=== PATIENT | female | born 1930 | race Caucasian/White ===

== ENCOUNTER → 2016-06-30 | Outpatient (CLI) | payer MEDICARE, OTHER ==
[~2016-06-30] MED LIST: ASPI-892 PO; Aspirin PO; CALC-656 PO; CHOL10003 PO; CLPD75T PO; ENAL1TAB19 PO; ENAL20TA PO; FLUTICASONE; MULT1TAB12 PO; NIAC1CAP PO; NITR100C3 PO; OMEG1CAP74 PO; PRAV10TA PO; [UNRECOGNIZED DRUG - CODE] PO; reclast IV
--- NOTE | 2016-07-03 07:23 | ECHOCARDIOGRAPHY REPORT ---
PROCEDURE PHYSICIAN: ALMITA ESQUEDA DATE OF PROCEDURE: 06/30/2016 TWO DIMENSIONAL ECHOCARDIOGRAM REPORT PRIMARY PHYSICIAN: Dr. Georgia Jackson OTHER PHYSICIAN: REFERRING PHYSICIAN: ORDERING PHYSICIAN: ATTENDING PHYSICIAN: Dr. Doyle Esqueda FAMILY PHYSICIAN: READING PHYSICIAN: INDICATION FOR THE PROCEDURE: Shortness of breath. MEASUREMENTS DERIVED VALUES LV DIAMETER (LAX) NORMALS NORMALS Diastolic (3.6-5.2) Eject. Fract. (60%+/-6%) Systolic (2.3-3.9) Diastolic Vol. % Shortening (0.22-0.42) Systolic Vol. Aortic Root IVS THICKNESS Diastolic (0.6-1.1) LVPW THICKNESS Diastolic (0.6-1.1) LA DIAMETER Systolic (2.1-3.7) FINDINGS: 1. Sinus rhythm. 2. The left atrium is normal. 3. Aortic root is normal. 4. Normal LV systolic function with an EF of 55 to 60%. There is mild concentric LVH with diastolic intraventricular septal diameter of 1.1 cm. 5. There is no wall motion abnormalities. 6. There is possible right ventricular hypertrophy. 7. Mild diastolic dysfunction is present. 8. There is no pericardial effusion. 9. IVC diameter is 1 cm. VALVULAR STRUCTURE OF THE HEART: Mild tricuspid regurgitation. RVSP is significantly raised to 62 mmHg. Mild mitral regurgitation, trace pulmonic regurgitation. There is mild aortic valve sclerosis with no significant stenosis or regurgitation. CONCLUSION: 1. LV size and function is normal. LV EF is 55 to 60%. 2. Mild concentric LVH is noted. 3. Possible right ventricular hypertrophy is noted. 4. At least moderate pulmonary hypertension is noted with RVSP of 62 mmHg. 5. No significant valvular heart. 6. Mild diastolic dysfunction is present. Job ID: [id number] Dictated Date: 07/02/2016 22:37:58 Business Reporter Date: 07/03/2016 07:19:22 / hiram
== END ==
LOC: CARD 12:44
PROVIDERS: ATTEND Internal Medicine Interventional Cardiology
DX: R26.81 Unsteadiness on feet (principal); R06.02 Shortness of breath
CPT/HCPCS: 93306

== ENCOUNTER → 2018-05-11 | Outpatient (CLI) | payer MEDICARE, OTHER ==
[2018-05-11 12:45] LABS: BASOPHILS % (AUTO) 1 % (0-10); EOSINOPHILS # (AUTO) 0.2 10^3/uL (0.0-0.3); EOSINOPHILS % (AUTO) 4 % (0-10); HEMATOCRIT 44 % (35-52); HEMOGLOBIN 13.6 G/DL (11.5-16.0); LYMPHOCYTES # (AUTO) 1.1 X 10^3 (1.0-4.0); LYMPHOCYTES % (AUTO) 23 % (12-44); MEAN CORPUSCULAR HEMOGLOBIN 29 PG (25-34); MEAN CORPUSCULAR HGB CONC 31 G/DL (32-36); MEAN CORPUSCULAR VOLUME 95 FL (80-99); MEAN PLATELET VOLUME 8.6 FL (7.4-10.4); MONOCYTES # (AUTO) 0.3 X 10^3 (0.0-1.0); MONOCYTES % (AUTO) 7 % (0-12); NEUTROPHILS # (AUTO) 3.3 X 10^3 (1.8-7.8); NEUTROPHILS % (AUTO) 66 % (42-75); PLATELET COUNT 248 10^3/uL (130-400); RED BLOOD COUNT 4.64 10^6/uL (4.35-5.85); RED CELL DISTRIBUTION WIDTH 14.2 % (10.0-14.5); WHITE BLOOD COUNT 4.9 10^3/uL (4.3-11.0)
--- NOTE | 2018-05-11 13:00 | Diagnostic Imaging Report ---
PROCEDURE: CT head without contrast. TECHNIQUE: Multiple contiguous axial images were obtained through the brain without the use of intravenous contrast. INDICATION: Fall striking the forehead. Study compared 04/14/2008. 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 A generalized cortical volume loss showed a mild progression. No calvarial fracture deformity and no intracerebral hemorrhage. No edema, mass or mass effect. Orbits, sinuses and calvarium nonacute. No fracture deformity identified. IMPRESSION: Some progressive cerebral cortical atrophy and chronic white matter small vessel sequelae. However, no hemorrhage fracture deformity or acute/posttraumatic sequelae identified. Dictated by: Dictated on workstation # [id number]
[2018-05-11 13:03] LABS: ALBUMIN 4.3 GM/DL (3.2-4.5); BILIRUBIN,TOTAL 0.4 MG/DL (0.1-1.0); CALCIUM 9.2 MG/DL (8.5-10.1); CREATININE SERUM 0.94 MG/DL (0.60-1.30); POTASSIUM 3.7 MMOL/L (3.6-5.0); TOTAL PROTEIN 6.9 GM/DL (6.4-8.2)
--- NOTE | 2018-05-11 13:11 | Diagnostic Imaging Report ---
INDICATION: Fall. TIME OF EXAM: 1:19 PM FINDINGS: Severe multilevel degenerative disc disease is seen with marked disc space narrowing and marginal osteophyte formation. No definite fracture is seen. Prevertebral tissues are within normal limits. Severe multilevel facet disease is seen. IMPRESSION: Severe cervical spondylosis. No acute fracture is identified. However, if there is high clinical index of suspicion of cervical spine injury, CT would be recommended for further evaluation. Dictated by: Dictated on workstation # [id number]
[2018-05-11 14:02] LABS: BILIRUBIN,URINE NEGATIVE (NEGATIVE); CLARITY,URINE CLEAR; COLOR,URINE YELLOW; GLUCOSE, URINE (UA) NEGATIVE (NEGATIVE); KETONES,URINE NEGATIVE (NEGATIVE); LEUKOCYTE ESTERASE ,URINE NEGATIVE (NEGATIVE); NITRITE,URINE NEGATIVE (NEGATIVE); PH,URINE 8 (5-9); PROTEIN,URINE NEGATIVE (NEGATIVE); UROBILINOGEN,URINE NORMAL (NORMAL)
[2018-05-11 14:17] LABS: BACTERIA,URINE FEW /HPF; RBC,URINE 0-2 /HPF; WBC,URINE 0-2 /HPF
== END ==
LOC: RAD 12:26
PROVIDERS: ATTEND Nurse Practitioner Family
DX: S00.93XA Contusion of unspecified part of head, initial encounter (principal); R90.82 White matter disease, unspecified; W19.XXXA Unspecified fall, initial encounter; M47.812 Spondylosis without myelopathy or radiculopathy, cervical region
CPT/HCPCS: 36415; 70450; 72040; 80053; 81000; 84443; 85025

== ENCOUNTER 2018-11-16 07:11 | Emergency (ER) | payer MEDICARE, OTHER ==
[~2018-11-16] VITALS: Ht 157.5 cm; Wt 59.2 kg
--- OUTSIDE RECORDS SUMMARY | 2018-11-16 07:23 | XMS REPORT | CCD ---
Author Author Georgia Jackson Organization Georgia Jackson MD, [facility] Address [address] [place] [address] Phone Care Team Providers Care Ground Mixer Name Role Phone Georgia Jackson PP Unavailable CCM Unavailable Summary Purpose Interface Exchange Insurance Providers Payer name Policy type / Coverage type Covered alliance party ID Effective Begin Date Effective End Date WPS Medicare Part B [id number] 2014 Unknown [employer] [id number] 2014 Unknown Family history Brother Diagnosis Age At Onset No Family Disease Entered N/A Son Diagnosis Age At Onset Diabetes Unknown Mother Diagnosis Age At Onset Diabetes Unknown Brother Diagnosis Age At Onset No Family Disease Entered N/A Father Diagnosis Age At Onset No Family Disease Entered N/A Sister Diagnosis Age At Onset Diabetes Unknown Social History Social History Element Codes Description Effective Dates Living arrangements Unknown Apartment/[facility] 02/18/[address]: 6751278 Former smoker states quit in 2011 or 13 09/18/2013 Marital status Unknown 01/20/2011 Number of children Unknown 2 01/20/2011 Employment Unknown Retired 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 Unknown Has never used illegal drugs 01/20/2011 Allergies, Adverse Reactions, Alerts Substance Reaction Codes Entered Date Inactivated Date Status * NO KNOWN FOOD ALLERGIES Unknown 01/20/2011 No Inactive Date Active * NO KNOWN DRUG ALLERGIES Unknown 01/20/2011 No Inactive Date Active Past Medical History Illness Codes Condition Status Onset Date Resolved Date Essential (primary) hypertension ICD-9: 401.9 ICD-10: I10 Active 05/18/2016 Unknown Major depressive disorder, recurrent, moderate ICD-9: 296.32 ICD-10: F33.1 Active 08/18/2016 Unknown Mixed incontinence ICD- 9: 788.33 ICD-10: N39.46 Active 10/13/2016 Unknown Headache ICD-9: 784.0 ICD-10: R51 Active 05/11/2018 Unknown Weakness ICD-9: 780.79 ICD-10: R53.1 Active 05/11/2018 Unknown Rash and other nonspecific skin eruption ICD-9: 782.1 ICD-10: R21 Active 01/17/2018 Unknown Unsteadiness on feet ICD- 9: 781.2 ICD-10: R26.81 Active 05/18/2016 Unknown Anemia, unspecified ICD- 9: 285.9 ICD-10: D64.9 Active 07/06/2017 Unknown Abnormal weight loss ICD- 9: 783.21 ICD-10: R63.4 Active 10/13/2016 Unknown Chronic obstructive pulmonary disease, unspecified ICD-9: 496 ICD-10: J44.9 Active 11/16/2016 Unknown Mixed hyperlipidemia ICD- 9: 272.4 ICD-10: E78.2 Active 05/18/2016 Unknown 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, bilateral legs ICD-9: 443.9 ICD-10: I70.313 Active 05/18/2016 Unknown ESSENTIAL HYPERTENSION ICD-9: 401.9 Active 01/22/2014 Unknown Chronic fatigue ICD-9: 780.79 Active 07/24/2014 Unknown Peripheral vascular disease ICD-9: 443.9 Active 07/24/2014 Unknown EDEMA ICD-9: 782.3 Active 05/25/2014 Unknown Ataxia ICD-9: 781.3 Active 04/24/2014 Unknown THYROTOXICOSIS NOS W/O CRISIS ICD-9: 242.90 Active 04/24/2014 Unknown HYPERLIPIDEMIA ICD-9: 272.4 Active 01/22/2014 Unknown VACCIN FOR INFLUENZA ICD- 9: V04.81 ICD-10: Z23 Active 01/22/2014 Unknown Encounter for long-term (current) use of medications ICD-9: V58.69 Active 09/21/2011 Unknown Leg pain, posterior ICD- 9: 729.5 Active 09/17/2011 Unknown Varicose vein of leg ICD- 9: 454.9 Active 09/17/2011 Unknown TOBACCO USE DISORDER ICD- 9: 305.1 Active 05/21/2011 Unknown Hypertension Unknown Active 01/20/2011 Unknown restless leg syndrome Unknown Active 01/20/2011 Unknown Hyperlipidemia Unknown Active 01/13/2011 Unknown Osteoarthritis Unknown Active 01/13/2011 Unknown Immunization, pneumococcus and influenza ICD-9: V06.6 Active 01/13/2011 Unknown ROUTINE PHYSICL LAB EXAM ICD-9: V72.62 Active 01/13/2011 Unknown Problems Condition Codes Effective Dates Condition Status Essential (primary) hypertension ICD-9: 401.9 ICD-10: I10 05/18/2016 Active Major depressive disorder, recurrent, moderate ICD-9: 296.32 ICD-10: F33.1 08/18/2016 Active Mixed incontinence ICD- 9: 788.33 ICD-10: N39.46 10/13/2016 Active Headache ICD-9: 784.0 ICD-10: R51 05/11/2018 Active Weakness ICD-9: 780.79 ICD-10: R53.1 05/11/2018 Active Rash and other nonspecific skin eruption ICD-9: 782.1 ICD-10: R21 01/17/2018 Active Unsteadiness on feet ICD- 9: 781.2 ICD-10: R26.81 05/18/2016 Active Anemia, unspecified ICD- 9: 285.9 ICD-10: D64.9 07/06/2017 Active Abnormal weight loss ICD- 9: 783.21 ICD-10: R63.4 10/13/2016 Active Chronic obstructive pulmonary disease, unspecified ICD-9: 496 ICD-10: J44.9 11/16/2016 Active Mixed hyperlipidemia ICD- 9: 272.4 ICD-10: E78.2 05/18/2016 Active 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, bilateral legs ICD-9: 443.9 ICD-10: I70.313 05/18/2016 Active ESSENTIAL HYPERTENSION ICD-9: 401.9 01/22/2014 Active Chronic fatigue ICD-9: 780.79 07/24/2014 Active Peripheral vascular disease ICD-9: 443.9 07/24/2014 Active EDEMA ICD-9: 782.3 05/25/2014 Active Ataxia ICD-9: 781.3 04/24/2014 Active THYROTOXICOSIS NOS W/O CRISIS ICD-9: 242.90 04/24/2014 Active HYPERLIPIDEMIA ICD-9: 272.4 01/22/2014 Active VACCIN FOR INFLUENZA ICD- 9: V04.81 ICD-10: Z23 01/22/2014 Active Encounter for long-term (current) use of medications ICD-9: V58.69 09/21/2011 Active Leg pain, posterior ICD- 9: 729.5 09/17/2011 Active Varicose vein of leg ICD- 9: 454.9 09/17/2011 Active TOBACCO USE DISORDER ICD- 9: 305.1 05/21/2011 Active Hypertension Unknown 01/20/2011 Active restless leg syndrome Unknown 01/20/2011 Active Hyperlipidemia Unknown 01/13/2011 Active Osteoarthritis Unknown 01/13/2011 Active Immunization, pneumococcus and influenza ICD-9: V06.6 01/13/2011 Active ROUTINE PHYSICL LAB EXAM ICD-9: V72.62 01/13/2011 Active Medications Medication Codes Instructions Start Date Stop Date Status Fill Instructions escitalopram 20 mg tablet RxNorm: 538340 1 Tablet(s) PO QPM 09/21/2018 09/15/2019 Active this is to be her new dose - wait to fill until she needs her next RX. enalapril maleate 20 mg tablet RxNorm: 752514 1 Tablet(s) PO daily 08/03/2018 10/26/2019 Active Plavix 75 mg tablet RxNorm: 716713 1 Tablet(s) PO daily 08/03/2018 10/26/2019 Active enalapril maleate 20 mg tablet RxNorm: 310694 1 Tablet(s) PO daily 05/26/2018 08/02/2018 Inactive ketoconazole 2 % topical cream RxNorm: 364017 1 Application TOP BID 01/17/2018 01/30/2018 Inactive Lexapro 10 mg tablet RxNorm: 859639 1 Tablet(s) PO QPM 01/17/2018 07/15/2018 Inactive Plavix 75 mg tablet RxNorm: 397029 1 Tablet(s) PO daily 01/17/2018 07/15/2018 Inactive enalapril maleate 20 mg tablet RxNorm: 173850 1 Tablet(s) PO daily 08/10/2017 05/25/2018 Inactive Plavix 75 mg tablet RxNorm: 156564 1 Tablet(s) PO daily 07/06/2017 01/01/2018 Inactive Lexapro 10 mg tablet RxNorm: 018010 1 Tablet(s) PO QPM 07/06/2017 01/01/2018 Inactive enalapril maleate 20 mg tablet RxNorm: 291583 1 Tablet(s) PO daily TAKE ONE TABLET BY MOUTH DAILY 02/15/2017 08/09/2017 Inactive enalapril maleate 20 mg tablet RxNorm: 994585 TAKE ONE TABLET BY MOUTH DAILY 02/15/2017 02/14/2017 Inactive Myrbetriq 25 mg tablet,extended release RxNorm: 4337798 1 Tablet(s) PO daily 10/13/2016 No Stop Date Active Lexapro 10 mg tablet RxNorm: 495807 1 Tablet(s) PO QPM 09/15/2016 03/13/2017 Inactive enalapril maleate 20 mg tablet RxNorm: 051208 1 Tablet(s) PO daily TAKE ONE TABLET BY MOUTH DAILY 08/18/2016 02/13/2017 Inactive Lexapro 5 mg tablet RxNorm: 451004 1 Tablet(s) PO QPM 08/18/2016 09/14/2016 Inactive enalapril maleate 20 mg tablet RxNorm: 895964 TAKE ONE TABLET BY MOUTH DAILY 05/15/2016 08/12/2016 Inactive enalapril maleate 20 mg tablet RxNorm: 227697 1 Tablet(s) PO daily 05/17/2015 05/10/2016 Inactive chlorthalidone 25 mg tablet RxNorm: 843396 1 Tablet(s) PO QAM 08/24/2014 05/18/2016 Inactive [SAVINGS FOR NON-COVERED DRUGS -- [id number], PCN: [id number], Group: [id number], ID# [id number], Questions: . THIS IS NOT INSURANCE.] Lasix 20 mg tablet RxNorm: 345193 1 Tablet(s) PO QDAY PRN 05/25/2014 05/18/2016 Inactive daily x 3 days then as needed, Take potassium with lasix potassium chloride ER 10 mEq tablet,extended release RxNorm: 683800 1 Tablet(s) PO QDAY PRN 05/25/2014 05/18/2016 Inactive take with lasix enalapril maleate 20 mg tablet RxNorm: 609574 1 Tablet(s) PO daily 04/24/2014 04/18/2015 Inactive enalapril maleate 10 mg tablet RxNorm: 086792 TAKE ONE TABLET BY MOUTH EVERY DAY 12/11/2013 04/23/2014 Inactive enalapril maleate 10 mg tablet RxNorm: 025279 1 Tablet(s) PO daily 03/08/2013 12/02/2013 Inactive enalapril maleate 10 mg tablet RxNorm: 173534 1 Tablet(s) PO daily 09/07/2012 03/07/2013 Inactive enalapril maleate 10 mg tablet RxNorm: 953611 1 Tablet(s) PO daily 05/25/2012 09/06/2012 Inactive enalapril maleate 5 mg tablet RxNorm: 347392 1/2 Tablet(s) PO BID 01/01/2012 05/24/2012 Inactive enalapril maleate 5 mg tablet RxNorm: 125926 1/2 Tablet(s) PO BID 10/02/2011 12/31/2011 Inactive Fish Oil 1,000 mg Cap RxNorm: 3 Capsule(s) PO daily 09/23/2011 No Stop Date Active enalapril maleate 5 mg Tab RxNorm: 000442 1/2 Tablet(s) PO BID 06/29/2011 10/01/2011 Inactive Influenza Virus Vaccine 0.5 mL RxNorm: IM 01/13/2011 01/13/2011 Inactive Pneumovax 23 25 mcg/0.5 mL Injection RxNorm: 503808 Milliliter(s) Inj 01/13/2011 01/13/2011 Inactive Veramyst 27.5 mcg/Actuation Nasal Alverda RxNorm: 4067030 1 Alverda NASAL daily No Start Date Active multivitamin Oral RxNorm: Oral No Start Date Active Calcium + D Oral RxNorm: Oral No Start Date Active enalapril maleate 5 mg Tab RxNorm: 767609 1/2 Tablet(s) PO BID No Start Date 06/28/2011 Inactive niacin 500 mg Tab RxNorm: 283978 1 Tablet(s) PO QHS No Start Date 05/18/2016 Inactive Reclast 5 mg/100 mL IV RxNorm: 569270 1 Milliliter(s) IV Yearly No Start Date 05/18/2016 Inactive Fish Oil 1,000 mg Cap RxNorm: Oral No Start Date 09/22/2011 Inactive Medication Administered Medication Codes Instructions Start Date Status Influenza Virus Vaccine 0.5 mL RxNorm: 01/13/2011 No longer Active Pneumovax 23 25 mcg/0.5 mL Injection RxNorm: 728845 Milliliter 01/13/2011 No longer Active Immunizations Vaccine Codes Date Status Influenza CVX: 141 02/20/2018 completed Influenza CVX: 141 01/22/2014 completed Influenza CVX: 141 02/13/2013 completed Influenza Unknown 01/13/2011 completed Influenza CVX: 141 01/13/2011 completed Pneumococcal (Adult) CVX: 33 01/13/2011 completed Assessments Condition Codes Effective Dates Major depressive disorder, recurrent, moderate ICD-10: F33.1 ICD-9: 296.32 09/21/2018 Essential (primary) hypertension ICD-10: I10 ICD-9: 401.9 09/21/2018 Mixed incontinence ICD-10: N39.46 ICD-9: 788.33 05/26/2018 Weakness ICD-10: R53.1 ICD-9: 780.79 05/11/2018 Headache ICD-10: R51 ICD-9: 784.0 05/11/2018 Rash and other nonspecific skin eruption ICD-10: R21 ICD-9: 782.1 01/17/2018 Unsteadiness on feet ICD-10: R26.81 ICD-9: 781.2 10/12/2017 Anemia, unspecified ICD-10: D64.9 ICD-9: 285.9 07/06/2017 Abnormal weight loss ICD-10: R63.4 ICD-9: 783.21 03/18/2017 Chronic obstructive pulmonary disease, unspecified ICD-10: J44.9 ICD-9: 496 02/18/2017 Mixed hyperlipidemia ICD-10: E78.2 ICD-9: 272.4 08/18/2016 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, bilateral legs ICD-10: I70.313 ICD-9: 443.9 05/19/2016 ESSENTIAL HYPERTENSION ICD-9: 401.9 09/14/2014 EDEMA ICD-9: 782.3 09/14/2014 Peripheral vascular disease ICD-9: 443.9 07/24/2014 Ataxia ICD-9: 781.3 07/24/2014 Chronic fatigue ICD-9: 780.79 07/24/2014 THYROTOXICOSIS NOS W/O CRISIS ICD-9: 242.90 04/24/2014 HYPERLIPIDEMIA ICD-9: 272.4 04/24/2014 VACCIN FOR INFLUENZA ICD-10: Z23 ICD-9: V04.81 01/22/2014 ENCNTR LONG-RX USE NEC ICD-9: V58.69 03/20/2013 TOBACCO USE DISORDER ICD-9: 305.1 05/25/2012 Leg pain, posterior ICD-9: 729.5 09/17/2011 Varicose vein of leg ICD-9: 454.9 09/17/2011 ROUTINE PHYSICL LAB EXAM ICD-9: V72.62 01/13/2011 Immunization, pneumococcus and influenza ICD-9: V06.6 01/13/2011 Reason For Visit Reason For Visit Effective Dates Notes hypertension 09/21/2018 gait abnormality 05/26/2018 headache 05/11/2018 gait abnormality 01/17/2018 gait abnormality 10/12/2017 gait abnormality 08/10/2017 gait abnormality 07/06/2017 gait abnormality 03/18/2017 gait abnormality 02/18/2017 gait abnormality 11/16/2016 continues edema 10/13/2016 worsening edema 09/15/2016 edema 08/18/2016 edema 06/23/2016 edema 05/19/2016 edema 09/14/2014 edema 08/24/2014 gait abnormality 07/24/2014 cough 05/25/2014 gait abnormality 04/24/2014 gait abnormality 01/22/2014 gait abnormality 09/18/2013 weight gain/obesity 03/20/2013 hypertension 05/25/2012 lower leg pain 09/17/2011 gait abnormality 05/21/2011 cholesterol followup 01/20/2011 unsteady, feels better with continued activity Results Observation Observation Code Item Item Code Result Date Cbc With Differential Ord2 WBC 5.47 K/ul 07/06/2017 Cbc With Differential Ord2 RBC 4.13 M/ul 07/06/2017 Cbc With Differential Ord2 HGB 11.5 g/dl 07/06/2017 Cbc With Differential Ord2 HCT 38.5 % 07/06/2017 Cbc With Differential Ord2 Neut% 58.0 % 07/06/2017 Cbc With Differential Ord2 MCV 93.2 fl 07/06/2017 Cbc With Differential Ord2 Lymph% 26.1 % 07/06/2017 Cbc With Differential Ord2 MCH 27.8 pg 07/06/2017 Cbc With Differential Ord2 Bucks% 6.9 % 07/06/2017 Cbc With Differential Ord2 MCHC 29.9 pg 07/06/2017 Cbc With Differential Ord2 Eos% 7.9 % 07/06/2017 Cbc With Differential Ord2 PLT 271 K/ul 07/06/2017 Cbc With Differential Ord2 Baso% 1.1 % 07/06/2017 Cbc With Differential Ord2 RDW 14.3 % 07/06/2017 Cbc With Differential Ord2 Neut ABS# 3.17 K/ul 07/06/2017 Cbc With Differential Ord2 Lymph ABS# 1.43 K/ul 07/06/2017 Cbc With Differential Ord2 [place] ABS# 0.4 K/ul 07/06/2017 Cbc With Differential Ord2 Eos ABS# 0.4 K/ul 07/06/2017 Cbc With Differential Ord2 Baso ABS# 0.1 K/ul 07/06/2017 Comp Metabolic Uoa263 NA 144 mEq/L 07/06/2017 Comp Metabolic Bks064 K 3.7 mEq/L 07/06/2017 Comp Metabolic Vnk305 CL 105 mEq/L 07/06/2017 Comp Metabolic Age519 CO2 30.0 mEq/L 07/06/2017 Comp Metabolic Mlc892 ANION GAP 13 07/06/2017 Comp Metabolic Xgk440 GLUCOSE 84 mg/dL 07/06/2017 Comp Metabolic Zgw142 Creat 0.9 mg/dL 07/06/2017 Comp Metabolic Awm486 eGFR 67 ml/min/1.73m2 07/06/2017 Comp Metabolic Mvr993 BUN 19 mg/dL 07/06/2017 Comp Metabolic Ckq530 B/C Ratio 22.4 Ratio 07/06/2017 Comp Metabolic Tlb370 CALCIUM 9.3 mg/dL 07/06/2017 Comp Metabolic Wrb165 ALK PHOS 58 U/L 07/06/2017 Comp Metabolic Kga207 AST(SGOT) 15 U/L 07/06/2017 Comp Metabolic Jhd499 ALT(SGPT) 9 U/L 07/06/2017 Comp Metabolic Cvv362 BILI T 0.2 mg/dL 07/06/2017 Comp Metabolic Stf015 ALBUMIN 4.0 g/dL 07/06/2017 Comp Metabolic Tto200 TPRO 6.2 g/dL 07/06/2017 Comp Metabolic Pza248 GLOB 2.2 g/dL 07/06/2017 Comp Metabolic Ule575 A/G Ratio 1.8 Ratio 07/06/2017 Comp Metabolic Fhx731 Osmo 288 mOsmo 07/06/2017 Tsh Ord6 TSH (3rd IS) 0.56 uIU/mL 07/06/2017 Tibc Iron 114 ug/dl 07/06/2017 Tibc UIBC 290 ug/dL 07/06/2017 Tibc TIBC 404 ug/dL 07/06/2017 Tibc Fe-%Sat 28.2 % 07/06/2017 Ferritin Ord22 FERRITIN 15.1 ng/mL 07/06/2017 B12 Zoh691 B12 >1500.00 pg/ml 07/06/2017 Cbc With Differential Ord2 WBC 6.20 K/ul 08/18/2016 Cbc With Differential Ord2 RBC 4.56 M/ul 08/18/2016 Cbc With Differential Ord2 HGB 13.8 g/dl 08/18/2016 Cbc With Differential Ord2 HCT 43.8 % 08/18/2016 Cbc With Differential Ord2 Neut% 59.4 % 08/18/2016 Cbc With Differential Ord2 MCV 96.1 fl 08/18/2016 Cbc With Differential Ord2 Lymph% 26.0 % 08/18/2016 Cbc With Differential Ord2 MCH 30.3 pg 08/18/2016 Cbc With Differential Ord2 Bucks% 8.5 % 08/18/2016 Cbc With Differential Ord2 MCHC 31.5 pg 08/18/2016 Cbc With Differential Ord2 Eos% 5.3 % 08/18/2016 Cbc With Differential Ord2 PLT 254 K/ul 08/18/2016 Cbc With Differential Ord2 Baso% 0.8 % 08/18/2016 Cbc With Differential Ord2 RDW 14.3 % 08/18/2016 Cbc With Differential Ord2 Neut ABS# 3.68 K/ul 08/18/2016 Cbc With Differential Ord2 Lymph ABS# 1.61 K/ul 08/18/2016 Cbc With Differential Ord2 [place] ABS# 0.5 K/ul 08/18/2016 Cbc With Differential Ord2 Eos ABS# 0.3 K/ul 08/18/2016 Cbc With Differential Ord2 Baso ABS# 0.1 K/ul 08/18/2016 Comp Metabolic Fgz373 NA 143 mEq/L 08/18/2016 Comp Metabolic Cip589 K 4.3 mEq/L 08/18/2016 Comp Metabolic Lau466 CL 105 mEq/L 08/18/2016 Comp Metabolic Weg154 CO2 28.0 mEq/L 08/18/2016 Comp Metabolic Fsu530 ANION GAP 14 08/18/2016 Comp Metabolic Ott256 GLUCOSE 77 mg/dL 08/18/2016 Comp Metabolic Dty347 Creat 0.9 mg/dL 08/18/2016 Comp Metabolic Qas970 eGFR 67 ml/min/1.73m2 08/18/2016 Comp Metabolic Vrb440 BUN 21 mg/dL 08/18/2016 Comp Metabolic Ejq094 B/C Ratio 24.7 Ratio 08/18/2016 Comp Metabolic Cze785 CALCIUM 9.0 mg/dL 08/18/2016 Comp Metabolic Bky115 ALK PHOS 56 U/L 08/18/2016 Comp Metabolic Vhn861 AST(SGOT) 18 U/L 08/18/2016 Comp Metabolic Pzn542 ALT(SGPT) 11 U/L 08/18/2016 Comp Metabolic Mla549 BILI T 0.4 mg/dL 08/18/2016 Comp Metabolic Wvc710 ALBUMIN 3.9 g/dL 08/18/2016 Comp Metabolic Vbq698 TPRO 6.4 g/dL 08/18/2016 Comp Metabolic Nak425 GLOB 2.5 g/dL 08/18/2016 Comp Metabolic Nel709 A/G Ratio 1.6 Ratio 08/18/2016 Comp Metabolic Tuj263 Osmo 287 mOsmo 08/18/2016 Lipid Ord30 CHOL 183 mg/dL 08/18/2016 Lipid Ord30 HDL 46.0 mg/dl 08/18/2016 Lipid Ord30 TRIG 129 mg/dL 08/18/2016 Lipid Ord30 LDL 111 mg/dL 08/18/2016 Lipid Ord30 C/HDL 4.0 Ratio 08/18/2016 Tsh Ord6 hTSH II 0.70 uIU/mL 08/18/2016 Comp Metabolic Sij676 NA 141 mEq/L 05/20/2016 Comp Metabolic Jcu376 K 4.3 mEq/L 05/20/2016 Comp Metabolic F[address]120 CL 103 mEq/L 05/20/2016 Comp Metabolic Gms217 CO2 31.0 mEq/L 05/20/2016 Comp Metabolic Kmm161 ANION GAP 11 05/20/2016 Comp Metabolic Eza090 GLUCOSE 93 mg/dL 05/20/2016 Comp Metabolic Wgq606 Creat 1.0 mg/dL 05/20/2016 Comp Metabolic Xvu642 eGFR 57 ml/min/1.73m2 05/20/2016 Comp Metabolic Tzr873 BUN 16 mg/dL 05/20/2016 Comp Metabolic Ibz536 B/C Ratio 16.3 Ratio 05/20/2016 Comp Metabolic Owg609 CALCIUM 10.1 mg/dL 05/20/2016 Comp Metabolic Bjt277 ALK PHOS 49 U/L 05/20/2016 Comp Metabolic Gcs720 AST(SGOT) 17 U/L 05/20/2016 Comp Metabolic Msj605 ALT(SGPT) 11 U/L 05/20/2016 Comp Metabolic Meh422 BILI T 0.3 mg/dL 05/20/2016 Comp Metabolic Zaj813 ALBUMIN 4.4 g/dL 05/20/2016 Comp Metabolic Kzb623 TPRO 6.8 g/dL 05/20/2016 Comp Metabolic Gqt389 GLOB 2.4 g/dL 05/20/2016 Comp Metabolic Uoa388 A/G Ratio 1.8 Ratio 05/20/2016 Comp Metabolic Ocg461 Osmo 282 mOsmo 05/20/2016 Cbc With Differential Ord2 WBC 6.40 K/ul 05/20/2016 Cbc With Differential Ord2 RBC 4.57 M/ul 05/20/2016 Cbc With Differential Ord2 HGB 14.0 g/dl 05/20/2016 Cbc With Differential Ord2 HCT 44.1 % 05/20/2016 Cbc With Differential Ord2 Neut% 47.6 % 05/20/2016 Cbc With Differential Ord2 MCV 96.5 fl 05/20/2016 Cbc With Differential Ord2 Lymph% 38.3 % 05/20/2016 Cbc With Differential Ord2 MCH 30.6 pg 05/20/2016 Cbc With Differential Ord2 Bucks% 7.8 % 05/20/2016 Cbc With Differential Ord2 MCHC 31.7 pg 05/20/2016 Cbc With Differential Ord2 Eos% 4.4 % 05/20/2016 Cbc With Differential Ord2 PLT 279 K/ul 05/20/2016 Cbc With Differential Ord2 Baso% 1.9 % 05/20/2016 Cbc With Differential Ord2 RDW 13.8 % 05/20/2016 Cbc With Differential Ord2 Neut ABS# 3.05 K/ul 05/20/2016 Cbc With Differential Ord2 Lymph ABS# 2.45 K/ul 05/20/2016 Cbc With Differential Ord2 Bucks ABS# 0.5 K/ul 05/20/2016 Cbc With Differential Ord2 Eos ABS# 0.3 K/ul 05/20/2016 Cbc With Differential Ord2 Baso ABS# 0.1 K/ul 05/20/2016 Tsh Ord6 hTSH II 0.80 uIU/mL 05/20/2016 GFR CALC 3661858 GFR AA >60 ML/MIN 07/24/2014 GFR CALC 1186649 GFR NON-AA >60 ML/MIN 07/24/2014 TSH 2103769 TSH 0.192 uIU/ML 07/24/2014 CBC 8869625 WBC 6.4 10e9/L 07/24/2014 CBC 1265183 RBC 4.61 10e12/L 07/24/2014 CBC 8463717 HGB 13.7 g/dL 07/24/2014 CBC 6579328 HCT DET 42.6 % 07/24/2014 CBC 8447525 MCV 92.4 fL 07/24/2014 CBC 2420407 MCH 29.7 pg 07/24/2014 CBC 7086198 MCHC 32.2 g/dL 07/24/2014 CBC 8705309 PLT 280 10e9/L 07/24/2014 CBC 8972384 MPV 8.9 fL 07/24/2014 CBC 2000725 AISSATOU % 59.5 % 07/24/2014 CBC 7653716 LY % 30.6 % 07/24/2014 CBC 6915890 MON % 5.9 % 07/24/2014 CBC 9854659 EOS % 3.4 % 07/24/2014 CBC 4185953 BASO % 0.6 % 07/24/2014 CBC 5594480 RDW 14.8 % 07/24/2014 CBC 4795531 ABS AISSATOU 3.81 10e9/L 07/24/2014 CBC 7094453 ABS LYMPH 1.96 10e9/L 07/24/2014 CBC 7660106 ABS MONO 0.38 10e9/L 07/24/2014 CBC 0754025 ABS EOS 0.22 10e9/L 07/24/2014 CBC 7916924 ABS BASO 0.04 10e9/L 07/24/2014 CBC 4800065 RDW-SD 48.9 fL 07/24/2014 CHEM 14 8130036 AST 17 U/L 07/24/2014 CHEM 14 0973866 ALT 11 IU/L 07/24/2014 CHEM 14 8277765 BUN 13 MG/DL 07/24/2014 CHEM 14 1294330 ALBUMIN 4.2 GM/DL 07/24/2014 CHEM 14 7069316 CHLORIDE 104 MMOL/L 07/24/2014 CHEM 14 2564542 BILI TOT 0.6 MG/DL 07/24/2014 CHEM 14 2266220 ALK PHOS 52 U/L 07/24/2014 CHEM 14 9465888 SODIUM 141 MMOL/L 07/24/2014 CHEM 14 9762813 CREATININE 0.87 MG/DL 07/24/2014 CHEM 14 2141223 CALCIUM 9.1 MG/DL 07/24/2014 CHEM 14 8254785 POTASSIUM 4.1 MMOL/L 07/24/2014 CHEM 14 5512664 PROT TOT 6.4 GM/DL 07/24/2014 CHEM 14 3825410 GLUCOSE 100 MG/DL 07/24/2014 CHEM 14 1163676 BICARB 27 MMOL/L 07/24/2014 CHEM 14 6648591 ANION GAP 10 MEQ/L 07/24/2014 FREE T4 4515088 FREE T4 1.08 NG/DL 09/20/2013 T3 TOT 6055727 T3 TOT 1.1 NG/ML 09/20/2013 CHEM 14 8240756 AST 20 U/L 09/18/2013 CHEM 14 8148991 ALT 17 IU/L 09/18/2013 CHEM 14 9039194 BUN 18 MG/DL 09/18/2013 CHEM 14 7699685 ALBUMIN 4.4 GM/DL 09/18/2013 CHEM 14 4052048 CHLORIDE 106 MMOL/L 09/18/2013 CHEM 14 4082890 BILI TOT 0.4 MG/DL 09/18/2013 CHEM 14 2414936 ALK PHOS 50 U/L 09/18/2013 CHEM 14 0239301 SODIUM 142 MMOL/L 09/18/2013 CHEM 14 0385422 CREATININE 0.92 MG/DL 09/18/2013 CHEM 14 3741843 CALCIUM 9.3 MG/DL 09/18/2013 CHEM 14 7872354 POTASSIUM 4.1 MMOL/L 09/18/2013 CHEM 14 2513330 PROT TOT 6.5 GM/DL 09/18/2013 CHEM 14 6199849 GLUCOSE 98 MG/DL 09/18/2013 CHEM 14 2552612 BICARB 27 MMOL/L 09/18/2013 CHEM 14 0198291 ANION GAP 9 MEQ/L 09/18/2013 TSH 2146162 TSH 0.209 uIU/ML 09/18/2013 CBC 2317091 WBC 7.1 10e9/L 09/18/2013 CBC 0175885 RBC 4.59 10e12/L 09/18/2013 CBC 5540558 HGB 14.1 g/dL 09/18/2013 CBC 2057797 HCT DET 43.3 % 09/18/2013 CBC 0066899 MCV 94.3 fL 09/18/2013 CBC 9556841 MCH 30.7 pg 09/18/2013 CBC 5758285 MCHC 32.6 g/dL 09/18/2013 CBC 2921915 PLT 274 10e9/L 09/18/2013 CBC 3294546 MPV 9.1 fL 09/18/2013 CBC 0106143 AISSATOU % 60.9 % 09/18/2013 CBC 5004708 LY % 29.2 % 09/18/2013 CBC 9394759 MON % 6.1 % 09/18/2013 CBC 5856465 EOS % 3.2 % 09/18/2013 CBC 7798653 BASO % 0.6 % 09/18/2013 CBC 3841965 RDW 13.8 % 09/18/2013 CBC 1436298 ABS AISSATOU 4.32 10e9/L 09/18/2013 CBC 5858256 ABS LYMPH 2.07 10e9/L 09/18/2013 CBC 8078560 ABS MONO 0.43 10e9/L 09/18/2013 CBC 8987611 ABS EOS 0.23 10e9/L 09/18/2013 CBC 2252449 ABS BASO 0.04 10e9/L 09/18/2013 CBC 5182393 RDW-SD 46.0 fL 09/18/2013 LIPID GRP HDL TEST 70 MG/DL 09/18/2013 LIPID GRP TRIG 114 MG/DL 09/18/2013 LIPID GRP TEST LDL 198 MG/DL 09/18/2013 LIPID GRP CHOL 291 MG/DL 09/18/2013 LIPID GRP RCHOL/HDL 4.16 RATIO 09/18/2013 GFR CALC 8033017 GFR AA >60 ML/MIN 09/18/2013 GFR CALC 7265530 GFR NON-AA 58.0L ML/MIN 09/18/2013 FREE T4 [id number] FREE T4 1.05 NG/DL 03/22/2013 T3 TOT 7094803 T3 TOT 0.9 NG/ML 03/22/2013 CHEM 14 4566675 AST 18 U/L 03/20/2013 CHEM 14 7950821 ALT 13 IU/L 03/20/2013 CHEM 14 8618345 BUN 25 MG/DL 03/20/2013 CHEM 14 5341107 ALBUMIN 4.4 GM/DL 03/20/2013 CHEM 14 9296077 CHLORIDE 105 MMOL/L 03/20/2013 CHEM 14 2008047 BILI TOT 0.4 MG/DL 03/20/2013 CHEM 14 8471105 ALK PHOS 40 U/L 03/20/2013 CHEM 14 1306628 SODIUM 141 MMOL/L 03/20/2013 CHEM 14 2580070 CREATININE 0.95 MG/DL 03/20/2013 CHEM 14 8224702 CALCIUM 9.8 MG/DL 03/20/2013 CHEM 14 6598974 POTASSIUM 4.1 MMOL/L 03/20/2013 CHEM 14 1255124 PROT TOT 6.2 GM/DL 03/20/2013 CHEM 14 2294335 GLUCOSE 89 MG/DL 03/20/2013 CHEM 14 0124812 BICARB 29 MMOL/L 03/20/2013 CHEM 14 6454403 ANION GAP 7 MEQ/L 03/20/2013 TSH 2091292 TSH 0.228 uIU/ML 03/20/2013 GFR CALC 1441599 GFR AA >60 ML/MIN 03/20/2013 GFR CALC 0685200 GFR NON-AA 56.0L ML/MIN 03/20/2013 CBC 9516369 WBC 6.8 10e9/L 03/20/2013 CBC 1697752 RBC 4.58 10e12/L 03/20/2013 CBC 9650938 HGB 14.1 g/dL 03/20/2013 CBC 1216483 HCT DET 43.1 % 03/20/2013 CBC 1561906 MCV 94.1 fL 03/20/2013 CBC 8857253 MCH 30.8 pg 03/20/2013 CBC 0024398 MCHC 32.7 g/dL 03/20/2013 CBC 5417393 PLT 294 10e9/L 03/20/2013 CBC 3784791 MPV 9.4 fL 03/20/2013 CBC 5956801 AISSATOU % 50.3 % 03/20/2013 CBC [id number] LY % 35.9 % 03/20/2013 CBC [id number] MON % 7.3 % 03/20/2013 CBC [id number] EOS % 5.8 % 03/20/2013 CBC [id number] BASO % 0.7 % 03/20/2013 CBC [id number] RDW 14.5 % 03/20/2013 CBC [id number] ABS AISSATOU 3.42 10e9/L 03/20/2013 CBC [id number] ABS LYMPH 2.44 10e9/L 03/20/2013 CBC [id number] ABS MONO 0.50 10e9/L 03/20/2013 CBC [id number] ABS EOS 0.39 10e9/L 03/20/2013 CBC [id number] ABS BASO 0.05 10e9/L 03/20/2013 CBC [id number] RDW-SD 48.2 fL 03/20/2013 LIPID GRP HDL TEST 71 MG/DL 03/20/2013 LIPID GRP TRIG 87 MG/DL 03/20/2013 LIPID GRP TEST LDL 168 MG/DL 03/20/2013 LIPID GRP CHOL 256 MG/DL 03/20/2013 LIPID GRP RCHOL/HDL 3.61 RATIO 03/20/2013 FREE T4 [id number] FREE T4 1.09 NG/DL 05/31/2012 T3 TOT 5971083 T3 TOT 0.9 NG/ML 05/31/2012 CBC [id number] WBC 7.1 10e9/L 05/27/2012 CBC [id number] RBC 4.58 10e12/L 05/27/2012 CBC [id number] HGB 14.4 g/dL 05/27/2012 CBC [id number] HCT DET 43.5 % 05/27/2012 CBC [id number] MCV 95.0 fL 05/27/2012 CBC [id number] MCH 31.4 pg 05/27/2012 CBC [id number] MCHC 33.1 g/dL 05/27/2012 CBC [id number] PLT 285 10e9/L 05/27/2012 CBC [id number] MPV 9.2 fL 05/27/2012 CBC [id number] AISSATOU % 61.2 % 05/27/2012 CBC [id number] LY % 27.5 % 05/27/2012 CBC [id number] MON % 6.8 % 05/27/2012 CBC [id number] EOS % 3.8 % 05/27/2012 CBC [id number] BASO % 0.7 % 05/27/2012 CBC [id number] RDW 14.1 % 05/27/2012 CBC [id number] ABS AISSATOU 4.35 10e9/L 05/27/2012 CBC [id number] ABS LYMPH 1.95 10e9/L 05/27/2012 CBC [id number] ABS MONO 0.48 10e9/L 05/27/2012 CBC [id number] ABS EOS 0.27 10e9/L 05/27/2012 CBC [id number] ABS BASO 0.05 10e9/L 05/27/2012 CBC [id number] RDW-SD 47.2 fL 05/27/2012 LIPID GRP HDL TEST 57 MG/DL 05/27/2012 LIPID GRP TRIG 110 MG/DL 05/27/2012 LIPID GRP TEST LDL 156 MG/DL 05/27/2012 LIPID GRP CHOL 235 MG/DL 05/27/2012 LIPID GRP RCHOL/HDL 4.12 RATIO 05/27/2012 CHEM 14 [id number] AST 19 U/L 05/27/2012 CHEM 14 [id number] ALT 13 IU/L 05/27/2012 CHEM 14 [id number] BUN 19 MG/DL 05/27/2012 CHEM 14 [id number] ALBUMIN 4.7 GM/DL 05/27/2012 CHEM 14 [id number] CHLORIDE 106 MMOL/L 05/27/2012 CHEM 14 [id number] BILI TOT 0.5 MG/DL 05/27/2012 CHEM 14 [id number] ALK PHOS 51 U/L 05/27/2012 CHEM 14 [id number] SODIUM 141 MMOL/L 05/27/2012 CHEM 14 [id number] CREATININE 0.85 MG/DL 05/27/2012 CHEM 14 [id number] CALCIUM 9.4 MG/DL 05/27/2012 CHEM 14 [id number] POTASSIUM 4.0 MMOL/L 05/27/2012 CHEM 14 [id number] PROT TOT 6.7 GM/DL 05/27/2012 CHEM 14 [id number] GLUCOSE 101 MG/DL 05/27/2012 CHEM 14 [id number] BICARB 29 MMOL/L 05/27/2012 CHEM 14 [id number] ANION GAP 6 MEQ/L 05/27/2012 TSH [id number] TSH 0.275 uIU/ML 05/27/2012 GFR CALC [id number] GFR AA >60 ML/MIN 05/27/2012 GFR CALC [id number] GFR NON-AA >60 ML/MIN 05/27/2012 CHEM 14 [id number] AST 18 U/L 09/21/2011 CHEM 14 [id number] ALT 11 IU/L 09/21/2011 CHEM 14 [id number] BUN 18 MG/DL 09/21/2011 CHEM 14 [id number] ALBUMIN 4.3 GM/DL 09/21/2011 CHEM 14 [id number] CHLORIDE 102 MMOL/L 09/21/2011 CHEM 14 [id number] BILI TOT 0.4 MG/DL 09/21/2011 CHEM 14 [id number] ALK PHOS 47 U/L 09/21/2011 CHEM 14 [id number] SODIUM 139 MMOL/L 09/21/2011 CHEM 14 [id number] CREATININE 0.92 MG/DL 09/21/2011 CHEM 14 [id number] CALCIUM 9.2 MG/DL 09/21/2011 CHEM 14 [id number] POTASSIUM 4.1 MMOL/L 09/21/2011 CHEM 14 [id number] PROT TOT 6.4 GM/DL 09/21/2011 CHEM 14 [id number] GLUCOSE 89 MG/DL 09/21/2011 CHEM 14 [id number] BICARB 28 MMOL/L 09/21/2011 CHEM 14 [id number] ANION GAP 9 MEQ/L 09/21/2011 TSH [id number] TSH 0.352 uIU/ML 09/21/2011 GFR CALC [id number] GFR AA >60 ML/MIN 09/21/2011 GFR CALC GFR NON-AA 58.0L ML/MIN 09/21/2011 LIPID GRP HDL TEST 54 MG/DL 09/21/2011 LIPID GRP TRIG 81 MG/DL 09/21/2011 LIPID GRP TEST LDL 154 MG/DL 09/21/2011 LIPID GRP CHOL 224 MG/DL 09/21/2011 LIPID GRP RCHOL/HDL 4.15 RATIO 09/21/2011 CBC [id number] WBC 9.6 10e9/L 09/21/2011 CBC [id number] RBC 4.85 10e12/L 09/21/2011 CBC [id number] HGB 15.0 g/dL 09/21/2011 CBC [id number] HCT DET 46.5 % 09/21/2011 CBC [id number] MCV 95.9 fL 09/21/2011 CBC [id number] MCH 30.9 pg 09/21/2011 CBC [id number] MCHC 32.3 g/dL 09/21/2011 CBC [id number] PLT 279 10e9/L 09/21/2011 CBC [id number] MPV 9.1 fL 09/21/2011 CBC [id number] AISSATOU % 63.4 % 09/21/2011 CBC [id number] LY % 26.1 % 09/21/2011 CBC [id number] MON % 5.6 % 09/21/2011 CBC [id number] EOS % 4.4 % 09/21/2011 CBC [id number] BASO % 0.5 % 09/21/2011 CBC [id number] RDW 14.0 % 09/21/2011 CBC [id number] ABS AISSATOU 6.09 10e9/L 09/21/2011 CBC [id number] ABS LYMPH 2.51 10e9/L 09/21/2011 CBC [id number] ABS MONO 0.54 10e9/L 09/21/2011 CBC [id number] ABS EOS 0.42 10e9/L 09/21/2011 CBC [id number] ABS BASO 0.05 10e9/L 09/21/2011 CBC [id number] RDW-SD 47.9 fL 09/21/2011 Review of Systems System Result Effective Dates Constitutional No recent illness 09/21/2018 Constitutional No anorexia 09/21/2018 Constitutional No night sweats 09/21/2018 Constitutional No chills 09/21/2018 Constitutional No diaphoresis 09/21/2018 Constitutional fatigue 09/21/2018 Constitutional No fever 09/21/2018 Constitutional No insomnia 09/21/2018 Constitutional No malaise 09/21/2018 Eyes No eye discharge 09/21/2018 Eyes No eye erythema 09/21/2018 Ears/Nose/Throat/Neck No dizziness 09/21/2018 Ears/Nose/Throat/Neck No headache 09/21/2018 Cardiovascular No chest pain/pressure 09/21/2018 Cardiovascular edema 09/21/2018 Respiratory No productive sputum 09/21/2018 Respiratory No chest congestion 09/21/2018 Respiratory No cough 09/21/2018 Respiratory dyspnea on exertion 09/21/2018 Gastrointestinal No abdominal pain 09/21/2018 Gastrointestinal No constipation 09/21/2018 Gastrointestinal No diarrhea 09/21/2018 Genitourinary/Nephrology No dysuria 09/21/2018 Musculoskeletal arthralgia(s) 09/21/2018 Musculoskeletal joint complaint 09/21/2018 Neurologic No alteration of consciousness 09/21/2018 Neurologic memory loss 09/21/2018 Psychiatric anxiety 09/21/2018 Psychiatric depression 09/21/2018 Constitutional No recent illness 05/26/2018 Constitutional No anorexia 05/26/2018 Constitutional No night sweats 05/26/2018 Constitutional No chills 05/26/2018 Constitutional No diaphoresis 05/26/2018 Constitutional fatigue 05/26/2018 Constitutional No fever 05/26/2018 Constitutional No insomnia 05/26/2018 Constitutional No malaise 05/26/2018 Eyes No eye discharge 05/26/2018 Eyes No eye erythema 05/26/2018 Ears/Nose/Throat/Neck No dizziness 05/26/2018 Ears/Nose/Throat/Neck No headache 05/26/2018 Cardiovascular No chest pain/pressure 05/26/2018 Cardiovascular edema 05/26/2018 Respiratory No productive sputum 05/26/2018 Respiratory No chest congestion 05/26/2018 Respiratory No cough 05/26/2018 Respiratory dyspnea on exertion 05/26/2018 Gastrointestinal No abdominal pain 05/26/2018 Gastrointestinal No constipation 05/26/2018 Gastrointestinal No diarrhea 05/26/2018 Genitourinary/Nephrology No dysuria 05/26/2018 Musculoskeletal arthralgia(s) 05/26/2018 Musculoskeletal joint complaint 05/26/2018 Neurologic No alteration of consciousness 05/26/2018 Neurologic memory loss 05/26/2018 Psychiatric anxiety 05/26/2018 Psychiatric depression 05/26/2018 Constitutional No recent illness 05/11/2018 Constitutional No chills 05/11/2018 Constitutional No diaphoresis 05/11/2018 Constitutional No fever 05/11/2018 Eyes No eye erythema 05/11/2018 Ears/Nose/Throat/Neck No nasal discharge 05/11/2018 Cardiovascular No chest pain/pressure 05/11/2018 Cardiovascular No dyspnea 05/11/2018 Respiratory No cough 05/11/2018 Respiratory No chest congestion 05/11/2018 Gastrointestinal No abdominal pain 05/11/2018 Gastrointestinal No constipation 05/11/2018 Gastrointestinal No diarrhea 05/11/2018 Genitourinary/Nephrology No dysuria 05/11/2018 Musculoskeletal joint complaint 05/11/2018 Musculoskeletal arthralgia(s) 05/11/2018 Dermatologic No rash 05/11/2018 Neurologic No alteration of consciousness 05/11/2018 Neurologic No mental status change 05/11/2018 Neurologic headache 05/11/2018 Constitutional No recent illness 01/17/2018 Constitutional No anorexia 01/17/2018 Constitutional No night sweats 01/17/2018 Constitutional No chills 01/17/2018 Constitutional No diaphoresis 01/17/2018 Constitutional fatigue 01/17/2018 Constitutional No fever 01/17/2018 Constitutional No insomnia 01/17/2018 Constitutional No malaise 01/17/2018 Constitutional No weight loss 01/17/2018 Eyes No eye discharge 01/17/2018 Eyes No eye erythema 01/17/2018 Ears/Nose/Throat/Neck No dizziness 01/17/2018 Ears/Nose/Throat/Neck No headache 01/17/2018 Cardiovascular No chest pain/pressure 01/17/2018 Cardiovascular edema 01/17/2018 Respiratory No productive sputum 01/17/2018 Respiratory No chest congestion 01/17/2018 Respiratory No cough 01/17/2018 Respiratory dyspnea on exertion 01/17/2018 Gastrointestinal No abdominal pain 01/17/2018 Gastrointestinal No constipation 01/17/2018 Gastrointestinal No diarrhea 01/17/2018 Genitourinary/Nephrology No dysuria 01/17/2018 Musculoskeletal arthralgia(s) 01/17/2018 Musculoskeletal joint complaint 01/17/2018 Dermatologic rash 01/17/2018 Neurologic No alteration of consciousness 01/17/2018 Neurologic memory loss 01/17/2018 Psychiatric anxiety 01/17/2018 Psychiatric depression 01/17/2018 Constitutional No recent illness 10/12/2017 Constitutional No anorexia 10/12/2017 Constitutional No night sweats 10/12/2017 Constitutional No chills 10/12/2017 Constitutional No diaphoresis 10/12/2017 Constitutional fatigue 10/12/2017 Constitutional No fever 10/12/2017 Constitutional No insomnia 10/12/2017 Constitutional No malaise 10/12/2017 Constitutional No weight loss 10/12/2017 Eyes No eye discharge 10/12/2017 Eyes No eye erythema 10/12/2017 Ears/Nose/Throat/Neck No dizziness 10/12/2017 Ears/Nose/Throat/Neck No headache 10/12/2017 Cardiovascular No chest pain/pressure 10/12/2017 Cardiovascular edema 10/12/2017 Respiratory No productive sputum 10/12/2017 Respiratory No chest congestion 10/12/2017 Respiratory No cough 10/12/2017 Respiratory dyspnea on exertion 10/12/2017 Gastrointestinal No abdominal pain 10/12/2017 Gastrointestinal No constipation 10/12/2017 Gastrointestinal No diarrhea 10/12/2017 Genitourinary/Nephrology No dysuria 10/12/2017 Musculoskeletal arthralgia(s) 10/12/2017 Musculoskeletal joint complaint 10/12/2017 Dermatologic No rash 10/12/2017 Neurologic No alteration of consciousness 10/12/2017 Neurologic memory loss 10/12/2017 Psychiatric anxiety 10/12/2017 Psychiatric depression 10/12/2017 Constitutional No recent illness 08/10/2017 Constitutional No anorexia 08/10/2017 Constitutional No night sweats 08/10/2017 Constitutional No chills 08/10/2017 Constitutional No diaphoresis 08/10/2017 Constitutional fatigue 08/10/2017 Constitutional No fever 08/10/2017 Constitutional No insomnia 08/10/2017 Constitutional No malaise 08/10/2017 Constitutional No weight loss 08/10/2017 Eyes No eye discharge 08/10/2017 Eyes No eye erythema 08/10/2017 Ears/Nose/Throat/Neck No dizziness 08/10/2017 Ears/Nose/Throat/Neck No headache 08/10/2017 Cardiovascular No chest pain/pressure 08/10/2017 Cardiovascular No edema 08/10/2017 Respiratory No productive sputum 08/10/2017 Respiratory No chest congestion 08/10/2017 Respiratory No cough 08/10/2017 Respiratory dyspnea on exertion 08/10/2017 Gastrointestinal No abdominal pain 08/10/2017 Gastrointestinal No constipation 08/10/2017 Gastrointestinal No diarrhea 08/10/2017 Genitourinary/Nephrology No dysuria 08/10/2017 Musculoskeletal arthralgia(s) 08/10/2017 Musculoskeletal joint complaint 08/10/2017 Dermatologic No rash 08/10/2017 Neurologic No alteration of consciousness 08/10/2017 Neurologic memory loss 08/10/2017 Psychiatric anxiety 08/10/2017 Psychiatric depression 08/10/2017 Constitutional No recent illness 07/06/2017 Constitutional No anorexia 07/06/2017 Constitutional No night sweats 07/06/2017 Constitutional No chills 07/06/2017 Constitutional No diaphoresis 07/06/2017 Constitutional fatigue 07/06/2017 Constitutional No fever 07/06/2017 Constitutional insomnia 07/06/2017 Constitutional No malaise 07/06/2017 Constitutional No weight loss 07/06/2017 Eyes No eye discharge 07/06/2017 Eyes No eye erythema 07/06/2017 Ears/Nose/Throat/Neck No dizziness 07/06/2017 Ears/Nose/Throat/Neck No headache 07/06/2017 Cardiovascular No chest pain/pressure 07/06/2017 Cardiovascular No edema 07/06/2017 Respiratory No productive sputum 07/06/2017 Respiratory No chest congestion 07/06/2017 Respiratory No cough 07/06/2017 Respiratory dyspnea on exertion 07/06/2017 Gastrointestinal No abdominal pain 07/06/2017 Gastrointestinal No constipation 07/06/2017 Gastrointestinal No diarrhea 07/06/2017 Genitourinary/Nephrology No dysuria 07/06/2017 Musculoskeletal arthralgia(s) 07/06/2017 Musculoskeletal joint complaint 07/06/2017 Musculoskeletal muscle weakness 07/06/2017 Dermatologic No rash 07/06/2017 Neurologic No alteration of consciousness 07/06/2017 Neurologic memory loss 07/06/2017 Psychiatric anxiety 07/06/2017 Psychiatric depression 07/06/2017 Constitutional No recent illness 03/18/2017 Constitutional No anorexia 03/18/2017 Constitutional No night sweats 03/18/2017 Constitutional No chills 03/18/2017 Constitutional No diaphoresis 03/18/2017 Constitutional fatigue 03/18/2017 Constitutional No fever 03/18/2017 Constitutional No insomnia 03/18/2017 Constitutional No malaise 03/18/2017 Constitutional No weight loss 03/18/2017 Eyes No eye discharge 03/18/2017 Eyes No eye erythema 03/18/2017 Ears/Nose/Throat/Neck No dizziness 03/18/2017 Ears/Nose/Throat/Neck No headache 03/18/2017 Cardiovascular No chest pain/pressure 03/18/2017 Cardiovascular No edema 03/18/2017 Respiratory No productive sputum 03/18/2017 Respiratory No chest congestion 03/18/2017 Respiratory No cough 03/18/2017 Respiratory dyspnea on exertion 03/18/2017 Gastrointestinal No abdominal pain 03/18/2017 Gastrointestinal No constipation 03/18/2017 Gastrointestinal No diarrhea 03/18/2017 Genitourinary/Nephrology No dysuria 03/18/2017 Musculoskeletal arthralgia(s) 03/18/2017 Musculoskeletal joint complaint 03/18/2017 Musculoskeletal muscle weakness 03/18/2017 Dermatologic No rash 03/18/2017 Neurologic No alteration of consciousness 03/18/2017 Neurologic memory loss 03/18/2017 Psychiatric anxiety 03/18/2017 Psychiatric depression 03/18/2017 Constitutional No recent illness 02/18/2017 Constitutional No anorexia 02/18/2017 Constitutional No night sweats 02/18/2017 Constitutional No chills 02/18/2017 Constitutional No diaphoresis 02/18/2017 Constitutional fatigue 02/18/2017 Constitutional No fever 02/18/2017 Constitutional No insomnia 02/18/2017 Constitutional No malaise 02/18/2017 Constitutional No weight loss 02/18/2017 Eyes No eye discharge 02/18/2017 Eyes No eye erythema 02/18/2017 Ears/Nose/Throat/Neck No dizziness 02/18/2017 Ears/Nose/Throat/Neck No headache 02/18/2017 Cardiovascular No chest pain/pressure 02/18/2017 Cardiovascular No edema 02/18/2017 Respiratory No productive sputum 02/18/2017 Respiratory No chest congestion 02/18/2017 Respiratory No cough 02/18/2017 Respiratory dyspnea on exertion 02/18/2017 Gastrointestinal No abdominal pain 02/18/2017 Gastrointestinal No diarrhea 02/18/2017 Genitourinary/Nephrology No dysuria 02/18/2017 Musculoskeletal arthralgia(s) 02/18/2017 Musculoskeletal joint complaint 02/18/2017 Musculoskeletal muscle weakness 02/18/2017 Dermatologic No rash 02/18/2017 Neurologic No alteration of consciousness 02/18/2017 Neurologic memory loss 02/18/2017 Psychiatric anxiety 02/18/2017 Psychiatric depression 02/18/2017 Gastrointestinal No constipation 02/18/2017 Constitutional No recent illness 11/16/2016 Constitutional No anorexia 11/16/2016 Constitutional No night sweats 11/16/2016 Constitutional No chills 11/16/2016 Constitutional No diaphoresis 11/16/2016 Constitutional No fatigue 11/16/2016 Constitutional No fever 11/16/2016 Constitutional No insomnia 11/16/2016 Constitutional No malaise 11/16/2016 Eyes No eye discharge 11/16/2016 Eyes No eye erythema 11/16/2016 Ears/Nose/Throat/Neck No dizziness 11/16/2016 Ears/Nose/Throat/Neck No headache 11/16/2016 Cardiovascular No chest pain/pressure 11/16/2016 Cardiovascular No edema 11/16/2016 Respiratory No productive sputum 11/16/2016 Respiratory No chest congestion 11/16/2016 Respiratory No cough 11/16/2016 Respiratory dyspnea on exertion 11/16/2016 Gastrointestinal No abdominal pain 11/16/2016 Gastrointestinal constipation 11/16/2016 Gastrointestinal No diarrhea 11/16/2016 Genitourinary/Nephrology No dysuria 11/16/2016 Musculoskeletal arthralgia(s) 11/16/2016 Musculoskeletal joint complaint 11/16/2016 Musculoskeletal muscle weakness 11/16/2016 Dermatologic No rash 11/16/2016 Neurologic No alteration of consciousness 11/16/2016 Psychiatric anxiety 11/16/2016 Psychiatric depression 11/16/2016 Constitutional No weight loss 11/16/2016 Neurologic memory loss 11/16/2016 Constitutional No recent illness 10/13/2016 Constitutional No anorexia 10/13/2016 Constitutional No night sweats 10/13/2016 Constitutional No chills 10/13/2016 Constitutional No diaphoresis 10/13/2016 Constitutional No fatigue 10/13/2016 Constitutional No fever 10/13/2016 Constitutional No insomnia 10/13/2016 Constitutional No malaise 10/13/2016 Constitutional weight loss 10/13/2016 Eyes No eye discharge 10/13/2016 Eyes No eye erythema 10/13/2016 Ears/Nose/Throat/Neck No dizziness 10/13/2016 Ears/Nose/Throat/Neck No headache 10/13/2016 Cardiovascular No chest pain/pressure 10/13/2016 Cardiovascular No edema 10/13/2016 Respiratory No productive sputum 10/13/2016 Respiratory No chest congestion 10/13/2016 Respiratory No cough 10/13/2016 Respiratory dyspnea on exertion 10/13/2016 Gastrointestinal No abdominal pain 10/13/2016 Gastrointestinal constipation 10/13/2016 Gastrointestinal No diarrhea 10/13/2016 Genitourinary/Nephrology No dysuria 10/13/2016 Musculoskeletal arthralgia(s) 10/13/2016 Musculoskeletal joint complaint 10/13/2016 Musculoskeletal muscle weakness 10/13/2016 Dermatologic No rash 10/13/2016 Neurologic No alteration of consciousness 10/13/2016 Psychiatric anxiety 10/13/2016 Psychiatric depression 10/13/2016 Constitutional No recent illness 09/15/2016 Constitutional No anorexia 09/15/2016 Constitutional No night sweats 09/15/2016 Constitutional No chills 09/15/2016 Constitutional No diaphoresis 09/15/2016 Constitutional No fatigue 09/15/2016 Constitutional No fever 09/15/2016 Constitutional No insomnia 09/15/2016 Constitutional No malaise 09/15/2016 Constitutional weight loss 09/15/2016 Eyes No eye discharge 09/15/2016 Eyes No eye erythema 09/15/2016 Ears/Nose/Throat/Neck No dizziness 09/15/2016 Ears/Nose/Throat/Neck No headache 09/15/2016 Cardiovascular No chest pain/pressure 09/15/2016 Cardiovascular No edema 09/15/2016 Respiratory No productive sputum 09/15/2016 Respiratory No chest congestion 09/15/2016 Respiratory No cough 09/15/2016 Respiratory dyspnea on exertion 09/15/2016 Gastrointestinal No abdominal pain 09/15/2016 Gastrointestinal constipation 09/15/2016 Gastrointestinal No diarrhea 09/15/2016 Genitourinary/Nephrology No dysuria 09/15/2016 Musculoskeletal arthralgia(s) 09/15/2016 Musculoskeletal joint complaint 09/15/2016 Musculoskeletal muscle weakness 09/15/2016 Dermatologic No rash 09/15/2016 Neurologic No alteration of consciousness 09/15/2016 Psychiatric anxiety 09/15/2016 Psychiatric depression 09/15/2016 Constitutional No recent illness 08/18/2016 Constitutional No anorexia 08/18/2016 Constitutional No night sweats 08/18/2016 Constitutional No chills 08/18/2016 Constitutional No diaphoresis 08/18/2016 Constitutional fatigue 08/18/2016 Constitutional No fever 08/18/2016 Constitutional No insomnia 08/18/2016 Constitutional No malaise 08/18/2016 Constitutional No weight loss 08/18/2016 Constitutional No weight gain 08/18/2016 Eyes No eye discharge 08/18/2016 Eyes No eye erythema 08/18/2016 Ears/Nose/Throat/Neck dizziness 08/18/2016 Ears/Nose/Throat/Neck No headache 08/18/2016 Cardiovascular No chest pain/pressure 08/18/2016 Respiratory cough 08/18/2016 Gastrointestinal No abdominal pain 08/18/2016 Genitourinary/Nephrology No dysuria 08/18/2016 Musculoskeletal joint complaint 08/18/2016 Dermatologic No rash 08/18/2016 Neurologic No alteration of consciousness 08/18/2016 Psychiatric No anxiety 08/18/2016 Endocrine No dry or coarse skin 08/18/2016 Constitutional No recent illness 06/23/2016 Constitutional No anorexia 06/23/2016 Constitutional No night sweats 06/23/2016 Constitutional No chills 06/23/2016 Constitutional No diaphoresis 06/23/2016 Constitutional fatigue 06/23/2016 Constitutional No fever 06/23/2016 Constitutional No insomnia 06/23/2016 Constitutional No malaise 06/23/2016 Constitutional No weight loss 06/23/2016 Constitutional No weight gain 06/23/2016 Eyes No eye discharge 06/23/2016 Eyes No eye erythema 06/23/2016 Ears/Nose/Throat/Neck dizziness 06/23/2016 Ears/Nose/Throat/Neck No headache 06/23/2016 Cardiovascular No chest pain/pressure 06/23/2016 Respiratory cough 06/23/2016 Gastrointestinal No abdominal pain 06/23/2016 Genitourinary/Nephrology No dysuria 06/23/2016 Musculoskeletal joint complaint 06/23/2016 Dermatologic No rash 06/23/2016 Neurologic No alteration of consciousness 06/23/2016 Psychiatric No anxiety 06/23/2016 Endocrine No dry or coarse skin 06/23/2016 Constitutional No night sweats 05/19/2016 Constitutional No anorexia 05/19/2016 Constitutional No recent illness 05/19/2016 Constitutional No chills 05/19/2016 Constitutional No diaphoresis 05/19/2016 Constitutional fatigue 05/19/2016 Constitutional No fever 05/19/2016 Constitutional No insomnia 05/19/2016 Constitutional No malaise 05/19/2016 Constitutional No weight loss 05/19/2016 Constitutional No weight gain 05/19/2016 Eyes No eye erythema 05/19/2016 Eyes No eye discharge 05/19/2016 Ears/Nose/Throat/Neck dizziness 05/19/2016 Ears/Nose/Throat/Neck No headache 05/19/2016 Cardiovascular No chest pain/pressure 05/19/2016 Respiratory cough 05/19/2016 Gastrointestinal No abdominal pain 05/19/2016 Genitourinary/Nephrology No dysuria 05/19/2016 Musculoskeletal joint complaint 05/19/2016 Dermatologic No rash 05/19/2016 Neurologic No alteration of consciousness 05/19/2016 Psychiatric No anxiety 05/19/2016 Endocrine No dry or coarse skin 05/19/2016 Neurologic paresthesia 05/19/2016 Constitutional No night sweats 09/14/2014 Constitutional No chills 09/14/2014 Constitutional fatigue 09/14/2014 Constitutional No fever 09/14/2014 Eyes No vision change 09/14/2014 Ears/Nose/Throat/Neck No dental pain 09/14/2014 Ears/Nose/Throat/Neck No dysphagia 09/14/2014 Ears/Nose/Throat/Neck No headache 09/14/2014 Cardiovascular No chest pain/pressure 09/14/2014 Cardiovascular No dyspnea 09/14/2014 Cardiovascular No edema 09/14/2014 Cardiovascular exercise intolerance 09/14/2014 Cardiovascular fatigue 09/14/2014 Cardiovascular No near-syncope/dizziness 09/14/2014 Respiratory No chest tightness 09/14/2014 Gastrointestinal No constipation 09/14/2014 Gastrointestinal No diarrhea 09/14/2014 Gastrointestinal No nausea 09/14/2014 Gastrointestinal No vomiting 09/14/2014 Musculoskeletal No swelling 09/14/2014 Musculoskeletal No arthralgia(s) 09/14/2014 Musculoskeletal muscle weakness 09/14/2014 Dermatologic No rash 09/14/2014 Dermatologic No sores 09/14/2014 Neurologic ataxia 09/14/2014 Neurologic No dizziness 09/14/2014 Neurologic gait abnormality 09/14/2014 Psychiatric No anxiety 09/14/2014 Psychiatric No depression 09/14/2014 Constitutional No night sweats 08/24/2014 Constitutional No chills 08/24/2014 Constitutional fatigue 08/24/2014 Constitutional No fever 08/24/2014 Eyes No vision change 08/24/2014 Ears/Nose/Throat/Neck No dental pain 08/24/2014 Ears/Nose/Throat/Neck No dysphagia 08/24/2014 Ears/Nose/Throat/Neck No headache 08/24/2014 Respiratory No chest tightness 08/24/2014 Gastrointestinal No constipation 08/24/2014 Gastrointestinal No diarrhea 08/24/2014 Gastrointestinal No nausea 08/24/2014 Gastrointestinal No vomiting 08/24/2014 Musculoskeletal No swelling 08/24/2014 Musculoskeletal No arthralgia(s) 08/24/2014 Musculoskeletal muscle weakness 08/24/2014 Dermatologic No rash 08/24/2014 Dermatologic No sores 08/24/2014 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/24/2014 Neurologic No dizziness 08/24/2014 Neurologic gait abnormality 08/24/2014 Psychiatric No anxiety 08/24/2014 Psychiatric No depression 08/24/2014 Cardiovascular No chest pain/pressure 08/24/2014 Cardiovascular No dyspnea 08/24/2014 Cardiovascular No edema 08/24/2014 Cardiovascular exercise intolerance 08/24/2014 Cardiovascular fatigue 08/24/2014 Cardiovascular No near-syncope/dizziness 08/24/2014 Constitutional No night sweats 05/25/2014 Constitutional No chills 05/25/2014 Constitutional fatigue 05/25/2014 Constitutional No fever 05/25/2014 Eyes No vision change 05/25/2014 Ears/Nose/Throat/Neck No dental pain 05/25/2014 Ears/Nose/Throat/Neck No dysphagia 05/25/2014 Ears/Nose/Throat/Neck No headache 05/25/2014 Respiratory No chest tightness 05/25/2014 Gastrointestinal No constipation 05/25/2014 Gastrointestinal No diarrhea 05/25/2014 Gastrointestinal No nausea 05/25/2014 Gastrointestinal No vomiting 05/25/2014 Musculoskeletal No swelling 05/25/2014 Musculoskeletal No arthralgia(s) 05/25/2014 Musculoskeletal muscle weakness 05/25/2014 Dermatologic No rash 05/25/2014 Dermatologic No sores 05/25/2014 Neurologic ataxia 05/25/2014 Neurologic No dizziness 05/25/2014 Neurologic gait abnormality 05/25/2014 Psychiatric No anxiety 05/25/2014 Psychiatric No depression 05/25/2014 Respiratory cough 05/25/2014 Respiratory No chest congestion 05/25/2014 Cardiovascular No chest pain/pressure 05/25/2014 Cardiovascular No edema 05/25/2014 Ears/Nose/Throat/Neck No otitis media 05/25/2014 Ears/Nose/Throat/Neck No sinus congestion 05/25/2014 Ears/Nose/Throat/Neck nasal allergies 05/25/2014 Ears/Nose/Throat/Neck nasal discharge 05/25/2014 Respiratory dyspnea on exertion 05/25/2014 Genitourinary/Nephrology No dysuria 05/25/2014 Constitutional No night sweats 04/24/2014 Constitutional No chills 04/24/2014 Constitutional fatigue 04/24/2014 Constitutional No fever 04/24/2014 Eyes No vision change 04/24/2014 Ears/Nose/Throat/Neck No dental pain 04/24/2014 Ears/Nose/Throat/Neck No dysphagia 04/24/2014 Ears/Nose/Throat/Neck No headache 04/24/2014 Respiratory No chest tightness 04/24/2014 Gastrointestinal No constipation 04/24/2014 Gastrointestinal No diarrhea 04/24/2014 Gastrointestinal No nausea 04/24/2014 Gastrointestinal No vomiting 04/24/2014 Musculoskeletal No swelling 04/24/2014 Musculoskeletal No arthralgia(s) 04/24/2014 Musculoskeletal muscle weakness 04/24/2014 Dermatologic No rash 04/24/2014 Dermatologic No sores 04/24/2014 Neurologic ataxia 04/24/2014 Neurologic No dizziness 04/24/2014 Neurologic gait abnormality 04/24/2014 Psychiatric No anxiety 04/24/2014 Psychiatric No depression 04/24/2014 Constitutional No night sweats 01/22/2014 Constitutional No chills 01/22/2014 Constitutional No fever 01/22/2014 Eyes No vision change 01/22/2014 Ears/Nose/Throat/Neck No dental pain 01/22/2014 Ears/Nose/Throat/Neck No dysphagia 01/22/2014 Ears/Nose/Throat/Neck No headache 01/22/2014 Respiratory No chest tightness 01/22/2014 Gastrointestinal No constipation 01/22/2014 Gastrointestinal No diarrhea 01/22/2014 Gastrointestinal No nausea 01/22/2014 Gastrointestinal No vomiting 01/22/2014 Musculoskeletal No swelling 01/22/2014 Musculoskeletal No arthralgia(s) 01/22/2014 Musculoskeletal muscle weakness 01/22/2014 Dermatologic No rash 01/22/2014 Dermatologic No sores 01/22/2014 Neurologic ataxia 01/22/2014 Neurologic dizziness 01/22/2014 Psychiatric No anxiety 01/22/2014 Psychiatric No depression 01/22/2014 Constitutional No night sweats 09/18/2013 Constitutional No chills 09/18/2013 Constitutional No fever 09/18/2013 Eyes No vision change 09/18/2013 Ears/Nose/Throat/Neck No dental pain 09/18/2013 Ears/Nose/Throat/Neck No dysphagia 09/18/2013 Ears/Nose/Throat/Neck No headache 09/18/2013 Respiratory No chest tightness 09/18/2013 Gastrointestinal No constipation 09/18/2013 Gastrointestinal No diarrhea 09/18/2013 Gastrointestinal No nausea 09/18/2013 Gastrointestinal No vomiting 09/18/2013 Musculoskeletal No swelling 09/18/2013 Musculoskeletal No arthralgia(s) 09/18/2013 Musculoskeletal muscle weakness 09/18/2013 Dermatologic No rash 09/18/2013 Dermatologic No sores 09/18/2013 Neurologic ataxia 09/18/2013 Psychiatric No anxiety 09/18/2013 Psychiatric No depression 09/18/2013 Constitutional fatigue 09/18/2013 Constitutional No insomnia 09/18/2013 Neurologic No dizziness 09/18/2013 Neurologic gait abnormality 09/18/2013 Constitutional No night sweats 03/20/2013 Constitutional No chills 03/20/2013 Constitutional No fever 03/20/2013 Eyes No vision change 03/20/2013 Ears/Nose/Throat/Neck No dental pain 03/20/2013 Ears/Nose/Throat/Neck No dysphagia 03/20/2013 Ears/Nose/Throat/Neck No headache 03/20/2013 Respiratory No chest tightness 03/20/2013 Gastrointestinal No constipation 03/20/2013 Gastrointestinal No diarrhea 03/20/2013 Gastrointestinal No nausea 03/20/2013 Gastrointestinal No vomiting 03/20/2013 Musculoskeletal No swelling 03/20/2013 Musculoskeletal No arthralgia(s) 03/20/2013 Musculoskeletal muscle weakness 03/20/2013 Dermatologic No rash 03/20/2013 Dermatologic No sores 03/20/2013 Neurologic ataxia 03/20/2013 Neurologic dizziness 03/20/2013 Psychiatric No anxiety 03/20/2013 Psychiatric No depression 03/20/2013 Constitutional No night sweats 05/25/2012 Constitutional No chills 05/25/2012 Constitutional No fever 05/25/2012 Eyes No vision change 05/25/2012 Ears/Nose/Throat/Neck No dental pain 05/25/2012 Ears/Nose/Throat/Neck No dysphagia 05/25/2012 Ears/Nose/Throat/Neck No headache 05/25/2012 Respiratory No chest tightness 05/25/2012 Gastrointestinal No constipation 05/25/2012 Gastrointestinal No diarrhea 05/25/2012 Gastrointestinal No nausea 05/25/2012 Gastrointestinal No vomiting 05/25/2012 Musculoskeletal No swelling 05/25/2012 Musculoskeletal No arthralgia(s) 05/25/2012 Musculoskeletal muscle weakness 05/25/2012 Dermatologic No rash 05/25/2012 Dermatologic No sores 05/25/2012 Neurologic ataxia 05/25/2012 Neurologic dizziness 05/25/2012 Psychiatric No anxiety 05/25/2012 Psychiatric No depression 05/25/2012 Constitutional No night sweats 09/17/2011 Constitutional No chills 09/17/2011 Constitutional No fever 09/17/2011 Eyes No vision change 09/17/2011 Psychiatric No depression 09/17/2011 Ears/Nose/Throat/Neck No dental pain 09/17/2011 Ears/Nose/Throat/Neck dizziness 09/17/2011 Ears/Nose/Throat/Neck No dysphagia 09/17/2011 Ears/Nose/Throat/Neck No headache 09/17/2011 Cardiovascular No chest pain/pressure 09/17/2011 Cardiovascular No claudication 09/17/2011 Cardiovascular No fatigue 09/17/2011 Respiratory chest congestion 09/17/2011 Respiratory No chest tightness 09/17/2011 Respiratory cigarette smoking 09/17/2011 Respiratory cough 09/17/2011 Gastrointestinal No constipation 09/17/2011 Gastrointestinal No diarrhea 09/17/2011 Gastrointestinal No nausea 09/17/2011 Gastrointestinal No vomiting 09/17/2011 Musculoskeletal No swelling 09/17/2011 Musculoskeletal No arthralgia(s) 09/17/2011 Musculoskeletal muscle weakness 09/17/2011 Dermatologic No rash 09/17/2011 Dermatologic No sores 09/17/2011 Neurologic ataxia 09/17/2011 Neurologic dizziness 09/17/2011 Psychiatric No anxiety 09/17/2011 Constitutional No fever 05/21/2011 Constitutional No fatigue 05/21/2011 Cardiovascular No chest pain/pressure 05/21/2011 Gastrointestinal No vomiting 05/21/2011 Gastrointestinal No nausea 05/21/2011 Eyes vision change 05/21/2011 Neurologic gait abnormality 05/21/2011 Neurologic No dizziness 05/21/2011 Neurologic pain, back 05/21/2011 Neurologic No syncope 05/21/2011 Neurologic No tinnitus 05/21/2011 Psychiatric anxiety 05/21/2011 Ears/Nose/Throat/Neck No headache 05/21/2011 Ears/Nose/Throat/Neck No hearing loss 05/21/2011 Ears/Nose/Throat/Neck No nasal pain 05/21/2011 Ears/Nose/Throat/Neck sinus congestion 05/21/2011 Ears/Nose/Throat/Neck No tinnitus 05/21/2011 Ears/Nose/Throat/Neck No voice change 05/21/2011 Cardiovascular dyspnea 05/21/2011 Cardiovascular No edema 05/21/2011 Cardiovascular No fatigue 05/21/2011 Respiratory cigarette smoking 05/21/2011 Respiratory dyspnea on exertion 05/21/2011 Respiratory dyspnea 05/21/2011 Respiratory No chest congestion 05/21/2011 Respiratory No cough 05/21/2011 Gastrointestinal No abdominal pain 05/21/2011 Gastrointestinal No constipation 05/21/2011 Gastrointestinal No diarrhea 05/21/2011 Gastrointestinal gas and bloating 05/21/2011 Gastrointestinal gastroesophageal reflux 05/21/2011 Genitourinary/Nephrology No dysuria 05/21/2011 Genitourinary/Nephrology No flank pain 05/21/2011 Musculoskeletal back pain 05/21/2011 Musculoskeletal muscle weakness 05/21/2011 Dermatologic No skin lesion 05/21/2011 Dermatologic No scar 05/21/2011 Neurologic ataxia 05/21/2011 Constitutional No fever 01/20/2011 Constitutional No chills 01/20/2011 Constitutional No night sweats 01/20/2011 Gastrointestinal No nausea 01/20/2011 Gastrointestinal No vomiting 01/20/2011 Gastrointestinal No constipation 01/20/2011 Gastrointestinal No diarrhea 01/20/2011 Eyes No vision change 01/20/2011 Ears/Nose/Throat/Neck No dental pain 01/20/2011 Ears/Nose/Throat/Neck dizziness 01/20/2011 Ears/Nose/Throat/Neck No dysphagia 01/20/2011 Ears/Nose/Throat/Neck No headache 01/20/2011 Cardiovascular No chest pain/pressure 01/20/2011 Cardiovascular No claudication 01/20/2011 Cardiovascular No fatigue 01/20/2011 Respiratory cigarette smoking 01/20/2011 Respiratory No chest tightness 01/20/2011 Respiratory chest congestion 01/20/2011 Respiratory cough 01/20/2011 Musculoskeletal No swelling 01/20/2011 Musculoskeletal No arthralgia(s) 01/20/2011 Musculoskeletal muscle weakness 01/20/2011 Dermatologic No rash 01/20/2011 Dermatologic No sores 01/20/2011 Neurologic ataxia 01/20/2011 Neurologic dizziness 01/20/2011 Psychiatric No anxiety 01/20/2011 Psychiatric No depression 01/20/2011 Physical Exam Exam Name System Name Item Name Status Result Effective Dates Notes Full Exam - General 1994 Constitutional general appearance Overall: well developed 09/21/2018 None Full Exam - General 1994 Constitutional general appearance Overall: in no acute distress 09/21/2018 None Full Exam - General 1994 Constitutional general appearance Overall: well nourished 09/21/2018 None Full Exam - General 1994 Constitutional general appearance Assistive Device: walker 09/21/2018 None Full Exam - General 1994 Eyes pupils and irises Overall: pupils equal, round, reactive to light and accomodation 09/21/2018 None Full Exam - General 1994 Ears/Nose/Throat otoscopic exam Overall: external auditory canals clear 09/21/2018 None Full Exam - General 1994 Ears/Nose/Throat otoscopic exam Overall: tympanic membranes clear 09/21/2018 None Full Exam - General 1994 Ears/Nose/Throat lips/teeth/gingiva Overall: benign lips 09/21/2018 None Full Exam - General 1994 Ears/Nose/Throat lips/teeth/gingiva Overall: no masses 09/21/2018 None Full Exam - General 1994 Ears/Nose/Throat oral cavity/pharynx/larynx Overall: oral mucosa clear 09/21/2018 None Full Exam - General 1994 Ears/Nose/Throat oral cavity/pharynx/larynx Overall: oropharyngeal mucosa clear 09/21/2018 None Full Exam - General 1994 Respiratory auscultation Diffuse: diminished 09/21/2018 None Full Exam - General 1994 Respiratory respiratory effort/rhythm Overall: no retractions 09/21/2018 None Full Exam - General 1994 Respiratory respiratory effort/rhythm Overall: normal rate 09/21/2018 None Full Exam - General 1994 Cardiovascular extremities Edema present: pitting 09/21/2018 None Full Exam - General 1994 Cardiovascular extremities Edema present: severity 1+ - 4+: 1+ 09/21/2018 None Full Exam - General 1994 Cardiovascular auscultation of heart Overall: regular rate 09/21/2018 None Full Exam - General 1994 Cardiovascular auscultation of heart Overall: normal heart sounds 09/21/2018 None Full Exam - General 1994 Cardiovascular auscultation of heart Overall: no murmurs 09/21/2018 None Full Exam - General 1994 Abdomen abdominal exam Overall: no tenderness 09/21/2018 None Full Exam - General 1994 Abdomen abdominal exam Overall: normal bowel sounds 09/21/2018 None Full Exam - General 1994 Musculoskeletal gait and station Gait: asymmetric 09/21/2018 None Full Exam - General 1994 Musculoskeletal gait and station Station: kyphosis 09/21/2018 None Full Exam - General 1994 Musculoskeletal head and neck Overall: head atraumatic 09/21/2018 None Full Exam - General 1994 Musculoskeletal head and neck Overall: cervical spine benign 09/21/2018 None Full Exam - General 1994 Neurologic deep tendon reflexes Overall: deep tendon reflexes intact 09/21/2018 None Full Exam - General 1994 Neurologic gait Conventional walking: wide-based 09/21/2018 None Full Exam - General 1994 Neurologic cranial nerves Overall: crainial nerves 2 - 12 grossly intact 09/21/2018 None Full Exam - General 1994 Psychiatric orientation/consciousness Overall: oriented to person, place and time 09/21/2018 None Full Exam - General 1994 Psychiatric mood and affect Overall: normal mood and affect 09/21/2018 None Full Exam - General 1994 Constitutional general appearance Overall: well developed 05/26/2018 None Full Exam - General 1994 Constitutional general appearance Overall: in no acute distress 05/26/2018 None Full Exam - General 1994 Constitutional general appearance Overall: well nourished 05/26/2018 None Full Exam - General 1994 Constitutional general appearance Assistive Device: walker 05/26/2018 None Full Exam - General 1994 Eyes pupils and irises Overall: pupils equal, round, reactive to light and accomodation 05/26/2018 None Full Exam - General 1994 Ears/Nose/Throat otoscopic exam Overall: external auditory canals clear 05/26/2018 None Full Exam - General 1994 Ears/Nose/Throat otoscopic exam Overall: tympanic membranes clear 05/26/2018 None Full Exam - General 1994 Ears/Nose/Throat lips/teeth/gingiva Overall: benign lips 05/26/2018 None Full Exam - General 1994 Ears/Nose/Throat lips/teeth/gingiva Overall: no masses 05/26/2018 None Full Exam - General 1994 Ears/Nose/Throat oral cavity/pharynx/larynx Overall: oral mucosa clear 05/26/2018 None Full Exam - General 1994 Ears/Nose/Throat oral cavity/pharynx/larynx Overall: oropharyngeal mucosa clear 05/26/2018 None Full Exam - General 1994 Respiratory auscultation Diffuse: diminished 05/26/2018 None Full Exam - General 1994 Respiratory respiratory effort/rhythm Overall: no retractions 05/26/2018 None Full Exam - General 1994 Respiratory respiratory effort/rhythm Overall: normal rate 05/26/2018 None Full Exam - General 1994 Cardiovascular extremities Edema present: pitting 05/26/2018 None Full Exam - General 1994 Cardiovascular extremities Edema present: severity 1+ - 4+: 1+ 05/26/2018 None Full Exam - General 1994 Cardiovascular auscultation of heart Overall: regular rate 05/26/2018 None Full Exam - General 1994 Cardiovascular auscultation of heart Overall: normal heart sounds 05/26/2018 None Full Exam - General 1994 Cardiovascular auscultation of heart Overall: no murmurs 05/26/2018 None Full Exam - General 1994 Abdomen abdominal exam Overall: no tenderness 05/26/2018 None Full Exam - General 1994 Abdomen abdominal exam Overall: normal bowel sounds 05/26/2018 None Full Exam - General 1994 Musculoskeletal gait and station Gait: asymmetric 05/26/2018 None Full Exam - General 1994 Musculoskeletal gait and station Station: kyphosis 05/26/2018 None Full Exam - General 1994 Musculoskeletal head and neck Overall: head atraumatic 05/26/2018 None Full Exam - General 1994 Musculoskeletal head and neck Overall: cervical spine benign 05/26/2018 None Full Exam - General 1994 Neurologic deep tendon reflexes Overall: deep tendon reflexes intact 05/26/2018 None Full Exam - General 1994 Neurologic gait Conventional walking: wide-based 05/26/2018 None Full Exam - General 1994 Neurologic cranial nerves Overall: crainial nerves 2 - 12 grossly intact 05/26/2018 None Full Exam - General 1994 Psychiatric orientation/consciousness Overall: oriented to person, place and time 05/26/2018 None Full Exam - General 1994 Psychiatric mood and affect Overall: normal mood and affect 05/26/2018 None Full Exam - General 1994 Constitutional general appearance Overall: well developed 05/11/2018 None Full Exam - General 1994 Constitutional general appearance Overall: in no acute distress 05/11/2018 None Full Exam - General 1994 Constitutional general appearance Overall: well nourished 05/11/2018 None Full Exam - General 1994 Eyes conjunctiva/eyelids Overall: eyelids normal 05/11/2018 None Full Exam - General 1994 Eyes conjunctiva/eyelids Overall: cornea clear 05/11/2018 None Full Exam - General 1994 Eyes conjunctiva/eyelids Overall: conjunctiva clear 05/11/2018 None Full Exam - General 1994 Ears/Nose/Throat lips/teeth/gingiva Overall: benign lips 05/11/2018 None Full Exam - General 1994 Eyes pupils and irises Overall: pupils equal, round, reactive to light and accomodation 05/11/2018 None Full Exam - General 1994 Ears/Nose/Throat oral cavity/pharynx/larynx Overall: oral mucosa clear 05/11/2018 None Full Exam - General 1994 Respiratory respiratory effort/rhythm Overall: normal rate 05/11/2018 None Full Exam - General 1994 Respiratory respiratory effort/rhythm Overall: no retractions 05/11/2018 None Full Exam - General 1994 Respiratory auscultation Overall: breath sounds clear bilaterally 05/11/2018 None Full Exam - General 1994 Respiratory auscultation Diffuse: diminished 05/11/2018 None Full Exam - General 1994 Cardiovascular auscultation of heart Overall: regular rate 05/11/2018 None Full Exam - General 1994 Cardiovascular auscultation of heart Overall: normal heart sounds 05/11/2018 None Full Exam - General 1994 Abdomen abdominal exam Overall: normal bowel sounds 05/11/2018 None Full Exam - General 1994 Musculoskeletal head and neck Head: lump 05/11/2018 None Full Exam - General 1994 Musculoskeletal head and neck Head: normocephalic 05/11/2018 None Full Exam - General 1994 Integument inspection of skin Location: diffuse 05/11/2018 various ecchymosis to face, knees, arms Full Exam - General 1994 Neurologic cranial nerves Overall: crainial nerves 2 - 12 grossly intact 05/11/2018 None Full Exam - General 1994 Psychiatric orientation/consciousness Overall: oriented to person, place and time 05/11/2018 None Full Exam - General 1994 Psychiatric mood and affect Overall: normal mood and affect 05/11/2018 None Full Exam - General 1994 Psychiatric appearance Overall: well-groomed, good eye contact 05/11/2018 None Full Exam - General 1994 Psychiatric speech Overall: normal quality, no aphasia 05/11/2018 None Full Exam - General 1994 Psychiatric speech Overall: normal quality, quantity, rate 05/11/2018 None Full Exam - General 1994 Psychiatric thought Overall: normal form and content 05/11/2018 None Full Exam - General 1994 Constitutional general appearance Overall: well developed 01/17/2018 None Full Exam - General 1994 Constitutional general appearance Overall: in no acute distress 01/17/2018 None Full Exam - General 1994 Constitutional general appearance Overall: well nourished 01/17/2018 None Full Exam - General 1994 Constitutional general appearance Assistive Device: walker 01/17/2018 None Full Exam - General 1994 Eyes pupils and irises Overall: pupils equal, round, reactive to light and accomodation 01/17/2018 None Full Exam - General 1994 Ears/Nose/Throat otoscopic exam Overall: external auditory canals clear 01/17/2018 None Full Exam - General 1994 Ears/Nose/Throat otoscopic exam Overall: tympanic membranes clear 01/17/2018 None Full Exam - General 1994 Ears/Nose/Throat lips/teeth/gingiva Overall: benign lips 01/17/2018 None Full Exam - General 1994 Ears/Nose/Throat lips/teeth/gingiva Overall: no masses 01/17/2018 None Full Exam - General 1994 Ears/Nose/Throat oral cavity/pharynx/larynx Overall: oral mucosa clear 01/17/2018 None Full Exam - General 1994 Ears/Nose/Throat oral cavity/pharynx/larynx Overall: oropharyngeal mucosa clear 01/17/2018 None Full Exam - General 1994 Respiratory auscultation Diffuse: diminished 01/17/2018 None Full Exam - General 1994 Respiratory respiratory effort/rhythm Overall: no retractions 01/17/2018 None Full Exam - General 1994 Respiratory respiratory effort/rhythm Overall: normal rate 01/17/2018 None Full Exam - General 1994 Cardiovascular extremities Edema present: pitting 01/17/2018 None Full Exam - General 1994 Cardiovascular extremities Edema present: severity 1+ - 4+: 1+ 01/17/2018 None Full Exam - General 1994 Cardiovascular auscultation of heart Overall: regular rate 01/17/2018 None Full Exam - General 1994 Cardiovascular auscultation of heart Overall: normal heart sounds 01/17/2018 None Full Exam - General 1994 Cardiovascular auscultation of heart Overall: no murmurs 01/17/2018 None Full Exam - General 1994 Abdomen abdominal exam Overall: no tenderness 01/17/2018 None Full Exam - General 1994 Abdomen abdominal exam Overall: normal bowel sounds 01/17/2018 None Full Exam - General 1994 Musculoskeletal gait and station Gait: asymmetric 01/17/2018 None Full Exam - General 1994 Musculoskeletal gait and station Station: [email or web address] 01/17/2018 None Full Exam - General 1994 Musculoskeletal head and neck Overall: head atraumatic 01/17/2018 None Full Exam - General 1994 Musculoskeletal head and neck Overall: cervical spine benign 01/17/2018 None Full Exam - General 1994 Neurologic deep tendon reflexes Overall: deep tendon reflexes intact 01/17/2018 None Full Exam - General 1994 Neurologic gait Conventional walking: wide-based 01/17/2018 None Full Exam - General 1994 Neurologic cranial nerves Overall: crainial nerves 2 - 12 grossly intact 01/17/2018 None Full Exam - General 1994 Psychiatric orientation/consciousness Overall: oriented to person, place and time 01/17/2018 None Full Exam - General 1994 Psychiatric mood and affect Overall: normal mood and affect 01/17/2018 None Full Exam - General 1994 Psychiatric cognition/memory Remote memory: normal recollection of past events 01/17/2018 None Full Exam - General 1994 Psychiatric cognition/memory Recent memory* able to recall last meals 01/17/2018 None Full Exam - General 1994 Psychiatric cognition/memory Immediate memory: unable to recall three words at five minutes 01/17/2018 None Full Exam - General 1994 Integument inspection of skin Location: ear 01/17/2018 erythematous patch behind left ear Full Exam - General 1994 Constitutional general appearance Overall: well developed 10/12/2017 None Full Exam - General 1994 Constitutional general appearance Overall: in no acute distress 10/12/2017 None Full Exam - General 1994 Constitutional general appearance Overall: well nourished 10/12/2017 None Full Exam - General 1994 Constitutional general appearance Assistive Device: walker 10/12/2017 None Full Exam - General 1994 Eyes pupils and irises Overall: pupils equal, round, reactive to light and accomodation 10/12/2017 None Full Exam - General 1994 Ears/Nose/Throat otoscopic exam Overall: external auditory canals clear 10/12/2017 None Full Exam - General 1994 Ears/Nose/Throat otoscopic exam Overall: tympanic membranes clear 10/12/2017 None Full Exam - General 1994 Ears/Nose/Throat lips/teeth/gingiva Overall: benign lips 10/12/2017 None Full Exam - General 1994 Ears/Nose/Throat lips/teeth/gingiva Overall: no masses 10/12/2017 None Full Exam - General 1994 Ears/Nose/Throat oral cavity/pharynx/larynx Overall: oral mucosa clear 10/12/2017 None Full Exam - General 1994 Ears/Nose/Throat oral cavity/pharynx/larynx Overall: oropharyngeal mucosa clear 10/12/2017 None Full Exam - General 1994 Respiratory respiratory effort/rhythm Overall: no retractions 10/12/2017 None Full Exam - General 1994 Respiratory respiratory effort/rhythm Overall: normal rate 10/12/2017 None Full Exam - General 1994 Cardiovascular auscultation of heart Overall: regular rate 10/12/2017 None Full Exam - General 1994 Cardiovascular auscultation of heart Overall: normal heart sounds 10/12/2017 None Full Exam - General 1994 Cardiovascular auscultation of heart Overall: no murmurs 10/12/2017 None Full Exam - General 1994 Abdomen abdominal exam Overall: no tenderness 10/12/2017 None Full Exam - General 1994 Abdomen abdominal exam Overall: normal bowel sounds 10/12/2017 None Full Exam - General 1994 Musculoskeletal gait and station Gait: asymmetric 10/12/2017 None Full Exam - General 1994 Musculoskeletal gait and station Station: kyphosis 10/12/2017 None Full Exam - General 1994 Musculoskeletal head and neck Overall: head atraumatic 10/12/2017 None Full Exam - General 1994 Musculoskeletal head and neck Overall: cervical spine benign 10/12/2017 None Full Exam - General 1994 Neurologic deep tendon reflexes Overall: deep tendon reflexes intact 10/12/2017 None Full Exam - General 1994 Neurologic gait Conventional walking: wide-based 10/12/2017 None Full Exam - General 1994 Neurologic cranial nerves Overall: crainial nerves 2 - 12 grossly intact 10/12/2017 None Full Exam - General 1994 Psychiatric orientation/consciousness Overall: oriented to person, place and time 10/12/2017 None Full Exam - General 1994 Psychiatric mood and affect Overall: normal mood and affect 10/12/2017 None Full Exam - General 1994 Psychiatric cognition/memory Remote memory: normal recollection of past events 10/12/2017 None Full Exam - General 1994 Psychiatric cognition/memory Recent memory* able to recall last meals 10/12/2017 None Full Exam - General 1994 Psychiatric cognition/memory Immediate memory: unable to recall three words at five minutes 10/12/2017 None Full Exam - General 1994 Respiratory auscultation Diffuse: diminished 10/12/2017 None Full Exam - General 1994 Cardiovascular extremities Edema present: pitting 10/12/2017 None Full Exam - General 1994 Cardiovascular extremities Edema present: severity 1+ - 4+: 1+ 10/12/2017 None Full Exam - General 1994 Constitutional general appearance Overall: well developed 08/10/2017 None Full Exam - General 1994 Constitutional general appearance Overall: in no acute distress 08/10/2017 None Full Exam - General 1994 Constitutional general appearance Overall: well nourished 08/10/2017 None Full Exam - General 1994 Eyes pupils and irises Overall: pupils equal, round, reactive to light and accomodation 08/10/2017 None Full Exam - General 1994 Ears/Nose/Throat otoscopic exam Overall: external auditory canals clear 08/10/2017 None Full Exam - General 1994 Ears/Nose/Throat otoscopic exam Overall: tympanic membranes clear 08/10/2017 None Full Exam - General 1994 Ears/Nose/Throat lips/teeth/gingiva Overall: benign lips 08/10/2017 None Full Exam - General 1994 Ears/Nose/Throat lips/teeth/gingiva Overall: no masses 08/10/2017 None Full Exam - General 1994 Ears/Nose/Throat oral cavity/pharynx/larynx Overall: oral mucosa clear 08/10/2017 None Full Exam - General 1994 Ears/Nose/Throat oral cavity/pharynx/larynx Overall: oropharyngeal mucosa clear 08/10/2017 None Full Exam - General 1994 Respiratory auscultation Overall: breath sounds clear bilaterally 08/10/2017 None Full Exam - General 1994 Respiratory auscultation Basilar: diminished 08/10/2017 None Full Exam - General 1994 Respiratory respiratory effort/rhythm Overall: no retractions 08/10/2017 None Full Exam - General 1994 Respiratory respiratory effort/rhythm Overall: normal rate 08/10/2017 None Full Exam - General 1994 Cardiovascular auscultation of heart Overall: regular rate 08/10/2017 None Full Exam - General 1994 Cardiovascular auscultation of heart Overall: normal heart sounds 08/10/2017 None Full Exam - General 1994 Cardiovascular auscultation of heart Overall: no murmurs 08/10/2017 None Full Exam - General 1994 Abdomen abdominal exam Overall: no tenderness 08/10/2017 None Full Exam - General 1994 Abdomen abdominal exam Overall: normal bowel sounds 08/10/2017 None Full Exam - General 1994 Musculoskeletal gait and station Gait: asymmetric 08/10/2017 None Full Exam - General 1994 Musculoskeletal gait and station Station: kyphosis 08/10/2017 None Full Exam - General 1994 Musculoskeletal head and neck Overall: head atraumatic 08/10/2017 None Full Exam - General 1994 Musculoskeletal head and neck Overall: cervical spine benign 08/10/2017 None Full Exam - General 1994 Neurologic deep tendon reflexes Overall: deep tendon reflexes intact 08/10/2017 None Full Exam - General 1994 Neurologic gait Conventional walking: wide-based 08/10/2017 None Full Exam - General 1994 Neurologic cranial nerves Overall: crainial nerves 2 - 12 grossly intact 08/10/2017 None Full Exam - General 1994 Psychiatric orientation/consciousness Overall: oriented to person, place and time 08/10/2017 None Full Exam - General 1994 Psychiatric mood and affect Overall: normal mood and affect 08/10/2017 None Full Exam - General 1994 Psychiatric cognition/memory Remote memory: normal recollection of past events 08/10/2017 None Full Exam - General 1994 Psychiatric cognition/memory Recent memory* able to recall last meals 08/10/2017 None Full Exam - General 1994 Psychiatric cognition/memory Immediate memory: unable to recall three words at five minutes 08/10/2017 None Full Exam - General 1994 Constitutional general appearance Assistive Device: walker 08/10/2017 None Full Exam - General 1994 Constitutional general appearance Overall: well developed 07/06/2017 None Full Exam - General 1994 Constitutional general appearance Overall: in no acute distress 07/06/2017 None Full Exam - General 1994 Constitutional general appearance Overall: well nourished 07/06/2017 None Full Exam - General 1994 Eyes pupils and irises Overall: pupils equal, round, reactive to light and accomodation 07/06/2017 None Full Exam - General 1994 Ears/Nose/Throat otoscopic exam Overall: external auditory canals clear 07/06/2017 None Full Exam - General 1994 Ears/Nose/Throat otoscopic exam Overall: tympanic membranes clear 07/06/2017 None Full Exam - General 1994 Ears/Nose/Throat lips/teeth/gingiva Overall: benign lips 07/06/2017 None Full Exam - General 1994 Ears/Nose/Throat lips/teeth/gingiva Overall: no masses 07/06/2017 None Full Exam - General 1994 Ears/Nose/Throat oral cavity/pharynx/larynx Overall: oral mucosa clear 07/06/2017 None Full Exam - General 1994 Ears/Nose/Throat oral cavity/pharynx/larynx Overall: oropharyngeal mucosa clear 07/06/2017 None Full Exam - General 1994 Respiratory auscultation Overall: breath sounds clear bilaterally 07/06/2017 None Full Exam - General 1994 Respiratory auscultation Basilar: diminished 07/06/2017 None Full Exam - General 1994 Respiratory respiratory effort/rhythm Overall: no retractions 07/06/2017 None Full Exam - General 1994 Respiratory respiratory effort/rhythm Overall: normal rate 07/06/2017 None Full Exam - General 1994 Cardiovascular auscultation of heart Overall: regular rate 07/06/2017 None Full Exam - General 1994 Cardiovascular auscultation of heart Overall: normal heart sounds 07/06/2017 None Full Exam - General 1994 Cardiovascular auscultation of heart Overall: no murmurs 07/06/2017 None Full Exam - General 1994 Abdomen abdominal exam Overall: no tenderness 07/06/2017 None Full Exam - General 1994 Abdomen abdominal exam Overall: normal bowel sounds 07/06/2017 None Full Exam - General 1994 Musculoskeletal gait and station Gait: asymmetric 07/06/2017 None Full Exam - General 1994 Musculoskeletal gait and station Station: kyphosis 07/06/2017 None Full Exam - General 1994 Musculoskeletal head and neck Overall: head atraumatic 07/06/2017 None Full Exam - General 1994 Musculoskeletal head and neck Overall: cervical spine benign 07/06/2017 None Full Exam - General 1994 Neurologic deep tendon reflexes Overall: deep tendon reflexes intact 07/06/2017 None Full Exam - General 1994 Neurologic gait Conventional walking: wide-based 07/06/2017 None Full Exam - General 1994 Neurologic cranial nerves Overall: crainial nerves 2 - 12 grossly intact 07/06/2017 None Full Exam - General 1994 Psychiatric orientation/consciousness Overall: oriented to person, place and time 07/06/2017 None Full Exam - General 1994 Psychiatric mood and affect Overall: normal mood and affect 07/06/2017 None Full Exam - General 1994 Psychiatric cognition/memory Remote memory: normal recollection of past events 07/06/2017 None Full Exam - General 1994 Psychiatric cognition/memory Recent memory* able to recall last meals 07/06/2017 None Full Exam - General 1994 Psychiatric cognition/memory Immediate memory: unable to recall three words at five minutes 07/06/2017 None Full Exam - General 1994 Constitutional general appearance Assistive Device: walker 07/06/2017 None Full Exam - General 1994 Constitutional general appearance Overall: well developed 03/18/2017 None Full Exam - General 1994 Constitutional general appearance Overall: in no acute distress 03/18/2017 None Full Exam - General 1994 Constitutional general appearance Overall: well nourished 03/18/2017 None Full Exam - General 1994 Constitutional general appearance Assistive Device: cane 03/18/2017 None Full Exam - General 1994 Eyes pupils and irises Overall: pupils equal, round, reactive to light and accomodation 03/18/2017 None Full Exam - General 1994 Ears/Nose/Throat otoscopic exam Overall: external auditory canals clear 03/18/2017 None Full Exam - General 1994 Ears/Nose/Throat otoscopic exam Overall: tympanic membranes clear 03/18/2017 None Full Exam - General 1994 Ears/Nose/Throat lips/teeth/gingiva Overall: benign lips 03/18/2017 None Full Exam - General 1994 Ears/Nose/Throat lips/teeth/gingiva Overall: no masses 03/18/2017 None Full Exam - General 1994 Ears/Nose/Throat oral cavity/pharynx/larynx Overall: oral mucosa clear 03/18/2017 None Full Exam - General 1994 Ears/Nose/Throat oral cavity/pharynx/larynx Overall: oropharyngeal mucosa clear 03/18/2017 None Full Exam - General 1994 Respiratory auscultation Overall: breath sounds clear bilaterally 03/18/2017 None Full Exam - General 1994 Respiratory auscultation Basilar: diminished 03/18/2017 None Full Exam - General 1994 Respiratory respiratory effort/rhythm Overall: no retractions 03/18/2017 None Full Exam - General 1994 Respiratory respiratory effort/rhythm Overall: normal rate 03/18/2017 None Full Exam - General 1994 Cardiovascular auscultation of heart Overall: regular rate 03/18/2017 None Full Exam - General 1994 Cardiovascular auscultation of heart Overall: normal heart sounds 03/18/2017 None Full Exam - General 1994 Cardiovascular auscultation of heart Overall: no murmurs 03/18/2017 None Full Exam - General 1994 Abdomen abdominal exam Overall: no tenderness 03/18/2017 None Full Exam - General 1994 Abdomen abdominal exam Overall: normal bowel sounds 03/18/2017 None Full Exam - General 1994 Musculoskeletal gait and station Gait: asymmetric 03/18/2017 None Full Exam - General 1994 Musculoskeletal gait and station Station: kyphosis 03/18/2017 None Full Exam - General 1994 Musculoskeletal head and neck Overall: head atraumatic 03/18/2017 None Full Exam - General 1994 Musculoskeletal head and neck Overall: cervical spine benign 03/18/2017 None Full Exam - General 1994 Neurologic deep tendon reflexes Overall: deep tendon reflexes intact 03/18/2017 None Full Exam - General 1994 Neurologic gait Conventional walking: wide-based 03/18/2017 None Full Exam - General 1994 Neurologic cranial nerves Overall: crainial nerves 2 - 12 grossly intact 03/18/2017 None Full Exam - General 1994 Psychiatric orientation/consciousness Overall: oriented to person, place and time 03/18/2017 None Full Exam - General 1994 Psychiatric mood and affect Overall: normal mood and affect 03/18/2017 None Full Exam - General 1994 Psychiatric cognition/memory Remote memory: normal recollection of past events 03/18/2017 None Full Exam - General 1994 Psychiatric cognition/memory Recent memory* able to recall last meals 03/18/2017 None Full Exam - General 1994 Psychiatric cognition/memory Immediate memory: unable to recall three words at five minutes 03/18/2017 None Full Exam - General 1994 Constitutional general appearance Overall: well developed 02/18/2017 None Full Exam - General 1994 Constitutional general appearance Overall: in no acute distress 02/18/2017 None Full Exam - General 1994 Constitutional general appearance Overall: well nourished 02/18/2017 None Full Exam - General 1994 Constitutional general appearance Assistive Device: cane 02/18/2017 None Full Exam - General 1994 Eyes pupils and irises Overall: pupils equal, round, reactive to light and accomodation 02/18/2017 None Full Exam - General 1994 Ears/Nose/Throat otoscopic exam Overall: external auditory canals clear 02/18/2017 None Full Exam - General 1994 Ears/Nose/Throat otoscopic exam Overall: tympanic membranes clear 02/18/2017 None Full Exam - General 1994 Ears/Nose/Throat lips/teeth/gingiva Overall: benign lips 02/18/2017 None Full Exam - General 1994 Ears/Nose/Throat lips/teeth/gingiva Overall: no masses 02/18/2017 None Full Exam - General 1994 Ears/Nose/Throat oral cavity/pharynx/larynx Overall: oral mucosa clear 02/18/2017 None Full Exam - General 1994 Ears/Nose/Throat oral cavity/pharynx/larynx Overall: oropharyngeal mucosa clear 02/18/2017 None Full Exam - General 1994 Respiratory auscultation Overall: breath sounds clear bilaterally 02/18/2017 None Full Exam - General 1994 Respiratory auscultation Basilar: diminished 02/18/2017 None Full Exam - General 1994 Respiratory respiratory effort/rhythm Overall: no retractions 02/18/2017 None Full Exam - General 1994 Respiratory respiratory effort/rhythm Overall: normal rate 02/18/2017 None Full Exam - General 1994 Cardiovascular auscultation of heart Overall: regular rate 02/18/2017 None Full Exam - General 1994 Cardiovascular auscultation of heart Overall: normal heart sounds 02/18/2017 None Full Exam - General 1994 Cardiovascular auscultation of heart Overall: no murmurs 02/18/2017 None Full Exam - General 1994 Abdomen abdominal exam Overall: no tenderness 02/18/2017 None Full Exam - General 1994 Abdomen abdominal exam Overall: normal bowel sounds 02/18/2017 None Full Exam - General 1994 Musculoskeletal gait and station Gait: asymmetric 02/18/2017 None Full Exam - General 1994 Musculoskeletal gait and station Station: kyphosis 02/18/2017 None Full Exam - General 1994 Musculoskeletal head and neck Overall: head atraumatic 02/18/2017 None Full Exam - General 1994 Musculoskeletal head and neck Overall: cervical spine benign 02/18/2017 None Full Exam - General 1994 Neurologic deep tendon reflexes Overall: deep tendon reflexes intact 02/18/2017 None Full Exam - General 1994 Neurologic gait Conventional walking: wide-based 02/18/2017 None Full Exam - General 1994 Neurologic cranial nerves Overall: crainial nerves 2 - 12 grossly intact 02/18/2017 None Full Exam - General 1994 Psychiatric orientation/consciousness Overall: oriented to person, place and time 02/18/2017 None Full Exam - General 1994 Psychiatric mood and affect Overall: normal mood and affect 02/18/2017 None Full Exam - General 1994 Psychiatric cognition/memory Remote memory: normal recollection of past events 02/18/2017 None Full Exam - General 1994 Psychiatric cognition/memory Recent memory* able to recall last meals 02/18/2017 None Full Exam - General 1994 Psychiatric cognition/memory Immediate memory: unable to recall three words at five minutes 02/18/2017 None Full Exam - General 1994 Constitutional general appearance Overall: well developed 11/16/2016 None Full Exam - General 1994 Constitutional general appearance Overall: in no acute distress 11/16/2016 None Full Exam - General 1994 Constitutional general appearance Overall: well nourished 11/16/2016 None Full Exam - General 1994 Constitutional general appearance Assistive Device: cane 11/16/2016 None Full Exam - General 1994 Eyes pupils and irises Overall: pupils equal, round, reactive to light and accomodation 11/16/2016 None Full Exam - General 1994 Ears/Nose/Throat otoscopic exam Overall: external auditory canals clear 11/16/2016 None Full Exam - General 1994 Ears/Nose/Throat otoscopic exam Overall: tympanic membranes clear 11/16/2016 None Full Exam - General 1994 Ears/Nose/Throat lips/teeth/gingiva Overall: benign lips 11/16/2016 None Full Exam - General 1994 Ears/Nose/Throat lips/teeth/gingiva Overall: no masses 11/16/2016 None Full Exam - General 1994 Ears/Nose/Throat oral cavity/pharynx/larynx Overall: oral mucosa clear 11/16/2016 None Full Exam - General 1994 Ears/Nose/Throat oral cavity/pharynx/larynx Overall: oropharyngeal mucosa clear 11/16/2016 None Full Exam - General 1994 Respiratory auscultation Overall: breath sounds clear bilaterally 11/16/2016 None Full Exam - General 1994 Respiratory auscultation Basilar: diminished 11/16/2016 None Full Exam - General 1994 Respiratory respiratory effort/rhythm Overall: no retractions 11/16/2016 None Full Exam - General 1994 Respiratory respiratory effort/rhythm Overall: normal rate 11/16/2016 None Full Exam - General 1994 Cardiovascular auscultation of heart Overall: regular rate 11/16/2016 None Full Exam - General 1994 Cardiovascular auscultation of heart Overall: normal heart sounds 11/16/2016 None Full Exam - General 1994 Cardiovascular auscultation of heart Overall: no murmurs 11/16/2016 None Full Exam - General 1994 Abdomen abdominal exam Overall: no tenderness 11/16/2016 None Full Exam - General 1994 Abdomen abdominal exam Overall: normal bowel sounds 11/16/2016 None Full Exam - General 1994 Musculoskeletal gait and station Gait: asymmetric 11/16/2016 None Full Exam - General 1994 Musculoskeletal gait and station Station: kyphosis 11/16/2016 None Full Exam - General 1994 Musculoskeletal head and neck Overall: head atraumatic 11/16/2016 None Full Exam - General 1994 Musculoskeletal head and neck Overall: cervical spine benign 11/16/2016 None Full Exam - General 1994 Neurologic deep tendon reflexes Overall: deep tendon reflexes intact 11/16/2016 None Full Exam - General 1994 Neurologic gait Conventional walking: wide-based 11/16/2016 None Full Exam - General 1994 Neurologic cranial nerves Overall: crainial nerves 2 - 12 grossly intact 11/16/2016 None Full Exam - General 1994 Psychiatric orientation/consciousness Overall: oriented to person, place and time 11/16/2016 None Full Exam - General 1994 Psychiatric mood and affect Overall: normal mood and affect 11/16/2016 None Full Exam - General 1994 Psychiatric cognition/memory Remote memory: normal recollection of past events 11/16/2016 None Full Exam - General 1994 Psychiatric cognition/memory Recent memory* able to recall last meals 11/16/2016 supper last night-roast beef and mashed potatoes Full Exam - General 1994 Psychiatric cognition/memory Immediate memory: unable to recall three words at five minutes 11/16/2016 None Full Exam - General 1994 Constitutional general appearance Overall: well developed 10/13/2016 None Full Exam - General 1994 Constitutional general appearance Overall: in no acute distress 10/13/2016 None Full Exam - General 1994 Constitutional general appearance Overall: well nourished 10/13/2016 None Full Exam - General 1994 Eyes pupils and irises Overall: pupils equal, round, reactive to light and accomodation 10/13/2016 None Full Exam - General 1994 Ears/Nose/Throat otoscopic exam Overall: external auditory canals clear 10/13/2016 None Full Exam - General 1994 Ears/Nose/Throat otoscopic exam Overall: tympanic membranes clear 10/13/2016 None Full Exam - General 1994 Ears/Nose/Throat lips/teeth/gingiva Overall: benign lips 10/13/2016 None Full Exam - General 1994 Ears/Nose/Throat lips/teeth/gingiva Overall: no masses 10/13/2016 None Full Exam - General 1994 Ears/Nose/Throat oral cavity/pharynx/larynx Overall: oral mucosa clear 10/13/2016 None Full Exam - General 1994 Ears/Nose/Throat oral cavity/pharynx/larynx Overall: oropharyngeal mucosa clear 10/13/2016 None Full Exam - General 1994 Respiratory auscultation Overall: breath sounds clear bilaterally 10/13/2016 None Full Exam - General 1994 Respiratory auscultation Basilar: diminished 10/13/2016 None Full Exam - General 1994 Respiratory respiratory effort/rhythm Overall: no retractions 10/13/2016 None Full Exam - General 1994 Respiratory respiratory effort/rhythm Overall: normal rate 10/13/2016 None Full Exam - General 1994 Cardiovascular auscultation of heart Overall: regular rate 10/13/2016 None Full Exam - General 1994 Cardiovascular auscultation of heart Overall: normal heart sounds 10/13/2016 None Full Exam - General 1994 Cardiovascular auscultation of heart Overall: no murmurs 10/13/2016 None Full Exam - General 1994 Abdomen abdominal exam Overall: no tenderness 10/13/2016 None Full Exam - General 1994 Abdomen abdominal exam Overall: normal bowel sounds 10/13/2016 None Full Exam - General 1994 Musculoskeletal gait and station Gait: asymmetric 10/13/2016 None Full Exam - General 1994 Musculoskeletal gait and station Station: kyphosis 10/13/2016 None Full Exam - General 1994 Musculoskeletal head and neck Overall: head atraumatic 10/13/2016 None Full Exam - General 1994 Musculoskeletal head and neck Overall: cervical spine benign 10/13/2016 None Full Exam - General 1994 Neurologic deep tendon reflexes Overall: deep tendon reflexes intact 10/13/2016 None Full Exam - General 1994 Neurologic gait Conventional walking: wide-based 10/13/2016 None Full Exam - General 1994 Neurologic cranial nerves Overall: crainial nerves 2 - 12 grossly intact 10/13/2016 None Full Exam - General 1994 Psychiatric orientation/consciousness Overall: oriented to person, place and time 10/13/2016 None Full Exam - General 1994 Psychiatric mood and affect Overall: normal mood and affect 10/13/2016 None Full Exam - General 1994 Constitutional general appearance Assistive Device: cane 10/13/2016 None Full Exam - General 1994 Constitutional general appearance Overall: well developed 09/15/2016 None Full Exam - General 1994 Constitutional general appearance Overall: in no acute distress 09/15/2016 None Full Exam - General 1994 Constitutional general appearance Overall: well nourished 09/15/2016 None Full Exam - General 1994 Eyes pupils and irises Overall: pupils equal, round, reactive to light and accomodation 09/15/2016 None Full Exam - General 1994 Ears/Nose/Throat otoscopic exam Overall: external auditory canals clear 09/15/2016 None Full Exam - General 1994 Ears/Nose/Throat otoscopic exam Overall: tympanic membranes clear 09/15/2016 None Full Exam - General 1994 Ears/Nose/Throat lips/teeth/gingiva Overall: benign lips 09/15/2016 None Full Exam - General 1994 Ears/Nose/Throat lips/teeth/gingiva Overall: no masses 09/15/2016 None Full Exam - General 1994 Ears/Nose/Throat oral cavity/pharynx/larynx Overall: oral mucosa clear 09/15/2016 None Full Exam - General 1994 Ears/Nose/Throat oral cavity/pharynx/larynx Overall: oropharyngeal mucosa clear 09/15/2016 None Full Exam - General 1994 Respiratory auscultation Overall: breath sounds clear bilaterally 09/15/2016 None Full Exam - General 1994 Respiratory auscultation Basilar: diminished 09/15/2016 None Full Exam - General 1994 Respiratory respiratory effort/rhythm Overall: no retractions 09/15/2016 None Full Exam - General 1994 Respiratory respiratory effort/rhythm Overall: normal rate 09/15/2016 None Full Exam - General 1994 Cardiovascular auscultation of heart Overall: regular rate 09/15/2016 None Full Exam - General 1994 Cardiovascular auscultation of heart Overall: normal heart sounds 09/15/2016 None Full Exam - General 1994 Cardiovascular auscultation of heart Overall: no murmurs 09/15/2016 None Full Exam - General 1994 Abdomen abdominal exam Overall: no tenderness 09/15/2016 None Full Exam - General 1994 Abdomen abdominal exam Overall: normal bowel sounds 09/15/2016 None Full Exam - General 1994 Musculoskeletal gait and station Gait: asymmetric 09/15/2016 None Full Exam - General 1994 Musculoskeletal gait and station Station: kyphosis 09/15/2016 None Full Exam - General 1994 Musculoskeletal head and neck Overall: head atraumatic 09/15/2016 None Full Exam - General 1994 Musculoskeletal head and neck Overall: cervical spine benign 09/15/2016 None Full Exam - General 1994 Neurologic deep tendon reflexes Overall: deep tendon reflexes intact 09/15/2016 None Full Exam - General 1994 Neurologic gait Conventional walking: wide-based 09/15/2016 None Full Exam - General 1994 Neurologic cranial nerves Overall: crainial nerves 2 - 12 grossly intact 09/15/2016 None Full Exam - General 1994 Psychiatric orientation/consciousness Overall: oriented to person, place and time 09/15/2016 None Full Exam - General 1994 Psychiatric mood and affect Overall: normal mood and affect 09/15/2016 None Full Exam - General 1994 Constitutional general appearance Overall: well developed 08/18/2016 None Full Exam - General 1994 Constitutional general appearance Overall: in no acute distress 08/18/2016 None Full Exam - General 1994 Constitutional general appearance Overall: well nourished 08/18/2016 None Full Exam - General 1994 Eyes pupils and irises Overall: pupils equal, round, reactive to light and accomodation 08/18/2016 None Full Exam - General 1994 Ears/Nose/Throat otoscopic exam Overall: external auditory canals clear 08/18/2016 None Full Exam - General 1994 Ears/Nose/Throat otoscopic exam Overall: tympanic membranes clear 08/18/2016 None Full Exam - General 1994 Ears/Nose/Throat lips/teeth/gingiva Overall: benign lips 08/18/2016 None Full Exam - General 1994 Ears/Nose/Throat lips/teeth/gingiva Overall: no masses 08/18/2016 None Full Exam - General 1994 Ears/Nose/Throat oral cavity/pharynx/larynx Overall: oral mucosa clear 08/18/2016 None Full Exam - General 1994 Ears/Nose/Throat oral cavity/pharynx/larynx Overall: oropharyngeal mucosa clear 08/18/2016 None Full Exam - General 1994 Respiratory auscultation Overall: breath sounds clear bilaterally 08/18/2016 None Full Exam - General 1994 Respiratory respiratory effort/rhythm Overall: no retractions 08/18/2016 None Full Exam - General 1994 Respiratory respiratory effort/rhythm Overall: normal rate 08/18/2016 None Full Exam - General 1994 Cardiovascular auscultation of heart Overall: regular rate 08/18/2016 None Full Exam - General 1994 Cardiovascular auscultation of heart Overall: normal heart sounds 08/18/2016 None Full Exam - General 1994 Cardiovascular auscultation of heart Overall: no murmurs 08/18/2016 None Full Exam - General 1994 Abdomen abdominal exam Overall: no tenderness 08/18/2016 None Full Exam - General 1994 Abdomen abdominal exam Overall: normal bowel sounds 08/18/2016 None Full Exam - General 1994 Musculoskeletal gait and station Gait: asymmetric 08/18/2016 None Full Exam - General 1994 Musculoskeletal gait and station Station: kyphosis 08/18/2016 None Full Exam - General 1994 Musculoskeletal head and neck Overall: head atraumatic 08/18/2016 None Full Exam - General 1994 Musculoskeletal head and neck Overall: cervical spine benign 08/18/2016 None Full Exam - General 1994 Neurologic deep tendon reflexes Overall: deep tendon reflexes intact 08/18/2016 None Full Exam - General 1994 Neurologic gait Conventional walking: wide-based 08/18/2016 None Full Exam - General 1994 Neurologic cranial nerves Overall: crainial nerves 2 - 12 grossly intact 08/18/2016 None Full Exam - General 1994 Psychiatric orientation/consciousness Overall: oriented to person, place and time 08/18/2016 None Full Exam - General 1994 Psychiatric mood and affect Overall: normal mood and affect 08/18/2016 None Full Exam - General 1994 Respiratory auscultation Basilar: diminished 08/18/2016 None Full Exam - General 1994 Constitutional general appearance Overall: well developed 06/23/2016 None Full Exam - General 1994 Constitutional general appearance Overall: in no acute distress 06/23/2016 None Full Exam - General 1994 Constitutional general appearance Overall: well nourished 06/23/2016 None Full Exam - General 1994 Eyes pupils and irises Overall: pupils equal, round, reactive to light and accomodation 06/23/2016 None Full Exam - General 1994 Ears/Nose/Throat otoscopic exam Overall: external auditory canals clear 06/23/2016 None Full Exam - General 1994 Ears/Nose/Throat otoscopic exam Overall: tympanic membranes clear 06/23/2016 None Full Exam - General 1994 Ears/Nose/Throat lips/teeth/gingiva Overall: benign lips 06/23/2016 None Full Exam - General 1994 Ears/Nose/Throat lips/teeth/gingiva Overall: no masses 06/23/2016 None Full Exam - General 1994 Ears/Nose/Throat oral cavity/pharynx/larynx Overall: oral mucosa clear 06/23/2016 None Full Exam - General 1994 Ears/Nose/Throat oral cavity/pharynx/larynx Overall: oropharyngeal mucosa clear 06/23/2016 None Full Exam - General 1994 Respiratory auscultation Overall: breath sounds clear bilaterally 06/23/2016 None Full Exam - General 1994 Respiratory respiratory effort/rhythm Overall: no retractions 06/23/2016 None Full Exam - General 1994 Respiratory respiratory effort/rhythm Overall: normal rate 06/23/2016 None Full Exam - General 1994 Cardiovascular auscultation of heart Overall: regular rate 06/23/2016 None Full Exam - General 1994 Cardiovascular auscultation of heart Overall: normal heart sounds 06/23/2016 None Full Exam - General 1994 Cardiovascular auscultation of heart Overall: no murmurs 06/23/2016 None Full Exam - General 1994 Abdomen abdominal exam Overall: no tenderness 06/23/2016 None Full Exam - General 1994 Abdomen abdominal exam Overall: normal bowel sounds 06/23/2016 None Full Exam - General 1994 Musculoskeletal gait and station Gait: asymmetric 06/23/2016 None Full Exam - General 1994 Musculoskeletal gait and station Station: kyphosis 06/23/2016 None Full Exam - General 1994 Musculoskeletal head and neck Overall: head atraumatic 06/23/2016 None Full Exam - General 1994 Musculoskeletal head and neck Overall: cervical spine benign 06/23/2016 None Full Exam - General 1994 Neurologic deep tendon reflexes Overall: deep tendon reflexes intact 06/23/2016 None Full Exam - General 1994 Neurologic gait Conventional walking: wide-based 06/23/2016 None Full Exam - General 1994 Neurologic cranial nerves Overall: crainial nerves 2 - 12 grossly intact 06/23/2016 None Full Exam - General 1994 Psychiatric orientation/consciousness Overall: oriented to person, place and time 06/23/2016 None Full Exam - General 1994 Psychiatric mood and affect Overall: normal mood and affect 06/23/2016 None Full Exam - General 1994 Constitutional general appearance Overall: well developed 05/19/2016 None Full Exam - General 1994 Constitutional general appearance Overall: in no acute distress 05/19/2016 None Full Exam - General 1994 Constitutional general appearance Overall: well nourished 05/19/2016 None Full Exam - General 1994 Eyes pupils and irises Overall: pupils equal, round, reactive to light and accomodation 05/19/2016 None Full Exam - General 1994 Ears/Nose/Throat otoscopic exam Overall: external auditory canals clear 05/19/2016 None Full Exam - General 1994 Ears/Nose/Throat otoscopic exam Overall: tympanic membranes clear 05/19/2016 None Full Exam - General 1994 Ears/Nose/Throat lips/teeth/gingiva Overall: benign lips 05/19/2016 None Full Exam - General 1994 Ears/Nose/Throat lips/teeth/gingiva Overall: no masses 05/19/2016 None Full Exam - General 1994 Ears/Nose/Throat oral cavity/pharynx/larynx Overall: oral mucosa clear 05/19/2016 None Full Exam - General 1994 Ears/Nose/Throat oral cavity/pharynx/larynx Overall: oropharyngeal mucosa clear 05/19/2016 None Full Exam - General 1994 Respiratory auscultation Overall: breath sounds clear bilaterally 05/19/2016 None Full Exam - General 1994 Respiratory respiratory effort/rhythm Overall: no retractions 05/19/2016 None Full Exam - General 1994 Respiratory respiratory effort/rhythm Overall: normal rate 05/19/2016 None Full Exam - General 1994 Cardiovascular auscultation of heart Overall: regular rate 05/19/2016 None Full Exam - General 1994 Cardiovascular auscultation of heart Overall: normal heart sounds 05/19/2016 None Full Exam - General 1994 Cardiovascular auscultation of heart Overall: no murmurs 05/19/2016 None Full Exam - General 1994 Abdomen abdominal exam Overall: no tenderness 05/19/2016 None Full Exam - General 1994 Abdomen abdominal exam Overall: normal bowel sounds 05/19/2016 None Full Exam - General 1994 Musculoskeletal gait and station Station: kyphosis 05/19/2016 None Full Exam - General 1994 Musculoskeletal head and neck Overall: head atraumatic 05/19/2016 None Full Exam - General 1994 Musculoskeletal head and neck Overall: cervical spine benign 05/19/2016 None Full Exam - General 1994 Neurologic deep tendon reflexes Overall: deep tendon reflexes intact 05/19/2016 None Full Exam - General 1994 Neurologic gait Conventional walking: wide-based 05/19/2016 None Full Exam - General 1994 Neurologic cranial nerves Overall: crainial nerves 2 - 12 grossly intact 05/19/2016 None Full Exam - General 1994 Psychiatric orientation/consciousness Overall: oriented to person, place and time 05/19/2016 None Full Exam - General 1994 Psychiatric mood and affect Overall: normal mood and affect 05/19/2016 None Full Exam - General 1994 Musculoskeletal gait and station Gait: asymmetric 05/19/2016 None Full Exam - General 1994 Constitutional general appearance Overall: well developed 09/14/2014 None Full Exam - General 1994 Constitutional general appearance Overall: in no acute distress 09/14/2014 None Full Exam - General 1994 Constitutional general appearance Overall: well nourished 09/14/2014 None Full Exam - General 1994 Eyes pupils and irises Overall: pupils equal, round, reactive to light and accomodation 09/14/2014 None Full Exam - General 1994 Ears/Nose/Throat otoscopic exam Overall: external auditory canals clear 09/14/2014 None Full Exam - General 1994 Ears/Nose/Throat otoscopic exam Overall: tympanic membranes clear 09/14/2014 None Full Exam - General 1994 Ears/Nose/Throat lips/teeth/gingiva Overall: benign lips 09/14/2014 None Full Exam - General 1994 Ears/Nose/Throat lips/teeth/gingiva Overall: no masses 09/14/2014 None Full Exam - General 1994 Ears/Nose/Throat oral cavity/pharynx/larynx Overall: oral mucosa clear 09/14/2014 None Full Exam - General 1994 Ears/Nose/Throat oral cavity/pharynx/larynx Overall: oropharyngeal mucosa clear 09/14/2014 None Full Exam - General 1994 Respiratory auscultation Overall: breath sounds clear bilaterally 09/14/2014 None Full Exam - General 1994 Respiratory respiratory effort/rhythm Overall: no retractions 09/14/2014 None Full Exam - General 1994 Respiratory respiratory effort/rhythm Overall: normal rate 09/14/2014 None Full Exam - General 1994 Cardiovascular auscultation of heart Overall: regular rate 09/14/2014 None Full Exam - General 1994 Cardiovascular auscultation of heart Overall: normal heart sounds 09/14/2014 None Full Exam - General 1994 Cardiovascular auscultation of heart Overall: no murmurs 09/14/2014 None Full Exam - General 1994 Abdomen abdominal exam Overall: no tenderness 09/14/2014 None Full Exam - General 1994 Abdomen abdominal exam Overall: normal bowel sounds 09/14/2014 None Full Exam - General 1994 Musculoskeletal gait and station Station: kyphosis 09/14/2014 None Full Exam - General 1994 Musculoskeletal head and neck Overall: head atraumatic 09/14/2014 None Full Exam - General 1994 Musculoskeletal head and neck Overall: cervical spine benign 09/14/2014 None Full Exam - General 1994 Neurologic deep tendon reflexes Overall: deep tendon reflexes intact 09/14/2014 None Full Exam - General 1994 Neurologic gait Conventional walking: wide-based 09/14/2014 None Full Exam - General 1994 Neurologic cranial nerves Overall: crainial nerves 2 - 12 grossly intact 09/14/2014 None Full Exam - General 1994 Psychiatric orientation/consciousness Overall: oriented to person, place and time 09/14/2014 None Full Exam - General 1994 Psychiatric mood and affect Overall: normal mood and affect 09/14/2014 None Full Exam - General 1994 Constitutional general appearance Overall: well developed 08/24/2014 None Full Exam - General 1994 Constitutional general appearance Overall: in no acute distress 08/24/2014 None Full Exam - General 1994 Constitutional general appearance Overall: well nourished 08/24/2014 None Full Exam - General 1994 Eyes pupils and irises Overall: pupils equal, round, reactive to light and accomodation 08/24/2014 None Full Exam - General 1994 Ears/Nose/Throat otoscopic exam Overall: external auditory canals clear 08/24/2014 None Full Exam - General 1994 Ears/Nose/Throat otoscopic exam Overall: tympanic membranes clear 08/24/2014 None Full Exam - General 1994 Ears/Nose/Throat lips/teeth/gingiva Overall: benign lips 08/24/2014 None Full Exam - General 1994 Ears/Nose/Throat lips/teeth/gingiva Overall: no masses 08/24/2014 None Full Exam - General 1994 Ears/Nose/Throat oral cavity/pharynx/larynx Overall: oral mucosa clear 08/24/2014 None Full Exam - General 1994 Ears/Nose/Throat oral cavity/pharynx/larynx Overall: oropharyngeal mucosa clear 08/24/2014 None Full Exam - General 1994 Respiratory auscultation Overall: breath sounds clear bilaterally 08/24/2014 None Full Exam - General 1994 Respiratory respiratory effort/rhythm Overall: no retractions 08/24/2014 None Full Exam - General 1994 Respiratory respiratory effort/rhythm Overall: normal rate 08/24/2014 None Full Exam - General 1994 Cardiovascular auscultation of heart Overall: regular rate 08/24/2014 None Full Exam - General 1994 Cardiovascular auscultation of heart Overall: normal heart sounds 08/24/2014 None Full Exam - General 1994 Cardiovascular auscultation of heart Overall: no murmurs 08/24/2014 None Full Exam - General 1994 Abdomen abdominal exam Overall: no tenderness 08/24/2014 None Full Exam - General 1994 Abdomen abdominal exam Overall: normal bowel sounds 08/24/2014 None Full Exam - General 1994 Musculoskeletal gait and station Station: kyphosis 08/24/2014 None Full Exam - General 1994 Musculoskeletal head and neck Overall: head atraumatic 08/24/2014 None Full Exam - General 1994 Musculoskeletal head and neck Overall: cervical spine benign 08/24/2014 None Full Exam - General 1994 Neurologic deep tendon reflexes Overall: deep tendon reflexes intact 08/24/2014 None Full Exam - General 1994 Neurologic gait Conventional walking: wide-based 08/24/2014 None Full Exam - General 1994 Neurologic cranial nerves Overall: crainial nerves 2 - 12 grossly intact 08/24/2014 None Full Exam - General 1994 Psychiatric orientation/consciousness Overall: oriented to person, place and time 08/24/2014 None Full Exam - General 1994 Psychiatric mood and affect Overall: normal mood and affect 08/24/2014 None Full Exam - General 1994 Constitutional general appearance Overall: well developed 05/25/2014 None Full Exam - General 1994 Constitutional general appearance Overall: in no acute distress 05/25/2014 None Full Exam - General 1994 Constitutional general appearance Overall: well nourished 05/25/2014 None Full Exam - General 1994 Eyes pupils and irises Overall: pupils equal, round, reactive to light and accomodation 05/25/2014 None Full Exam - General 1994 Ears/Nose/Throat otoscopic exam Overall: external auditory canals clear 05/25/2014 None Full Exam - General 1994 Ears/Nose/Throat otoscopic exam Overall: tympanic membranes clear 05/25/2014 None Full Exam - General 1994 Ears/Nose/Throat lips/teeth/gingiva Overall: benign lips 05/25/2014 None Full Exam - General 1994 Ears/Nose/Throat lips/teeth/gingiva Overall: no masses 05/25/2014 None Full Exam - General 1994 Ears/Nose/Throat oral cavity/pharynx/larynx Overall: oral mucosa clear 05/25/2014 None Full Exam - General 1994 Ears/Nose/Throat oral cavity/pharynx/larynx Overall: oropharyngeal mucosa clear 05/25/2014 None Full Exam - General 1994 Respiratory auscultation Overall: breath sounds clear bilaterally 05/25/2014 None Full Exam - General 1994 Respiratory respiratory effort/rhythm Overall: no retractions 05/25/2014 None Full Exam - General 1994 Respiratory respiratory effort/rhythm Overall: normal rate 05/25/2014 None Full Exam - General 1994 Cardiovascular auscultation of heart Overall: regular rate 05/25/2014 None Full Exam - General 1994 Cardiovascular auscultation of heart Overall: normal heart sounds 05/25/2014 None Full Exam - General 1994 Cardiovascular auscultation of heart Overall: no murmurs 05/25/2014 None Full Exam - General 1994 Abdomen abdominal exam Overall: no tenderness 05/25/2014 None Full Exam - General 1994 Abdomen abdominal exam Overall: normal bowel sounds 05/25/2014 None Full Exam - General 1994 Musculoskeletal gait and station Station: kyphosis 05/25/2014 None Full Exam - General 1994 Musculoskeletal head and neck Overall: head atraumatic 05/25/2014 None Full Exam - General 1994 Musculoskeletal head and neck Overall: cervical spine benign 05/25/2014 None Full Exam - General 1994 Neurologic deep tendon reflexes Overall: deep tendon reflexes intact 05/25/2014 None Full Exam - General 1994 Neurologic gait Conventional walking: wide-based 05/25/2014 None Full Exam - General 1994 Neurologic cranial nerves Overall: crainial nerves 2 - 12 grossly intact 05/25/2014 None Full Exam - General 1994 Psychiatric orientation/consciousness Overall: oriented to person, place and time 05/25/2014 None Full Exam - General 1994 Psychiatric mood and affect Overall: normal mood and affect 05/25/2014 None Full Exam - General 1994 Constitutional general appearance Overall: well developed 04/24/2014 None Full Exam - General 1994 Constitutional general appearance Overall: in no acute distress 04/24/2014 None Full Exam - General 1994 Constitutional general appearance Overall: well nourished 04/24/2014 None Full Exam - General 1994 Eyes pupils and irises Overall: pupils equal, round, reactive to light and accomodation 04/24/2014 None Full Exam - General 1994 Ears/Nose/Throat otoscopic exam Overall: external auditory canals clear 04/24/2014 None Full Exam - General 1994 Ears/Nose/Throat otoscopic exam Overall: tympanic membranes clear 04/24/2014 None Full Exam - General 1994 Ears/Nose/Throat lips/teeth/gingiva Overall: benign lips 04/24/2014 None Full Exam - General 1994 Ears/Nose/Throat lips/teeth/gingiva Overall: no masses 04/24/2014 None Full Exam - General 1994 Ears/Nose/Throat oral cavity/pharynx/larynx Overall: oral mucosa clear 04/24/2014 None Full Exam - General 1994 Ears/Nose/Throat oral cavity/pharynx/larynx Overall: oropharyngeal mucosa clear 04/24/2014 None Full Exam - General 1994 Respiratory auscultation Overall: breath sounds clear bilaterally 04/24/2014 None Full Exam - General 1994 Respiratory respiratory effort/rhythm Overall: no retractions 04/24/2014 None Full Exam - General 1994 Respiratory respiratory effort/rhythm Overall: normal rate 04/24/2014 None Full Exam - General 1994 Cardiovascular auscultation of heart Overall: regular rate 04/24/2014 None Full Exam - General 1994 Cardiovascular auscultation of heart Overall: normal heart sounds 04/24/2014 None Full Exam - General 1994 Cardiovascular auscultation of heart Overall: no murmurs 04/24/2014 None Full Exam - General 1994 Abdomen abdominal exam Overall: no tenderness 04/24/2014 None Full Exam - General 1994 Abdomen abdominal exam Overall: normal bowel sounds 04/24/2014 None Full Exam - General 1994 Musculoskeletal gait and station Station: kyphosis 04/24/2014 None Full Exam - General 1994 Musculoskeletal head and neck Overall: head atraumatic 04/24/2014 None Full Exam - General 1994 Musculoskeletal head and neck Overall: cervical spine benign 04/24/2014 None Full Exam - General 1994 Neurologic deep tendon reflexes Overall: deep tendon reflexes intact 04/24/2014 None Full Exam - General 1994 Neurologic gait Conventional walking: wide-based 04/24/2014 None Full Exam - General 1994 Neurologic cranial nerves Overall: crainial nerves 2 - 12 grossly intact 04/24/2014 None Full Exam - General 1994 Psychiatric orientation/consciousness Overall: oriented to person, place and time 04/24/2014 None Full Exam - General 1994 Psychiatric mood and affect Overall: normal mood and affect 04/24/2014 None Full Exam - General 1994 Constitutional general appearance Overall: well developed 01/22/2014 None Full Exam - General 1994 Constitutional general appearance Overall: in no acute distress 01/22/2014 None Full Exam - General 1994 Constitutional general appearance Overall: well nourished 01/22/2014 None Full Exam - General 1994 Eyes pupils and irises Overall: pupils equal, round, reactive to light and accomodation 01/22/2014 None Full Exam - General 1994 Ears/Nose/Throat otoscopic exam Overall: external auditory canals clear 01/22/2014 None Full Exam - General 1994 Ears/Nose/Throat otoscopic exam Overall: tympanic membranes clear 01/22/2014 None Full Exam - General 1994 Ears/Nose/Throat lips/teeth/gingiva Overall: benign lips 01/22/2014 None Full Exam - General 1994 Ears/Nose/Throat lips/teeth/gingiva Overall: no masses 01/22/2014 None Full Exam - General 1994 Ears/Nose/Throat oral cavity/pharynx/larynx Overall: oral mucosa clear 01/22/2014 None Full Exam - General 1994 Ears/Nose/Throat oral cavity/pharynx/larynx Overall: oropharyngeal mucosa clear 01/22/2014 None Full Exam - General 1994 Respiratory auscultation Overall: breath sounds clear bilaterally 01/22/2014 None Full Exam - General 1994 Respiratory respiratory effort/rhythm Overall: no retractions 01/22/2014 None Full Exam - General 1994 Respiratory respiratory effort/rhythm Overall: normal rate 01/22/2014 None Full Exam - General 1994 Cardiovascular auscultation of heart Overall: regular rate 01/22/2014 None Full Exam - General 1994 Cardiovascular auscultation of heart Overall: normal heart sounds 01/22/2014 None Full Exam - General 1994 Cardiovascular auscultation of heart Overall: no murmurs 01/22/2014 None Full Exam - General 1994 Abdomen abdominal exam Overall: no tenderness 01/22/2014 None Full Exam - General 1994 Abdomen abdominal exam Overall: normal bowel sounds 01/22/2014 None Full Exam - General 1994 Musculoskeletal gait and station Station: kyphosis 01/22/2014 None Full Exam - General 1994 Musculoskeletal head and neck Overall: head atraumatic 01/22/2014 None Full Exam - General 1994 Musculoskeletal head and neck Overall: cervical spine benign 01/22/2014 None Full Exam - General 1994 Neurologic deep tendon reflexes Overall: deep tendon reflexes intact 01/22/2014 None Full Exam - General 1994 Neurologic gait Conventional walking: wide-based 01/22/2014 None Full Exam - General 1994 Neurologic cranial nerves Overall: crainial nerves 2 - 12 grossly intact 01/22/2014 None Full Exam - General 1994 Psychiatric orientation/consciousness Overall: oriented to person, place and time 01/22/2014 None Full Exam - General 1994 Psychiatric mood and affect Overall: normal mood and affect 01/22/2014 None Full Exam - General 1994 Constitutional general appearance Overall: well developed 09/18/2013 None Full Exam - General 1994 Constitutional general appearance Overall: in no acute distress 09/18/2013 None Full Exam - General 1994 Constitutional general appearance Overall: well nourished 09/18/2013 None Full Exam - General 1994 Eyes pupils and irises Overall: pupils equal, round, reactive to light and accomodation 09/18/2013 None Full Exam - General 1994 Ears/Nose/Throat otoscopic exam Overall: external auditory canals clear 09/18/2013 None Full Exam - General 1994 Ears/Nose/Throat otoscopic exam Overall: tympanic membranes clear 09/18/2013 None Full Exam - General 1994 Ears/Nose/Throat lips/teeth/gingiva Overall: benign lips 09/18/2013 None Full Exam - General 1994 Ears/Nose/Throat lips/teeth/gingiva Overall: no masses 09/18/2013 None Full Exam - General 1994 Ears/Nose/Throat oral cavity/pharynx/larynx Overall: oral mucosa clear 09/18/2013 None Full Exam - General 1994 Ears/Nose/Throat oral cavity/pharynx/larynx Overall: oropharyngeal mucosa clear 09/18/2013 None Full Exam - General 1994 Respiratory auscultation Overall: breath sounds clear bilaterally 09/18/2013 None Full Exam - General 1994 Respiratory respiratory effort/rhythm Overall: no retractions 09/18/2013 None Full Exam - General 1994 Respiratory respiratory effort/rhythm Overall: normal rate 09/18/2013 None Full Exam - General 1994 Cardiovascular auscultation of heart Overall: regular rate 09/18/2013 None Full Exam - General 1994 Cardiovascular auscultation of heart Overall: normal heart sounds 09/18/2013 None Full Exam - General 1994 Cardiovascular auscultation of heart Overall: no murmurs 09/18/2013 None Full Exam - General 1994 Abdomen abdominal exam Overall: no tenderness 09/18/2013 None Full Exam - General 1994 Abdomen abdominal exam Overall: normal bowel sounds 09/18/2013 None Full Exam - General 1994 Musculoskeletal gait and station Station: kyphosis 09/18/2013 None Full Exam - General 1994 Musculoskeletal head and neck Overall: head atraumatic 09/18/2013 None Full Exam - General 1994 Musculoskeletal head and neck Overall: cervical spine benign 09/18/2013 None Full Exam - General 1994 Neurologic deep tendon reflexes Overall: deep tendon reflexes intact 09/18/2013 None Full Exam - General 1994 Neurologic gait Conventional walking: wide-based 09/18/2013 None Full Exam - General 1994 Neurologic cranial nerves Overall: crainial nerves 2 - 12 grossly intact 09/18/2013 None Full Exam - General 1994 Psychiatric orientation/consciousness Overall: oriented to person, place and time 09/18/2013 None Full Exam - General 1994 Psychiatric mood and affect Overall: normal mood and affect 09/18/2013 None Full Exam - General 1994 Constitutional general appearance Overall: well developed 03/20/2013 None Full Exam - General 1994 Constitutional general appearance Overall: in no acute distress 03/20/2013 None Full Exam - General 1994 Constitutional general appearance Overall: well nourished 03/20/2013 None Full Exam - General 1994 Eyes pupils and irises Overall: pupils equal, round, reactive to light and accomodation 03/20/2013 None Full Exam - General 1995 Ears/Nose/Throat otoscopic exam Overall: external auditory canals clear 03/20/2013 None Full Exam - General 1995 Ears/Nose/Throat otoscopic exam Overall: tympanic membranes clear 03/20/2013 None Full Exam - General 1995 Ears/Nose/Throat lips/teeth/gingiva Overall: benign lips 03/20/2013 None Full Exam - General 1994 Ears/Nose/Throat lips/teeth/gingiva Overall: no masses 03/20/2013 None Full Exam - General 1995 Ears/Nose/Throat oral cavity/pharynx/larynx Overall: oral mucosa clear 03/20/2013 None Full Exam - General 1995 Ears/Nose/Throat oral cavity/pharynx/larynx Overall: oropharyngeal mucosa clear 03/20/2013 None Full Exam - General 1994 Respiratory auscultation Overall: breath sounds clear bilaterally 03/20/2013 None Full Exam - General 1994 Respiratory respiratory effort/rhythm Overall: no retractions 03/20/2013 None Full Exam - General 1994 Respiratory respiratory effort/rhythm Overall: normal rate 03/20/2013 None Full Exam - General 1994 Cardiovascular auscultation of heart Overall: regular rate 03/20/2013 None Full Exam - General 1994 Cardiovascular auscultation of heart Overall: normal heart sounds 03/20/2013 None Full Exam - General 1994 Cardiovascular auscultation of heart Overall: no murmurs 03/20/2013 None Full Exam - General 1994 Abdomen abdominal exam Overall: no tenderness 03/20/2013 None Full Exam - General 1994 Abdomen abdominal exam Overall: normal bowel sounds 03/20/2013 None Full Exam - General 1994 Musculoskeletal gait and station Station: kyphosis 03/20/2013 None Full Exam - General 1994 Musculoskeletal head and neck Overall: head atraumatic 03/20/2013 None Full Exam - General 1994 Musculoskeletal head and neck Overall: cervical spine benign 03/20/2013 None Full Exam - General 1994 Neurologic deep tendon reflexes Overall: deep tendon reflexes intact 03/20/2013 None Full Exam - General 1994 Neurologic gait Conventional walking: wide-based 03/20/2013 None Full Exam - General 1994 Neurologic cranial nerves Overall: crainial nerves 2 - 12 grossly intact 03/20/2013 None Full Exam - General 1994 Psychiatric orientation/consciousness Overall: oriented to person, place and time 03/20/2013 None Full Exam - General 1994 Psychiatric mood and affect Overall: normal mood and affect 03/20/2013 None Full Exam - General 1995 Psychiatric mood and affect Overall: normal mood and affect 05/25/2012 None Full Exam - General 1995 Respiratory respiratory effort/rhythm Overall: no retractions 05/25/2012 None Full Exam - General 1995 Respiratory respiratory effort/rhythm Overall: normal rate 05/25/2012 None Full Exam - General 1995 Cardiovascular auscultation of heart Overall: regular rate 05/25/2012 None Full Exam - General 1995 Cardiovascular auscultation of heart Overall: normal heart sounds 05/25/2012 None Full Exam - General 1995 Cardiovascular auscultation of heart Overall: no murmurs 05/25/2012 None Full Exam - General 1995 Abdomen abdominal exam Overall: no tenderness 05/25/2012 None Full Exam - General 1995 Abdomen abdominal exam Overall: normal bowel sounds 05/25/2012 None Full Exam - General 1994 Musculoskeletal head and neck Overall: head atraumatic 05/25/2012 None Full Exam - General 1994 Musculoskeletal head and neck Overall: cervical spine benign 05/25/2012 None Full Exam - General 1994 Musculoskeletal gait and station Station: kyphosis 05/25/2012 None Full Exam - General 1994 Neurologic deep tendon reflexes Overall: deep tendon reflexes intact 05/25/2012 None Full Exam - General 1994 Neurologic gait Conventional walking: wide-based 05/25/2012 None Full Exam - General 1994 Neurologic cranial nerves Overall: crainial nerves 2 - 12 grossly intact 05/25/2012 None Full Exam - General 1994 Psychiatric orientation/consciousness Overall: oriented to person, place and time 05/25/2012 None Full Exam - General 1994 Constitutional general appearance Overall: well nourished 05/25/2012 None Full Exam - General 1994 Constitutional general appearance Overall: well developed 05/25/2012 None Full Exam - General 1994 Constitutional general appearance Overall: in no acute distress 05/25/2012 None Full Exam - General 1994 Eyes pupils and irises Overall: pupils equal, round, reactive to light and accomodation 05/25/2012 None Full Exam - General 1994 Ears/Nose/Throat otoscopic exam Overall: external auditory canals clear 05/25/2012 None Full Exam - General 1994 Ears/Nose/Throat otoscopic exam Overall: tympanic membranes clear 05/25/2012 None Full Exam - General 1994 Ears/Nose/Throat lips/teeth/gingiva Overall: benign lips 05/25/2012 None Full Exam - General 1995 Ears/Nose/Throat lips/teeth/gingiva Overall: no masses 05/25/2012 None Full Exam - General 1994 Ears/Nose/Throat oral cavity/pharynx/larynx Overall: oral mucosa clear 05/25/2012 None Full Exam - General 1995 Ears/Nose/Throat oral cavity/pharynx/larynx Overall: oropharyngeal mucosa clear 05/25/2012 None Full Exam - General 1994 Respiratory auscultation Overall: breath sounds clear bilaterally 05/25/2012 None Full Exam - General 1994 Ears/Nose/Throat otoscopic exam Overall: external auditory canals clear 09/17/2011 None Full Exam - General 1994 Abdomen abdominal exam Overall: normal bowel sounds 09/17/2011 None Full Exam - General 1994 Musculoskeletal head and neck Overall: head atraumatic 09/17/2011 None Full Exam - General 1994 Musculoskeletal head and neck Overall: cervical spine benign 09/17/2011 None Full Exam - General 1994 Musculoskeletal gait and station Station: kyphosis 09/17/2011 None Full Exam - General 1994 Neurologic deep tendon reflexes Overall: deep tendon reflexes intact 09/17/2011 None Full Exam - General 1994 Neurologic gait Conventional walking: wide-based 09/17/2011 None Full Exam - General 1994 Neurologic cranial nerves Overall: crainial nerves 2 - 12 grossly intact 09/17/2011 None Full Exam - General 1994 Psychiatric orientation/consciousness Overall: oriented to person, place and time 09/17/2011 None Full Exam - General 1994 Psychiatric mood and affect Overall: normal mood and affect 09/17/2011 None Full Exam - General 1994 Cardiovascular extremities Overall: no clubbing 09/17/2011 None Full Exam - General 1994 Cardiovascular extremities Other findings: hemosideran pigment changes 09/17/2011 very faint, + varicose veins, and slight coolness on left lower leg/foot. Full Exam - General 1994 Ears/Nose/Throat otoscopic exam Overall: tympanic membranes clear 09/17/2011 None Full Exam - General 1994 Ears/Nose/Throat lips/teeth/gingiva Overall: benign lips 09/17/2011 None Full Exam - General 1994 Constitutional general appearance Overall: well nourished 09/17/2011 None Full Exam - General 1994 Constitutional general appearance Overall: well developed 09/17/2011 None Full Exam - General 1994 Constitutional general appearance Overall: in no acute distress 09/17/2011 None Full Exam - General 1994 Eyes pupils and irises Overall: pupils equal, round, reactive to light and accomodation 09/17/2011 None Full Exam - General 1994 Ears/Nose/Throat lips/teeth/gingiva Overall: no masses 09/17/2011 None Full Exam - General 1994 Ears/Nose/Throat oral cavity/pharynx/larynx Overall: oral mucosa clear 09/17/2011 None Full Exam - General 1994 Ears/Nose/Throat oral cavity/pharynx/larynx Overall: oropharyngeal mucosa clear 09/17/2011 None Full Exam - General 1994 Respiratory auscultation Overall: breath sounds clear bilaterally 09/17/2011 None Full Exam - General 1994 Respiratory respiratory effort/rhythm Overall: no retractions 09/17/2011 None Full Exam - General 1994 Respiratory respiratory effort/rhythm Overall: normal rate 09/17/2011 None Full Exam - General 1994 Cardiovascular auscultation of heart Overall: regular rate 09/17/2011 None Full Exam - General 1994 Cardiovascular auscultation of heart Overall: normal heart sounds 09/17/2011 None Full Exam - General 1994 Cardiovascular auscultation of heart Overall: no murmurs 09/17/2011 None Full Exam - General 1994 Abdomen abdominal exam Overall: no tenderness 09/17/2011 None Full Exam - General 1994 Constitutional general appearance Hygiene/Attention to Grooming: normal grooming 05/21/2011 None Full Exam - General 1994 Neck thyroid Overall: normal size 05/21/2011 None Full Exam - General 1994 Respiratory percussion Upper lung field: normal resonance 05/21/2011 None Full Exam - General 1994 Respiratory percussion Lower lung field: normal resonance 05/21/2011 None Full Exam - General 1994 Respiratory percussion Right upper lung field: normal resonance 05/21/2011 None Full Exam - General 1994 Respiratory percussion Right middle lung field: normal resonance 05/21/2011 None Full Exam - General 1994 Cardiovascular auscultation of heart S1: a normal exam 05/21/2011 None Full Exam - General 1994 Cardiovascular auscultation of heart S2: a normal exam 05/21/2011 None Full Exam - General 1994 Cardiovascular auscultation of heart Rate: regular rate 05/21/2011 None Full Exam - General 1994 Cardiovascular auscultation of heart Rhythm: regular rhythm 05/21/2011 None Full Exam - General 1994 Cardiovascular auscultation of heart Overall: normal heart sounds 05/21/2011 None Full Exam - General 1994 Abdomen abdominal exam Overall: no tenderness 05/21/2011 None Full Exam - General 1994 Abdomen abdominal exam Overall: normal bowel sounds 05/21/2011 None Full Exam - General 1994 Psychiatric orientation/consciousness Overall: oriented to person, place and time 05/21/2011 None Full Exam - General 1994 Psychiatric mood and affect Overall: normal mood and affect 05/21/2011 None Full Exam - General 1995 Constitutional general appearance Development: well developed 05/21/2011 None Full Exam - General 1994 Constitutional general appearance Overall: in no acute distress 05/21/2011 None Full Exam - General 1995 Constitutional general appearance Stature/Body Habitus: normal body habitus 05/21/2011 None Full Exam - General 1995 Constitutional general appearance Nourishment: well nourished 05/21/2011 None Full Exam - General 1995 Constitutional general appearance Evidence of Distress: in no acute distress 05/21/2011 None Full Exam - General 1995 Constitutional general appearance Hygiene/Attention to Grooming: good hygiene 05/21/2011 None Full Exam - General 1994 Neurologic gait Conventional walking: wide-based 05/21/2011 None Full Exam - General 1994 Neurologic gait Romberg test: negative 05/21/2011 None Full Exam - General 1994 Neurologic cranial nerves Overall: crainial nerves 2 - 12 grossly intact 05/21/2011 None Full Exam - General 1994 Eyes pupils and irises Overall: pupils equal, round, reactive to light and accomodation 05/21/2011 None Full Exam - General 1994 Ears/Nose/Throat otoscopic exam Overall: external auditory canals clear 05/21/2011 None Full Exam - General 1994 Ears/Nose/Throat otoscopic exam Tympanic membrane: tympanosclerosis 05/21/2011 None Full Exam - General 1994 Ears/Nose/Throat lips/teeth/gingiva Teeth: partially edentulous 05/21/2011 None Full Exam - General 1994 Ears/Nose/Throat oral cavity/pharynx/larynx Overall: oropharyngeal mucosa clear 05/21/2011 None Full Exam - General 1994 Ears/Nose/Throat oral cavity/pharynx/larynx Overall: no masses 05/21/2011 None Full Exam - General 1995 Ears/Nose/Throat oral cavity/pharynx/larynx Overall: oral mucosa clear 05/21/2011 None Full Exam - General 1994 Constitutional general appearance Overall: well nourished 01/20/2011 None Full Exam - General 1994 Constitutional general appearance Overall: well developed 01/20/2011 None Full Exam - General 1994 Constitutional general appearance Overall: in no acute distress 01/20/2011 None Full Exam - General 1994 Eyes pupils and irises Overall: pupils equal, round, reactive to light and accomodation 01/20/2011 None Full Exam - General 1994 Ears/Nose/Throat otoscopic exam Overall: tympanic membranes clear 01/20/2011 None Full Exam - General 1994 Ears/Nose/Throat otoscopic exam Overall: external auditory canals clear 01/20/2011 None Full Exam - General 1994 Ears/Nose/Throat lips/teeth/gingiva Overall: no masses 01/20/2011 None Full Exam - General 1994 Ears/Nose/Throat lips/teeth/gingiva Overall: benign lips 01/20/2011 None Full Exam - General 1994 Ears/Nose/Throat oral cavity/pharynx/larynx Overall: oral mucosa clear 01/20/2011 None Full Exam - General 1994 Ears/Nose/Throat oral cavity/pharynx/larynx Overall: oropharyngeal mucosa clear 01/20/2011 None Full Exam - General 1994 Respiratory auscultation Overall: breath sounds clear bilaterally 01/20/2011 None Full Exam - General 1994 Respiratory respiratory effort/rhythm Overall: normal rate 01/20/2011 None Full Exam - General 1994 Respiratory respiratory effort/rhythm Overall: no retractions 01/20/2011 None Full Exam - General 1994 Cardiovascular auscultation of heart Overall: regular rate 01/20/2011 None Full Exam - General 1994 Cardiovascular auscultation of heart Overall: normal heart sounds 01/20/2011 None Full Exam - General 1994 Cardiovascular auscultation of heart Overall: no murmurs 01/20/2011 None Full Exam - General 1994 Abdomen abdominal exam Overall: no tenderness 01/20/2011 None Full Exam - General 1994 Abdomen abdominal exam Overall: normal bowel sounds 01/20/2011 None Full Exam - General 1994 Musculoskeletal head and neck Overall: head atraumatic 01/20/2011 None Full Exam - General 1994 Musculoskeletal head and neck Overall: cervical spine benign 01/20/2011 None Full Exam - General 1994 Musculoskeletal gait and station Station: kyphosis 01/20/2011 None Full Exam - General 1994 Neurologic deep tendon reflexes Overall: deep tendon reflexes intact 01/20/2011 None Full Exam - General 1994 Neurologic gait Conventional walking: wide-based 01/20/2011 None Full Exam - General 1994 Neurologic cranial nerves Overall: crainial nerves 2 - 12 grossly intact 01/20/2011 None Full Exam - General 1994 Psychiatric orientation/consciousness Overall: oriented to person, place and time 01/20/2011 None Full Exam - General 1994 Psychiatric mood and affect Overall: normal mood and affect 01/20/2011 None Procedures Procedure Codes Date ROUTINE VENIPUNCTURE CPT- 4: 48032 07/24/2014 ADMIN INFLUENZA VIRUS VAC CPT-4: G0008 01/22/2014 FLU VAC NO PRSV 4 LISSA 3 YRS+ Assigned to/Laura Og CPT-4: [id number] 01/22/2014 ROUTINE VENIPUNCTURE CPT- 4: 95912 09/18/2013 ROUTINE VENIPUNCTURE CPT- 4: 64078 03/20/2013 ROUTINE VENIPUNCTURE CPT- 4: 22541 05/27/2012 ROUTINE VENIPUNCTURE CPT- 4: 49253 09/21/2011 ROUTINE VENIPUNCTURE CPT- 4: 49672 01/13/2011 Pneumococcal Polysaccharide Vaccine, 23-Valent, Ad CPT-4: 33780 01/13/2011 ADMIN INFLUENZA VIRUS VAC CPT-4: G0008 01/13/2011 ADMIN PNEUMOCOCCAL VACCINE SNOMED CT: [id number] CPT-4: G0009 01/13/2011 FLULAVAL VACC, 3 YRS & >, IM CPT-4: Q2036 01/13/2011 Vital Signs Date Vital 09/21/2018 Blood Pressure 1: 142/82 Code: 8480-6 BMI: 25.9 Code: 63007-4 Heart Rate 1: 65 bpm Height: 5'3" SpO2: 95% Weight: 146 lbs 05/26/2018 Blood Pressure 1: 120/82 Code: 8480-6 BMI: 25.2 Code: 54585-3 Heart Rate 1: 67 bpm Height: 5'3" SpO2: 92% Weight: 142 lbs 05/11/2018 Blood Pressure 1: 166/100 Code: 8480-6 Heart Rate 1: 68 bpm Height: 5'5" SpO2: 91% Weight: 01/17/2018 Blood Pressure 1: 108/76 Code: 8480-6 BMI: 23.1 Code: 27120-3 Heart Rate 1: 86 bpm Height: 5'5" SpO2: 97% Weight: 139 lbs 10/12/2017 Blood Pressure 1: 144/84 Code: 8480-6 BMI: 23.6 Code: 07118-1 Heart Rate 1: 70 bpm Height: 5'5" SpO2: 92% Weight: 142 lbs 08/10/2017 Blood Pressure 1: 138/84 Code: 8480-6 BMI: 22.5 Code: 78203-8 Heart Rate 1: 55 bpm Height: 5'5" SpO2: 91% Weight: 135 lbs 07/06/2017 Blood Pressure 1: 140/78 Code: 8480-6 BMI: 22.5 Code: 97756-0 Heart Rate 1: 87 bpm Height: 5'5" SpO2: 96% Weight: 135 lbs 03/18/2017 Blood Pressure 1: 152/88 Code: 8480-6 BMI: 22.5 Code: 58820-7 Heart Rate 1: 55 bpm Height: 5'5" SpO2: 92% Temperature: 36.8 (C) / 98.2 (F) Weight: 135 lbs 02/18/2017 Blood Pressure 1: 108/80 Code: 8480-6 BMI: 22.0 Code: 45228-3 Heart Rate 1: 87 bpm Height: 5'5" SpO2: 93% Weight: 132 lbs 11/16/2016 Blood Pressure 1: 146/84 Code: 8480-6 BMI: 23.0 Code: 88645-3 Heart Rate 1: 72 bpm Height: 5'5" SpO2: 95% Weight: 138 lbs 10/13/2016 Blood Pressure 1: 170/96 Code: 8480-6 Blood Pressure 1: 142/86 Code: 8480-6 BMI: 23.0 Code: 27166-5 Heart Rate 1: 74 bpm Height: 5'5" SpO2: 90% Weight: 138 lbs 09/15/2016 Blood Pressure 1: 118/78 Code: 8480-6 Heart Rate 1: 82 bpm SpO2: 90% Weight: 141 lbs 08/18/2016 Blood Pressure 1: 142/82 Code: 8480-6 BMI: 24.1 Code: 84851-1 Heart Rate 1: 72 bpm Height: 5'5" SpO2: 91% Weight: 145 lbs 06/23/2016 Blood Pressure 1: 148/86 Code: 8480-6 BMI: 24.1 Code: 20363-7 Heart Rate 1: 70 bpm Height: 5'5" SpO2: 90% Weight: 145 lbs 05/19/2016 Blood Pressure 1: 162/76 Code: 8480-6 BMI: 24.3 Code: 35829-1 Heart Rate 1: 76 bpm Height: 5'5" Weight: 146 lbs 09/14/2014 Blood Pressure 1: 102/80 Code: 8480-6 BMI: 27.7 Code: 08843-2 Heart Rate 1: 90 bpm Height: 5' SpO2: 94% Weight: 144 lbs 08/24/2014 Blood Pressure 1: 122/92 Code: 8480-6 BMI: 28.4 Code: 77829-1 Heart Rate 1: 74 bpm Height: 5' SpO2: 94% Weight: 148 lbs 07/24/2014 Blood Pressure 1: 142/86 Code: 8480-6 BMI: 28.8 Code: 99617-8 Heart Rate 1: 88 bpm Height: 5' Weight: 150 lbs 05/25/2014 Blood Pressure 1: 136/88 Code: 8480-6 BMI: 28.8 Code: 78433-9 Heart Rate 1: 82 bpm Height: 5' Weight: 150 lbs 04/24/2014 Blood Pressure 1: 150/78 Code: 8480-6 BMI: 29.6 Code: 92015-8 Heart Rate 1: 60 bpm Height: 5' Weight: 154 lbs 01/22/2014 Blood Pressure 1: 140/78 Code: 8480-6 BMI: 29.6 Code: 18920-6 Heart Rate 1: 78 bpm Height: 5' SpO2: 90% Weight: 154 lbs 09/18/2013 Blood Pressure 1: 128/84 Code: 8480-6 BMI: 29.4 Code: 08818-1 Heart Rate 1: 80 bpm Height: 5' Weight: 153 lbs 03/20/2013 Blood Pressure 1: 122/80 Code: 8480-6 BMI: 29.0 Code: 70397-3 Heart Rate 1: 76 bpm Height: 5' Weight: 151 lbs 05/25/2012 Blood Pressure 1: 140/92 Code: 8480-6 BMI: 26.3 Code: 16970-4 Heart Rate 1: 88 bpm Height: 5' Weight: 137 lbs 09/17/2011 Blood Pressure 1: 128/78 Code: 8480-6 Heart Rate 1: 76 bpm Respiratory Rate: 24 bpm Weight: 137 lbs 05/21/2011 Blood Pressure 1: 114/72 Code: 8480-6 BMI: 27.1 Code: 34831-7 Heart Rate 1: 68 bpm Height: 5' Respiratory Rate: 16 bpm Weight: 141 lbs 01/20/2011 Blood Pressure 1: 130/72 Code: 8480-6 Heart Rate 1: 72 bpm Respiratory Rate: 16 bpm Weight: 143 lbs Functional Status No Functional Status data History of Present Illness Symptom Name Status Result Effective Date Notes Quality primary hypertension 09/21/2018 None Onset and Resolution ongoing 09/21/2018 None Onset of Symptom during adulthood 09/21/2018 None Blood Pressure Values not checking blood pressure at home 09/21/2018 None Alleviating Factors medication 09/21/2018 None Pertinent Findings dizziness 09/21/2018 None Pertinent Findings dyspnea 09/21/2018 None Pertinent Findings edema 09/21/2018 None Quality chronic 09/21/2018 None Quality chronic 09/21/2018 None Onset and Resolution ongoing 09/21/2018 None Frequency of Episodes unchanged 09/21/2018 None Quality chronic 05/26/2018 None Quality unsteady 05/26/2018 None Onset and Resolution ongoing 05/26/2018 None Onset of Symptom months ago 05/26/2018 None Limitation on Activities necessitates ambulation with a cane or walker 05/26/2018 None Limitation on Activities able to perform ADLs 05/26/2018 None Frequency of Episodes unchanged 05/26/2018 None Triggers no known associated factors 05/26/2018 None Alleviating Factors activity 05/26/2018 None Location both feet 05/26/2018 None Pertinent Findings motor weakness 05/26/2018 None Quality primary hypertension 05/26/2018 None Onset and Resolution ongoing 05/26/2018 None Onset of Symptom during adulthood 05/26/2018 None Blood Pressure Values not checking blood pressure at home 05/26/2018 None Severity not consistently severe symptoms, the symptoms fluctuate from no symptoms to anxiety and headaches 05/26/2018 None Frequency of Episodes unchanged 05/26/2018 None Alleviating Factors medication 05/26/2018 None Pertinent Findings Denies dizziness 05/26/2018 "once in a while" Pertinent Findings dyspnea 05/26/2018 "a little bit" Pertinent Findings Denies edema 05/26/2018 None Quality acute 05/11/2018 None Onset and Resolution sudden in onset 05/11/2018 None Pertinent Findings Denies blurred vision 05/11/2018 None Pertinent Findings Denies dizziness 05/11/2018 None Pertinent Findings Denies facial pain 05/11/2018 None Pertinent Findings Denies nausea 05/11/2018 None gait abnormality Quality chronic 01/17/2018 None gait abnormality Quality unsteady 01/17/2018 None gait abnormality Onset and Resolution ongoing 01/17/2018 None gait abnormality Onset of Symptom months ago 01/17/2018 None gait abnormality Limitation on Activities necessitates ambulation with a cane or walker 01/17/2018 None gait abnormality Limitation on Activities able to perform ADLs 01/17/2018 None gait abnormality Frequency of Episodes unchanged 01/17/2018 None gait abnormality Triggers no known associated factors 01/17/2018 None gait abnormality Alleviating Factors activity 01/17/2018 None gait abnormality Location both feet 01/17/2018 None gait abnormality Pertinent Findings motor weakness 01/17/2018 None hypertension Quality primary hypertension 01/17/2018 None hypertension Onset and Resolution ongoing 01/17/2018 None hypertension Onset of Symptom during adulthood 01/17/2018 None hypertension Blood Pressure Values not checking blood pressure at home 01/17/2018 None hypertension Severity not consistently severe symptoms, the symptoms fluctuate from no symptoms to anxiety and headaches 01/17/2018 None hypertension Frequency of Episodes unchanged 01/17/2018 None hypertension Alleviating Factors medication 01/17/2018 None hypertension Pertinent Findings dizziness 01/17/2018 "once in a while" hypertension Pertinent Findings dyspnea 01/17/2018 "a little bit" hypertension Pertinent Findings edema 01/17/2018 None gait abnormality Quality chronic 10/12/2017 None gait abnormality Quality unsteady 10/12/2017 None gait abnormality Onset and Resolution ongoing 10/12/2017 None gait abnormality Onset of Symptom months ago 10/12/2017 None gait abnormality Limitation on Activities necessitates ambulation with a cane or walker 10/12/2017 None gait abnormality Limitation on Activities able to perform ADLs 10/12/2017 None gait abnormality Frequency of Episodes unchanged 10/12/2017 None gait abnormality Triggers no known associated factors 10/12/2017 None gait abnormality Alleviating Factors activity 10/12/2017 None gait abnormality Location both feet 10/12/2017 None gait abnormality Pertinent Findings motor weakness 10/12/2017 None hypertension Quality primary hypertension 10/12/2017 None hypertension Onset and Resolution ongoing 10/12/2017 None hypertension Onset of Symptom during adulthood 10/12/2017 None hypertension Blood Pressure Values not checking blood pressure at home 10/12/2017 None hypertension Severity not consistently severe symptoms, the symptoms fluctuate from no symptoms to anxiety and headaches 10/12/2017 None hypertension Frequency of Episodes unchanged 10/12/2017 None hypertension Alleviating Factors medication 10/12/2017 None hypertension Pertinent Findings dizziness 10/12/2017 "once in a while" hypertension Pertinent Findings dyspnea 10/12/2017 "a little bit" hypertension Pertinent Findings edema 10/12/2017 None gait abnormality Quality chronic 08/10/2017 None gait abnormality Quality unsteady 08/10/2017 None gait abnormality Onset and Resolution ongoing 08/10/2017 None gait abnormality Onset of Symptom months ago 08/10/2017 None gait abnormality Limitation on Activities necessitates ambulation with a cane or walker 08/10/2017 None gait abnormality Limitation on Activities able to perform ADLs 08/10/2017 None gait abnormality Frequency of Episodes unchanged 08/10/2017 None gait abnormality Triggers no known associated factors 08/10/2017 None gait abnormality Alleviating Factors activity 08/10/2017 None gait abnormality Location both feet 08/10/2017 None gait abnormality Pertinent Findings motor weakness 08/10/2017 None hypertension Quality primary hypertension 08/10/2017 None hypertension Onset and Resolution ongoing 08/10/2017 None hypertension Onset of Symptom during adulthood 08/10/2017 None hypertension Blood Pressure Values not checking blood pressure at home 08/10/2017 None hypertension Severity not consistently severe symptoms, the symptoms fluctuate from no symptoms to anxiety and headaches 08/10/2017 None hypertension Frequency of Episodes unchanged 08/10/2017 None hypertension Alleviating Factors medication 08/10/2017 None hypertension Pertinent Findings dizziness 08/10/2017 "once in a while" hypertension Pertinent Findings dyspnea 08/10/2017 None hypertension Pertinent Findings edema 08/10/2017 None gait abnormality Quality chronic 07/06/2017 None gait abnormality Quality unsteady 07/06/2017 None gait abnormality Onset and Resolution ongoing 07/06/2017 None gait abnormality Limitation on Activities necessitates ambulation with a cane or walker 07/06/2017 None gait abnormality Limitation on Activities able to perform ADLs 07/06/2017 None gait abnormality Frequency of Episodes unchanged 07/06/2017 None gait abnormality Triggers no known associated factors 07/06/2017 None gait abnormality Alleviating Factors activity 07/06/2017 None gait abnormality Location both feet 07/06/2017 None gait abnormality Pertinent Findings motor weakness 07/06/2017 None hypertension Quality primary hypertension 07/06/2017 None hypertension Onset and Resolution ongoing 07/06/2017 None hypertension Onset of Symptom during adulthood 07/06/2017 None hypertension Blood Pressure Values not checking blood pressure at home 07/06/2017 None hypertension Alleviating Factors medication 07/06/2017 None hypertension Pertinent Findings dizziness 07/06/2017 "once in a while" hypertension Pertinent Findings Denies dyspnea 07/06/2017 None hypertension Pertinent Findings edema 07/06/2017 None gait abnormality Onset of Symptom _ months ago 07/06/2017 None hypertension Severity not consistently severe symptoms, the symptoms fluctuate from no symptoms to anxiety and headaches 07/06/2017 None hypertension Frequency of Episodes unchanged 07/06/2017 None gait abnormality Quality chronic 03/18/2017 None gait abnormality Quality unsteady 03/18/2017 None gait abnormality Onset and Resolution ongoing 03/18/2017 None gait abnormality Limitation on Activities able to perform ADLs 03/18/2017 None gait abnormality Frequency of Episodes unchanged 03/18/2017 None gait abnormality Triggers no known associated factors 03/18/2017 None gait abnormality Alleviating Factors activity 03/18/2017 None gait abnormality Location both feet 03/18/2017 None gait abnormality Pertinent Findings motor weakness 03/18/2017 None hypertension Quality primary hypertension 03/18/2017 None hypertension Onset and Resolution ongoing 03/18/2017 None hypertension Onset of Symptom during adulthood 03/18/2017 None hypertension Blood Pressure Values not checking blood pressure at home 03/18/2017 None hypertension Alleviating Factors medication 03/18/2017 None hypertension Pertinent Findings dizziness 03/18/2017 "once in a while" hypertension Pertinent Findings Denies dyspnea 03/18/2017 None hypertension Pertinent Findings edema 03/18/2017 None gait abnormality Limitation on Activities necessitates ambulation with a cane or walker 03/18/2017 None gait abnormality Quality chronic 02/18/2017 None gait abnormality Quality unsteady 02/18/2017 None gait abnormality Quality worsening 02/18/2017 None gait abnormality Onset and Resolution ongoing 02/18/2017 None gait abnormality Limitation on Activities does not limit ambulation 02/18/2017 None gait abnormality Limitation on Activities able to perform ADLs 02/18/2017 None gait abnormality Frequency of Episodes unchanged 02/18/2017 None gait abnormality Triggers no known associated factors 02/18/2017 None gait abnormality Alleviating Factors activity 02/18/2017 None gait abnormality Location both feet 02/18/2017 None gait abnormality Pertinent Findings motor weakness 02/18/2017 None gait abnormality Assistive devices cane 02/18/2017 None hypertension Quality primary hypertension 02/18/2017 None hypertension Onset and Resolution ongoing 02/18/2017 None hypertension Onset of Symptom during adulthood 02/18/2017 None hypertension Alleviating Factors medication 02/18/2017 None hypertension Blood Pressure Values not checking blood pressure at home 02/18/2017 None hypertension Pertinent Findings dizziness 02/18/2017 "once in a while" hypertension Pertinent Findings Denies dyspnea 02/18/2017 None hypertension Pertinent Findings edema 02/18/2017 None gait abnormality Quality chronic 11/16/2016 None gait abnormality Quality unsteady 11/16/2016 None gait abnormality Quality worsening 11/16/2016 None gait abnormality Onset and Resolution ongoing 11/16/2016 states she has not fallen but is very unsteady gait abnormality Limitation on Activities does not limit ambulation 11/16/2016 None gait abnormality Limitation on Activities able to perform ADLs 11/16/2016 None gait abnormality Frequency of Episodes unchanged 11/16/2016 None gait abnormality Triggers no known associated factors 11/16/2016 None gait abnormality Alleviating Factors activity 11/16/2016 sitting for a long period makes it worse gait abnormality Pertinent Findings Denies bradykinesia 11/16/2016 None gait abnormality Pertinent Findings motor weakness 11/16/2016 None gait abnormality Pertinent Findings Denies rigidity 11/16/2016 None gait abnormality Pertinent Findings Denies spasticity 11/16/2016 None gait abnormality Assistive devices cane 11/16/2016 None gait abnormality Location both feet 11/16/2016 None edema Location on both ankles 10/13/2016 None edema Quality improving 10/13/2016 None edema Onset and Resolution resolved 10/13/2016 None edema Onset of Symptom 1 months ago 10/13/2016 None edema Limitation on Activities does not limit activities 10/13/2016 None edema Frequency of Episodes decreasing 10/13/2016 None edema Significant Past Medical History cardiac disease 10/13/2016 None edema Triggers no known associated factors 10/13/2016 None edema Pertinent Findings Denies dyspnea 10/13/2016 little bit edema Pertinent Findings dyspnea on exertion 10/13/2016 None edema Pertinent Findings increased abdominal girth 10/13/2016 None edema Pertinent Findings weight loss 10/13/2016 None gait abnormality Quality chronic 10/13/2016 None gait abnormality Quality unsteady 10/13/2016 None gait abnormality Onset and Resolution ongoing 10/13/2016 states she has not fallen but is very unsteady gait abnormality Limitation on Activities does not limit ambulation 10/13/2016 None gait abnormality Limitation on Activities able to perform ADLs 10/13/2016 None gait abnormality Frequency of Episodes unchanged 10/13/2016 None gait abnormality Triggers no known associated factors 10/13/2016 None gait abnormality Alleviating Factors activity 10/13/2016 sitting for a long period makes it worse gait abnormality Pertinent Findings Denies bradykinesia 10/13/2016 None gait abnormality Pertinent Findings motor weakness 10/13/2016 None gait abnormality Pertinent Findings Denies rigidity 10/13/2016 None gait abnormality Pertinent Findings Denies spasticity 10/13/2016 None edema Quality chronic 10/13/2016 None gait abnormality Quality worsening 10/13/2016 None edema Location on both ankles 09/15/2016 None edema Quality improving 09/15/2016 None edema Onset and Resolution resolved 09/15/2016 None edema Onset of Symptom 1 months ago 09/15/2016 None edema Limitation on Activities does not limit activities 09/15/2016 None edema Frequency of Episodes decreasing 09/15/2016 None edema Significant Past Medical History cardiac disease 09/15/2016 None edema Triggers no known associated factors 09/15/2016 None edema Pertinent Findings Denies dyspnea 09/15/2016 little bit gait abnormality Quality chronic 09/15/2016 None gait abnormality Quality unsteady 09/15/2016 None gait abnormality Onset and Resolution ongoing 09/15/2016 states she has not fallen but is very unsteady gait abnormality Limitation on Activities does not limit ambulation 09/15/2016 None gait abnormality Limitation on Activities able to perform ADLs 09/15/2016 None gait abnormality Frequency of Episodes unchanged 09/15/2016 None gait abnormality Triggers no known associated factors 09/15/2016 None gait abnormality Alleviating Factors activity 09/15/2016 sitting for a long period makes it worse gait abnormality Pertinent Findings Denies bradykinesia 09/15/2016 None gait abnormality Pertinent Findings motor weakness 09/15/2016 None gait abnormality Pertinent Findings Denies rigidity 09/15/2016 None gait abnormality Pertinent Findings Denies spasticity 09/15/2016 None edema Pertinent Findings increased abdominal girth 09/15/2016 None edema Pertinent Findings dyspnea on exertion 09/15/2016 None edema Pertinent Findings weight loss 09/15/2016 None edema Location on both ankles 08/18/2016 None edema Quality improving 08/18/2016 None edema Onset of Symptom 1 months ago 08/18/2016 None edema Limitation on Activities does not limit activities 08/18/2016 None edema Frequency of Episodes decreasing 08/18/2016 None edema Significant Past Medical History cardiac disease 08/18/2016 None edema Triggers no known associated factors 08/18/2016 None edema Pertinent Findings dyspnea 08/18/2016 little bit gait abnormality Quality chronic 08/18/2016 None gait abnormality Quality unsteady 08/18/2016 None gait abnormality Onset and Resolution ongoing 08/18/2016 states she has not fallen but is very unsteady gait abnormality Limitation on Activities does not limit ambulation 08/18/2016 None gait abnormality Limitation on Activities able to perform ADLs 08/18/2016 None gait abnormality Frequency of Episodes unchanged 08/18/2016 None gait abnormality Triggers no known associated factors 08/18/2016 None gait abnormality Alleviating Factors activity 08/18/2016 sitting for a long period makes it worse gait abnormality Pertinent Findings Denies bradykinesia 08/18/2016 None gait abnormality Pertinent Findings motor weakness 08/18/2016 None gait abnormality Pertinent Findings Denies rigidity 08/18/2016 None gait abnormality Pertinent Findings Denies spasticity 08/18/2016 None edema Onset and Resolution resolved 08/18/2016 None edema Location on both ankles 06/23/2016 None edema Quality improving 06/23/2016 None edema Onset and Resolution ongoing 06/23/2016 None edema Onset of Symptom 1 months ago 06/23/2016 None edema Limitation on Activities does not limit activities 06/23/2016 None edema Frequency of Episodes decreasing 06/23/2016 None edema Significant Past Medical History cardiac disease 06/23/2016 None edema Triggers no known associated factors 06/23/2016 None edema Pertinent Findings dyspnea 06/23/2016 little bit gait abnormality Quality chronic 06/23/2016 None gait abnormality Quality unsteady 06/23/2016 None gait abnormality Onset and Resolution ongoing 06/23/2016 states she has not fallen but is very unsteady gait abnormality Limitation on Activities does not limit ambulation 06/23/2016 None gait abnormality Limitation on Activities able to perform ADLs 06/23/2016 None gait abnormality Frequency of Episodes unchanged 06/23/2016 None gait abnormality Triggers no known associated factors 06/23/2016 None gait abnormality Alleviating Factors activity 06/23/2016 sitting for a long period makes it worse gait abnormality Pertinent Findings Denies bradykinesia 06/23/2016 None gait abnormality Pertinent Findings motor weakness 06/23/2016 None gait abnormality Pertinent Findings Denies rigidity 06/23/2016 None gait abnormality Pertinent Findings Denies spasticity 06/23/2016 None edema Location on both ankles 05/19/2016 None edema Quality improving 05/19/2016 None edema Onset and Resolution ongoing 05/19/2016 None edema Onset of Symptom 1 months ago 05/19/2016 None edema Limitation on Activities does not limit activities 05/19/2016 None edema Frequency of Episodes decreasing 05/19/2016 None edema Significant Past Medical History cardiac disease 05/19/2016 None edema Triggers no known associated factors 05/19/2016 None edema Pertinent Findings dyspnea 05/19/2016 little bit gait abnormality Quality chronic 05/19/2016 None gait abnormality Quality unsteady 05/19/2016 None gait abnormality Onset and Resolution ongoing 05/19/2016 states she has not fallen but is very unsteady gait abnormality Limitation on Activities does not limit ambulation 05/19/2016 None gait abnormality Limitation on Activities able to perform ADLs 05/19/2016 None gait abnormality Frequency of Episodes unchanged 05/19/2016 None gait abnormality Triggers no known associated factors 05/19/2016 None gait abnormality Alleviating Factors activity 05/19/2016 sitting for a long period makes it worse gait abnormality Pertinent Findings Denies bradykinesia 05/19/2016 None gait abnormality Pertinent Findings motor weakness 05/19/2016 None gait abnormality Pertinent Findings Denies rigidity 05/19/2016 None gait abnormality Pertinent Findings Denies spasticity 05/19/2016 None edema Location on both ankles 09/14/2014 had stents and balloon put in her legs about a month ago edema Pertinent Findings dyspnea 09/14/2014 little bit gait abnormality Quality chronic 09/14/2014 None gait abnormality Quality unsteady 09/14/2014 None gait abnormality Onset and Resolution ongoing 09/14/2014 states she has not fallen but is very unsteady gait abnormality Limitation on Activities does not limit ambulation 09/14/2014 None gait abnormality Limitation on Activities able to perform ADLs 09/14/2014 None gait abnormality Frequency of Episodes unchanged 09/14/2014 None gait abnormality Triggers no known associated factors 09/14/2014 None gait abnormality Alleviating Factors activity 09/14/2014 sitting for a long period makes it worse gait abnormality Pertinent Findings Denies bradykinesia 09/14/2014 None gait abnormality Pertinent Findings motor weakness 09/14/2014 None gait abnormality Pertinent Findings Denies rigidity 09/14/2014 None gait abnormality Pertinent Findings Denies spasticity 09/14/2014 None edema Onset of Symptom 1 months ago 09/14/2014 None edema Quality improving 09/14/2014 None edema Onset and Resolution ongoing 09/14/2014 much improved edema Limitation on Activities does not limit activities 09/14/2014 None edema Frequency of Episodes decreasing 09/14/2014 None edema Significant Past Medical History cardiac disease 09/14/2014 None edema Triggers no known associated factors 09/14/2014 None edema Location on both ankles 08/24/2014 had stents and balloon put in her legs last week edema Onset of Symptom 1 weeks ago 08/24/2014 None gait abnormality Quality chronic 08/24/2014 None gait abnormality Quality unsteady 08/24/2014 None gait abnormality Onset and Resolution ongoing 08/24/2014 states she has not fallen but is very unsteady gait abnormality Limitation on Activities does not limit ambulation 08/24/2014 None gait abnormality Limitation on Activities able to perform ADLs 08/24/2014 None gait abnormality Frequency of Episodes unchanged 08/24/2014 None gait abnormality Triggers no known associated factors 08/24/2014 None gait abnormality Alleviating Factors activity 08/24/2014 sitting for a long period makes it worse gait abnormality Pertinent Findings Denies bradykinesia 08/24/2014 None gait abnormality Pertinent Findings motor weakness 08/24/2014 None gait abnormality Pertinent Findings Denies rigidity 08/24/2014 None gait abnormality Pertinent Findings Denies spasticity 08/24/2014 None edema Pertinent Findings dyspnea 08/24/2014 None gait abnormality Quality chronic 07/24/2014 None gait abnormality Quality unsteady 07/24/2014 None gait abnormality Onset and Resolution ongoing 07/24/2014 states she has not fallen but is very unsteady gait abnormality Limitation on Activities does not limit ambulation 07/24/2014 None gait abnormality Limitation on Activities able to perform ADLs 07/24/2014 None gait abnormality Frequency of Episodes unchanged 07/24/2014 None gait abnormality Triggers no known associated factors 07/24/2014 None gait abnormality Alleviating Factors activity 07/24/2014 sitting for a long period makes it worse gait abnormality Pertinent Findings Denies bradykinesia 07/24/2014 None gait abnormality Pertinent Findings motor weakness 07/24/2014 None gait abnormality Pertinent Findings Denies rigidity 07/24/2014 None gait abnormality Pertinent Findings Denies spasticity 07/24/2014 None gait abnormality Quality chronic 05/25/2014 None gait abnormality Quality unsteady 05/25/2014 None gait abnormality Onset and Resolution ongoing 05/25/2014 states she has not fallen but is very unsteady gait abnormality Triggers no known associated factors 05/25/2014 None gait abnormality Pertinent Findings Denies bradykinesia 05/25/2014 None gait abnormality Pertinent Findings motor weakness 05/25/2014 None gait abnormality Pertinent Findings Denies rigidity 05/25/2014 None gait abnormality Pertinent Findings Denies spasticity 05/25/2014 None cough Location in the throat 05/25/2014 None cough Onset of Symptom 1 weeks ago 05/25/2014 None cough Pertinent Findings Denies fever 05/25/2014 None gait abnormality Limitation on Activities does not limit ambulation 05/25/2014 None gait abnormality Frequency of Episodes unchanged 05/25/2014 None gait abnormality Limitation on Activities able to perform ADLs 05/25/2014 None gait abnormality Alleviating Factors activity 05/25/2014 sitting for a long period makes it worse cough Quality acute 05/25/2014 None cough Onset and Resolution ongoing 05/25/2014 None cough Limitation on Activities does not limit activities 05/25/2014 None cough Frequency of Episodes decreasing 05/25/2014 None cough Triggers no known associated factors 05/25/2014 None gait abnormality Quality chronic 04/24/2014 None gait abnormality Quality unsteady 04/24/2014 None gait abnormality Onset and Resolution ongoing 04/24/2014 states she has not fallen but is very unsteady gait abnormality Triggers no known associated factors 04/24/2014 None gait abnormality Pertinent Findings Denies rigidity 04/24/2014 None gait abnormality Pertinent Findings Denies spasticity 04/24/2014 None gait abnormality Pertinent Findings Denies bradykinesia 04/24/2014 None gait abnormality Pertinent Findings motor weakness 04/24/2014 None gait abnormality Quality chronic 01/22/2014 None gait abnormality Quality unsteady 01/22/2014 None gait abnormality Onset and Resolution ongoing 01/22/2014 states she has not fallen but is very unsteady gait abnormality Triggers no known associated factors 01/22/2014 None ecchymosis Location on both arms 01/22/2014 None ecchymosis Pertinent Findings easy bruising 01/22/2014 None ecchymosis Pertinent Findings Denies tenderness to palpation 01/22/2014 None gait abnormality Severity mild 01/22/2014 None gait abnormality Onset and Resolution ongoing 09/18/2013 states she has not fallen but is very unsteady gait abnormality Quality chronic 09/18/2013 None gait abnormality Quality unsteady 09/18/2013 None gait abnormality Triggers no known associated factors 09/18/2013 None weight gain/obesity Location on the abdomen 03/20/2013 None weight gain/obesity Quality stable 03/20/2013 states has gained because she stopped smoking gait abnormality Quality chronic 03/20/2013 None hypertension Quality chronic 03/20/2013 None hypertension Onset and Resolution ongoing 03/20/2013 None hypertension Blood Pressure Values not checking blood pressure at home 03/20/2013 None hypertension Severity mild 03/20/2013 None hypertension Triggers stress 03/20/2013 None hypertension Alleviating Factors medication 03/20/2013 None hypertension Exacerbating Factors change in dietary habits 03/20/2013 None hypertension Exacerbating Factors stress 03/20/2013 None hypertension Pertinent Findings Denies anxiety 03/20/2013 None hypertension Pertinent Findings Denies lethargy 03/20/2013 None hypertension Pertinent Findings Denies palpitations 03/20/2013 None hypertension Quality chronic 05/25/2012 None hypertension Onset and Resolution ongoing 05/25/2012 None hypertension Blood Pressure Values not checking blood pressure at home 05/25/2012 None hypertension Severity mild 05/25/2012 None hypertension Triggers stress 05/25/2012 None hypertension Alleviating Factors medication 05/25/2012 None hypertension Exacerbating Factors change in dietary habits 05/25/2012 None hypertension Exacerbating Factors stress 05/25/2012 None hypertension Pertinent Findings Denies anxiety 05/25/2012 None hypertension Pertinent Findings Denies lethargy 05/25/2012 None hypertension Pertinent Findings Denies palpitations 05/25/2012 None hyperlipidemia Onset and Resolution ongoing 05/25/2012 None hyperlipidemia Onset of Symptom during adulthood 05/25/2012 None hyperlipidemia Severity mild 05/25/2012 None hyperlipidemia Exacerbating Factors diet 05/25/2012 None hyperlipidemia Significant Family History hyperlipidemia 05/25/2012 None hyperlipidemia Pertinent Findings Denies cold intolerance 05/25/2012 None hyperlipidemia Pertinent Findings Denies edema 05/25/2012 None hyperlipidemia Pertinent Findings Denies nausea 05/25/2012 None hyperlipidemia Pertinent Findings Denies obesity 05/25/2012 None hypertension Pertinent Findings Denies anxiety 09/17/2011 None hypertension Pertinent Findings Denies lethargy 09/17/2011 None lower leg pain Frequency of Episodes unchanged 09/17/2011 None lower leg pain Pertinent Findings instability 09/17/2011 None lower leg pain Pertinent Findings Denies numbness 09/17/2011 None lower leg pain Pertinent Findings pain with movement 09/17/2011 None hypertension Quality chronic 09/17/2011 None hypertension Pertinent Findings Denies palpitations 09/17/2011 None hypertension Onset and Resolution ongoing 09/17/2011 None lower leg pain Location in the calf region 09/17/2011 None lower leg pain Quality aching pain 09/17/2011 None lower leg pain Quality intermittent 09/17/2011 pt states that the pain starts when she gets up and walks, lasts for about 30 minutes, then starts to improve. lower leg pain Limitation on Activities allows weight bearing activity 09/17/2011 None lower leg pain Severity mild 09/17/2011 None lower leg pain Significant Medications NSAID's 09/17/2011 None lower leg pain Mechanism of injury unknown 09/17/2011 None lower leg pain Alleviating Factors non weight bearing 09/17/2011 None lower leg pain Alleviating Factors rest 09/17/2011 None lower leg pain Exacerbating Factors walking 09/17/2011 None hypertension Blood Pressure Values not checking blood pressure at home 09/17/2011 None hypertension Severity mild 09/17/2011 None hypertension Significant Medications tobacco 09/17/2011 None hypertension Triggers stress 09/17/2011 None hypertension Alleviating Factors medication 09/17/2011 None hypertension Exacerbating Factors stress 09/17/2011 None hypertension Exacerbating Factors change in dietary habits 09/17/2011 None gait abnormality Assistive devices walker 05/21/2011 pt states she hasn't been using it lately gait abnormality Quality unsteady 05/21/2011 worse in the morning gait abnormality Onset and Resolution gradual in onset 05/21/2011 states getting worse over last 3 years gait abnormality Limitation on Activities able to perform ADLs 05/21/2011 None gait abnormality Limitation on Activities ambulation with walker 05/21/2011 states she is able to walk ok with walker but has difficulties walking on sidewalks at apartment because they are narrow gait abnormality Assistive devices cane 05/21/2011 uses when not using walker occasionally. Did not bring walker or cane to office. gait abnormality Timing of Episodes upon awakening 05/21/2011 None gait abnormality Timing of Episodes in the morning 05/21/2011 None gait abnormality Initial treatment stretching 05/21/2011 states she has been going to [place] to have the toxins removed from her feet cholesterol followup Quality increased cholesterol 01/20/2011 pt had labs 01/13/11; Dr. Jackson recommended to increase niacin to 1000 mg daily and increase fish oil to 1000mg tid Advance Directives No Advance Directive data Encounters Encounter Performer Location Codes Date [phone] [id number] EST. PATIENT, LEVEL III Diagnosis: Essential (primary) hypertension[ICD10: I10] Diagnosis: Major depressive disorder, recurrent, moderate[ICD10: F33.1] Georgia Jackson MD, [facility] CPT-4: 12436 09/21/2018 [id number]) 13001 EST. PATIENT, LEVEL IV Diagnosis: Essential (primary) hypertension[ICD10: I10] Diagnosis: Major depressive disorder, recurrent, moderate[ICD10: F33.1] Diagnosis: Mixed incontinence[ICD10: N39.46] Georgia Jackson MD, [facility] CPT- 4: 22400 05/26/2018 27711 EST. PATIENT, LEVEL III Diagnosis: Headache[ICD10: R51] Diagnosis: Weakness[ICD10: R53.1] Denisha Jackson MD, [facility] CPT-4: 15672 05/11/2018 ([id number]) 22822 EST. PATIENT, LEVEL IV Diagnosis: Essential (primary) hypertension[ICD10: I10] Diagnosis: Rash and other nonspecific skin eruption[ICD10: R21] Diagnosis: Major depressive disorder, recurrent, moderate[ICD10: F33.1] Brigitte Jackson MD, [facility] CPT-4: 17869 01/17/2018 ([id number]) 19889 EST. PATIENT, LEVEL III Diagnosis: Essential (primary) hypertension[ICD10: I10] Diagnosis: Unsteadiness on feet[ICD10: R26.81] Brigitte Jackson MD, [facility] CPT-4: 71034 10/12/2017 ([id number]) 55278 EST. PATIENT, LEVEL III Diagnosis: Essential (primary) hypertension[ICD10: I10] Diagnosis: Unsteadiness on feet[ICD10: R26.81] Brigitte Jackson MD, [facility] CPT-4: 50023 08/10/2017 ([id number]) 57487 EST. PATIENT, LEVEL IV Diagnosis: Essential (primary) hypertension[ICD10: I10] Diagnosis: Major depressive disorder, recurrent, moderate[ICD10: F33.1] Diagnosis: Unsteadiness on feet[ICD10: R26.81] Brigitte Jackson MD, [facility] CPT-4: 32763 07/06/2017 ([id number]) 20269 EST. PATIENT, LEVEL III Diagnosis: Essential (primary) hypertension[ICD10: I10] Diagnosis: Major depressive disorder, recurrent, moderate[ICD10: F33.1] Diagnosis: Abnormal weight loss[ICD10: R63.4] Brigitte Jackson MD, [facility] CPT- 4: 15682 03/18/2017 ([id number]) 30594 EST. PATIENT, LEVEL IV Diagnosis: Essential (primary) hypertension[ICD10: I10] Diagnosis: Chronic obstructive pulmonary disease, unspecified[ICD10: J44.9] Diagnosis: Unsteadiness on feet[ICD10: R26.81] Diagnosis: Abnormal weight loss[ICD10: R63.4] Brigitte Jackson MD, [facility] CPT- 4: 32648 02/18/2017 ([id number]) 71436 EST. PATIENT, LEVEL IV Diagnosis: Unsteadiness on feet[ICD10: R26.81] Diagnosis: Major depressive disorder, recurrent, moderate[ICD10: F33.1] Diagnosis: Chronic obstructive pulmonary disease, unspecified[ICD10: J44.9] Brigitte Jackson MD, [facility] CPT-4: 88376 11/16/2016 ([id number]) 76095 EST. PATIENT, LEVEL IV Diagnosis: Essential (primary) hypertension[ICD10: I10] Diagnosis: Unsteadiness on feet[ICD10: R26.81] Diagnosis: Abnormal weight loss[ICD10: R63.4] Diagnosis: Mixed incontinence[ICD10: N39.46] Brigitte Jackson MD, [facility] CPT- 4: 26588 10/13/2016 ([id number]) 18541 EST. PATIENT, LEVEL IV Diagnosis: Essential (primary) hypertension[ICD10: I10] Diagnosis: Major depressive disorder, recurrent, moderate[ICD10: F33.1] Diagnosis: Unsteadiness on feet[ICD10: R26.81] Brigitte Jackson MD, [facility] CPT-4: 01147 09/15/2016 ([id number]) 74746 EST. PATIENT, LEVEL IV Diagnosis: Essential (primary) hypertension[ICD10: I10] Diagnosis: Mixed hyperlipidemia[ICD10: E78.2] Diagnosis: Major depressive disorder, recurrent, moderate[ICD10: F33.1] Diagnosis: Unsteadiness on feet[ICD10: R26.81] Brigitte Jackson MD, [facility] CPT-4: 53126 08/18/2016 ([id number]) 78239 EST. PATIENT, LEVEL III Diagnosis: Essential (primary) hypertension[ICD10: I10] Brigitte Jackson MD [facility] CPT-4: 61115 06/23/2016 ([id number]) 26949 EST. 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 PATIENT, LEVEL III Diagnosis: ESSENTIAL HYPERTENSION[ICD9: 401.9] Diagnosis: EDEMA[ICD9: 782.3] Brigitte Jackson MD, [facility] CPT-4: 93457 09/14/2014 ([id number]) 50663 EST. PATIENT, LEVEL III Diagnosis: ESSENTIAL HYPERTENSION[ICD9: 401.9] Diagnosis: EDEMA[ICD9: 782.3] Georgia Jackson MD, [facility] CPT-4: 52848 08/24/2014 ([id number]) 13700 EST. PATIENT, LEVEL IV Diagnosis: Peripheral vascular disease[ICD9: 443.9] Diagnosis: ESSENTIAL HYPERTENSION[ICD9: 401.9] Diagnosis: Chronic fatigue[ICD9: 780.79] Diagnosis: Ataxia[ICD9: 781.3] Georgia Jackson MD, [facility] CPT-4: 01428 07/24/2014 ([id number]) 30811 EST. PATIENT, LEVEL III Diagnosis: ESSENTIAL HYPERTENSION[ICD9: 401.9] Diagnosis: EDEMA[ICD9: 782.3] Georgia Jackson MD, [facility] CPT-4: 35550 05/25/2014 ([id number]) 47838 EST. 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 PATIENT, LEVEL IV Diagnosis: ESSENTIAL HYPERTENSION[ICD9: 401.9] Diagnosis: HYPERLIPIDEMIA[ICD9: 272.4] Diagnosis: VACCIN FOR INFLUENZA[ICD10: Z23] Georgia Jackson MD, [facility] CPT-4: 67013 01/22/2014 ([id number]) 20348 EST. 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 PATIENT, LEVEL IV Diagnosis: ESSENTIAL HYPERTENSION[SNOMED: 44101648] Diagnosis: LACK OF COORDINATION[ICD9: 781.3] Diagnosis: PERIPH VASCULAR DIS[ICD9: 443.9] Diagnosis: ENCNTR LONG-RX USE NEC[ICD9: V58.69] Georgia Jackson MD, [facility] CPT- 4: 13813 03/20/2013 ([id number]) 18521 EST. PATIENT, LEVEL IV Diagnosis: ESSENTIAL HYPERTENSION[SNOMED: 37620580] Diagnosis: HYPERLIPIDEMIA[ICD9: 272.4] Diagnosis: LACK OF COORDINATION[ICD9: 781.3] Diagnosis: TOBACCO USE DISORDER[ICD9: 305.1] Georgia Jackson MD, [facility] CPT- 4: 08765 05/25/2012 ([id number]) 06274 EST. PATIENT, LEVEL IV Diagnosis: ESSENTIAL HYPERTENSION[SNOMED: 41306790] Diagnosis: TOBACCO USE DISORDER[ICD9: 305.1] Diagnosis: HYPERLIPIDEMIA[ICD9: 272.4] Diagnosis: Varicose vein of leg[ICD9: 454.9] Diagnosis: Leg pain, posterior[ICD9: 729.5] Diagnosis: Intermittent claudication[ICD9: 443.9] Georgia Jackson MD, [facility] CPT-4: 36061 09/17/2011 ([id number]) 46628 EST. PATIENT, LEVEL IV Diagnosis: ESSENTIAL HYPERTENSION[SNOMED: 99301751] Diagnosis: LACK OF COORDINATION[ICD9: 781.3] Diagnosis: TOBACCO USE DISORDER[ICD9: 305.1] Georgia Jackson MD, [facility] CPT- 4: 62543 05/21/2011 98454 EST. PATIENT, LEVEL IV Diagnosis: ESSENTIAL HYPERTENSION[SNOMED: 38621267] Diagnosis: HYPERLIPIDEMIA[ICD9: 272.4] Diagnosis: Ataxia[ICD9: 781.3] Georgia Jackson MD, [facility] CPT-4: 03785 01/20/2011 Plan of Care Planned Activity Notes Codes Status Date Visit Plan: Hypertension - well controlled - continue with current medications, continue with no added salt diet. Pt has been encouraged to exercise daily. The pt has been advised to call the office if there are any acute concerns about change in blood pressure readings at home. Depression - uncontrolled - Pt has been counseled about the diagnosis of depression, the potential causes, and risks associated with the diagnosis. The pt denies suicidal ideation, or plans. The patient has been counseled about treatment options, and understands the risks associated with treatment of depression, as well as the risks associated with NOT treating the depression. I believe the pt will benefit from medical intervention and an antidepressant has been appropriately prescribed for this patient. Increase lexapro to 20mg daily. 09/21/2018 Appointment: Georgia Jackson WPtel: [address] [place], [place] [id number] 30 min appointments only in this slot 09/21/2018 Patient Education: Patient Medication Summary Completed 09/21/2018 Patient Education: Hypertension Completed 09/21/2018 Patient Education: Depression Completed 09/21/2018 Visit Plan: Hypertension - well controlled - continue with current medications, continue with no added salt diet. Pt has been encouraged to exercise daily. The pt has been advised to call the office if there are any acute concerns about change in blood pressure readings at home. Urge incontinence -Pt has urge incontinence - the patient has been counseled about potential triggers for increase in sensation of the urgency - the pt has been counseled to avoid caffeinated products, spicy products, and to urinate every 2- 3 hours to prevent the incontinence associated with the urgency. Pt is to continue with current treatment plan and call if symptoms worsen. Chronic Depression and anxiety - the pt has symptoms of chronic anxiety and depression that have been fairly well controlled since the last office visit. The pt has expected periods of exacerbation with abatement of the symptoms with change in situational exposure. No change in current medications. 05/26/2018 Appointment: Georgia Jackson WPtel: [address] [facility] [place] (15 min) Moderate 05/26/2018 Patient Education: Patient Medication Summary Completed 05/26/2018 Patient Education: Hypertension Completed 05/26/2018 Patient Education: Depression Completed 05/26/2018 Visit Plan: Falls, weakness, headache - will send for CT scan and treat as indicated - pt strongly encouraged to move to assisted living facility for safety purposes - pt/son are to notify clinic with any changes, questions, or concerns. 05/11/2018 Appointment: Denisha De La Fuente [phone] [place] (15 min) Moderate 05/11/2018 Patient Education: Patient Medication Summary Completed 05/11/2018 Visit Plan: Hypertension - well controlled - continue with current medications, continue with no added salt diet. Pt has been encouraged to exercise daily. The pt has been advised to call the office if there are any acute concerns about change in blood pressure readings at home. Rash-rx for ketoconazole cream Chronic Depression - - the pt has symptoms of chronic anxiety and depression that have been fairly well controlled since the last office visit. The pt has expected periods of exacerbation with abatement of the symptoms with change in situational exposure. No change in current medications. Recommend assisted living -patient is not interested -states she will not move and wants to where she is at. 01/17/2018 Appointment: Brigitte Vann WPtel: [phone] [phone] [place] (15 min) Moderate 01/17/2018 Patient Education: Patient Medication Summary Completed 01/17/2018 Patient Education: Hypertension Completed 01/17/2018 Patient Education: Depression Completed 01/17/2018 Visit Plan: Hypertension - well controlled - continue with current medications, continue with no added salt diet. Pt has been encouraged to exercise daily. The pt has been advised to call the office if there are any acute concerns about change in blood pressure readings at home. Gait instability-recommend patient move to assisted living 10/12/2017 Appointment: Brigitte Vann WPtel: [phone] (30 min) Complex 10/12/2017 Patient Education: Patient Medication Summary Completed 10/12/2017 Visit Plan: Hypertension - well controlled - continue with current medications, continue with no added salt diet. Pt has been encouraged to exercise daily. The pt has been advised to call the office if there are any acute concerns about change in blood pressure readings at home. Gait instability-patient is now using walking -completed PT with Fanny Martinez 08/10/2017 Appointment: Brigitte Vann WPtel: [phone] (15 min) Moderate 08/10/2017 Patient Education: Patient Medication Summary Completed 08/10/2017 Visit Plan: Hypertension - well controlled - continue with current medications, continue with no added salt diet. Pt has been encouraged to exercise daily. The pt has been advised to call the office if there are any acute concerns about change in blood pressure readings at home. Chronic Depression and anxiety - the pt has symptoms of chronic anxiety and depression that have been fairly well controlled since the last office visit. The pt has expected periods of exacerbation with abatement of the symptoms with change in situational exposure. No change in current medications. Gait instability- generalized weakness-patient has agreed to physical therapy-will contact Fanny Martinez-discussed using walking at all times to prevent falls. Patient verbalized understanding. 07/06/2017 Appointment: Brigitte Vann WPtel: [phone] (30 min) Complex 07/06/2017 Patient Education: Patient Medication Summary Completed 07/06/2017 Patient Education: Patient Medication Summary Completed 07/06/2017 Care Plan: Referral Order SNOMED-CT : [id number] Pending 07/06/2017 Care Plan: [employer] Pending 07/06/2017 Visit Plan: Hypertension - well controlled - continue with current medications, continue with no added salt diet. Pt has been encouraged to exercise daily. The pt has been advised to call the office if there are any acute concerns about change in blood pressure readings at home. Chronic Depression and anxiety - the pt has symptoms of chronic anxiety and depression that have been fairly well controlled since the last office visit. The pt has expected periods of exacerbation with abatement of the symptoms with change in situational exposure. No change in current medications. Weight loss-stable 03/18/2017 Appointment: Brigitte Vann WPtel: [address] [place] [address] (30 min) Complex 03/18/2017 Patient Education: Patient Medication Summary Completed 03/18/2017 Visit Plan: Hypertension - continue with current medications, continue with no added salt diet. Pt has been encouraged to exercise daily. The pt has been advised to call the office if there are any acute concerns about change in blood pressure readings at home. COPD-patient noncompliant with treatment recommendation-symptoms stable at this time Gait instability-recommend walker at all times-patient refuses-recommend PT-patient continues to refuse but states she will consider it-again, recommend patient move to assisted living for her safety-patient refuses Weight loss-increase intake-follow up in 1 month 02/18/2017 Appointment: Brigitte Vann WPtel: [address] [place] [address] (30 min) Complex 02/18/2017 Patient Education: Patient Medication Summary Completed 02/18/2017 Appointment: Brigitte Vann WPtel: [address] [place] [address] (30 min) Complex 12/17/2016 Visit Plan: Gait instability-recommend PT with home health-patient refuses-recommend patient start using walker BJLU-ntursbg-nxlckmv qualified for oxygen but refuses to wear it Weight gqai-ffzboj-fiarczmd to monitor Memory loss-recommend patient move to an assisted living facility 11/16/2016 Appointment: Brigitte Vann WPtel: [address] [place] [address] (15 min) Moderate 11/16/2016 Patient Education: Patient Medication Summary Completed 11/16/2016 Visit Plan: Hypertension - well controlled - continue with current medications, continue with no added salt diet. Pt has been encouraged to exercise daily. The pt has been advised to call the office if there are any acute concerns about change in blood pressure readings at home. Gait dbzdhodemtm-qccbseyn-luhuuhpqzd PT-patient refuses-also recommend patient use a walker at all times Weight loss-recommend patient increase intake Mixed urinary incontinence-samples of myrebetriq provided and instructed on use 10/13/2016 Appointment: Brigitte Vann WPtel: [phone] (30 min) Complex 10/13/2016 Patient Education: Patient Medication Summary Completed 10/13/2016 Visit Plan: Hypertension - well controlled - continue with current medications, continue with no added salt diet. Pt has been encouraged to exercise daily. The pt has been advised to call the office if there are any acute concerns about change in blood pressure readings at home. Yrmplugkaa-keahmjw-ghkpsmzn lexapro to 10mg daily-repeat in 1 month Gait instability-again recommend patient use walker 09/15/2016 Appointment: Brigitte Vann WPtel: [phone] (15 min) Moderate 09/15/2016 Patient Education: Patient Medication Summary Completed 09/15/2016 Patient Education: Hypertension Completed 09/15/2016 Visit Plan: Hypertension - well controlled - continue with current medications, continue with no added salt diet. Pt has been encouraged to exercise daily. The pt has been advised to call the office if there are any acute concerns about change in blood pressure readings at home. Hyperlipidemia - pt has been counseled about appropriate diet, exercise, and need for low fat food choices. I have discussed the need for the patient to take medications as prescribed. If the patient has negative side effects from the medication, they are to CALL the office and not abruptly discontinue the medication without discussion with a practitioner in the office. We will check labs in 3-6 months for follow up on the patient's chronic medical problem and to assure normal liver response to medications. Depression - uncontrolled - Pt has been counseled about the diagnosis of depression, the potential causes, and risks associated with the diagnosis. The pt denies suicidal ideation, or plans. The patient has been counseled about treatment options, and understands the risks associated with treatment of depression, as well as the risks associated with NOT treating the depression. I believe the pt will benefit from medical intervention and an antidepressant has been appropriately prescribed for this patient. Gait instability-again recommend patient use walker at all times-also recommend PT- patient refuses at this time. 08/18/2016 Appointment: Brigitte Vann WPtel: [address] [place], [place] [id number] (15 min) Moderate 08/18/2016 Patient Education: Patient Medication Summary Completed 08/18/2016 Visit Plan: Hypertension - well controlled - continue with current medications, continue with no added salt diet. Pt has been encouraged to exercise daily. The pt has been advised to call the office if there are any acute concerns about change in blood pressure readings at home. 06/23/2016 Appointment: Brigitte Vann WPtel: [phone] (30 min) Complex 06/23/2016 Patient Education: Patient Medication Summary Completed 06/23/2016 Visit Plan: Hypertension -not well controlled - continue with current medications, continue with no added salt diet. Pt has been encouraged to exercise daily. The pt has been advised to call the office if there are any acute concerns about change in blood pressure readings at home. Gait instability-recommend PT-also recommend walker-patient does not want to do either PVD-refer to Dr Esqueda for evaluation 05/19/2016 Appointment: Brigitte Vann WPtel: [phone] (30 min) Complex 05/19/2016 Patient Education: Patient Medication Summary Completed 05/19/2016 Care Plan: Referral Order Dr Esqueda SNOMED- CT : [id number] Pending 05/19/2016 Visit Plan: Hypertension - well controlled - continue with current medications, continue with no added salt diet. Pt has been encouraged to exercise daily. The pt has been advised to call the office if there are any acute concerns about change in blood pressure readings at home. Yknbn-ucqzjwcj-hc change in treatment 09/14/2014 Appointment: Follow up 09/14/2014 Patient Education: Patient Medication Summary Completed 09/14/2014 Patient Education: Hypertension Completed 09/14/2014 Visit Plan: Hypertension - uncontrolled - the patient's medications have been modified as documented in the visit note. The patient has been counseled to cut back on salt in diet for a no added salt diet, low fat diet, start an exercise program with low weight bearing exercises and higher aerobic activity for heart health. The patient is to check blood pressure readings as an outpatient and either fax, call, or email the readings to the office next week for practitioner to review. The pt is to call for acute concerns. Edema - uncontrolled - pt to start on chlorthalidone for the swelling in her lower extremities - will monitor her labs and edema in 2 weeks. 08/24/2014 Appointment: Georgia Jackson WPtel: [address] [place] [address] follow up 08/24/2014 Patient Education: Patient Medication Summary Completed 08/24/2014 Patient Education: Hypertension Completed 08/24/2014 Visit Plan: Peripheral Vascular disease - intermittent claudication - leg pain- referral to Dr. Antunez for further evaluation - pt has history of Femoral-Popliteal bypass, I believe that the patient needs repeat interrogation of the vasculature. Hypertension - well controlled - continue with current medications, continue with no added salt diet. Pt has been encouraged to exercise daily. The pt has been advised to call the office if there are any acute concerns about change in blood pressure readings at home. 07/24/2014 Appointment: Georgia Jackson WPtel: [facility] Follow up 07/24/2014 Patient Education: Patient Medication Summary Completed 07/24/2014 Patient Education: Hypertension Completed 07/24/2014 Care Plan: Referral Order SNOMED-CT : [id number] Ordered 07/24/2014 Visit Plan: Hypertension - well controlled - continue with current medications, continue with no added salt diet. Pt has been encouraged to exercise daily. The pt has been advised to call the office if there are any acute concerns about change in blood pressure readings at home. Edema - pt has been advised to elevate legs to prevent dependent edema, compression has been recommended to help to naturally decrease peripheral edema. Diuretic use has been discussed and pt has been instructed in appropriate use of such medication as necessary to further attempt to reduce peripheral edema. 05/25/2014 Appointment: Brigitte Vann [facility]Ptel[phone] Follow up 05/25/2014 Patient Education: Patient Medication Summary Completed 05/25/2014 Patient Education: Hypertension Completed 05/25/2014 Visit Plan: Hypertension - uncontrolled - the patient's medications have been modified as documented in the visit note. The patient has been counseled to cut back on salt in diet for a no added salt diet, low fat diet, start an exercise program with low weight bearing exercises and higher aerobic activity for heart health. The patient is to check blood pressure readings as an outpatient and either fax, call, or email the readings to the office next week for practitioner to review. The pt is to call for acute concerns. Gait instability - recommended pt to start physical therapy - she is not willing to start therapy at this time. Hyperlipidemia - pt has been counseled about appropriate diet, exercise, and need for low fat food choices. I have discussed the need for the patient to take medications as prescribed. If the patient has negative side effects from the medication, they are to CALL the office and not abruptly discontinue the medication without discussion with a practitioner in the office. We will check labs in 3-6 months for follow up on the patient's chronic medical problem and to assure normal liver response to medications. Thyroid disorder - pt to have labs monitored periodically - pt's TSH is n ormalized. 04/24/2014 Appointment: Georgia [phone] [id number] Follow up 04/24/2014 Patient Education: Patient Medication Summary Completed 04/24/2014 Patient Education: Hypertension Completed 04/24/2014 Visit Plan: Hypertension - well controlled - continue with current medications, continue with no added salt diet. Pt has been encouraged to exercise daily. The pt has been advised to call the office if there are any acute concerns about change in blood pressure readings at home. Hyperlipidemia - pt has been counseled about appropriate diet, exercise, and need for low fat food choices. I have discussed the need for the patient to take medications as prescribed. If the patient has negative side effects from the medication, they are to CALL the office and not abruptly discontinue the medication without discussion with a practitioner in the office. We will check labs in 3-6 months for follow up on the patient's chronic medical problem and to assure normal liver response to medications. 01/22/2014 Appointment: Georgia Jackson [phone] [id number] Follow up 01/22/2014 Patient Education: Patient Medication Summary Completed 01/22/2014 Patient Education: Hypertension Completed 01/22/2014 Visit Plan: Hypertension - well controlled - continue with current medications, continue with no added salt diet. Pt has been encouraged to exercise daily. The pt has been advised to call the office if there are any acute concerns about change in blood pressure readings at home. Hyperlipidemia - pt has been counseled about appropriate diet, exercise, and need for low fat food choices. I have discussed the need for the patient to take medications as prescribed. If the patient has negative side effects from the medication, they are to CALL the office and not abruptly discontinue the medication without discussion with a practicioner in the office. We will check labs in 3-6 months for follow up on the patient's chronic medical problem and to assure normal liver response to medications. History of Abnormal thyroid studies - check tsh, free t4 today. Gait Instabiility - Recommended pt to increase activity - needs strengthening exercise. 09/18/2013 Appointment: Georgia Jackson [facility]el[facility] [phone] [id number] Follow up 09/18/2013 Patient Education: Patient Medication Summary Completed 09/18/2013 Patient Education: Hypertension Completed 09/18/2013 Visit Plan: Hypertension - well controlled - continue with current medications, continue with no added salt diet. Pt has been encouraged to exercise daily. The pt has been advised to call the office if there are any acute concerns about change in blood pressure readings at home. Gait abnormality - and peripheral vascular disease - pt has been seen by Vascular surgeons - no recommendations for treatment at this time. Pt continues to have need of cane for ambulation. Hyperlipidemia - pt has been counseled about appropriate diet, exercise, and need for low fat food choices. I have discussed the need for the patient to take medications as prescribed. The patient has not had labs for over a year. 03/20/2013 Appointment: Georgia Jackson [facility]Ptel[facility] [phone] [id number] [place] Follow up 03/20/2013 Patient Education: Patient Medication Summary Completed 03/20/2013 Patient Education: Hypertension Completed 03/20/2013 Appointment: Georgia Jackson [facility]Ptel[facility] [phone] [id number] [place] Lab Draw 05/27/2012 Patient Education: Patient Medication Summary Completed 05/27/2012 Patient Education: Hypertension Completed 05/27/2012 Visit Plan: Hypertension - uncontrolled - the patient's medications have been modified as documented in the visit note. The patient has been counseled to cut back on salt in diet for a no added salt diet, low fat diet, start an exercise program with low weight bearing exercises and higher aerobic activity for heart health. The patient is to check blood pressure readings as an outpatient and either fax, call, or email the readings to the office next week for practicioner to review. The pt is to call for acute concerns. PT IS TO INCREASE THE ENALAPRIL TO 10MG DAILY - WHICH WILL EQUAL TWO OF THE 5 MG PILLS DAILY UNTIL THAT SUPPLY IS GONE, THEN PT NEEDS TO FILL THE NEW SCRIPT AT [facility] FOR THE 10MG ENALAPRIL PILL TO BE TAKEN ONE TIME A DAY. Hyperlipidemia - pt has been counseled about appropriate diet, exercise, and need for low fat food choices. I have discussed the need for the patient to take medications as prescribed. If the patient has negative side effects from the medication, they are to CALL the office and not abruptly discontinue the medication without discussion with a practicioner in the office. We will check labs in 3-6 months for follow up on the patient's chronic medical problem and to assure normal liver response to medications. Tobaccoism - pt continues to attempt to stop smoking, pt has been smoke free for a few weeks, she is at times struggling to stay away from tobacco, she has been encouraged to continue with cessation attempts, and to call for further assistance if needed. 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 05/25/2012 Appointment: Georgia Jackson WPtel: [address] [place] [address] Other 05/25/2012 Patient Education: Patient Medication Summary Completed 05/25/2012 Patient Education: Hypertension Completed 05/25/2012 Patient Education: Smoking and Tobacco Addiction Completed 05/25/2012 Appointment: Georgia Jackson WPtel: [address] [place] [address] Lab Draw 09/21/2011 Patient Education: Patient Medication Summary Completed 09/21/2011 Patient Education: High Blood Pressure: Essential Hypertension Completed 09/21/2011 Visit Plan: Hypertension - well controlled - continue with current medications, continue with no added salt diet. Pt has been encouraged to exercise daily. The pt has been advised to call the office if there are any acute concerns about change in blood pressure readings at home. Hyperlipidemia- need to come by clinic for fasting labs. Varicose veins with leg pain and interittent claudication symptoms- recommended evaluation by Vascular surgeon for PVD EVAL. TOBACCOISM- pt is not interested in stopping smoking. We have discussed the negative health effects of smoking, pt aware of the tobacco worsening her current complaints of gait instability and leg pain. 09/17/2011 Appointment: Renetta Georgia WPtel: [address] [place] [address] Other 09/17/2011 Patient Education: Patient Medication Summary Completed 09/17/2011 Patient Education: High Blood Pressure: Essential Hypertension Completed 09/17/2011 Patient Education: Smoking: Hazards of Smoking Completed 09/17/2011 Patient Education: Smoking and Ways to Quit Completed 09/17/2011 Appointment: Georgia Jackson WPtel: [address] [place] [address] Other 05/22/2011 Visit Plan: Hypertension - well controlled - continue with current medications, continue with no added salt diet. Pt has been encouraged to exercise daily. The pt has been advised to call the office if there are any acute concerns about change in blood pressure readings at home. Lack of Coordination - pt has been repeatedly counseled to use her walker when ambulating, she refuses to do so - does not bring her walker or her cane to clinic. She has again been counseled today about the potential for her to fall and have a fracture from a fall if she does not have support when ambulating due to her unsteady gait. Tobacco abuse - chronic condition for this patient. Patient has been counseled about need to stop smoking due to the negative health affects. Pt has vocalized understanding and states that they will consider smoking cessation, but the pt is not yet ready to use medication to assist cessation. 05/21/2011 Appointment: Georgia Jackson [facility]el[facility] [phone] [id number] [place] 05/21/2011 Patient Education: Patient Medication Summary Completed 05/21/2011 Patient Education: High Blood Pressure: Essential Hypertension Completed 05/21/2011 Patient Education: Smoking: Hazards of Smoking Completed 05/21/2011 Patient Education: Smoking and Ways to Quit Completed 05/21/2011 Visit Plan: Hypertension - well controlled - continue with current medications, continue with no added salt diet. Pt has been encouraged to exercise daily. The pt has been advised to call the office if there are any acute concerns about change in blood pressure readings at home. Hyperlipidemia - pt has been counseled about appropriate diet, exercise, and need for low fat food choices. I have discussed the need for the patient to take medications as prescribed. If the patient has negative side effects from the medication, they are to CALL the office and not abruptly discontinue the medication without discussion with a practicioner in the office. We will check labs in 3-6 months for follow up on the patient's chronic medical problem and to assure normal liver response to medications. INCREASE NIACIN TO 1000MG DAILY AND THEN CHANGE THE FISH OIL TO THREE TIMES A DAY INSTEAD OF ALL THREE PILLS AT ONE TIME. DISCUSSED BALANCE AND MILO WILL THINK ABOUT GOING TO PHYSICAL THERAPY AT [facility] FOR BALANCE TRAINING. 01/20/2011 Appointment: Georgia Jackson [facility]el[facility] [phone] [facility] [id number] [place] 01/20/2011 Patient Education: Patient Medication Summary Completed 01/20/2011 Appointment: Georgia Jackson [facility]Ptel: [phone] [facility] [id number] Lab Draw 01/13/2011 Patient Education: Patient Medication Summary Completed 01/13/2011 Ref[facility]: [phone] [id number] [place] Referral Appointment Requested Referral: [facility] W[facility]el: Referral Appointment Requested Referral: [facility] WPtel: 07/07 Referral info faxed. Verified that she received the referral. She will contact the patient to set up. Appointment Requested Instructions Comment . Hypertension - well controlled - continue with current medications, continue with no added salt diet. Pt has been encouraged to exercise daily. The pt has been advised to call the office if there are any acute concerns about change in blood pressure readings at home. Depression - uncontrolled - Pt has been counseled about the diagnosis of depression, the potential causes, and risks associated with the diagnosis. The pt denies suicidal ideation, or plans. The patient has been counseled about treatment options, and understands the risks associated with treatment of depression, as well as the risks associated with NOT treating the depression. I believe the pt will benefit from medical intervention and an antidepressant has been appropriately prescribed for this patient. Increase lexapro to 20mg daily. . Hypertension - well controlled - continue with current medications, continue with no added salt diet. Pt has been encouraged to exercise daily. The pt has been advised to call the office if there are any acute concerns about change in blood pressure readings at home. Gait mwoxkahbzlx-arihvgqe-qcnwyymzcb PT-patient refuses-also recommend patient use a walker at all times Weight loss-recommend patient increase intake Mixed urinary incontinence-samples of myrebetriq provided and instructed on use . Hypertension - well controlled - continue with current medications, continue with no added salt diet. Pt has been encouraged to exercise daily. The pt has been advised to call the office if there are any acute concerns about change in blood pressure readings at home. Lack of Coordination - pt has been repeatedly counseled to use her walker when ambulating, she refuses to do so - does not bring her walker or her cane to clinic. She has again been counseled today about the potential for her to fall and have a fracture from a fall if she does not have support when ambulating due to her unsteady gait. Tobacco abuse - chronic condition for this patient. Patient has been counseled about need to stop smoking due to the negative health affects. Pt has vocalized understanding and states that they will consider smoking cessation, but the pt is not yet ready to use medication to assist cessation. RECOMMEND PT WITH [facility] MARTINE[facility] FOR GAIT INSTABILITY, WEAKNESS I ALSO RECOMMEND YOU USE YOUR WALKER AT ALL TIMES CHECK LABS TODAY refill Plavix ordered by Dr Esqueda . Hypertension - well controlled - continue with current medications, continue with no added salt diet. Pt has been encouraged to exercise daily. The pt has been advised to call the office if there are any acute concerns about change in blood pressure readings at home. Chronic Depression and anxiety - the pt has symptoms of chronic anxiety and depression that have been fairly well controlled since the last office visit. The pt has expected periods of exacerbation with abatement of the symptoms with change in situational exposure. No change in current medications. Gait instability-generalized weakness-patient has agreed to physical therapy- will contact Fanny Martinez-discussed using walking at all times to prevent falls. Patient verbalized understanding. RECOMMEND FLU/PREVNAR -PATIENT GOING TO [facility] TO GET VACCINES . Hypertension - well controlled - continue with current medications, continue with no added salt diet. Pt has been encouraged to exercise daily. The pt has been advised to call the office if there are any acute concerns about change in blood pressure readings at home. Chronic Depression and anxiety - the pt has symptoms of chronic anxiety and depression that have been fairly well controlled since the last office visit. The pt has expected periods of exacerbation with abatement of the symptoms with change in situational exposure. No change in current medications. Weight loss-stable . Hypertension - well controlled - continue with current medications, continue with no added salt diet. Pt has been encouraged to exercise daily. The pt has been advised to call the office if there are any acute concerns about change in blood pressure readings at home. Urge incontinence -Pt has urge incontinence - the patient has been counseled about potential triggers for increase in sensation of the urgency - the pt has been counseled to avoid caffeinated products, spicy products, and to urinate every 2-3 hours to prevent the incontinence associated with the urgency. Pt is to continue with current treatment plan and call if symptoms worsen. Chronic Depression and anxiety - the pt has symptoms of chronic anxiety and depression that have been fairly well controlled since the last office visit. The pt has expected periods of exacerbation with abatement of the symptoms with change in situational exposure. No change in current medications. . Hypertension - well controlled - continue with current medications, continue with no added salt diet. Pt has been encouraged to exercise daily. The pt has been advised to call the office if there are any acute concerns about change in blood pressure readings at home. Gait instability-recommend patient move to assisted living . Hypertension - well controlled - continue with current medications, continue with no added salt diet. Pt has been encouraged to exercise daily. The pt has been advised to call the office if there are any acute concerns about change in blood pressure readings at home. Edema - pt has been advised to elevate legs to prevent dependent edema, compression has been recommended to help to naturally decrease peripheral edema. Diuretic use has been discussed and pt has been instructed in appropriate use of such medication as necessary to further attempt to reduce peripheral edema. . Peripheral Vascular disease - intermittent claudication - leg pain- referral to Dr. Antunez for further evaluation - pt has history of Femoral-Popliteal bypass, I believe that the patient needs repeat interrogation of the vasculature. Hypertension - well controlled - continue with current medications, continue with no added salt diet. Pt has been encouraged to exercise daily. The pt has been advised to call the office if there are any acute concerns about change in blood pressure readings at home. . Hypertension - well controlled - continue with current medications, continue with no added salt diet. Pt has been encouraged to exercise daily. The pt has been advised to call the office if there are any acute concerns about change in blood pressure readings at home. Hyperlipidemia - pt has been counseled about appropriate diet, exercise, and need for low fat food choices. I have discussed the need for the patient to take medications as prescribed. If the patient has negative side effects from the medication, they are to CALL the office and not abruptly discontinue the medication without discussion with a practitioner in the office. We will check labs in 3-6 months for follow up on the patient's chronic medical problem and to assure normal liver response to medications. . Hypertension - well controlled - continue with current medications, continue with no added salt diet. Pt has been encouraged to exercise daily. The pt has been advised to call the office if there are any acute concerns about change in blood pressure readings at home. Rbkujxmvfs-ducokqn-skpoirnt lexapro to 10mg daily-repeat in 1 month Gait instability-again recommend patient use walker START LEXAPRO 5MG IN THE EVENING CHECK LABS RECOMMEND WALKER INSTEAD OF CANE. Hypertension - well controlled - continue with current medications, continue with no added salt diet. Pt has been encouraged to exercise daily. The pt has been advised to call the office if there are any acute concerns about change in blood pressure readings at home. Hyperlipidemia - pt has been counseled about appropriate diet, exercise, and need for low fat food choices. I have discussed the need for the patient to take medications as prescribed. If the patient has negative side effects from the medication, they are to CALL the office and not abruptly discontinue the medication without discussion with a practitioner in the office. We will check labs in 3-6 months for follow up on the patient's chronic medical problem and to assure normal liver response to medications. Depression - uncontrolled - Pt has been counseled about the diagnosis of depression, the potential causes, and risks associated with the diagnosis. The pt denies suicidal ideation, or plans. The patient has been counseled about treatment options, and understands the risks associated with treatment of depression, as well as the risks associated with NOT treating the depression. I believe the pt will benefit from medical intervention and an antidepressant has been appropriately prescribed for this patient. Gait instability-again recommend patient use walker at all times-also recommend PT-patient refuses at this time. INCREASE ENALAPRIL TO TWO PILLS TO EQUAL 20MG DAILY - THEN ONCE THE CURRENT SUPPLY OF THE ENALAPRIL IS GONE, FILL NEW RX FOR THE 20MG ENALAPRIL. . Hypertension - uncontrolled - the patient's medications have been modified as documented in the visit note. The patient has been counseled to cut back on salt in diet for a no added salt diet, low fat diet, start an exercise program with low weight bearing exercises and higher aerobic activity for heart health. The patient is to check blood pressure readings as an outpatient and either fax, call, or email the readings to the office next week for practitioner to review. The pt is to call for acute concerns. Gait instability - recommended pt to start physical therapy - she is not willing to start therapy at this time. Hyperlipidemia - pt has been counseled about appropriate diet, exercise, and need for low fat food choices. I have discussed the need for the patient to take medications as prescribed. If the patient has negative side effects from the medication, they are to CALL the office and not abruptly discontinue the medication without discussion with a practitioner in the office. We will check labs in 3-6 months for follow up on the patient's chronic medical problem and to assure normal liver response to medications. Thyroid disorder - pt to have labs monitored periodically - pt's TSH is normalized. . Hypertension - well controlled - continue with current medications, continue with no added salt diet. Pt has been encouraged to exercise daily. The pt has been advised to call the office if there are any acute concerns about change in blood pressure readings at home. Hyperlipidemia- need to come by clinic for fasting labs. Varicose veins with leg pain and interittent claudication symptoms- recommended evaluation by Vascular surgeon for PVD EVAL. TOBACCOISM- pt is not interested in stopping smoking. We have discussed the negative health effects of smoking, pt aware of the tobacco worsening her current complaints of gait instability and leg pain. . Hypertension - uncontrolled - the patient's medications have been modified as documented in the visit note. The patient has been counseled to cut back on salt in diet for a no added salt diet, low fat diet, start an exercise program with low weight bearing exercises and higher aerobic activity for heart health. The patient is to check blood pressure readings as an outpatient and either fax, call, or email the readings to the office next week for practitioner to review. The pt is to call for acute concerns. Edema - uncontrolled - pt to start on chlorthalidone for the swelling in her lower extremities - will monitor her labs and edema in 2 weeks. . Hypertension - well controlled - continue with current medications, continue with no added salt diet. Pt has been encouraged to exercise daily. The pt has been advised to call the office if there are any acute concerns about change in blood pressure readings at home. Gait abnormality - and peripheral vascular disease - pt has been seen by Vascular surgeons - no recommendations for treatment at this time. Pt continues to have need of cane for ambulation. Hyperlipidemia - pt has been counseled about appropriate diet, exercise, and need for low fat food choices. I have discussed the need for the patient to take medications as prescribed. The patient has not had labs for over a year. . Hypertension - well controlled - continue with current medications, continue with no added salt diet. Pt has been encouraged to exercise daily. The pt has been advised to call the office if there are any acute concerns about change in blood pressure readings at home. Rash-rx for ketoconazole cream Chronic Depression - - the pt has symptoms of chronic anxiety and depression that have been fairly well controlled since the last office visit. The pt has expected periods of exacerbation with abatement of the symptoms with change in situational exposure. No change in current medications. Recommend assisted living -patient is not interested -states she will not move and wants to where she is at. Refer to Dr Esqueda recommend patient start walker check labs . Hypertension -not well controlled - continue with current medications, continue with no added salt diet. Pt has been encouraged to exercise daily. The pt has been advised to call the office if there are any acute concerns about change in blood pressure readings at home. Gait instability-recommend PT-also recommend walker-patient does not want to do either PVD-refer to Dr Esqueda for evaluation . Hypertension - well controlled - continue with current medications, continue with no added salt diet. Pt has been encouraged to exercise daily. The pt has been advised to call the office if there are any acute concerns about change in blood pressure readings at home. Hyperlipidemia - pt has been counseled about appropriate diet, exercise, and need for low fat food choices. I have discussed the need for the patient to take medications as prescribed. If the patient has negative side effects from the medication, they are to CALL the office and not abruptly discontinue the medication without discussion with a practicioner in the office. We will check labs in 3-6 months for follow up on the patient's chronic medical problem and to assure normal liver response to medications. History of Abnormal thyroid studies - check tsh, free t4 today. Gait Instabiility - Recommended pt to increase activity - needs strengthening exercise. . Hypertension - well controlled - continue with current medications, continue with no added salt diet. Pt has been encouraged to exercise daily. The pt has been advised to call the office if there are any acute concerns about change in blood pressure readings at home. Gait instability-patient is now using walking -completed PT with Fanny Martinez . Falls, weakness, headache - will send for CT scan and treat as indicated - pt strongly encouraged to move to assisted living facility for safety purposes - pt/son are to notify clinic with any changes, questions, or concerns. . Hypertension - well controlled - continue with current medications, continue with no added salt diet. Pt has been encouraged to exercise daily. The pt has been advised to call the office if there are any acute concerns about change in blood pressure readings at home. . Hypertension - well controlled - continue with current medications, continue with no added salt diet. Pt has been encouraged to exercise daily. The pt has been advised to call the office if there are any acute concerns about change in blood pressure readings at home. Ilysy-mdtrbkln-sy change in treatment RECOMMEND PHYSICAL THERAPY -ALSO RECOMMEND WALKER AT ALL TIMES RECOMMEND OXYGEN . Gait instability-recommend PT with home health-patient refuses-recommend patient start using walker QUVM-[id number] qualified for oxygen but refuses to wear it Weight owta-[id number]-[id number] to monitor Memory loss-recommend patient move to an assisted living facility . Hypertension - continue with current medications, continue with no added salt diet. Pt has been encouraged to exercise daily. The pt has been advised to call the office if there are any acute concerns about change in blood pressure readings at home. COPD-patient noncompliant with treatment recommendation-symptoms stable at this time Gait instability-recommend walker at all times-patient refuses-recommend PT- patient continues to refuse but states she will consider it-again, recommend patient move to assisted living for her safety-patient refuses Weight loss-increase intake-follow up in 1 month . Hypertension - well controlled - continue with current medications, continue with no added salt diet. Pt has been encouraged to exercise daily. The pt has been advised to call the office if there are any acute concerns about change in blood pressure readings at home. Hyperlipidemia - pt has been counseled about appropriate diet, exercise, and need for low fat food choices. I have discussed the need for the patient to take medications as prescribed. If the patient has negative side effects from the medication, they are to CALL the office and not abruptly discontinue the medication without discussion with a practicioner in the office. We will check labs in 3-6 months for follow up on the patient's chronic medical problem and to assure normal liver response to medications. INCREASE NIACIN TO 1000MG DAILY AND THEN CHANGE THE FISH OIL TO THREE TIMES A DAY INSTEAD OF ALL THREE PILLS AT ONE TIME. DISCUSSED BALANCE AND MILO WILL THINK ABOUT GOING TO PHYSICAL THERAPY AT [facility] FOR BALANCE TRAINING. PT IS TO INCREASE THE ENALAPRIL TO 10MG DAILY - WHICH WILL EQUAL TWO OF THE 5 MG PILLS DAILY UNTIL THAT SUPPLY IS GONE, THEN PT NEEDS TO FILL THE NEW SCRIPT AT [facility] FOR THE 10MG ENALAPRIL PILL TO BE TAKEN ONE TIME A DAY.. Hypertension - uncontrolled - the patient's medications have been modified as documented in the visit note. The patient has been counseled to cut back on salt in diet for a no added salt diet, low fat diet, start an exercise program with low weight bearing exercises and higher aerobic activity for heart health. The patient is to check blood pressure readings as an outpatient and either fax, call, or email the readings to the office next week for practicioner to review. The pt is to call for acute concerns. PT IS TO INCREASE THE ENALAPRIL TO 10MG DAILY - WHICH WILL EQUAL TWO OF THE 5 MG PILLS DAILY UNTIL THAT SUPPLY IS GONE, THEN PT NEEDS TO FILL THE NEW SCRIPT AT [facility] FOR THE 10MG ENALAPRIL PILL TO BE TAKEN ONE TIME A DAY. Hyperlipidemia - pt has been counseled about appropriate diet, exercise, and need for low fat food choices. I have discussed the need for the patient to take medications as prescribed. If the patient has negative side effects from the medication, they are to CALL the office and not abruptly discontinue the medication without discussion with a practicioner in the office. We will check labs in 3-6 months for follow up on the patient's chronic medical problem and to assure normal liver response to medications. Tobaccoism - pt continues to attempt to stop smoking, pt has been smoke free for a few weeks, she is at times struggling to stay away from tobacco, she has been encouraged to continue with cessation attempts, and to call for further assistance if needed. 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
--- OUTSIDE RECORDS SUMMARY | 2018-11-16 07:25 | XMS REPORT | CCD ---
Author Author Georgia Jackson Organization Georgia Jackson MD, [facility] Address [address] [place] [address] Phone Care Team Providers Care Heel Trimmer Name Role Phone Georgia Jackson PP Unavailable CCM Unavailable Summary Purpose Interface Exchange Insurance Providers Payer name Policy type / Coverage type Covered libertarian ID Effective Begin Date Effective End Date WPS Medicare Part B [id number] 2014 Unknown [id number] Unknown Family history Brother Diagnosis Age At Onset No Family Disease Entered N/A Son Diagnosis Age At Onset Diabetes Unknown Mother Diagnosis Age At Onset Diabetes Unknown Brother Diagnosis Age At Onset No Family Disease Entered N/A Father Diagnosis Age At Onset No Family Disease Entered N/A Sister Diagnosis Age At Onset Diabetes Unknown Social History Social History Element Codes Description Effective Dates Tobacco history SNOMED CT: 2407337 Former smoker states quit in 2011 or 13 09/18/2013 Marital status Unknown 01/20/2011 Number of children Unknown 2 01/20/2011 Employment Unknown Retired 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 Unknown Has never used illegal drugs 01/20/2011 Allergies, Adverse Reactions, Alerts Allergies, Adverse Reactions, Alerts data not found Past Medical History Illness Codes Condition Status Onset Date Resolved Date Chronic obstructive pulmonary disease, unspecified ICD-9: 496 ICD-10: J44.9 Active 11/16/2016 Unknown Major depressive disorder, recurrent, moderate ICD-9: 296.32 ICD-10: F33.1 Active 08/18/2016 Unknown Unsteadiness on feet ICD- 9: 781.2 ICD-10: R26.81 Active 05/18/2016 Unknown Abnormal weight loss ICD- 9: 783.21 ICD-10: R63.4 Active 10/13/2016 Unknown Essential (primary) hypertension ICD-9: 401.9 ICD-10: I10 Active 05/18/2016 Unknown Mixed incontinence ICD- 9: 788.33 ICD-10: N39.46 Active 10/13/2016 Unknown Mixed hyperlipidemia ICD- 9: 272.4 ICD-10: [...] Problems Condition Codes Effective Dates Condition Status Chronic obstructive pulmonary disease, unspecified ICD-9: 496 ICD-10: J44.9 11/16/2016 Active Major depressive disorder, recurrent, moderate ICD-9: 296.32 ICD-10: F33.1 08/18/2016 Active Unsteadiness on feet ICD- 9: 781.2 ICD-10: R26.81 05/18/2016 Active Abnormal weight loss ICD- 9: 783.21 ICD-10: R63.4 10/13/2016 Active Essential (primary) hypertension ICD-9: 401.9 ICD-10: I10 05/18/2016 Active Mixed incontinence ICD- 9: 788.33 ICD-10: N39.46 10/13/2016 Active Mixed hyperlipidemia ICD- 9: 272.4 ICD-10: [...] Start Date Stop Date Status Fill Instructions Myrbetriq 25 mg tablet,extended release RxNorm: 1452538 1 Tablet(s) PO daily 10/13/2016 No Stop Date Active Lexapro 10 mg tablet RxNorm: 356133 1 Tablet(s) PO QPM 09/15/2016 03/13/2017 Active enalapril maleate 20 mg tablet RxNorm: 790105 1 Tablet(s) PO daily TAKE ONE TABLET BY MOUTH DAILY 08/18/2016 02/13/2017 Active Lexapro 5 mg tablet RxNorm: 756382 1 Tablet(s) PO QPM 08/18/2016 09/14/2016 Inactive enalapril maleate 20 mg tablet RxNorm: 343674 TAKE ONE TABLET BY MOUTH DAILY 05/15/2016 08/12/2016 Inactive enalapril maleate 20 mg tablet RxNorm: 546939 1 Tablet(s) PO daily 05/17/2015 05/10/2016 Inactive chlorthalidone 25 mg tablet RxNorm: 994555 1 Tablet(s) PO QAM 08/24/2014 05/18/2016 Inactive [SAVINGS FOR NON-COVERED DRUGS -- BIN:[id number], PCN: [id number], Group: XXXXX, ID# [id number], Questions: . THIS IS NOT INSURANCE.] Lasix 20 mg tablet RxNorm: 791069 1 Tablet(s) PO QDAY PRN 05/25/2014 05/18/2016 Inactive daily x 3 days then as needed, Take potassium with lasix potassium chloride ER 10 mEq tablet,extended release RxNorm: 262816 1 Tablet(s) PO QDAY PRN 05/25/2014 05/18/2016 Inactive take with lasix enalapril maleate 20 mg tablet RxNorm: 841093 1 Tablet(s) PO daily 04/24/2014 04/18/2015 Inactive enalapril maleate 10 mg tablet RxNorm: 657222 TAKE ONE TABLET BY MOUTH EVERY DAY 12/11/2013 04/23/2014 Inactive enalapril maleate 10 mg tablet RxNorm: 266051 1 Tablet(s) PO daily 03/08/2013 12/02/2013 Inactive enalapril maleate 10 mg tablet RxNorm: 773368 1 Tablet(s) PO daily 09/07/2012 03/07/2013 Inactive enalapril maleate 10 mg tablet RxNorm: 229333 1 Tablet(s) PO daily 05/25/2012 09/06/2012 Inactive enalapril maleate 5 mg tablet RxNorm: 412076 1/2 Tablet(s) PO BID 01/01/2012 05/24/2012 Inactive enalapril maleate 5 mg tablet RxNorm: 974809 1/2 Tablet(s) PO BID 10/02/2011 12/31/2011 Inactive Fish Oil 1,000 mg Cap RxNorm: 3 Capsule(s) PO daily 09/23/2011 No Stop Date Active enalapril maleate 5 mg Tab RxNorm: 908851 1/2 Tablet(s) PO BID 06/29/2011 10/01/2011 Inactive Influenza Virus Vaccine 0.5 mL RxNorm: IM 01/13/2011 01/13/2011 Inactive Pneumovax 23 25 mcg/0.5 mL Injection RxNorm: 493300 Milliliter(s) Inj 01/13/2011 01/13/2011 Inactive Veramyst 27.5 mcg/Actuation Nasal [place] RxNorm: 9688159 1 [place] NASAL daily No Start Date Active multivitamin Oral RxNorm: Oral No Start Date Active Calcium + D Oral RxNorm: Oral No Start Date Active enalapril maleate 5 mg Tab RxNorm: 486499 1/2 Tablet(s) PO BID No Start Date 06/28/2011 Inactive niacin 500 mg Tab RxNorm: 797841 1 Tablet(s) PO QHS No Start Date 05/18/2016 Inactive Reclast 5 mg/100 mL IV RxNorm: 061821 1 Milliliter(s) IV Yearly No Start Date 05/18/2016 Inactive Fish Oil 1,000 mg Cap RxNorm: Oral No Start Date 09/22/2011 Inactive Medication Administered Medication Codes Instructions Start Date Status Influenza Virus Vaccine 0.5 mL RxNorm: 01/13/2011 No longer Active Pneumovax 23 25 mcg/0.5 mL Injection RxNorm: 501786 Milliliter 01/13/2011 No longer Active Immunizations Vaccine Codes Date Status Influenza CVX: 141 01/22/2014 completed Influenza CVX: 141 02/13/2013 completed Influenza Unknown 01/13/2011 completed Influenza CVX: 141 01/13/2011 completed Pneumococcal (Adult) CVX: 33 01/13/2011 completed Assessments Condition Codes Effective Dates Chronic obstructive pulmonary disease, unspecified ICD-10: J44.9 ICD-9: 496 11/16/2016 Unsteadiness on feet ICD-10: R26.81 ICD-9: 781.2 11/16/2016 Major depressive disorder, recurrent, moderate ICD-10: F33.1 ICD-9: 296.32 11/16/2016 Essential (primary) hypertension ICD-10: I10 ICD-9: 401.9 10/13/2016 Mixed incontinence ICD-10: N39.46 ICD-9: 788.33 10/13/2016 Abnormal weight loss ICD-10: R63.4 ICD-9: 783.21 10/13/2016 Mixed hyperlipidemia ICD-10: E78.2 ICD-9: 272.4 08/18/2016 [...] Visit Reason For Visit Effective Dates Notes gait abnormality 11/16/2016 continues edema 10/13/2016 worsening [...] Result Date Cbc With Differential Ord2 WBC 6.20 K/ul 08/18/2016 Cbc With Differential Ord2 RBC 4.56 M/ul 08/18/2016 Cbc With Differential Ord2 HGB 13.8 g/dl 08/18/2016 Cbc With Differential Ord2 Neut% 59.4 % 08/18/2016 Cbc With Differential Ord2 HCT 43.8 % 08/18/2016 Cbc With Differential Ord2 MCV 96.1 fl 08/18/2016 Cbc With Differential Ord2 Lymph% 26.0 % 08/18/2016 Cbc With Differential Ord2 [place]% 8.5 % 08/18/2016 Cbc With Differential Ord2 MCH 30.3 pg 08/18/2016 Cbc With Differential Ord2 Eos% 5.3 % 08/18/2016 Cbc With Differential Ord2 MCHC 31.5 pg 08/18/2016 Cbc With Differential Ord2 Baso% 0.8 % 08/18/2016 Cbc With Differential Ord2 PLT 254 K/ul 08/18/2016 Cbc With Differential Ord2 Neut ABS# 3.68 K/ul 08/18/2016 Cbc With Differential Ord2 RDW 14.3 % 08/18/2016 Cbc With Differential Ord2 Lymph ABS# 1.61 K/ul 08/18/2016 Cbc With Differential Ord2 [place] ABS# 0.5 K/ul 08/18/2016 Cbc With Differential Ord2 Eos ABS# 0.3 K/ul 08/18/2016 Cbc With Differential Ord2 Baso ABS# 0.1 K/ul 08/18/2016 Comp Metabolic Bti646 NA 143 mEq/L 08/18/2016 Comp Metabolic Vxb318 K 4.3 mEq/L 08/18/2016 Comp Metabolic Cqp071 CL 105 mEq/L 08/18/2016 Comp Metabolic Jnv094 CO2 28.0 mEq/L 08/18/2016 Comp Metabolic Nzn783 ANION GAP 14 08/18/2016 Comp Metabolic Rpa627 GLUCOSE 77 mg/dL 08/18/2016 Comp Metabolic Woh837 Creat 0.9 mg/dL 08/18/2016 Comp Metabolic Rfh509 eGFR 67 ml/min/1.73m2 08/18/2016 Comp Metabolic Dqr049 BUN 21 mg/dL 08/18/2016 Comp Metabolic Sxp598 B/C Ratio 24.7 Ratio 08/18/2016 Comp Metabolic Xsy378 CALCIUM 9.0 mg/dL 08/18/2016 Comp Metabolic Bjr837 ALK PHOS 56 U/L 08/18/2016 Comp Metabolic Zdd725 AST(SGOT) 18 U/L 08/18/2016 Comp Metabolic Jyh363 ALT(SGPT) 11 U/L 08/18/2016 Comp Metabolic Qrt695 BILI T 0.4 mg/dL 08/18/2016 Comp Metabolic Eax595 ALBUMIN 3.9 g/dL 08/18/2016 Comp Metabolic Djs676 TPRO 6.4 g/dL 08/18/2016 Comp Metabolic Ars258 GLOB 2.5 g/dL 08/18/2016 Comp Metabolic Zma361 A/G Ratio 1.6 Ratio 08/18/2016 Comp Metabolic Fkf461 Osmo 287 mOsmo 08/18/2016 Lipid Ord30 CHOL 183 mg/dL 08/18/2016 Lipid Ord30 HDL 46.0 mg/dl 08/18/2016 Lipid Ord30 TRIG 129 mg/dL 08/18/2016 Lipid Ord30 LDL 111 mg/dL 08/18/2016 Lipid Ord30 C/HDL 4.0 Ratio 08/18/2016 Tsh Ord6 hTSH II 0.70 uIU/mL 08/18/2016 Comp Metabolic Uep871 NA 141 mEq/L 05/20/2016 Comp Metabolic Mik821 K 4.3 mEq/L 05/20/2016 Comp Metabolic Ywr556 CL 103 mEq/L 05/20/2016 Comp Metabolic Fan264 CO2 31.0 mEq/L 05/20/2016 Comp Metabolic Dqy448 ANION GAP 11 05/20/2016 Comp Metabolic Isz909 GLUCOSE 93 mg/dL 05/20/2016 Comp Metabolic Mym560 Creat 1.0 mg/dL 05/20/2016 Comp Metabolic Ild606 eGFR 57 ml/min/1.73m2 05/20/2016 Comp Metabolic Ijg517 BUN 16 mg/dL 05/20/2016 Comp Metabolic Vuu205 B/C Ratio 16.3 Ratio 05/20/2016 Comp Metabolic Ljk718 CALCIUM 10.1 mg/dL 05/20/2016 Comp Metabolic Yjl626 ALK PHOS 49 U/L 05/20/2016 Comp Metabolic Lct897 AST(SGOT) 17 U/L 05/20/2016 Comp Metabolic Kcu334 ALT(SGPT) 11 U/L 05/20/2016 Comp Metabolic Drk779 BILI T 0.3 mg/dL 05/20/2016 Comp Metabolic Ptn726 ALBUMIN 4.4 g/dL 05/20/2016 Comp Metabolic Yht262 TPRO 6.8 g/dL 05/20/2016 Comp Metabolic Xns088 GLOB 2.4 g/dL 05/20/2016 Comp Metabolic Gwz176 A/G Ratio 1.8 Ratio 05/20/2016 Comp Metabolic Woo810 Osmo 282 mOsmo 05/20/2016 Cbc With Differential Ord2 WBC 6.40 K/ul 05/20/2016 Cbc With Differential Ord2 RBC 4.57 M/ul 05/20/2016 Cbc With Differential Ord2 HGB 14.0 g/dl 05/20/2016 Cbc With Differential Ord2 Neut% 47.6 % 05/20/2016 Cbc With Differential Ord2 HCT 44.1 % 05/20/2016 Cbc With Differential Ord2 MCV 96.5 fl 05/20/2016 Cbc With Differential Ord2 Lymph% 38.3 % 05/20/2016 Cbc With Differential Ord2 [place]% 7.8 % 05/20/2016 Cbc With Differential Ord2 MCH 30.6 pg 05/20/2016 Cbc With Differential Ord2 MCHC 31.7 pg 05/20/2016 Cbc With Differential Ord2 Eos% 4.4 % 05/20/2016 Cbc With Differential Ord2 Baso% 1.9 % 05/20/2016 Cbc With Differential Ord2 PLT 279 K/ul 05/20/2016 Cbc With Differential Ord2 Neut ABS# 3.05 K/ul 05/20/2016 Cbc With Differential Ord2 RDW 13.8 % 05/20/2016 Cbc With Differential Ord2 Lymph ABS# 2.45 K/ul 05/20/2016 Cbc With Differential Ord2 [place] ABS# 0.5 K/ul 05/20/2016 Cbc With Differential Ord2 Eos ABS# 0.3 K/ul 05/20/2016 Cbc With Differential Ord2 Baso ABS# 0.1 K/ul 05/20/2016 Tsh Ord6 hTSH II 0.80 uIU/mL 05/20/2016 GFR CALC 5759702 GFR AA >60 ML/MIN 07/24/2014 GFR CALC 5338975 GFR NON-AA >60 ML/MIN 07/24/2014 TSH 7621875 TSH 0.192 uIU/ML 07/24/2014 CBC 9776325 WBC 6.4 10e9/L 07/24/2014 CBC 5719317 RBC 4.61 10e12/L 07/24/2014 CBC 5443472 HGB 13.7 g/dL 07/24/2014 CBC 3622360 HCT DET 42.6 % 07/24/2014 CBC 0865643 MCV 92.4 fL 07/24/2014 CBC 5377214 MCH 29.7 pg 07/24/2014 CBC 9338995 MCHC 32.2 g/dL 07/24/2014 CBC 0417234 PLT 280 10e9/L 07/24/2014 CBC 7923529 MPV 8.9 fL 07/24/2014 CBC 2648412 [place] % 59.5 % 07/24/2014 CBC 0955896 LY % 30.6 % 07/24/2014 CBC 3384343 MON % 5.9 % 07/24/2014 CBC 1756402 EOS % 3.4 % 07/24/2014 CBC 7721726 BASO % 0.6 % 07/24/2014 CBC 3965879 RDW 14.8 % 07/24/2014 CBC 5963043 ABS [place] 3.81 10e9/L 07/24/2014 CBC 7425664 ABS LYMPH 1.96 10e9/L 07/24/2014 CBC 4504820 ABS MONO 0.38 10e9/L 07/24/2014 CBC 8029265 ABS EOS 0.22 10e9/L 07/24/2014 CBC 1442925 ABS BASO 0.04 10e9/L 07/24/2014 CBC 5612801 RDW-SD 48.9 fL 07/24/2014 CHEM 14 2255971 AST 17 U/L 07/24/2014 CHEM 14 5851175 ALT 11 IU/L 07/24/2014 CHEM 14 6671010 BUN 13 MG/DL 07/24/2014 CHEM 14 6238741 ALBUMIN 4.2 GM/DL 07/24/2014 CHEM 14 3282044 CHLORIDE 104 MMOL/L 07/24/2014 CHEM 14 3778925 BILI TOT 0.6 MG/DL 07/24/2014 CHEM 14 8007373 ALK PHOS 52 U/L 07/24/2014 CHEM 14 6819133 SODIUM 141 MMOL/L 07/24/2014 CHEM 14 7312273 CREATININE 0.87 MG/DL 07/24/2014 CHEM 14 3975287 CALCIUM 9.1 MG/DL 07/24/2014 CHEM 14 4505086 POTASSIUM 4.1 MMOL/L 07/24/2014 CHEM 14 7227057 PROT TOT 6.4 GM/DL 07/24/2014 CHEM 14 1861963 GLUCOSE 100 MG/DL 07/24/2014 CHEM 14 6834995 BICARB 27 MMOL/L 07/24/2014 CHEM 14 5117711 ANION GAP 10 MEQ/L 07/24/2014 FREE T4 2816065 FREE T4 1.08 NG/DL 09/20/2013 T3 TOT 2095070 T3 TOT 1.1 NG/ML 09/20/2013 CHEM 14 6763442 AST 20 U/L 09/18/2013 CHEM 14 4093161 ALT 17 IU/L 09/18/2013 CHEM 14 0860838 BUN 18 MG/DL 09/18/2013 CHEM 14 5587282 ALBUMIN 4.4 GM/DL 09/18/2013 CHEM 14 7346933 CHLORIDE 106 MMOL/L 09/18/2013 CHEM 14 2889824 BILI TOT 0.4 MG/DL 09/18/2013 CHEM 14 9356096 ALK PHOS 50 U/L 09/18/2013 CHEM 14 8874767 SODIUM 142 MMOL/L 09/18/2013 CHEM 14 3333154 CREATININE 0.92 MG/DL 09/18/2013 CHEM 14 6411147 CALCIUM 9.3 MG/DL 09/18/2013 CHEM 14 0418057 POTASSIUM 4.1 MMOL/L 09/18/2013 CHEM 14 9238359 PROT TOT 6.5 GM/DL 09/18/2013 CHEM 14 1861778 GLUCOSE 98 MG/DL 09/18/2013 CHEM 14 1219795 BICARB 27 MMOL/L 09/18/2013 CHEM 14 3027273 ANION GAP 9 MEQ/L 09/18/2013 TSH 0144469 TSH 0.209 uIU/ML 09/18/2013 CBC 3143050 WBC 7.1 10e9/L 09/18/2013 CBC 1538744 RBC 4.59 10e12/L 09/18/2013 CBC 0711068 HGB 14.1 g/dL 09/18/2013 CBC 5406639 HCT DET 43.3 % 09/18/2013 CBC 7087764 MCV 94.3 fL 09/18/2013 CBC 2104010 MCH 30.7 pg 09/18/2013 CBC 9313571 MCHC 32.6 g/dL 09/18/2013 CBC 5663941 PLT 274 10e9/L 09/18/2013 CBC 3889992 MPV 9.1 fL 09/18/2013 CBC 7081345 [place] % 60.9 % 09/18/2013 CBC 4831711 LY % 29.2 % 09/18/2013 CBC 1567698 MON % 6.1 % 09/18/2013 CBC 0881417 EOS % 3.2 % 09/18/2013 CBC 7324209 BASO % 0.6 % 09/18/2013 CBC 4351516 RDW 13.8 % 09/18/2013 CBC 2668713 ABS [place] 4.32 10e9/L 09/18/2013 CBC 6633483 ABS LYMPH 2.07 10e9/L 09/18/2013 CBC 8579182 ABS MONO 0.43 10e9/L 09/18/2013 CBC 0084410 ABS EOS 0.23 10e9/L 09/18/2013 CBC 4631349 ABS BASO 0.04 10e9/L 09/18/2013 CBC 3722122 RDW-SD 46.0 fL 09/18/2013 LIPID GRP HDL TEST 70 MG/DL 09/18/2013 LIPID GRP TRIG 114 MG/DL 09/18/2013 LIPID GRP TEST LDL 198 MG/DL 09/18/2013 LIPID GRP CHOL 291 MG/DL 09/18/2013 LIPID GRP RCHOL/HDL 4.16 RATIO 09/18/2013 GFR CALC 3097164 GFR AA >60 ML/MIN 09/18/2013 GFR CALC 3055216 GFR NON-AA 58.0L ML/MIN 09/18/2013 FREE T4 1090320 FREE T4 1.05 NG/DL 03/22/2013 T3 TOT 5668953 T3 TOT 0.9 NG/ML 03/22/2013 CHEM 14 0782712 AST 18 U/L 03/20/2013 CHEM 14 3768563 ALT 13 IU/L 03/20/2013 CHEM 14 7626673 BUN 25 MG/DL 03/20/2013 CHEM 14 0972917 ALBUMIN 4.4 GM/DL 03/20/2013 CHEM 14 8014621 CHLORIDE 105 MMOL/L 03/20/2013 CHEM 14 2505680 BILI TOT 0.4 MG/DL 03/20/2013 CHEM 14 1593777 ALK PHOS 40 U/L 03/20/2013 CHEM 14 6093165 SODIUM 141 MMOL/L 03/20/2013 CHEM 14 5208090 CREATININE 0.95 MG/DL 03/20/2013 CHEM 14 9738684 CALCIUM 9.8 MG/DL 03/20/2013 CHEM 14 8622273 POTASSIUM 4.1 MMOL/L 03/20/2013 CHEM 14 0217922 PROT TOT 6.2 GM/DL 03/20/2013 CHEM 14 1909972 GLUCOSE 89 MG/DL 03/20/2013 CHEM 14 7993082 BICARB 29 MMOL/L 03/20/2013 CHEM 14 5909592 ANION GAP 7 MEQ/L 03/20/2013 TSH 4149105 TSH 0.228 uIU/ML 03/20/2013 GFR CALC 5841837 GFR AA >60 ML/MIN 03/20/2013 GFR CALC 0063978 GFR NON-AA 56.0L ML/MIN 03/20/2013 CBC 2611040 WBC 6.8 10e9/L 03/20/2013 CBC 7138635 RBC 4.58 10e12/L 03/20/2013 CBC 4359289 HGB 14.1 g/dL 03/20/2013 CBC 9533986 HCT DET 43.1 % 03/20/2013 CBC 3317282 MCV 94.1 fL 03/20/2013 CBC 5826555 MCH 30.8 pg 03/20/2013 CBC 6446600 MCHC 32.7 g/dL 03/20/2013 CBC 7034861 PLT 294 10e9/L 03/20/2013 CBC 9938675 MPV 9.4 fL 03/20/2013 CBC 8903498 [place] % 50.3 % 03/20/2013 CBC 5498511 LY % 35.9 % 03/20/2013 CBC 0396240 MON % 7.3 % 03/20/2013 CBC 2070621 EOS % 5.8 % 03/20/2013 CBC 4586350 BASO % 0.7 % 03/20/2013 CBC 2752489 RDW 14.5 % 03/20/2013 CBC 2800890 ABS [place] 3.42 10e9/L 03/20/2013 CBC 2190954 ABS LYMPH 2.44 10e9/L 03/20/2013 CBC 2833840 ABS MONO 0.50 10e9/L 03/20/2013 CBC 5696890 ABS EOS 0.39 10e9/L 03/20/2013 CBC 0349208 ABS BASO 0.05 10e9/L 03/20/2013 CBC 1638240 RDW-SD 48.2 fL 03/20/2013 LIPID GRP HDL TEST 71 MG/DL 03/20/2013 LIPID GRP TRIG 87 MG/DL 03/20/2013 LIPID GRP TEST LDL 168 MG/DL 03/20/2013 LIPID GRP CHOL 256 MG/DL 03/20/2013 LIPID GRP RCHOL/HDL 3.61 RATIO 03/20/2013 FREE T4 4644273 FREE T4 1.09 NG/DL 05/31/2012 T3 TOT 0808482 T3 TOT 0.9 NG/ML 05/31/2012 CBC 2614413 WBC 7.1 10e9/L 05/27/2012 CBC 0599839 RBC 4.58 10e12/L 05/27/2012 CBC 8689658 HGB 14.4 g/dL 05/27/2012 CBC 6295491 HCT DET 43.5 % 05/27/2012 CBC 3161866 MCV 95.0 fL 05/27/2012 CBC 3483495 MCH 31.4 pg 05/27/2012 CBC 4586815 MCHC 33.1 g/dL 05/27/2012 CBC 9183536 PLT 285 10e9/L 05/27/2012 CBC 9528913 MPV 9.2 fL 05/27/2012 CBC 1620295 [place] % 61.2 % 05/27/2012 CBC 9629808 LY % 27.5 % 05/27/2012 CBC 7032397 MON % 6.8 % 05/27/2012 CBC 9556826 EOS % 3.8 % 05/27/2012 CBC 6634336 BASO % 0.7 % 05/27/2012 CBC 7013774 RDW 14.1 % 05/27/2012 CBC 3744734 ABS [place] 4.35 10e9/L 05/27/2012 CBC 9733050 ABS LYMPH 1.95 10e9/L 05/27/2012 CBC 7276715 ABS MONO 0.48 10e9/L 05/27/2012 CBC 2736393 ABS EOS 0.27 10e9/L 05/27/2012 CBC 0101751 ABS BASO 0.05 10e9/L 05/27/2012 CBC 2399248 RDW-SD 47.2 fL 05/27/2012 LIPID GRP 6152665 HDL TEST 57 MG/DL 05/27/2012 LIPID GRP TRIG 110 MG/DL 05/27/2012 LIPID GRP TEST LDL 156 MG/DL 05/27/2012 LIPID GRP CHOL 235 MG/DL 05/27/2012 LIPID GRP RCHOL/HDL 4.12 RATIO 05/27/2012 CHEM 14 4090944 AST 19 U/L 05/27/2012 CHEM 14 6912738 ALT 13 IU/L 05/27/2012 CHEM 14 6613826 BUN 19 MG/DL 05/27/2012 CHEM 14 9303306 ALBUMIN 4.7 GM/DL 05/27/2012 CHEM 14 1884931 CHLORIDE 106 MMOL/L 05/27/2012 CHEM 14 2712731 BILI TOT 0.5 MG/DL 05/27/2012 CHEM 14 6277628 ALK PHOS 51 U/L 05/27/2012 CHEM 14 1368050 SODIUM 141 MMOL/L 05/27/2012 CHEM 14 4525138 CREATININE 0.85 MG/DL 05/27/2012 CHEM 14 0821147 CALCIUM 9.4 MG/DL 05/27/2012 CHEM 14 2491899 POTASSIUM 4.0 MMOL/L 05/27/2012 CHEM 14 8786628 PROT TOT 6.7 GM/DL 05/27/2012 CHEM 14 6833471 GLUCOSE 101 MG/DL 05/27/2012 CHEM 14 1419723 BICARB 29 MMOL/L 05/27/2012 CHEM 14 3106926 ANION GAP 6 MEQ/L 05/27/2012 TSH 1824050 TSH 0.275 uIU/ML 05/27/2012 GFR CALC 1719936 GFR AA >60 ML/MIN 05/27/2012 GFR CALC 6464070 GFR NON-AA >60 ML/MIN 05/27/2012 CHEM 14 3403996 AST 18 U/L 09/21/2011 CHEM 14 6315289 ALT 11 IU/L 09/21/2011 CHEM 14 2950498 BUN 18 MG/DL 09/21/2011 CHEM 14 7420586 ALBUMIN 4.3 GM/DL 09/21/2011 CHEM 14 4436983 CHLORIDE 102 MMOL/L 09/21/2011 CHEM 14 2940541 BILI TOT 0.4 MG/DL 09/21/2011 CHEM 14 9044171 ALK PHOS 47 U/L 09/21/2011 CHEM 14 4497849 SODIUM 139 MMOL/L 09/21/2011 CHEM 14 3775584 CREATININE 0.92 MG/DL 09/21/2011 CHEM 14 1685799 CALCIUM 9.2 MG/DL 09/21/2011 CHEM 14 7446080 POTASSIUM 4.1 MMOL/L 09/21/2011 CHEM 14 5961407 PROT TOT 6.4 GM/DL 09/21/2011 CHEM 14 4500130 GLUCOSE 89 MG/DL 09/21/2011 CHEM 14 6898164 BICARB 28 MMOL/L 09/21/2011 CHEM 14 2097317 ANION GAP 9 MEQ/L 09/21/2011 TSH 8772614 TSH 0.352 uIU/ML 09/21/2011 GFR CALC GFR AA >60 ML/MIN 09/21/2011 GFR CALC GFR NON-AA 58.0L ML/MIN 09/21/2011 LIPID GRP HDL TEST 54 MG/DL 09/21/2011 LIPID GRP TRIG 81 MG/DL 09/21/2011 LIPID GRP TEST LDL 154 MG/DL 09/21/2011 LIPID GRP CHOL 224 MG/DL 09/21/2011 LIPID GRP RCHOL/HDL 4.15 RATIO 09/21/2011 CBC 9510121 WBC 9.6 10e9/L 09/21/2011 CBC 5291176 RBC 4.85 10e12/L 09/21/2011 CBC 0913074 HGB 15.0 g/dL 09/21/2011 CBC 3665918 HCT DET 46.5 % 09/21/2011 CBC 7061125 MCV 95.9 fL 09/21/2011 CBC 0105673 MCH 30.9 pg 09/21/2011 CBC 1720954 MCHC 32.3 g/dL 09/21/2011 CBC 1435315 PLT 279 10e9/L 09/21/2011 CBC 2313570 MPV 9.1 fL 09/21/2011 CBC 9998619 [place] % 63.4 % 09/21/2011 CBC 3682402 LY % 26.1 % 09/21/2011 CBC 0991337 MON % 5.6 % 09/21/2011 CBC 2258853 EOS % 4.4 % 09/21/2011 CBC 3385376 BASO % 0.5 % 09/21/2011 CBC 6996946 RDW 14.0 % 09/21/2011 CBC 4072524 ABS [place] 6.09 10e9/L 09/21/2011 CBC 3296780 ABS LYMPH 2.51 10e9/L 09/21/2011 CBC 2189157 ABS MONO 0.54 10e9/L 09/21/2011 CBC 5250631 ABS EOS 0.42 10e9/L 09/21/2011 CBC 0952892 ABS BASO 0.05 10e9/L 09/21/2011 CBC 6689528 RDW-SD 47.9 fL 09/21/2011 Review of Systems System Result Effective Dates Constitutional No recent illness 11/16/2016 Constitutional No [...] accomodation 03/20/2013 None Full Exam - General 1994 Ears/Nose/Throat otoscopic exam Overall: external auditory canals clear 03/20/2013 None Full Exam - General 1994 Ears/Nose/Throat otoscopic exam Overall: tympanic membranes clear 03/20/2013 None Full Exam - General 1994 Ears/Nose/Throat lips/teeth/gingiva Overall: benign lips 03/20/2013 None Full Exam - General 1994 Ears/Nose/Throat lips/teeth/gingiva Overall: no masses 03/20/2013 None Full Exam - General 1994 [...] affect 03/20/2013 None Full Exam - General 1994 Psychiatric mood and affect Overall: normal mood and affect 05/25/2012 None Full Exam - General 1994 Respiratory respiratory effort/rhythm Overall: no retractions 05/25/2012 None Full Exam - General 1994 Respiratory respiratory effort/rhythm Overall: normal rate 05/25/2012 None Full Exam - General 1994 Cardiovascular auscultation of heart Overall: regular rate 05/25/2012 None Full Exam - General 1994 Cardiovascular auscultation of heart Overall: normal heart sounds 05/25/2012 None Full Exam - General 1994 Cardiovascular auscultation of heart Overall: no murmurs 05/25/2012 None Full Exam - General 1994 Abdomen abdominal exam Overall: no tenderness 05/25/2012 None Full Exam - General 1994 Abdomen [...] General 1995 Ears/Nose/Throat lips/teeth/gingiva Overall: benign lips 05/25/2012 None [...] sounds 05/21/2011 None Full Exam - General 1995 Abdomen abdominal exam Overall: no tenderness 05/21/2011 None Full Exam - General 1995 Abdomen abdominal exam Overall: normal bowel sounds 05/21/2011 None Full Exam - General 1994 Psychiatric orientation/consciousness Overall: oriented to person, place and time 05/21/2011 None Full Exam - General 1995 Psychiatric mood and affect Overall: normal mood and affect 05/21/2011 None Full Exam - General 1995 Constitutional general appearance Development: well developed 05/21/2011 None Full Exam - General 1995 Constitutional general appearance Overall: in no acute distress 05/21/2011 None Full Exam - General 1995 Constitutional general appearance Stature/Body Habitus: normal body habitus 05/21/2011 None Full Exam - General 1994 Constitutional general appearance Nourishment: well nourished 05/21/2011 None Full Exam - General 1994 Constitutional general appearance Evidence of Distress: in [...] masses 05/21/2011 None Full Exam - General 1994 [...] None Procedures Procedure Codes Date ROUTINE VENIPUNCTURE CPT-4: [id number] 07/24/2014 ADMIN INFLUENZA VIRUS VAC CPT-4: T0591Vjrzkop 01/22/2014 FLU VAC NO PRSV 4 LISSA 3 YRS+ Assigned to/Laura Og CPT-4: 04263Ntwbqfx 01/22/2014 ROUTINE VENIPUNCTURE CPT-4: 14989Mvipsqy 09/18/2013 ROUTINE VENIPUNCTURE CPT-4: 37967Ioznkae 03/20/2013 ROUTINE VENIPUNCTURE CPT-4: 47684Fxejien 05/27/2012 ROUTINE VENIPUNCTURE CPT-4: 29622Iqzofjp 09/21/2011 ROUTINE VENIPUNCTURE CPT-4: 43889Kiicmwi 01/13/2011 Pneumococcal Polysaccharide Vaccine, 23-Valent, Ad CPT-4: 72801Zlutzpz 01/13/2011 ADMIN INFLUENZA VIRUS VAC CPT-4: G0203Zzfutpw 01/13/2011 ADMIN PNEUMOCOCCAL VACCINE SNOMED CT: [id number] CPT-4: O7303Drueneg 01/13/2011 FLULAVAL VACC, 3 YRS & >, IM CPT-4: B2593Dvytekv 01/13/2011 Vital Signs Date Vital 11/16/2016 Blood Pressure 1: 146/84 Code: 8480-6 BMI: 23.0 Code: 54221-8 Heart Rate 1: 72 bpm Height: 5'5" SpO2: 95% Weight: 138 lbs 10/13/2016 Blood Pressure 1: 142/86 Code: 8480-6 Blood Pressure 1: 170/96 Code: 8480-6 BMI: 23.0 Code: 11256-8 Heart Rate 1: 74 bpm Height: 5'5" SpO2: 90% Weight: 138 lbs 09/15/2016 Blood Pressure 1: 118/78 Code: 8480-6 Heart Rate 1: 82 bpm SpO2: 90% Weight: 141 lbs 08/18/2016 Blood Pressure 1: 142/82 Code: 8480-6 BMI: 24.1 Code: 91811-8 Heart Rate 1: 72 bpm Height: 5'5" SpO2: 91% Weight: 145 lbs 06/23/2016 Blood Pressure 1: 148/86 Code: 8480-6 BMI: 24.1 Code: 78323-4 Heart Rate 1: 70 bpm Height: 5'5" SpO2: 90% Weight: 145 lbs 05/19/2016 Blood Pressure 1: 162/76 Code: 8480-6 BMI: 24.3 Code: 20979-0 Heart Rate 1: 76 bpm Height: 5'5" Weight: 146 lbs 09/14/2014 Blood Pressure 1: 102/80 Code: 8480-6 BMI: 27.7 Code: 79912-3 Heart Rate 1: 90 bpm Height: 5' SpO2: 94% Weight: 144 lbs 08/24/2014 Blood Pressure 1: 122/92 Code: 8480-6 BMI: 28.4 Code: 44920-6 Heart Rate 1: 74 bpm Height: 5' SpO2: 94% Weight: 148 lbs 07/24/2014 Blood Pressure 1: 142/86 Code: 8480-6 BMI: 28.8 Code: 80126-2 Heart Rate 1: 88 bpm Height: 5' Weight: 150 lbs 05/25/2014 Blood Pressure 1: 136/88 Code: 8480-6 BMI: 28.8 Code: 06596-0 Heart Rate 1: 82 bpm Height: 5' Weight: 150 lbs 04/24/2014 Blood Pressure 1: 150/78 Code: 8480-6 BMI: 29.6 Code: 76091-2 Heart Rate 1: 60 bpm Height: 5' Weight: 154 lbs 01/22/2014 Blood Pressure 1: 140/78 Code: 8480-6 BMI: 29.6 Code: 24234-3 Heart Rate 1: 78 bpm Height: 5' SpO2: 90% Weight: 154 lbs 09/18/2013 Blood Pressure 1: 128/84 Code: 8480-6 BMI: 29.4 Code: 57651-0 Heart Rate 1: 80 bpm Height: 5' Weight: 153 lbs 03/20/2013 Blood Pressure 1: 122/80 Code: 8480-6 BMI: 29.0 Code: 81584-6 Heart Rate 1: 76 bpm Height: 5' Weight: 151 lbs 05/25/2012 Blood Pressure 1: 140/92 Code: 8480-6 BMI: 26.3 Code: 42356-9 Heart Rate 1: 88 bpm Height: 5' Weight: 137 lbs 09/17/2011 Blood Pressure 1: 128/78 Code: 8480-6 Heart Rate 1: 76 bpm Respiratory Rate: 24 bpm Weight: 137 lbs 05/21/2011 Blood Pressure 1: 114/72 Code: 8480-6 BMI: 27.1 Code: 66726-9 Heart Rate 1: 68 bpm Height: 5' Respiratory Rate: 16 bpm Weight: 141 lbs 01/20/2011 Blood Pressure 1: 130/72 Code: 8480-6 Heart Rate 1: 72 bpm Respiratory Rate: 16 bpm Weight: 143 lbs Functional Status No Functional Status data History of Present Illness Symptom Name Status Result Effective Date Notes gait abnormality Quality chronic 11/16/2016 None gait [...] 05/21/2011 states she has been going to [place] to have the toxins removed from her feet cholesterol followup Quality increased cholesterol 01/20/2011 pt had labs 01/13/11; Dr. Jackson recommended to increase niacin to 1000 mg daily and increase fish oil to 1000mg tid Advance Directives No Advance Directive data Encounters Encounter Performer Location Codes Date ([id number]) 44754 EST. PATIENT, LEVEL IV Diagnosis: Unsteadiness on feet[ICD10: R26.81] Diagnosis: Major depressive disorder, recurrent, moderate[ICD10: F33.1] Diagnosis: Chronic obstructive pulmonary disease, unspecified[ICD10: J44.9] Brigitte Jackson MD, [facility] CPT-4: 45174 11/16/2016 ([id number]) 48272 EST. PATIENT, LEVEL IV Diagnosis: Essential (primary) hypertension[ICD10: I10] Diagnosis: Unsteadiness on feet[ICD10: R26.81] Diagnosis: Abnormal weight loss[ICD10: R63.4] Diagnosis: Mixed incontinence[ICD10: N39.46] Brigitte Jackson MD, [facility] CPT- 4: 14185 10/13/2016 ([id number]) 89401 EST. PATIENT, LEVEL IV Diagnosis: Essential (primary) hypertension[ICD10: I10] Diagnosis: Major depressive disorder, recurrent, moderate[ICD10: F33.1] Diagnosis: Unsteadiness on feet[ICD10: R26.81] Brigitte Jackson MD, [facility] CPT-4: 02493 09/15/2016 ([id number]) 34626 EST. PATIENT, LEVEL IV Diagnosis: Essential (primary) hypertension[ICD10: I10] Diagnosis: Mixed hyperlipidemia[ICD10: E78.2] Diagnosis: Major depressive disorder, recurrent, moderate[ICD10: F33.1] Diagnosis: Unsteadiness on feet[ICD10: R26.81] Brigitte Jackson MD, [facility] CPT-4: 01600 08/18/2016 ([id number]) 01035 EST. PATIENT, LEVEL III Diagnosis: Essential (primary) hypertension[ICD10: I10] Brigitte Jackson MD, [facility] CPT-4: 11325 06/23/2016 ([id number]) 05483 EST. 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 PATIENT, LEVEL III Diagnosis: ESSENTIAL HYPERTENSION[ICD9: 401.9] Diagnosis: EDEMA[ICD9: 782.3] Brigitte Jackson MD, [facility] CPT-4: 50204 09/14/2014 ([id number]) 10250 EST. PATIENT, LEVEL III Diagnosis: ESSENTIAL HYPERTENSION[ICD9: 401.9] Diagnosis: EDEMA[ICD9: 782.3] Georgia Jackson MD, [facility] CPT-4: 49570 08/24/2014 ([id number]) 24854 EST. PATIENT, LEVEL IV Diagnosis: Peripheral vascular disease[ICD9: 443.9] Diagnosis: ESSENTIAL HYPERTENSION[ICD9: 401.9] Diagnosis: Chronic fatigue[ICD9: 780.79] Diagnosis: Ataxia[ICD9: 781.3] Georgia Jackson MD, [facility] CPT-4: 16480 07/24/2014 ([id number]) 16029 EST. PATIENT, LEVEL III Diagnosis: ESSENTIAL HYPERTENSION[ICD9: 401.9] Diagnosis: EDEMA[ICD9: 782.3] Georgia Jackson MD, [facility] CPT-4: 16018 05/25/2014 ([id number]) 68900 EST. 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 PATIENT, LEVEL IV Diagnosis: ESSENTIAL HYPERTENSION[ICD9: 401.9] Diagnosis: HYPERLIPIDEMIA[ICD9: 272.4] Diagnosis: VACCIN FOR INFLUENZA[ICD10: Z23] Georgia Jackson MD, [facility] CPT-4: 55862 01/22/2014 ([id number]) 20645 EST. 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 PATIENT, LEVEL IV Diagnosis: ESSENTIAL HYPERTENSION[SNOMED: 75112818] Diagnosis: LACK OF COORDINATION[ICD9: 781.3] Diagnosis: PERIPH VASCULAR DIS[ICD9: 443.9] Diagnosis: ENCNTR LONG-RX USE NEC[ICD9: V58.69] Georgia Jackson MD [facility] CPT- 4: 52558 03/20/2013 ([id number]) 89752 EST. PATIENT, LEVEL IV Diagnosis: ESSENTIAL HYPERTENSION[SNOMED: 19800798] Diagnosis: HYPERLIPIDEMIA[ICD9: 272.4] Diagnosis: LACK OF COORDINATION[ICD9: 781.3] Diagnosis: TOBACCO USE DISORDER[ICD9: 305.1] [facility] CPT- 4: 64668 05/25/2012 ([id number]) 23707 EST. PATIENT, LEVEL IV Diagnosis: ESSENTIAL HYPERTENSION[SNOMED: 50622146] Diagnosis: TOBACCO USE DISORDER[ICD9: 305.1] Diagnosis: HYPERLIPIDEMIA[ICD9: 272.4] Diagnosis: Varicose vein of leg[ICD9: 454.9] Diagnosis: Leg pain, posterior[ICD9: 729.5] Diagnosis: Intermittent claudication[ICD9: 443.9] [facility] CPT-4: 74850 09/17/2011 ([id number]) 43057 EST. PATIENT, LEVEL IV Diagnosis: ESSENTIAL HYPERTENSION[SNOMED: 31250718] Diagnosis: LACK OF COORDINATION[ICD9: 781.3] Diagnosis: TOBACCO USE DISORDER[ICD9: 305.1] [facility] CPT- 4: 78999 05/21/2011 82348 EST. PATIENT, LEVEL IV Diagnosis: ESSENTIAL HYPERTENSION[SNOMED: 83731491] Diagnosis: HYPERLIPIDEMIA[ICD9: 272.4] Diagnosis: Ataxia[ICD9: 781.3] Georgia Jackson MD, [facility] CPT-4: 90864 01/20/2011 Plan of Care Planned Activity Notes Codes Status Date Visit Plan: Gait instability-recommend PT with home health-patient refuses-recommend patient start using walker UUYV-kjbszvr-jgdbvrz qualified for oxygen but refuses to wear it Weight kyqs-mrwvbp-ifpjjawd to monitor Memory loss-recommend patient move to an assisted living facility 11/16/2016 Appointment: Brigitte Vann WPtel: [address] [place], [place] [phone] (15 min) Moderate 11/16/2016 Patient Education: Patient Medication Summary Completed 11/16/2016 Visit Plan: Hypertension - well controlled - continue with current medications, continue with no added salt diet. Pt has been encouraged to exercise daily.The pt has been advised to call the office if there are any acute concerns about change in blood pressure readings at home.Gait llltkjgwovh-kmilgtgk-dlukywskof PT-patient refuses-also recommend patient use a walker at all times Weight loss-recommend patient increase intake Mixed urinary incontinence-samples of myrebetriq provided and instructed on use 10/13/2016 Appointment: Brigitte Vann WPtel: [address] [place], [place] [phone] (30 min) Complex 10/13/2016 Patient Education: Patient Medication Summary Completed 10/13/2016 Visit Plan: Hypertension - well controlled - continue with current medications, continue with no added salt diet. Pt has been encouraged to exercise daily.The pt has been advised to call the office if there are any acute concerns about change in blood pressure readings at home.Xooaahqtaf-wyglcys-nezgtfhn lexapro to 10mg daily-repeat in 1 month Gait instability-again recommend patient use walker 09/15/2016 Appointment: Brigitte Vann WPtel: [address] [place], [place] [phone] (15 min) Moderate 09/15/2016 Patient Education: Patient Medication Summary Completed 09/15/2016 Patient Education: Hypertension Completed 09/15/2016 Visit Plan: Hypertension - well controlled - continue with current medications, continue with no added salt diet. Pt has been encouraged to exercise daily.The pt has been advised to call the office if there are any acute concerns about change in blood pressure readings at home.Hyperlipidemia - pt has been counseled about appropriate [...] and to assure normal liver response to medications.Depression - uncontrolled - Pt has been counseled about the diagnosis of depression, the potential causes, and risks associated with the diagnosis. The pt denies suicidal ideation, or plans. The patient has been co unseled about treatment options, and understands the risks associated with treatment of depression, as well as the risks associated with NOT treating the depression.I believe the pt will benefit from medical intervention and an antidepressant has been appropriately prescribed for this patient.Gait instability-again recommend patient use walker at all times-also recommend PT- patient refuses at this time. 08/18/2016 Appointment: Brigitte Vann WPtel: [phone] (15 min) Moderate 08/18/2016 Patient Education: Patient Medication Summary Completed 08/18/2016 Visit Plan: Hypertension - well controlled - continue with current medications, continue with no added salt diet. Pt has been encouraged to exercise daily.The pt has been advised to call the office if there are any acute concerns about change in blood pressure readings at home. 06/23/2016 Appointment: Brigitte Vann WPtel: [phone] [id number] (30 min) Complex 06/23/2016 Patient Education: Patient Medication Summary Completed 06/23/2016 Visit Plan: Hypertension -not well controlled - continue with current medications, continue with no added salt diet. Pt has been encouraged to exercise daily.The pt has been advised to call the office if there are any acute concerns about change in blood pressure readings at home.Gait instability-recommend PT-also recommend walker-patient does not want to do either PVD-refer to Dr Esqueda for evaluation 05/19/2016 Appointment: Brigitte Vann WPtel: [address] [facility] [place] [address] (30 min) Complex 05/19/2016 Patient Education: Patient Medication Summary Completed 05/19/2016 Care Plan: Referral Order Dr Esqueda SNOMED- CT : [id number] Pending 05/19/2016 Visit Plan: Hypertension - well controlled - continue with current medications, continue with no added salt diet. Pt has been encouraged to exercise daily.The pt has been advised to call the office if there are any acute concerns about change in blood pressure readings at home.Txtej-rmfwhfmw-by change in treatment 09/14/2014 Appointment: Follow up [...] the office next week for practitioner to review.The pt is to call for acute concerns.Edema - uncontrolled - pt to start on chlorthalidone for the swelling in her lower extremities - will monitor her labs and edema in 2 weeks. 08/24/2014 Appointment: Georgia Jackson WPtel: [facility] [place] [address] follow up 08/24/2014 Patient Education: Patient Medication Summary Completed 08/24/2014 Patient Education: Hypertension Completed 08/24/2014 Visit Plan: Peripheral Vascular disease - intermittent claudication - leg pain- referral to Dr. Antunez for further evaluation - pt has history of Femoral- Popliteal bypass, I believe that the patient needs repeat interrogation of the vasculature.Hypertension - well controlled - continue with current medications, continue with no added salt diet. Pt has been encouraged to exercise daily.The pt has been advised to call the office if there are any acute concerns about change in blood pressure readings at home. 07/24/2014 Appointment: Georgia Jackson WPtel[facility] Follow up 07/24/2014 Patient Education: Patient Medication Summary Completed 07/24/2014 Patient Education: Hypertension Completed 07/24/2014 Care Plan: Referral Order SNOMED-CT : [id number] Ordered 07/24/2014 Visit Plan: Hypertension - well controlled - continue with current medications, continue with no added salt diet. Pt has been encouraged to exercise daily.The pt has been advised to call the office if there are any acute concerns about change in blood pressure readings at home.Edema - pt has been advised to elevate legs to prevent dependent edema, compression has been recommended to help to naturally decrease peripheral edema. Diuretic use has been discussed and pt has been instructed in appropriate use of such medication as necessary to further attempt to reduce peripheral edema. 05/25/2014 Appointment: Brig[facility]el[facility] [phone] Follow up 05/25/2014 Patient Education: Patient Medication [...] the office next week for practitioner to review.The pt is to call for acute concerns.Gait instability - recommended pt to start physical therapy - she is not willing to start therapy at this time.Hyperlipidemia - pt has been counseled about appropriate [...] and to assure normal liver response to medications.Thyroid disorder - pt to have labs monitored periodically - pt's TSH is normalized. 04/24/2014 Appointment: Georgia Jackson WPtel: [facility] [facility] Follow up 04/24/2014 Patient Education: Patient Medication Summary Completed 04/24/2014 Patient Education: Hypertension Completed 04/24/2014 Visit Plan: Hypertension - well controlled - continue with current medications, continue with no added salt diet. Pt has been encouraged to exercise daily.The pt has been advised to call the office if there are any acute concerns about change in blood pressure readings at home.Hyperlipidemia - pt has been counseled about appropriate [...] medications. 01/22/2014 Appointment: Georgia Jackson WPtel: [facility] [facility] Follow up 01/22/2014 Patient Education: Patient Medication Summary Completed 01/22/2014 Patient Education: Hypertension Completed 01/22/2014 Visit Plan: Hypertension - well controlled - continue with current medications, continue with no added salt diet. Pt has been encouraged to exercise daily.The pt has been advised to call the [...] and to assure normal liver response to medications.History of Abnormal thyroid studies - check tsh, free t4 today.Gait Instabiility - Recommended pt to increase activity - needs strengthening exercise. 09/18/2013 Appointment: Georgia Jackson WPtel: [address] [facility] Follow up 09/18/2013 Patient Education: Patient Medication Summary Completed 09/18/2013 Patient Education: Hypertension Completed 09/18/2013 Visit Plan: Hypertension - well controlled - continue with current medications, continue with no added salt diet. Pt has been encouraged to exercise daily.The pt has been advised to call the office if there are any acute concerns about change in blood pressure readings at home.Gait abnormality - and peripheral vascular disease - pt has been seen by Vascular surgeons - no recommendations for treatment at this time.Pt continues to have need of cane for ambulation. Hyperlipidemia - pt has been counseled about appropriate diet, exercise, and need for low fat food choices. I have discussed the need for the patient to take medications as prescribed. The patient has not had labs for over a year. 03/20/2013 Appointment: Georgia Jackson WPtel: [facility] [facility] Follow up 03/20/2013 Patient Education: Patient Medication Summary Completed 03/20/2013 Patient Education: Hypertension Completed 03/20/2013 Appointment: Georgia Jackson WPtel: [phone] [facility] [place] Lab Draw 05/27/2012 Patient Education: Patient [...] the office next week for practicioner to review.The pt is to call for acute concerns.PT IS TO INCREASE THE ENALAPRIL TO 10MG DAILY - WHICH WILL EQUAL TWO OF THE 5 MG PILLS DAILY UNTIL THAT SUPPLY IS GONE, THEN PT NEEDS TO FILL THE NEW SCRIPT AT [facility] FOR THE 10MG ENALAPRIL PILL TO [...] and to assure normal liver response to medications.Tobaccoism - pt continues to attempt to stop smoking, pt has been smoke free for a few weeks, she is at times struggling to stay away from tobacco, she has been encouraged to continue with cessation attempts, and to call for further assistance if needed.Gait dysfunction - pt with continued gait difficulties, pt has been encouraged to use a walker or cane when in public. 05/25/2012 Appointment: Georgia Jackson WPtel: [phone] [facility] Other 05/25/2012 Patient Education: Patient Medication Summary Completed 05/25/2012 Patient Education: Hypertension Completed 05/25/2012 Patient Education: Smoking and Tobacco Addiction Completed 05/25/2012 Appointment: Georgia Jackson WPtel: [phone] [facility] Lab Draw 09/21/2011 Patient Education: Patient Medication Summary Completed 09/21/2011 Patient Education: High Blood Pressure: Essential Hypertension Completed 09/21/2011 Visit Plan: Hypertension - well controlled - continue with current medications, continue with no added salt diet. Pt has been encouraged to exercise daily.The pt has been advised to call the office if there are any acute concerns about change in blood pressure readings at home.Hyperlipidemia- need to come by clinic for fasting labs.Varicose veins with leg pain and interittent claudication symptoms- recommended evaluation by Vascular surgeon for PVD EVAL.TOBACCOISM- pt is not interested in stopping smoking. We have discussed the negative health effects of smoking, pt aware of the tobacco worsening her current complaints of gait instability and leg pain. 09/17/2011 Appointment: Georgia Jackson WPtel: [address] [place], [place] [id number] Other 09/17/2011 Patient Education: Patient Medication Summary Completed 09/17/2011 Patient Education: High Blood Pressure: Essential Hypertension Completed 09/17/2011 Patient Education: Smoking: Hazards of Smoking Completed 09/17/2011 Patient Education: Smoking and Ways to Quit Completed 09/17/2011 Appointment: Georgia Jackson WPtel: [address] [place], [place] [id number] Other 05/22/2011 Visit Plan: Hypertension - well controlled - continue with current medications, continue with no added salt diet. Pt has been encouraged to exercise daily.The pt has been advised to call the office if there are any acute concerns about change in blood pressure readings at home.Lack of Coordination - pt has been repeatedly [...] assist cessation. 05/21/2011 Appointment: Georgia Jackson WPtel: [address] [place], [place] [id number] Other 05/21/2011 Patient Education: Patient Medication Summary Completed 05/21/2011 Patient Education: High Blood Pressure: Essential Hypertension Completed 05/21/2011 Patient Education: Smoking: Hazards of Smoking Completed 05/21/2011 Patient Education: Smoking and Ways to Quit Completed 05/21/2011 Visit Plan: Hypertension - well controlled - continue with current medications, continue with no added salt diet. Pt has been encouraged to exercise daily.The pt has been advised to call the [...] and to assure normal liver response to medications.INCREASE NIACIN TO 1000MG DAILY AND THEN CHANGE THE FISH OIL TO THREE TIMES A DAY INSTEAD OF ALL THREE PILLS AT ONE TIME.DISCUSSED BALANCE AND MILO WILL THINK ABOUT GOING TO PHYSICAL THERAPY AT [facility] FOR BALANCE TRAINING. 01/20/2011 Appointment: Georgia Jackson WPtel: [phone] [facility] Other 01/20/2011 Patient Education: Patient Medication Summary Completed 01/20/2011 Appointment: Georgia Jackson WPtel: [phone] Lab Draw 01/13/2011 Patient Education: Patient Medication Summary Completed 01/13/2011 Referral: Wojciech Antunez WPtel: [phone] [facility] [place] Referral Appointment Requested Instructions Comment . Hypertension - [...] to increase activity - needs strengthening exercise. Refer to Dr Esqueda recommend patient start [...] for over a year. . Hypertension - uncontrolled - the patient's [...] complaints of gait instability and leg pain. INCREASE ENALAPRIL TO TWO PILLS TO EQUAL [...] monitored periodically - pt's TSH is normalized. START LEXAPRO 5MG IN THE EVENING CHECK [...] times-also recommend PT-patient refuses at this time. . Hypertension - well controlled - continue with current medications, continue with no added salt diet. Pt has been encouraged to exercise daily. The pt has been advised to call the office if there are any acute concerns about change in blood pressure readings at home. Qsoigljrry-vikaemr-geppcpdf lexapro to 10mg daily-repeat in 1 month Gait instability-again recommend patient use walker . Hypertension - well controlled - continue [...] assure normal liver response to medications. . Peripheral Vascular disease - intermittent claudication [...] further attempt to reduce peripheral edema. . Hypertension - well controlled - continue [...] ready to use medication to assist cessation. . Hypertension - well controlled - continue with current medications, continue with no added salt diet. Pt has been encouraged to exercise daily. The pt has been advised to call the office if there are any acute concerns about change in blood pressure readings at home. Gait budynndfosn-hxpbnfgh-lgdshicjkk PT-patient refuses-also recommend patient use a walker [...] change in blood pressure readings at home. Kcysv-omskaium-nt change in treatment . Hypertension - well controlled - continue with current medications, continue with no added salt diet. Pt has been encouraged to exercise daily. The pt has been advised to call the office if there are any acute concerns about change in blood pressure readings at home. RECOMMEND PHYSICAL THERAPY -ALSO RECOMMEND WALKER AT ALL TIMES RECOMMEND OXYGEN . Gait instability-recommend PT with home health-patient refuses-recommend patient start using walker EAJV-jnayjey-uuuehzo qualified for oxygen but refuses to wear it Weight uxgt-zruhlt-tibyklhx to monitor Memory loss-recommend patient move to an assisted living facility . Hypertension - well controlled - continue [...] THINK ABOUT GOING TO PHYSICAL THERAPY AT [facility] FOR BALANCE TRAINING. PT IS TO INCREASE THE ENALAPRIL TO 10MG DAILY - WHICH WILL EQUAL TWO OF THE 5 MG PILLS DAILY UNTIL THAT SUPPLY IS GONE, THEN PT NEEDS [facility] E[facility] TO BE [...] [facility] ENAL[facility] P[facility] TO BE [...]
--- OUTSIDE RECORDS SUMMARY | 2018-11-16 07:28 | XMS REPORT | CCD ---
Author Author Georgia Jackson Organization Georgia Jackson MD, [facility] Address [address] [place] [address] Phone Care Team Providers Care Materials Mgmt Tech Name Role Phone Georgia Jackson PP Unavailable CCM Unavailable Summary Purpose Interface Exchange Insurance Providers Payer name Policy type / Coverage type Covered constitution party ID Effective Begin Date Effective End Date WPS Medicare Part B [id number] 2014 Unknown [place] [employer] [id number] Unknown Family history Brother Diagnosis Age At [...] Description Effective Dates Tobacco history SNOMED CT: 5405700 Former smoker states quit in 2011 or 13 09/18/2013 Marital status Unknown 01/20/2011 Number of children Unknown 2 01/20/2011 Employment Unknown 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, 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 [...] Instructions Myrbetriq 25 mg tablet,extended release RxNorm: 9007705 1 Tablet(s) PO daily 10/13/2016 No Stop Date Active Lexapro 10 mg tablet RxNorm: 250122 1 Tablet(s) PO QPM 09/15/2016 03/13/2017 Active enalapril maleate 20 mg tablet RxNorm: 665387 1 Tablet(s) PO daily TAKE ONE TABLET BY MOUTH DAILY 08/18/2016 02/13/2017 Active Lexapro 5 mg tablet RxNorm: 200246 1 Tablet(s) PO QPM 08/18/2016 09/14/2016 Inactive enalapril maleate 20 mg tablet RxNorm: 170622 TAKE ONE TABLET BY MOUTH DAILY 05/15/2016 08/12/2016 Inactive enalapril maleate 20 mg tablet RxNorm: 424251 1 Tablet(s) PO daily 05/17/2015 05/10/2016 Inactive chlorthalidone 25 mg tablet RxNorm: 038287 1 Tablet(s) PO QAM 08/24/2014 05/18/2016 Inactive [SAVINGS FOR NON-COVERED DRUGS -- BIN:[id number], PCN: [id number], Group: XXXXX, ID# [id number], Questions: . THIS IS NOT INSURANCE.] Lasix 20 mg tablet RxNorm: 372273 1 Tablet(s) PO QDAY PRN 05/25/2014 05/18/2016 Inactive daily x 3 days then as needed, Take potassium with lasix potassium chloride ER 10 mEq tablet,extended release RxNorm: 543790 1 Tablet(s) PO QDAY PRN 05/25/2014 05/18/2016 Inactive take with lasix enalapril maleate 20 mg tablet RxNorm: 017596 1 Tablet(s) PO daily 04/24/2014 04/18/2015 Inactive enalapril maleate 10 mg tablet RxNorm: 208209 TAKE ONE TABLET BY MOUTH EVERY DAY 12/11/2013 04/23/2014 Inactive enalapril maleate 10 mg tablet RxNorm: 668526 1 Tablet(s) PO daily 03/08/2013 12/02/2013 Inactive enalapril maleate 10 mg tablet RxNorm: 348859 1 Tablet(s) PO daily 09/07/2012 03/07/2013 Inactive enalapril maleate 10 mg tablet RxNorm: 080497 1 Tablet(s) PO daily 05/25/2012 09/06/2012 Inactive enalapril maleate 5 mg tablet RxNorm: 151281 1/2 Tablet(s) PO BID 01/01/2012 05/24/2012 Inactive enalapril maleate 5 mg tablet RxNorm: 392684 1/2 Tablet(s) PO BID 10/02/2011 12/31/2011 Inactive Fish Oil 1,000 mg Cap RxNorm: 3 Capsule(s) PO daily 09/23/2011 No Stop Date Active enalapril maleate 5 mg Tab RxNorm: 191781 1/2 Tablet(s) PO BID 06/29/2011 10/01/2011 Inactive Influenza Virus Vaccine 0.5 mL RxNorm: IM 01/13/2011 01/13/2011 Inactive Pneumovax 23 25 mcg/0.5 mL Injection RxNorm: 589986 Milliliter(s) Inj 01/13/2011 01/13/2011 Inactive Veramyst 27.5 mcg/Actuation Nasal [place] RxNorm: 8521441 1 [place] NASAL daily No Start Date Active multivitamin Oral RxNorm: Oral No Start Date Active Calcium + D Oral RxNorm: Oral No Start Date Active enalapril maleate 5 mg Tab RxNorm: 404766 1/2 Tablet(s) PO BID No Start Date 06/28/2011 Inactive niacin 500 mg Tab RxNorm: 301760 1 Tablet(s) PO QHS No Start Date 05/18/2016 Inactive Reclast 5 mg/100 mL IV RxNorm: 759108 1 Milliliter(s) IV Yearly No Start Date 05/18/2016 Inactive Fish Oil 1,000 mg Cap RxNorm: Oral No Start Date 09/22/2011 Inactive Medication Administered Medication Codes Instructions Start Date Status Influenza Virus Vaccine 0.5 mL RxNorm: 01/13/2011 No longer Active Pneumovax 23 25 mcg/0.5 mL Injection RxNorm: 180075 Milliliter 01/13/2011 No longer Active Immunizations Vaccine [...] 26.0 % 08/18/2016 Cbc With Differential Ord2 [place]% 8.5 % 08/18/2016 Cbc With Differential Ord2 [...] 1.61 K/ul 08/18/2016 Cbc With Differential Ord2 [place] ABS# 0.5 K/ul 08/18/2016 Cbc With Differential Ord2 Eos ABS# 0.3 K/ul 08/18/2016 Cbc With Differential Ord2 Baso ABS# 0.1 K/ul 08/18/2016 Comp Metabolic Vir222 NA 143 mEq/L 08/18/2016 Comp Metabolic Awh848 K 4.3 mEq/L 08/18/2016 Comp Metabolic Fsx178 CL 105 mEq/L 08/18/2016 Comp Metabolic Kvh696 CO2 28.0 mEq/L 08/18/2016 Comp Metabolic Nry230 ANION GAP 14 08/18/2016 Comp Metabolic Psf572 GLUCOSE 77 mg/dL 08/18/2016 Comp Metabolic Raj419 Creat 0.9 mg/dL 08/18/2016 Comp Metabolic Ijz352 eGFR 67 ml/min/1.73m2 08/18/2016 Comp Metabolic Lir300 BUN 21 mg/dL 08/18/2016 Comp Metabolic Sba045 B/C Ratio 24.7 Ratio 08/18/2016 Comp Metabolic Doo458 CALCIUM 9.0 mg/dL 08/18/2016 Comp Metabolic Wue196 ALK PHOS 56 U/L 08/18/2016 Comp Metabolic Zae529 AST(SGOT) 18 U/L 08/18/2016 Comp Metabolic Uah851 ALT(SGPT) 11 U/L 08/18/2016 Comp Metabolic Oka169 BILI T 0.4 mg/dL 08/18/2016 Comp Metabolic Trb661 ALBUMIN 3.9 g/dL 08/18/2016 Comp Metabolic Rhj343 TPRO 6.4 g/dL 08/18/2016 Comp Metabolic Lxe610 GLOB 2.5 g/dL 08/18/2016 Comp Metabolic Wfv745 A/G Ratio 1.6 Ratio 08/18/2016 Comp Metabolic Wyd155 Osmo 287 mOsmo 08/18/2016 Lipid Ord30 CHOL 183 mg/dL 08/18/2016 Lipid Ord30 HDL 46.0 mg/dl 08/18/2016 Lipid Ord30 TRIG 129 mg/dL 08/18/2016 Lipid Ord30 LDL 111 mg/dL 08/18/2016 Lipid Ord30 C/HDL 4.0 Ratio 08/18/2016 Tsh Ord6 hTSH II 0.70 uIU/mL 08/18/2016 Comp Metabolic Oec965 NA 141 mEq/L 05/20/2016 Comp Metabolic Sko357 K 4.3 mEq/L 05/20/2016 Comp Metabolic Kwi026 CL 103 mEq/L 05/20/2016 Comp Metabolic Kjf829 CO2 31.0 mEq/L 05/20/2016 Comp Metabolic Rrv378 ANION GAP 11 05/20/2016 Comp Metabolic Vqz990 GLUCOSE 93 mg/dL 05/20/2016 Comp Metabolic Acd463 Creat 1.0 mg/dL 05/20/2016 Comp Metabolic Wvn985 eGFR 57 ml/min/1.73m2 05/20/2016 Comp Metabolic Fov135 BUN 16 mg/dL 05/20/2016 Comp Metabolic Znz089 B/C Ratio 16.3 Ratio 05/20/2016 Comp Metabolic Ohg806 CALCIUM 10.1 mg/dL 05/20/2016 Comp Metabolic Lgj591 ALK PHOS 49 U/L 05/20/2016 Comp Metabolic Ejp505 AST(SGOT) 17 U/L 05/20/2016 Comp Metabolic Zaz058 ALT(SGPT) 11 U/L 05/20/2016 Comp Metabolic Zvj883 BILI T 0.3 mg/dL 05/20/2016 Comp Metabolic Bmc237 ALBUMIN 4.4 g/dL 05/20/2016 Comp Metabolic Ejw853 TPRO 6.8 g/dL 05/20/2016 Comp Metabolic Dmz338 GLOB 2.4 g/dL 05/20/2016 Comp Metabolic Ifl161 A/G Ratio 1.8 Ratio 05/20/2016 Comp Metabolic Vue402 Osmo 282 mOsmo 05/20/2016 Cbc With Differential [...] 38.3 % 05/20/2016 Cbc With Differential Ord2 [place]% 7.8 % 05/20/2016 Cbc With Differential Ord2 MCH 30.6 pg 05/20/2016 Cbc With Differential Ord2 MCHC 31.7 pg 05/20/2016 Cbc With Differential Ord2 Eos% 4.4 % 05/20/2016 Cbc With Differential Ord2 PLT 279 K/ul 05/20/2016 Cbc With Differential Ord2 Baso% 1.9 % 05/20/2016 Cbc With Differential Ord2 Neut ABS# 3.05 K/ul 05/20/2016 Cbc With Differential Ord2 RDW 13.8 % 05/20/2016 Cbc With Differential Ord2 Lymph ABS# 2.45 K/ul 05/20/2016 Cbc With Differential Ord2 [place] ABS# 0.5 K/ul 05/20/2016 Cbc With Differential Ord2 Eos ABS# 0.3 K/ul 05/20/2016 Cbc With Differential Ord2 Baso ABS# 0.1 K/ul 05/20/2016 Tsh Ord6 hTSH II 0.80 uIU/mL 05/20/2016 GFR CALC 2899504 GFR AA >60 ML/MIN 07/24/2014 GFR CALC 0757569 GFR NON-AA >60 ML/MIN 07/24/2014 TSH 9919881 TSH 0.192 uIU/ML 07/24/2014 CBC 4476254 WBC 6.4 10e9/L 07/24/2014 CBC 3381580 RBC 4.61 10e12/L 07/24/2014 CBC 6880952 HGB 13.7 g/dL 07/24/2014 CBC 7089690 HCT DET 42.6 % 07/24/2014 CBC 6136123 MCV 92.4 fL 07/24/2014 CBC 8806282 MCH 29.7 pg 07/24/2014 CBC 3046409 MCHC 32.2 g/dL 07/24/2014 CBC 2205276 PLT 280 10e9/L 07/24/2014 CBC 3044608 MPV 8.9 fL 07/24/2014 CBC 1097900 A[place] % 59.5 % 07/24/2014 CBC 0356565 LY % 30.6 % 07/24/2014 CBC 3125777 MON % 5.9 % 07/24/2014 CBC 5766273 EOS % 3.4 % 07/24/2014 CBC 3589315 BASO % 0.6 % 07/24/2014 CBC 9552154 RDW 14.8 % 07/24/2014 CBC 0173085 ABS AISSATOU 3.81 10e9/L 07/24/2014 CBC 8805338 ABS LYMPH 1.96 10e9/L 07/24/2014 CBC 0463872 ABS MONO 0.38 10e9/L 07/24/2014 CBC 1994207 ABS EOS 0.22 10e9/L 07/24/2014 CBC 9574685 ABS BASO 0.04 10e9/L 07/24/2014 CBC 9671544 RDW-SD 48.9 fL 07/24/2014 CHEM 14 3987834 AST 17 U/L 07/24/2014 CHEM 14 5075310 ALT 11 IU/L 07/24/2014 CHEM 14 6013449 BUN 13 MG/DL 07/24/2014 CHEM 14 5107944 ALBUMIN 4.2 GM/DL 07/24/2014 CHEM 14 6226454 CHLORIDE 104 MMOL/L 07/24/2014 CHEM 14 6512501 BILI TOT 0.6 MG/DL 07/24/2014 CHEM 14 1896833 ALK PHOS 52 U/L 07/24/2014 CHEM 14 1086100 SODIUM 141 MMOL/L 07/24/2014 CHEM 14 0667201 CREATININE 0.87 MG/DL 07/24/2014 CHEM 14 9628266 CALCIUM 9.1 MG/DL 07/24/2014 CHEM 14 6286595 POTASSIUM 4.1 MMOL/L 07/24/2014 CHEM 14 9385919 PROT TOT 6.4 GM/DL 07/24/2014 CHEM 14 5322886 GLUCOSE 100 MG/DL 07/24/2014 CHEM 14 7634566 BICARB 27 MMOL/L 07/24/2014 CHEM 14 2483196 ANION GAP 10 MEQ/L 07/24/2014 FREE T4 9485508 FREE T4 1.08 NG/DL 09/20/2013 T3 TOT 4712062 T3 TOT 1.1 NG/ML 09/20/2013 CHEM 14 5722690 AST 20 U/L 09/18/2013 CHEM 14 9725400 ALT 17 IU/L 09/18/2013 CHEM 14 9407177 BUN 18 MG/DL 09/18/2013 CHEM 14 5563419 ALBUMIN 4.4 GM/DL 09/18/2013 CHEM 14 0296234 CHLORIDE 106 MMOL/L 09/18/2013 CHEM 14 0458765 BILI TOT 0.4 MG/DL 09/18/2013 CHEM 14 4089772 ALK PHOS 50 U/L 09/18/2013 CHEM 14 7356608 SODIUM 142 MMOL/L 09/18/2013 CHEM 14 4198535 CREATININE 0.92 MG/DL 09/18/2013 CHEM 14 0192813 CALCIUM 9.3 MG/DL 09/18/2013 CHEM 14 3892559 POTASSIUM 4.1 MMOL/L 09/18/2013 CHEM 14 0863680 PROT TOT 6.5 GM/DL 09/18/2013 CHEM 14 3802799 GLUCOSE 98 MG/DL 09/18/2013 CHEM 14 2098265 BICARB 27 MMOL/L 09/18/2013 CHEM 14 9940380 ANION GAP 9 MEQ/L 09/18/2013 TSH 1499655 TSH 0.209 uIU/ML 09/18/2013 CBC 7324139 WBC 7.1 10e9/L 09/18/2013 CBC 1935234 RBC 4.59 10e12/L 09/18/2013 CBC 6219750 HGB 14.1 g/dL 09/18/2013 CBC 0205858 HCT DET 43.3 % 09/18/2013 CBC 2638694 MCV 94.3 fL 09/18/2013 CBC 4662447 MCH 30.7 pg 09/18/2013 CBC 9341173 MCHC 32.6 g/dL 09/18/2013 CBC 7485794 PLT 274 10e9/L 09/18/2013 CBC 1010374 MPV 9.1 fL 09/18/2013 CBC 6376559 A[place] % 60.9 % 09/18/2013 CBC 7266364 LY % 29.2 % 09/18/2013 CBC 2975125 MON % 6.1 % 09/18/2013 CBC 7123161 EOS % 3.2 % 09/18/2013 CBC 2950263 BASO % 0.6 % 09/18/2013 CBC 1238555 RDW 13.8 % 09/18/2013 CBC 3337529 ABS AISSATOU 4.32 10e9/L 09/18/2013 CBC 4011818 ABS LYMPH 2.07 10e9/L 09/18/2013 CBC 5815932 ABS MONO 0.43 10e9/L 09/18/2013 CBC 9944094 ABS EOS 0.23 10e9/L 09/18/2013 CBC 8814155 ABS BASO 0.04 10e9/L 09/18/2013 CBC 4555094 RDW-SD 46.0 fL 09/18/2013 LIPID GRP HDL TEST 70 MG/DL 09/18/2013 LIPID GRP TRIG 114 MG/DL 09/18/2013 LIPID GRP TEST LDL 198 MG/DL 09/18/2013 LIPID GRP CHOL 291 MG/DL 09/18/2013 LIPID GRP RCHOL/HDL 4.16 RATIO 09/18/2013 GFR CALC 9628061 GFR AA >60 ML/MIN 09/18/2013 GFR CALC 5596246 GFR NON-AA 58.0L ML/MIN 09/18/2013 FREE T4 6591652 FREE T4 1.05 NG/DL 03/22/2013 T3 TOT 7902616 T3 TOT 0.9 NG/ML 03/22/2013 CHEM 14 8444652 AST 18 U/L 03/20/2013 CHEM 14 9130762 ALT 13 IU/L 03/20/2013 CHEM 14 2164946 BUN 25 MG/DL 03/20/2013 CHEM 14 5612609 ALBUMIN 4.4 GM/DL 03/20/2013 CHEM 14 2546223 CHLORIDE 105 MMOL/L 03/20/2013 CHEM 14 7999366 BILI TOT 0.4 MG/DL 03/20/2013 CHEM 14 0760368 ALK PHOS 40 U/L 03/20/2013 CHEM 14 7146848 SODIUM 141 MMOL/L 03/20/2013 CHEM 14 4187660 CREATININE 0.95 MG/DL 03/20/2013 CHEM 14 1531410 CALCIUM 9.8 MG/DL 03/20/2013 CHEM 14 8059371 POTASSIUM 4.1 MMOL/L 03/20/2013 CHEM 14 2509824 PROT TOT 6.2 GM/DL 03/20/2013 CHEM 14 0356377 GLUCOSE 89 MG/DL 03/20/2013 CHEM 14 0899969 BICARB 29 MMOL/L 03/20/2013 CHEM 14 9083829 ANION GAP 7 MEQ/L 03/20/2013 TSH 9665690 TSH 0.228 uIU/ML 03/20/2013 GFR CALC 9625734 GFR AA >60 ML/MIN 03/20/2013 GFR CALC 2001465 GFR NON-AA 56.0L ML/MIN 03/20/2013 CBC 1489561 WBC 6.8 10e9/L 03/20/2013 CBC 7247319 RBC 4.58 10e12/L 03/20/2013 CBC 7288727 HGB 14.1 g/dL 03/20/2013 CBC 3416437 HCT DET 43.1 % 03/20/2013 CBC 5903090 MCV 94.1 fL 03/20/2013 CBC 6973947 MCH 30.8 pg 03/20/2013 CBC 5383223 MCHC 32.7 g/dL 03/20/2013 CBC 8476555 PLT 294 10e9/L 03/20/2013 CBC 6961151 MPV 9.4 fL 03/20/2013 CBC 8670619 AISS[place]OU % 50.3 % 03/20/2013 CBC 3293290 LY % 35.9 % 03/20/2013 CBC 5154213 MON % 7.3 % 03/20/2013 CBC 0375647 EOS % 5.8 % 03/20/2013 CBC 5042162 BASO % 0.7 % 03/20/2013 CBC 6670419 RDW 14.5 % 03/20/2013 CBC 3919893 ABS AISSATOU 3.42 10e9/L 03/20/2013 CBC 1263192 ABS LYMPH 2.44 10e9/L 03/20/2013 CBC 2119257 ABS MONO 0.50 10e9/L 03/20/2013 CBC 9335373 ABS EOS 0.39 10e9/L 03/20/2013 CBC 0735241 ABS BASO 0.05 10e9/L 03/20/2013 CBC 2057941 RDW-SD 48.2 fL 03/20/2013 LIPID GRP HDL TEST 71 MG/DL 03/20/2013 LIPID GRP TRIG 87 MG/DL 03/20/2013 LIPID GRP TEST LDL 168 MG/DL 03/20/2013 LIPID GRP CHOL 256 MG/DL 03/20/2013 LIPID GRP RCHOL/HDL 3.61 RATIO 03/20/2013 FREE T4 9948888 FREE T4 1.09 NG/DL 05/31/2012 T3 TOT 7031420 T3 TOT 0.9 NG/ML 05/31/2012 CBC 1362625 WBC 7.1 10e9/L 05/27/2012 CBC 1748382 RBC 4.58 10e12/L 05/27/2012 CBC 7642665 HGB 14.4 g/dL 05/27/2012 CBC 6507646 HCT DET 43.5 % 05/27/2012 CBC 6650064 MCV 95.0 fL 05/27/2012 CBC 4942057 MCH 31.4 pg 05/27/2012 CBC 5197719 MCHC 33.1 g/dL 05/27/2012 CBC 8826858 PLT 285 10e9/L 05/27/2012 CBC 5714649 MPV 9.2 fL 05/27/2012 CBC 9493305 A[place] % 61.2 % 05/27/2012 CBC 1331363 LY % 27.5 % 05/27/2012 CBC 8200523 MON % 6.8 % 05/27/2012 CBC 0678918 EOS % 3.8 % 05/27/2012 CBC 5389434 BASO % 0.7 % 05/27/2012 CBC 4854798 RDW 14.1 % 05/27/2012 CBC 2457346 ABS AISSATOU 4.35 10e9/L 05/27/2012 CBC 7137434 ABS LYMPH 1.95 10e9/L 05/27/2012 CBC 7039195 ABS MONO 0.48 10e9/L 05/27/2012 CBC 3686609 ABS EOS 0.27 10e9/L 05/27/2012 CBC 4158605 ABS BASO 0.05 10e9/L 05/27/2012 CBC 5492941 RDW-SD 47.2 fL 05/27/2012 LIPID GRP 3134998 HDL TEST 57 MG/DL 05/27/2012 LIPID GRP TRIG 110 MG/DL 05/27/2012 LIPID GRP TEST LDL 156 MG/DL 05/27/2012 LIPID GRP CHOL 235 MG/DL 05/27/2012 LIPID GRP RCHOL/HDL 4.12 RATIO 05/27/2012 CHEM 14 3751755 AST 19 U/L 05/27/2012 CHEM 14 0147982 ALT 13 IU/L 05/27/2012 CHEM 14 7599095 BUN 19 MG/DL 05/27/2012 CHEM 14 8334708 ALBUMIN 4.7 GM/DL 05/27/2012 CHEM 14 1621421 CHLORIDE 106 MMOL/L 05/27/2012 CHEM 14 1899038 BILI TOT 0.5 MG/DL 05/27/2012 CHEM 14 0176913 ALK PHOS 51 U/L 05/27/2012 CHEM 14 5989050 SODIUM 141 MMOL/L 05/27/2012 CHEM 14 0117245 CREATININE 0.85 MG/DL 05/27/2012 CHEM 14 5250027 CALCIUM 9.4 MG/DL 05/27/2012 CHEM 14 6692659 POTASSIUM 4.0 MMOL/L 05/27/2012 CHEM 14 3893131 PROT TOT 6.7 GM/DL 05/27/2012 CHEM 14 0161408 GLUCOSE 101 MG/DL 05/27/2012 CHEM 14 1437317 BICARB 29 MMOL/L 05/27/2012 CHEM 14 6343661 ANION GAP 6 MEQ/L 05/27/2012 TSH 8467373 TSH 0.275 uIU/ML 05/27/2012 GFR CALC 9858408 GFR AA >60 ML/MIN 05/27/2012 GFR CALC 1415238 GFR NON-AA >60 ML/MIN 05/27/2012 CHEM 14 8634175 AST 18 U/L 09/21/2011 CHEM 14 9368543 ALT 11 IU/L 09/21/2011 CHEM 14 4371404 BUN 18 MG/DL 09/21/2011 CHEM 14 7580924 ALBUMIN 4.3 GM/DL 09/21/2011 CHEM 14 8434295 CHLORIDE 102 MMOL/L 09/21/2011 CHEM 14 3176171 BILI TOT 0.4 MG/DL 09/21/2011 CHEM 14 7793318 ALK PHOS 47 U/L 09/21/2011 CHEM 14 7905206 SODIUM 139 MMOL/L 09/21/2011 CHEM 14 0747720 CREATININE 0.92 MG/DL 09/21/2011 CHEM 14 8861925 CALCIUM 9.2 MG/DL 09/21/2011 CHEM 14 6492003 POTASSIUM 4.1 MMOL/L 09/21/2011 CHEM 14 6866701 PROT TOT 6.4 GM/DL 09/21/2011 CHEM 14 8072176 GLUCOSE 89 MG/DL 09/21/2011 CHEM 14 9889568 BICARB 28 MMOL/L 09/21/2011 CHEM 14 5031644 ANION GAP 9 MEQ/L 09/21/2011 TSH 7720233 TSH 0.352 uIU/ML 09/21/2011 GFR CALC GFR AA >60 ML/MIN 09/21/2011 GFR CALC GFR NON-AA 58.0L ML/MIN 09/21/2011 LIPID GRP HDL TEST 54 MG/DL 09/21/2011 LIPID GRP TRIG 81 MG/DL 09/21/2011 LIPID GRP TEST LDL 154 MG/DL 09/21/2011 LIPID GRP CHOL 224 MG/DL 09/21/2011 LIPID GRP RCHOL/HDL 4.15 RATIO 09/21/2011 CBC 7021069 WBC 9.6 10e9/L 09/21/2011 CBC 4927436 RBC 4.85 10e12/L 09/21/2011 CBC 2114201 HGB 15.0 g/dL 09/21/2011 CBC 5155148 HCT DET 46.5 % 09/21/2011 CBC 1222120 MCV 95.9 fL 09/21/2011 CBC 4153401 MCH 30.9 pg 09/21/2011 CBC 8356937 MCHC 32.3 g/dL 09/21/2011 CBC 8726450 PLT 279 10e9/L 09/21/2011 CBC 5419541 MPV 9.1 fL 09/21/2011 CBC 3468028 A[place] % 63.4 % 09/21/2011 CBC 8824765 LY % 26.1 % 09/21/2011 CBC 8103188 MON % 5.6 % 09/21/2011 CBC 3565762 EOS % 4.4 % 09/21/2011 CBC 8287832 BASO % 0.5 % 09/21/2011 CBC 6079298 RDW 14.0 % 09/21/2011 CBC 0327652 ABS AISSATOU 6.09 10e9/L 09/21/2011 CBC 3671490 ABS LYMPH 2.51 10e9/L 09/21/2011 CBC 1234646 ABS MONO 0.54 10e9/L 09/21/2011 CBC 5795706 ABS EOS 0.42 10e9/L 09/21/2011 CBC 0574909 ABS BASO 0.05 10e9/L 09/21/2011 CBC 2959299 RDW-SD 47.9 fL 09/21/2011 Review of Systems [...] Procedures Procedure Codes Date ROUTINE VENIPUNCTURE CPT-4: 26850Fuxdltu 07/24/2014 ADMIN INFLUENZA VIRUS VAC CPT-4: E4174Tohawru 01/22/2014 FLU VAC NO PRSV 4 LISSA 3 YRS+ Assigned to/Laura gO CPT-4: 23904Gukobxi 01/22/2014 ROUTINE VENIPUNCTURE CPT-4: 75099Thfufek 09/18/2013 ROUTINE VENIPUNCTURE CPT-4: 41909Qfgasgd 03/20/2013 ROUTINE VENIPUNCTURE CPT-4: 12519Fcmuico 05/27/2012 ROUTINE VENIPUNCTURE CPT-4: 13741Czxkrgx 09/21/2011 ROUTINE VENIPUNCTURE CPT-4: 04424Xstrlpg 01/13/2011 Pneumococcal Polysaccharide Vaccine, 23-Valent, Ad CPT-4: 89271Rdhjzwn 01/13/2011 ADMIN INFLUENZA VIRUS VAC CPT-4: L4516Iceuepz 01/13/2011 ADMIN PNEUMOCOCCAL VACCINE SNOMED CT: 73548472 CPT-4: X1255Qpddhli 01/13/2011 FLULAVAL VACC, 3 YRS & >, IM CPT-4: F5236Vlbqmzb 01/13/2011 Vital Signs Date Vital 11/16/2016 Blood Pressure 1: 146/84 Code: 8480-6 BMI: 23.0 Code: 01062-1 Heart Rate 1: 72 bpm Height: 5'5" SpO2: 95% Weight: 138 lbs 10/13/2016 Blood Pressure 1: 142/86 Code: 8480-6 Blood Pressure 1: 170/96 Code: 8480-6 BMI: 23.0 Code: 36133-2 Heart Rate 1: 74 bpm Height: 5'5" SpO2: 90% Weight: 138 lbs 09/15/2016 Blood Pressure 1: 118/78 Code: 8480-6 Heart Rate 1: 82 bpm SpO2: 90% Weight: 141 lbs 08/18/2016 Blood Pressure 1: 142/82 Code: 8480-6 BMI: 24.1 Code: 02909-9 Heart Rate 1: 72 bpm Height: 5'5" SpO2: 91% Weight: 145 lbs 06/23/2016 Blood Pressure 1: 148/86 Code: 8480-6 BMI: 24.1 Code: 18204-9 Heart Rate 1: 70 bpm Height: 5'5" SpO2: 90% Weight: 145 lbs 05/19/2016 Blood Pressure 1: 162/76 Code: 8480-6 BMI: 24.3 Code: 30649-5 Heart Rate 1: 76 bpm Height: 5'5" Weight: 146 lbs 09/14/2014 Blood Pressure 1: 102/80 Code: 8480-6 BMI: 27.7 Code: 87733-1 Heart Rate 1: 90 bpm Height: 5' SpO2: 94% Weight: 144 lbs 08/24/2014 Blood Pressure 1: 122/92 Code: 8480-6 BMI: 28.4 Code: 88108-3 Heart Rate 1: 74 bpm Height: 5' SpO2: 94% Weight: 148 lbs 07/24/2014 Blood Pressure 1: 142/86 Code: 8480-6 BMI: 28.8 Code: 79613-4 Heart Rate 1: 88 bpm Height: 5' Weight: 150 lbs 05/25/2014 Blood Pressure 1: 136/88 Code: 8480-6 BMI: 28.8 Code: 31964-0 Heart Rate 1: 82 bpm Height: 5' Weight: 150 lbs 04/24/2014 Blood Pressure 1: 150/78 Code: 8480-6 BMI: 29.6 Code: 83957-5 Heart Rate 1: 60 bpm Height: 5' Weight: 154 lbs 01/22/2014 Blood Pressure 1: 140/78 Code: 8480-6 BMI: 29.6 Code: 40897-7 Heart Rate 1: 78 bpm Height: 5' SpO2: 90% Weight: 154 lbs 09/18/2013 Blood Pressure 1: 128/84 Code: 8480-6 BMI: 29.4 Code: 87859-6 Heart Rate 1: 80 bpm Height: 5' Weight: 153 lbs 03/20/2013 Blood Pressure 1: 122/80 Code: 8480-6 BMI: 29.0 Code: 28497-2 Heart Rate 1: 76 bpm Height: 5' Weight: 151 lbs 05/25/2012 Blood Pressure 1: 140/92 Code: 8480-6 BMI: 26.3 Code: 71397-9 Heart Rate 1: 88 bpm Height: 5' Weight: 137 lbs 09/17/2011 Blood Pressure 1: 128/78 Code: 8480-6 Heart Rate 1: 76 bpm Respiratory Rate: 24 bpm Weight: 137 lbs 05/21/2011 Blood Pressure 1: 114/72 Code: 8480-6 BMI: 27.1 Code: 09967-6 Heart Rate 1: 68 bpm Height: 5' [...] 05/21/2011 states she has been going to [place] to have the toxins removed from her feet cholesterol followup Quality increased cholesterol 01/20/2011 pt had labs 01/13/11; Dr. Jackson recommended to increase niacin to 1000 mg daily and increase fish oil to 1000mg tid Advance Directives No Advance Directive data Encounters Encounter Performer Location Codes Date ([id number]) [id number] EST. PATIENT, LEVEL IV Diagnosis: Unsteadiness on feet[ICD10: R26.81] Diagnosis: Major depressive disorder, recurrent, moderate[ICD10: F33.1] Diagnosis: Chronic obstructive pulmonary disease, unspecified[ICD10: J44.9] Brigitte Jackson MD, [facility] CPT-4: 40644 11/16/2016 ([id number]) [id number] EST. PATIENT, LEVEL IV Diagnosis: Essential (primary) hypertension[ICD10: I10] Diagnosis: Unsteadiness on feet[ICD10: R26.81] Diagnosis: Abnormal weight loss[ICD10: R63.4] Diagnosis: Mixed incontinence[ICD10: N39.46] Brigitte Jackson MD, [facility] CPT- 4: 02160 10/13/2016 ([id number]) 92601 EST. PATIENT, LEVEL IV Diagnosis: Essential (primary) hypertension[ICD10: I10] Diagnosis: Major depressive disorder, recurrent, moderate[ICD10: F33.1] Diagnosis: Unsteadiness on feet[ICD10: R26.81] Brigitte Jackson MD, [facility] CPT-4: 76054 09/15/2016 ([id number]) 97168 EST. PATIENT, LEVEL IV Diagnosis: Essential (primary) hypertension[ICD10: I10] Diagnosis: Mixed hyperlipidemia[ICD10: E78.2] Diagnosis: Major depressive disorder, recurrent, moderate[ICD10: F33.1] Diagnosis: Unsteadiness on feet[ICD10: R26.81] Brigitte Jackson MD, [facility] CPT-4: 44834 08/18/2016 ([id number]) 73295 EST. PATIENT, LEVEL III Diagnosis: Essential (primary) hypertension[ICD10: I10] Brigitte Jackson MD, [facility] CPT-4: 99347 06/23/2016 ([id number]) 03103 EST. 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 CPT- 4: 29443 05/19/2016 ([id number]) 29801 EST. PATIENT, LEVEL III Diagnosis: ESSENTIAL HYPERTENSION[ICD9: 401.9] Diagnosis: EDEMA[ICD9: 782.3] Brigitte Jackson MD, [facility] CPT-4: 59580 09/14/2014 ([id number]) 33293 EST. PATIENT, LEVEL III Diagnosis: ESSENTIAL HYPERTENSION[ICD9: 401.9] Diagnosis: EDEMA[ICD9: 782.3] Georgia Jackson MD, [facility] CPT-4: 59397 08/24/2014 ([id number]) 00939 EST. PATIENT, LEVEL IV Diagnosis: Peripheral vascular disease[ICD9: 443.9] Diagnosis: ESSENTIAL HYPERTENSION[ICD9: 401.9] Diagnosis: Chronic fatigue[ICD9: 780.79] Diagnosis: Ataxia[ICD9: 781.3] Georgia Jackson MD, [facility] CPT-4: 15899 07/24/2014 ([id number]) 09849 EST. PATIENT, LEVEL III Diagnosis: ESSENTIAL HYPERTENSION[ICD9: 401.9] Diagnosis: EDEMA[ICD9: 782.3] Georgia Jackson MD, [facility] CPT-4: 53866 05/25/2014 ([id number]) 25183 EST. PATIENT, LEVEL IV Diagnosis: ESSENTIAL HYPERTENSION[ICD9: 401.9] Diagnosis: Ataxia[ICD9: 781.3] Diagnosis: HYPERLIPIDEMIA[ICD9: 272.4] Diagnosis: THYROTOXICOSIS NOS W/O CRISIS[ICD9: 242.90] Georgia Jackson MD, [facility] CPT-4: 85451 04/24/2014 ([id number]) 97266 EST. PATIENT, LEVEL IV Diagnosis: ESSENTIAL HYPERTENSION[ICD9: 401.9] Diagnosis: HYPERLIPIDEMIA[ICD9: 272.4] Diagnosis: VACCIN FOR INFLUENZA[ICD10: Z23] Georgia Jackson MD, [facility] CPT-4: 67098 01/22/2014 ([id number]) 33330 EST. PATIENT, LEVEL IV Diagnosis: ESSENTIAL HYPERTENSION[SNOMED: 16163442] Diagnosis: MALAISE AND FATIGUE[ICD9: 780.79] Diagnosis: LACK OF COORDINATION[ICD9: 781.3] Diagnosis: HYPERLIPIDEMIA[ICD9: 272.4] Diagnosis: THYROTOXICOSIS NOS W/O CRISIS[ICD9: 242.90] Georgia Jackson MD, [facility] CPT-4: 04916 09/18/2013 ([id number]) 04719 EST. PATIENT, LEVEL IV Diagnosis: ESSENTIAL HYPERTENSION[SNOMED: 38626823] Diagnosis: LACK OF COORDINATION[ICD9: 781.3] Diagnosis: PERIPH VASCULAR DIS[ICD9: 443.9] Diagnosis: ENCNTR LONG-RX USE NEC[ICD9: V58.69] Georgia Jackson MD [facility] CPT- 4: 65740 03/20/2013 ([id number]) 51219 EST. PATIENT, LEVEL IV Diagnosis: ESSENTIAL HYPERTENSION[SNOMED: 11872083] Diagnosis: HYPERLIPIDEMIA[ICD9: 272.4] Diagnosis: LACK OF COORDINATION[ICD9: 781.3] Diagnosis: TOBACCO USE DISORDER[ICD9: 305.1] [facility] CPT- 4: 85287 05/25/2012 ([id number]) 37866 EST. PATIENT, LEVEL IV Diagnosis: ESSENTIAL HYPERTENSION[SNOMED: 88387238] Diagnosis: TOBACCO USE DISORDER[ICD9: 305.1] Diagnosis: HYPERLIPIDEMIA[ICD9: 272.4] Diagnosis: Varicose vein of leg[ICD9: 454.9] Diagnosis: Leg pain, posterior[ICD9: 729.5] Diagnosis: Intermittent claudication[ICD9: 443.9] [facility] CPT-4: 29306 09/17/2011 ([id number]) 38345 EST. PATIENT, LEVEL IV Diagnosis: ESSENTIAL HYPERTENSION[SNOMED: 13733833] Diagnosis: LACK OF COORDINATION[ICD9: 781.3] Diagnosis: TOBACCO USE DISORDER[ICD9: 305.1] Georgia Jackson MD, [facility] CPT- 4: 01539 05/21/2011 46408 EST. PATIENT, LEVEL IV Diagnosis: ESSENTIAL HYPERTENSION[SNOMED: 10851632] Diagnosis: HYPERLIPIDEMIA[ICD9: 272.4] Diagnosis: Ataxia[ICD9: 781.3] [facility] CPT-4: 14064 01/20/2011 Plan of Care Planned Activity Notes Codes Status Date Visit Plan: Gait instability-recommend PT with home health-patient refuses-recommend patient start using walker OKQB-qiwlzvn-narpxqh qualified for oxygen but refuses to wear it Weight tpzs-lwrvkl-prvbfbol to monitor Memory loss-recommend patient move to an assisted living facility 11/16/2016 Patient Education: Patient Medication Summary Completed 11/16/2016 Visit Plan: Hypertension - well controlled - continue with current medications, continue with no added salt diet. Pt has been encouraged to exercise daily.The pt has been advised to call the office if there are any acute concerns about change in blood pressure readings at home.Gait szkubibrvwl-qjrkxezf-zuxqvqyliy PT-patient refuses-also recommend patient use a walker at all times Weight loss-recommend patient increase intake Mixed urinary incontinence-samples of myrebetriq provided and instructed on use 10/13/2016 Appointment: Brigitte Vannl: [address] [place], [place] [phone] (30 min) [facility] 10/13/2016 Patient Education: Patient Medication Summary Completed 10/13/2016 Visit Plan: Hypertension - well controlled - continue with current medications, continue with no added salt diet. Pt has been encouraged to exercise daily.The pt has been advised to call the office if there are any acute concerns about change in blood pressure readings at home.Tgufslaxhg-dxtsijj-ycdnypml lexapro to 10mg daily-repeat in 1 month Gait instability-again recommend patient use walker 09/15/2016 Appointment: [phone] [phone] (15 min) Moderate 09/15/2016 Patient Education: Patient [...] this time. 08/18/2016 Appointment: Brigitte Vann WPtel: [facility] [phone] (15 min) Moderate 08/18/2016 Patient Education: Patient Medication Summary Completed 08/18/2016 Visit Plan: Hypertension - well controlled - continue with current medications, continue with no added salt diet. Pt has been encouraged to exercise daily.The pt has been advised to call the office if there are any acute concerns about change in blood pressure readings at home. 06/23/2016 Appointment: Brigitte Vann [facility]el[phone] [facility] [phone] (30 min) Complex 06/23/2016 Patient Education: Patient [...] for evaluation 05/19/2016 Appointment: Brigitte Vann WPtel: [facility] [place] [address] (30 min) [facility] 05/19/2016 Patient Education: Patient Medication Summary Completed 05/19/2016 Care Plan: [facility] [id number] Pending 05/19/2016 Visit Plan: Hypertension - well controlled - continue with current medications, continue with no added salt diet. Pt has been encouraged to exercise daily.The pt has been advised to call the office if there are any acute concerns about change in blood pressure readings at home.Pectz-fxyyertl-ok change in treatment 09/14/2014 Appointment: Follow up [...] 2 weeks. 08/24/2014 Appointment: Georgia Jackson WPtel[facility] [facility] follow up 08/24/2014 Patient Education: Patient Medication [...] home. 07/24/2014 Appointment: [phone] [facility] Follow up 07/24/2014 Patient Education: Patient Medication Summary Completed 07/24/2014 Patient Education: Hypertension Completed 07/24/2014 Care Plan: Referral Order [facility] : [id number] Ordered 07/24/2014 Visit Plan: Hypertension - well [...] edema. 05/25/2014 Appointment: Brigitte Vann WPtel: [phone] [phone] Follow up 05/25/2014 Patient Education: Patient Medication [...] normalized. 04/24/2014 Appointment: Georgia Jackson WPtel: [phone] [facility] Follow up 04/24/2014 Patient Education: Patient Medication [...] medications. 01/22/2014 Appointment: [phone] Follow up 01/22/2014 Patient Education: Patient Medication [...] exercise. 09/18/2013 Appointment: [phone] Follow [facility] 09/18/2013 Patient Education: Patient Medication [...] year. 03/20/2013 Appointment: [phone] [facility] Follow [place] 03/20/2013 Patient Education: Patient Medication Summary Completed 03/20/2013 Patient Education: Hypertension Completed 03/20/2013 Appointment: [phone] [facility] 05/27/2012 Patient Education: Patient Medication [...] NEEDS TO FILL THE NEW SCRIPT AT [facility] FOR THE 10MG ENALAPRIL PILL TO BE [...] in public. 05/25/2012 Appointment: Georgia Jackson WPtel: [facility] Other 05/25/2012 Patient Education: Patient Medication Summary Completed 05/25/2012 Patient Education: Hypertension Completed 05/25/2012 Patient Education: Smoking and Tobacco Addiction Completed 05/25/2012 Appointment: Georgia Jackson WPtel: [facility] [facility] 09/21/2011 Patient Education: Patient Medication [...] leg pain. 09/17/2011 Appointment: Georgia Jackson WPtel: [facility] Other 09/17/2011 Patient Education: Patient Medication Summary Completed 09/17/2011 Patient Education: High Blood Pressure: Essential Hypertension Completed 09/17/2011 Patient Education: Smoking: Hazards of Smoking Completed 09/17/2011 Patient Education: Smoking and Ways to Quit Completed 09/17/2011 Appointment: Georgia Jackson WPtel: [facility]5 [facility]66[facility] Other 05/22/2011 Visit Plan: Hypertension - well [...] assist cessation. 05/21/2011 Appointment: Georgia Jackson WPtel: [address] [place], [place] [address] Other 05/21/2011 Patient Education: Patient Medication Summary [...] THINK ABOUT GOING TO PHYSICAL THERAPY AT [facility] FOR BALANCE TRAINING. 01/20/2011 Appointment: Georgia Jackson WPtel: [phone] [facility] Other 01/20/2011 Patient Education: Patient Medication Summary Completed 01/20/2011 Appointment: Georgia Jackson WPtel: [phone] [facility] Lab Draw 01/13/2011 Patient Education: Patient Medication Summary Completed 01/13/2011 Referral: Wojciech Antunez WPtel: [phone] Referral Appointment Requested Instructions Comment . Hypertension [...] change in blood pressure readings at home. Osefugqizz-nyzxbln-zgbivwvs lexapro to 10mg daily-repeat in 1 month [...] in blood pressure readings at home. Gait mlmgohutait-zanfexpr-lzymqlixcg PT-patient refuses-also recommend patient use a walker [...] change in blood pressure readings at home. Efqsr-wgtncwas-sv change in treatment . Hypertension - well [...] home health-patient refuses-recommend patient start using walker MMZH-qoazeqy-bndpmpn qualified for oxygen but refuses to wear it Weight qhfj-oggcsv-zsqvfzic to monitor Memory loss-recommend patient move to [...] THINK ABOUT GOING TO PHYSICAL THERAPY AT [facility] FOR BALANCE TRAINING. PT IS TO INCREASE THE ENALAPRIL TO 10MG DAILY - WHICH WILL EQUAL TWO OF THE 5 MG PILLS DAILY UNTIL THAT SUPPLY IS GONE, THEN PT NEEDS TO FILL THE NEW SCRIPT AT [facility] FOR THE 10MG ENALAPRIL PILL TO BE [...] NEEDS TO FILL THE NEW SCRIPT AT [facility] FOR THE 10MG ENALAPRIL PILL TO BE [...]
--- OUTSIDE RECORDS SUMMARY | 2018-11-16 07:30 | XMS REPORT | CCD ---
Author Author Georgia Jackson Organization Georgia Jackson MD, [facility] Address [address] [place] [address] Phone Care Team Providers Care Office Messenger Helper Name Role Phone Georgia Jackson PP Unavailable CCM Unavailable Summary Purpose Interface Exchange Insurance Providers Payer name Policy type / Coverage type Covered democrat ID Effective Begin Date Effective End Date WPS Medicare Part B [id number] 2014 Unknown Zando [id number] Unknown Family history Brother Diagnosis Age At [...] Description Effective Dates Tobacco history SNOMED CT: 6847831 Former smoker states quit in 2011 or 12 09/18/2013 Marital status Unknown 01/20/2011 Number of children Unknown 2 01/20/2011 Employment Unknown Retired 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 Unknown Has never used illegal drugs 01/20/2011 Allergies, Adverse Reactions, Alerts Allergies, Adverse Reactions, Alerts data not found Past Medical History Illness Codes Condition Status Onset Date Resolved Date Abnormal weight loss ICD- 9: 783.21 ICD-10: R63.4 Active 10/13/2016 Unknown Essential (primary) hypertension ICD-9: 401.9 ICD-10: I10 Active 05/18/2016 Unknown Mixed incontinence ICD- 9: 788.33 ICD-10: N39.46 Active 10/13/2016 Unknown Unsteadiness on feet ICD- 9: 781.2 ICD-10: R26.81 Active 05/18/2016 Unknown Major depressive disorder, recurrent, moderate ICD-9: 296.32 ICD-10: F33.1 Active 08/18/2016 Unknown Mixed hyperlipidemia ICD- 9: 272.4 ICD-10: [...] Problems Condition Codes Effective Dates Condition Status Abnormal weight loss ICD- 9: 783.21 ICD-10: R63.4 10/13/2016 Active Essential (primary) hypertension ICD-9: 401.9 ICD-10: I10 05/18/2016 Active Mixed incontinence ICD- 9: 788.33 ICD-10: N39.46 10/13/2016 Active Unsteadiness on feet ICD- 9: 781.2 ICD-10: R26.81 05/18/2016 Active Major depressive disorder, recurrent, moderate ICD-9: 296.32 ICD-10: F33.1 08/18/2016 Active Mixed hyperlipidemia ICD- 9: 272.4 ICD-10: [...] Instructions Myrbetriq 25 mg tablet,extended release RxNorm: 3997748 1 Tablet(s) PO daily 10/13/2016 No Stop Date Active Lexapro 10 mg tablet RxNorm: 594536 1 Tablet(s) PO QPM 09/15/2016 03/13/2017 Active enalapril maleate 20 mg tablet RxNorm: 597246 1 Tablet(s) PO daily TAKE ONE TABLET BY MOUTH DAILY 08/18/2016 02/13/2017 Active Lexapro 5 mg tablet RxNorm: 223510 1 Tablet(s) PO QPM 08/18/2016 09/14/2016 Inactive enalapril maleate 20 mg tablet RxNorm: 462545 TAKE ONE TABLET BY MOUTH DAILY 05/15/2016 08/12/2016 Inactive enalapril maleate 20 mg tablet RxNorm: 194893 1 Tablet(s) PO daily 05/17/2015 05/10/2016 Inactive chlorthalidone 25 mg tablet RxNorm: 379365 1 Tablet(s) PO QAM 08/24/2014 05/18/2016 Inactive [SAVINGS FOR NON-COVERED DRUGS -- BIN:[id number], PCN: [id number], Group: [id number], ID# [id number], Questions: . THIS IS NOT INSURANCE.] Lasix 20 mg tablet RxNorm: 677658 1 Tablet(s) PO QDAY PRN 05/25/2014 05/18/2016 Inactive daily x 3 days then as needed, Take potassium with lasix potassium chloride ER 10 mEq tablet,extended release RxNorm: 329110 1 Tablet(s) PO QDAY PRN 05/25/2014 05/18/2016 Inactive take with lasix enalapril maleate 20 mg tablet RxNorm: 885586 1 Tablet(s) PO daily 04/24/2014 04/18/2015 Inactive enalapril maleate 10 mg tablet RxNorm: 653262 TAKE ONE TABLET BY MOUTH EVERY DAY 12/11/2013 04/23/2014 Inactive enalapril maleate 10 mg tablet RxNorm: 662320 1 Tablet(s) PO daily 03/08/2013 12/02/2013 Inactive enalapril maleate 10 mg tablet RxNorm: 623515 1 Tablet(s) PO daily 09/07/2012 03/07/2013 Inactive enalapril maleate 10 mg tablet RxNorm: 429208 1 Tablet(s) PO daily 05/25/2012 09/06/2012 Inactive enalapril maleate 5 mg tablet RxNorm: 507268 1/2 Tablet(s) PO BID 01/01/2012 05/24/2012 Inactive enalapril maleate 5 mg tablet RxNorm: 366186 1/2 Tablet(s) PO BID 10/02/2011 12/31/2011 Inactive Fish Oil 1,000 mg Cap RxNorm: 3 Capsule(s) PO daily 09/23/2011 No Stop Date Active enalapril maleate 5 mg Tab RxNorm: 919340 1/2 Tablet(s) PO BID 06/29/2011 10/01/2011 Inactive Influenza Virus Vaccine 0.5 mL RxNorm: IM 01/13/2011 01/13/2011 Inactive Pneumovax 23 25 mcg/0.5 mL Injection RxNorm: 330502 Milliliter(s) Inj 01/13/2011 01/13/2011 Inactive Veramyst 27.5 mcg/Actuation Nasal [place] RxNorm: 2676942 1 [place] NASAL daily No Start Date Active multivitamin Oral RxNorm: Oral No Start Date Active Calcium + D Oral RxNorm: Oral No Start Date Active enalapril maleate 5 mg Tab RxNorm: 962805 1/2 Tablet(s) PO BID No Start Date 06/28/2011 Inactive niacin 500 mg Tab RxNorm: 430283 1 Tablet(s) PO QHS No Start Date 05/18/2016 Inactive Reclast 5 mg/100 mL IV RxNorm: 129126 1 Milliliter(s) IV Yearly No Start Date 05/18/2016 Inactive Fish Oil 1,000 mg Cap RxNorm: Oral No Start Date 09/22/2011 Inactive Medication Administered Medication Codes Instructions Start Date Status Influenza Virus Vaccine 0.5 mL RxNorm: 01/13/2011 No longer Active Pneumovax 23 25 mcg/0.5 mL Injection RxNorm: 673311 Milliliter 01/13/2011 No longer Active Immunizations Vaccine Codes Date Status Influenza CVX: 141 01/22/2014 completed Influenza CVX: 141 02/13/2013 completed Influenza Unknown 01/13/2011 completed Influenza CVX: 141 01/13/2011 completed Pneumococcal (Adult) CVX: 33 01/13/2011 completed Assessments Condition Codes Effective Dates Unsteadiness on feet ICD-10: R26.81 ICD-9: 781.2 10/13/2016 Essential (primary) hypertension ICD-10: I10 ICD-9: 401.9 10/13/2016 Mixed incontinence ICD-10: N39.46 ICD-9: 788.33 10/13/2016 Abnormal weight loss ICD-10: R63.4 ICD-9: 783.21 10/13/2016 Major depressive disorder, recurrent, moderate ICD-10: F33.1 ICD-9: 296.32 09/15/2016 Mixed hyperlipidemia ICD-10: E78.2 ICD-9: 272.4 08/18/2016 [...] 03/20/2013 TOBACCO USE DISORDER ICD-9: 305.1 05/25/2012 Varicose vein of leg ICD-9: 454.9 09/17/2011 Leg pain, posterior ICD-9: 729.5 09/17/2011 ROUTINE PHYSICL LAB EXAM ICD-9: V72.62 01/13/2011 Immunization, pneumococcus and influenza ICD-9: V06.6 01/13/2011 Reason For Visit Reason For Visit Effective Dates Notes edema 10/13/2016 worsening edema 09/15/2016 edema 08/18/2016 [...] 30.3 pg 08/18/2016 Cbc With Differential Ord2 [place]% 8.5 % 08/18/2016 Cbc With Differential Ord2 MCHC 31.5 pg 08/18/2016 Cbc With Differential Ord2 Eos% 5.3 % 08/18/2016 Cbc With Differential Ord2 PLT 254 K/ul 08/18/2016 Cbc With Differential Ord2 Baso% 0.8 % 08/18/2016 Cbc With Differential Ord2 Neut ABS# 3.68 K/ul 08/18/2016 Cbc With Differential Ord2 RDW 14.3 % 08/18/2016 Cbc With Differential Ord2 Lymph ABS# 1.61 K/ul 08/18/2016 Cbc With Differential Ord2 [place] ABS# 0.5 K/ul 08/18/2016 Cbc With Differential Ord2 Eos ABS# 0.3 K/ul 08/18/2016 Cbc With Differential Ord2 Baso ABS# 0.1 K/ul 08/18/2016 Comp Metabolic Pcf549 NA 143 mEq/L 08/18/2016 Comp Metabolic Sww334 K 4.3 mEq/L 08/18/2016 Comp Metabolic Ene687 CL 105 mEq/L 08/18/2016 Comp Metabolic Gvq753 CO2 28.0 mEq/L 08/18/2016 Comp Metabolic Ekp969 ANION GAP 14 08/18/2016 Comp Metabolic Vyb293 GLUCOSE 77 mg/dL 08/18/2016 Comp Metabolic Ieu850 Creat 0.9 mg/dL 08/18/2016 Comp Metabolic Lvq975 eGFR 67 ml/min/1.73m2 08/18/2016 Comp Metabolic Kjr934 BUN 21 mg/dL 08/18/2016 Comp Metabolic Mzm205 B/C Ratio 24.7 Ratio 08/18/2016 Comp Metabolic Uae540 CALCIUM 9.0 mg/dL 08/18/2016 Comp Metabolic Pfk754 ALK PHOS 56 U/L 08/18/2016 Comp Metabolic Flg417 AST(SGOT) 18 U/L 08/18/2016 Comp Metabolic Iab213 ALT(SGPT) 11 U/L 08/18/2016 Comp Metabolic Sxz302 BILI T 0.4 mg/dL 08/18/2016 Comp Metabolic Zpr931 ALBUMIN 3.9 g/dL 08/18/2016 Comp Metabolic Hzf017 TPRO 6.4 g/dL 08/18/2016 Comp Metabolic Ula679 GLOB 2.5 g/dL 08/18/2016 Comp Metabolic Wou320 A/G Ratio 1.6 Ratio 08/18/2016 Comp Metabolic Mvx705 Osmo 287 mOsmo 08/18/2016 Lipid Ord30 CHOL 183 mg/dL 08/18/2016 Lipid Ord30 HDL 46.0 mg/dl 08/18/2016 Lipid Ord30 TRIG 129 mg/dL 08/18/2016 Lipid Ord30 LDL 111 mg/dL 08/18/2016 Lipid Ord30 C/HDL 4.0 Ratio 08/18/2016 Tsh Ord6 hTSH II 0.70 uIU/mL 08/18/2016 Comp Metabolic Vdp866 NA 141 mEq/L 05/20/2016 Comp Metabolic Mjk375 K 4.3 mEq/L 05/20/2016 Comp Metabolic Dop859 CL 103 mEq/L 05/20/2016 Comp Metabolic Gvw829 CO2 31.0 mEq/L 05/20/2016 Comp Metabolic Neb503 ANION GAP 11 05/20/2016 Comp Metabolic Ozf589 GLUCOSE 93 mg/dL 05/20/2016 Comp Metabolic Dqp508 Creat 1.0 mg/dL 05/20/2016 Comp Metabolic Smn350 eGFR 57 ml/min/1.73m2 05/20/2016 Comp Metabolic Byn879 BUN 16 mg/dL 05/20/2016 Comp Metabolic Gqi190 B/C Ratio 16.3 Ratio 05/20/2016 Comp Metabolic Cjp882 CALCIUM 10.1 mg/dL 05/20/2016 Comp Metabolic Miy983 ALK PHOS 49 U/L 05/20/2016 Comp Metabolic Ikx181 AST(SGOT) 17 U/L 05/20/2016 Comp Metabolic Ywj201 ALT(SGPT) 11 U/L 05/20/2016 Comp Metabolic Ndd951 BILI T 0.3 mg/dL 05/20/2016 Comp Metabolic Bbx893 ALBUMIN 4.4 g/dL 05/20/2016 Comp Metabolic Fqx293 TPRO 6.8 g/dL 05/20/2016 Comp Metabolic Lce321 GLOB 2.4 g/dL 05/20/2016 Comp Metabolic Quz406 A/G Ratio 1.8 Ratio 05/20/2016 Comp Metabolic Pph191 Osmo 282 mOsmo 05/20/2016 Cbc With Differential Ord2 WBC 6.40 K/ul 05/20/2016 Cbc With Differential Ord2 RBC 4.57 M/ul 05/20/2016 Cbc With Differential Ord2 HGB 14.0 g/dl 05/20/2016 Cbc With Differential Ord2 Neut% 47.6 % 05/20/2016 Cbc With Differential Ord2 HCT 44.1 % 05/20/2016 Cbc With Differential Ord2 Lymph% 38.3 % 05/20/2016 Cbc With Differential Ord2 MCV 96.5 fl 05/20/2016 Cbc With Differential Ord2 MCH 30.6 pg 05/20/2016 Cbc With Differential Ord2 [place]% 7.8 % 05/20/2016 Cbc With Differential Ord2 [...] 2.45 K/ul 05/20/2016 Cbc With Differential Ord2 [place] ABS# 0.5 K/ul 05/20/2016 Cbc With Differential Ord2 Eos ABS# 0.3 K/ul 05/20/2016 Cbc With Differential Ord2 Baso ABS# 0.1 K/ul 05/20/2016 Tsh Ord6 hTSH II 0.80 uIU/mL 05/20/2016 GFR CALC 5511346 GFR AA >60 ML/MIN 07/24/2014 GFR CALC 5265735 GFR NON-AA >60 ML/MIN 07/24/2014 TSH 9945130 TSH 0.192 uIU/ML 07/24/2014 CBC 1261840 WBC 6.4 10e9/L 07/24/2014 CBC 0346620 RBC 4.61 10e12/L 07/24/2014 CBC 1087405 HGB 13.7 g/dL 07/24/2014 CBC 5270496 HCT DET 42.6 % 07/24/2014 CBC 6286552 MCV 92.4 fL 07/24/2014 CBC 5110436 MCH 29.7 pg 07/24/2014 CBC 3112233 MCHC 32.2 g/dL 07/24/2014 CBC 5735588 PLT 280 10e9/L 07/24/2014 CBC 9066951 MPV 8.9 fL 07/24/2014 CBC 0117747 [place] % 59.5 % 07/24/2014 CBC 8073516 LY % 30.6 % 07/24/2014 CBC 1208704 MON % 5.9 % 07/24/2014 CBC 0816194 EOS % 3.4 % 07/24/2014 CBC 6247958 BASO % 0.6 % 07/24/2014 CBC 6693040 RDW 14.8 % 07/24/2014 CBC 2803086 ABS A[place] 3.81 10e9/L 07/24/2014 CBC 9600078 ABS LYMPH 1.96 10e9/L 07/24/2014 CBC 2010923 ABS MONO 0.38 10e9/L 07/24/2014 CBC 2552404 ABS EOS 0.22 10e9/L 07/24/2014 CBC 7564317 ABS BASO 0.04 10e9/L 07/24/2014 CBC 4627059 RDW-SD 48.9 fL 07/24/2014 CHEM 14 8019794 AST 17 U/L 07/24/2014 CHEM 14 5982973 ALT 11 IU/L 07/24/2014 CHEM 14 4965044 BUN 13 MG/DL 07/24/2014 CHEM 14 3372321 ALBUMIN 4.2 GM/DL 07/24/2014 CHEM 14 7218553 CHLORIDE 104 MMOL/L 07/24/2014 CHEM 14 0050571 BILI TOT 0.6 MG/DL 07/24/2014 CHEM 14 4167416 ALK PHOS 52 U/L 07/24/2014 CHEM 14 2315195 SODIUM 141 MMOL/L 07/24/2014 CHEM 14 7118177 CREATININE 0.87 MG/DL 07/24/2014 CHEM 14 6144310 CALCIUM 9.1 MG/DL 07/24/2014 CHEM 14 9319452 POTASSIUM 4.1 MMOL/L 07/24/2014 CHEM 14 3261649 PROT TOT 6.4 GM/DL 07/24/2014 CHEM 14 1431715 GLUCOSE 100 MG/DL 07/24/2014 CHEM 14 7314935 BICARB 27 MMOL/L 07/24/2014 CHEM 14 5015074 ANION GAP 10 MEQ/L 07/24/2014 FREE T4 2555293 FREE T4 1.08 NG/DL 09/20/2013 T3 TOT 6837797 T3 TOT 1.1 NG/ML 09/20/2013 CHEM 14 7588832 AST 20 U/L 09/18/2013 CHEM 14 4963114 ALT 17 IU/L 09/18/2013 CHEM 14 9204107 BUN 18 MG/DL 09/18/2013 CHEM 14 0857026 ALBUMIN 4.4 GM/DL 09/18/2013 CHEM 14 9407437 CHLORIDE 106 MMOL/L 09/18/2013 CHEM 14 3891300 BILI TOT 0.4 MG/DL 09/18/2013 CHEM 14 2714036 ALK PHOS 50 U/L 09/18/2013 CHEM 14 8375384 SODIUM 142 MMOL/L 09/18/2013 CHEM 14 3894905 CREATININE 0.92 MG/DL 09/18/2013 CHEM 14 1408002 CALCIUM 9.3 MG/DL 09/18/2013 CHEM 14 9279634 POTASSIUM 4.1 MMOL/L 09/18/2013 CHEM 14 0941658 PROT TOT 6.5 GM/DL 09/18/2013 CHEM 14 7326558 GLUCOSE 98 MG/DL 09/18/2013 CHEM 14 4229249 BICARB 27 MMOL/L 09/18/2013 CHEM 14 2043274 ANION GAP 9 MEQ/L 09/18/2013 TSH 3452518 TSH 0.209 uIU/ML 09/18/2013 CBC 3347879 WBC 7.1 10e9/L 09/18/2013 CBC 1842595 RBC 4.59 10e12/L 09/18/2013 CBC 9245224 HGB 14.1 g/dL 09/18/2013 CBC 3976264 HCT DET 43.3 % 09/18/2013 CBC 0728980 MCV 94.3 fL 09/18/2013 CBC 7950856 MCH 30.7 pg 09/18/2013 CBC 3959429 MCHC 32.6 g/dL 09/18/2013 CBC 8397031 PLT 274 10e9/L 09/18/2013 CBC 3522960 MPV 9.1 fL 09/18/2013 CBC 0310847 [place] % 60.9 % 09/18/2013 CBC 4457009 LY % 29.2 % 09/18/2013 CBC 4069279 MON % 6.1 % 09/18/2013 CBC 9183339 EOS % 3.2 % 09/18/2013 CBC 5285847 BASO % 0.6 % 09/18/2013 CBC 6361982 RDW 13.8 % 09/18/2013 CBC 4158316 ABS [place] 4.32 10e9/L 09/18/2013 CBC 2928174 ABS LYMPH 2.07 10e9/L 09/18/2013 CBC 1583955 ABS MONO 0.43 10e9/L 09/18/2013 CBC 2592621 ABS EOS 0.23 10e9/L 09/18/2013 CBC 4706934 ABS BASO 0.04 10e9/L 09/18/2013 CBC 7731464 RDW-SD 46.0 fL 09/18/2013 LIPID GRP HDL TEST 70 MG/DL 09/18/2013 LIPID GRP TRIG 114 MG/DL 09/18/2013 LIPID GRP TEST LDL 198 MG/DL 09/18/2013 LIPID GRP CHOL 291 MG/DL 09/18/2013 LIPID GRP RCHOL/HDL 4.16 RATIO 09/18/2013 GFR CALC 6792640 GFR AA >60 ML/MIN 09/18/2013 GFR CALC 8594020 GFR NON-AA 58.0L ML/MIN 09/18/2013 FREE T4 6647763 FREE T4 1.05 NG/DL 03/22/2013 T3 TOT 0421961 T3 TOT 0.9 NG/ML 03/22/2013 CHEM 14 4811410 AST 18 U/L 03/20/2013 CHEM 14 3537865 ALT 13 IU/L 03/20/2013 CHEM 14 5464952 BUN 25 MG/DL 03/20/2013 CHEM 14 2110282 ALBUMIN 4.4 GM/DL 03/20/2013 CHEM 14 3689521 CHLORIDE 105 MMOL/L 03/20/2013 CHEM 14 1333742 BILI TOT 0.4 MG/DL 03/20/2013 CHEM 14 9864775 ALK PHOS 40 U/L 03/20/2013 CHEM 14 2659350 SODIUM 141 MMOL/L 03/20/2013 CHEM 14 8572689 CREATININE 0.95 MG/DL 03/20/2013 CHEM 14 9257560 CALCIUM 9.8 MG/DL 03/20/2013 CHEM 14 5917663 POTASSIUM 4.1 MMOL/L 03/20/2013 CHEM 14 7035271 PROT TOT 6.2 GM/DL 03/20/2013 CHEM 14 7957712 GLUCOSE 89 MG/DL 03/20/2013 CHEM 14 9596842 BICARB 29 MMOL/L 03/20/2013 CHEM 14 3828359 ANION GAP 7 MEQ/L 03/20/2013 TSH 8202640 TSH 0.228 uIU/ML 03/20/2013 GFR CALC 7038748 GFR AA >60 ML/MIN 03/20/2013 GFR CALC 4503486 GFR NON-AA 56.0L ML/MIN 03/20/2013 CBC 2110465 WBC 6.8 10e9/L 03/20/2013 CBC 7074666 RBC 4.58 10e12/L 03/20/2013 CBC 8852255 HGB 14.1 g/dL 03/20/2013 CBC 5039385 HCT DET 43.1 % 03/20/2013 CBC 6820801 MCV 94.1 fL 03/20/2013 CBC 4723898 MCH 30.8 pg 03/20/2013 CBC 1915294 MCHC 32.7 g/dL 03/20/2013 CBC 5437572 PLT 294 10e9/L 03/20/2013 CBC 7863294 MPV 9.4 fL 03/20/2013 CBC 8248022 [place] % 50.3 % 03/20/2013 CBC 1264051 LY % 35.9 % 03/20/2013 CBC 7526894 MON % 7.3 % 03/20/2013 CBC 1159527 EOS % 5.8 % 03/20/2013 CBC 7566976 BASO % 0.7 % 03/20/2013 CBC 5458668 RDW 14.5 % 03/20/2013 CBC 0995459 ABS [place] 3.42 10e9/L 03/20/2013 CBC 1052339 ABS LYMPH 2.44 10e9/L 03/20/2013 CBC 1625066 ABS MONO 0.50 10e9/L 03/20/2013 CBC 8763554 ABS EOS 0.39 10e9/L 03/20/2013 CBC 0925478 ABS BASO 0.05 10e9/L 03/20/2013 CBC 7616661 RDW-SD 48.2 fL 03/20/2013 LIPID GRP HDL TEST 71 MG/DL 03/20/2013 LIPID GRP TRIG 87 MG/DL 03/20/2013 LIPID GRP TEST LDL 168 MG/DL 03/20/2013 LIPID GRP CHOL 256 MG/DL 03/20/2013 LIPID GRP 9022148 RCHOL/HDL 3.61 RATIO 03/20/2013 FREE T4 3162677 FREE T4 1.09 NG/DL 05/31/2012 T3 TOT 0054701 T3 TOT 0.9 NG/ML 05/31/2012 CBC 9962632 WBC 7.1 10e9/L 05/27/2012 CBC 3100110 RBC 4.58 10e12/L 05/27/2012 CBC 3053282 HGB 14.4 g/dL 05/27/2012 CBC 5736242 HCT DET 43.5 % 05/27/2012 CBC 4619960 MCV 95.0 fL 05/27/2012 CBC 7331689 MCH 31.4 pg 05/27/2012 CBC 5016771 MCHC 33.1 g/dL 05/27/2012 CBC 5310750 PLT 285 10e9/L 05/27/2012 CBC 7009313 MPV 9.2 fL 05/27/2012 CBC 7197633 [place] % 61.2 % 05/27/2012 CBC 4801573 LY % 27.5 % 05/27/2012 CBC 4291167 MON % 6.8 % 05/27/2012 CBC 7562158 EOS % 3.8 % 05/27/2012 CBC 9825082 BASO % 0.7 % 05/27/2012 CBC 5682704 RDW 14.1 % 05/27/2012 CBC 5296962 ABS [place] 4.35 10e9/L 05/27/2012 CBC 1814019 ABS LYMPH 1.95 10e9/L 05/27/2012 CBC 9800069 ABS MONO 0.48 10e9/L 05/27/2012 CBC 4328818 ABS EOS 0.27 10e9/L 05/27/2012 CBC 7496697 ABS BASO 0.05 10e9/L 05/27/2012 CBC 4054471 RDW-SD 47.2 fL 05/27/2012 LIPID GRP HDL TEST 57 MG/DL 05/27/2012 LIPID GRP TRIG 110 MG/DL 05/27/2012 LIPID GRP TEST LDL 156 MG/DL 05/27/2012 LIPID GRP CHOL 235 MG/DL 05/27/2012 LIPID GRP RCHOL/HDL 4.12 RATIO 05/27/2012 CHEM 14 20271105 AST 19 U/L 05/27/2012 CHEM 14 20271105 ALT 13 IU/L 05/27/2012 CHEM 14 2160492 BUN 19 MG/DL 05/27/2012 CHEM 14 0271533 ALBUMIN 4.7 GM/DL 05/27/2012 CHEM 14 4049064 CHLORIDE 106 MMOL/L 05/27/2012 CHEM 14 0755600 BILI TOT 0.5 MG/DL 05/27/2012 CHEM 14 9278572 ALK PHOS 51 U/L 05/27/2012 CHEM 14 9101137 SODIUM 141 MMOL/L 05/27/2012 CHEM 14 3099779 CREATININE 0.85 MG/DL 05/27/2012 CHEM 14 3164346 CALCIUM 9.4 MG/DL 05/27/2012 CHEM 14 0199189 POTASSIUM 4.0 MMOL/L 05/27/2012 CHEM 14 9926156 PROT TOT 6.7 GM/DL 05/27/2012 CHEM 14 0001775 GLUCOSE 101 MG/DL 05/27/2012 CHEM 14 6661778 BICARB 29 MMOL/L 05/27/2012 CHEM 14 9766046 ANION GAP 6 MEQ/L 05/27/2012 TSH 6672813 TSH 0.275 uIU/ML 05/27/2012 GFR CALC 2370908 GFR AA >60 ML/MIN 05/27/2012 GFR CALC 9503363 GFR NON-AA >60 ML/MIN 05/27/2012 CHEM 14 4750239 AST 18 U/L 09/21/2011 CHEM 14 3872141 ALT 11 IU/L 09/21/2011 CHEM 14 6260373 BUN 18 MG/DL 09/21/2011 CHEM 14 7438939 ALBUMIN 4.3 GM/DL 09/21/2011 CHEM 14 2239859 CHLORIDE 102 MMOL/L 09/21/2011 CHEM 14 7510843 BILI TOT 0.4 MG/DL 09/21/2011 CHEM 14 8157646 ALK PHOS 47 U/L 09/21/2011 CHEM 14 9730653 SODIUM 139 MMOL/L 09/21/2011 CHEM 14 9591387 CREATININE 0.92 MG/DL 09/21/2011 CHEM 14 1226144 CALCIUM 9.2 MG/DL 09/21/2011 CHEM 14 1507846 POTASSIUM 4.1 MMOL/L 09/21/2011 CHEM 14 2338294 PROT TOT 6.4 GM/DL 09/21/2011 CHEM 14 9794175 GLUCOSE 89 MG/DL 09/21/2011 CHEM 14 4635612 BICARB 28 MMOL/L 09/21/2011 CHEM 14 5661234 ANION GAP 9 MEQ/L 09/21/2011 TSH 7268696 TSH 0.352 uIU/ML 09/21/2011 GFR CALC 7234929 GFR AA >60 ML/MIN 09/21/2011 GFR CALC 5169393 GFR NON-AA 58.0L ML/MIN 09/21/2011 LIPID GRP HDL TEST 54 MG/DL 09/21/2011 LIPID GRP TRIG 81 MG/DL 09/21/2011 LIPID GRP TEST LDL 154 MG/DL 09/21/2011 LIPID GRP CHOL 224 MG/DL 09/21/2011 LIPID GRP RCHOL/HDL 4.15 RATIO 09/21/2011 CBC 2203930 WBC 9.6 10e9/L 09/21/2011 CBC 9867406 RBC 4.85 10e12/L 09/21/2011 CBC 6746169 HGB 15.0 g/dL 09/21/2011 CBC 6466103 HCT DET 46.5 % 09/21/2011 CBC 6871836 MCV 95.9 fL 09/21/2011 CBC 0759856 MCH 30.9 pg 09/21/2011 CBC 7784614 MCHC 32.3 g/dL 09/21/2011 CBC 9974648 PLT 279 10e9/L 09/21/2011 CBC 2133602 MPV 9.1 fL 09/21/2011 CBC 2726778 [place] % 63.4 % 09/21/2011 CBC 9249907 LY % 26.1 % 09/21/2011 CBC 3088365 MON % 5.6 % 09/21/2011 CBC 9562609 EOS % 4.4 % 09/21/2011 CBC 6660889 BASO % 0.5 % 09/21/2011 CBC 0814412 RDW 14.0 % 09/21/2011 CBC 9506250 ABS [place] 6.09 10e9/L 09/21/2011 CBC 5371124 ABS LYMPH 2.51 10e9/L 09/21/2011 CBC 9527419 ABS MONO 0.54 10e9/L 09/21/2011 CBC 2260233 ABS EOS 0.42 10e9/L 09/21/2011 CBC 5754445 ABS BASO 0.05 10e9/L 09/21/2011 CBC 8176243 RDW-SD 47.9 fL 09/21/2011 Review of Systems System Result Effective Dates Constitutional No recent illness 10/13/2016 Constitutional No [...] lips 03/20/2013 None Full Exam - General 1995 Ears/Nose/Throat lips/teeth/gingiva Overall: no masses 03/20/2013 None [...] 05/25/2012 None Full Exam - General 1995 Musculoskeletal head and neck Overall: head atraumatic 05/25/2012 None Full Exam - General 1995 Musculoskeletal head and neck Overall: cervical spine [...] distress 05/21/2011 None Full Exam - General 1994 Constitutional general appearance Hygiene/Attention to Grooming: good [...] edentulous 05/21/2011 None Full Exam - General 1995 Ears/Nose/Throat oral cavity/pharynx/larynx Overall: oropharyngeal mucosa clear 05/21/2011 None Full Exam - General 1995 Ears/Nose/Throat oral cavity/pharynx/larynx Overall: no masses 05/21/2011 [...] accomodation 01/20/2011 None Full Exam - General 1995 Ears/Nose/Throat [...] Procedures Procedure Codes Date ROUTINE VENIPUNCTURE CPT-4: 26532Mknqfbb 07/24/2014 ADMIN INFLUENZA VIRUS VAC CPT-4: P2637Vpryxtw 01/22/2014 FLU VAC NO PRSV 4 LISSA 3 YRS+ Assigned to/Earle Laura CPT-4: 74056Nvcgncy 01/22/2014 ROUTINE VENIPUNCTURE CPT-4: 82666Giqxzwm 09/18/2013 ROUTINE VENIPUNCTURE CPT-4: 23357Hkuesmk 03/20/2013 ROUTINE VENIPUNCTURE CPT-4: 54421Rzwapbk 05/27/2012 ROUTINE VENIPUNCTURE CPT-4: 26306Prrujzm 09/21/2011 ROUTINE VENIPUNCTURE CPT-4: 87120Yownfez 01/13/2011 Pneumococcal Polysaccharide Vaccine, 23-Valent, Ad CPT-4: 14759Kbayphh 01/13/2011 ADMIN INFLUENZA VIRUS VAC CPT-4: B0818Dcifdnq 01/13/2011 ADMIN PNEUMOCOCCAL VACCINE SNOMED CT: 92459239 CPT-4: Q7047Einfjdc 01/13/2011 FLULAVAL VACC, 3 YRS & >, IM CPT-4: V5529Wdqjtya 01/13/2011 Vital Signs Date Vital 10/13/2016 Blood Pressure 1: 170/96 Code: 8480-6 Blood Pressure 1: 142/86 Code: 8480-6 BMI: 23.0 Code: 26191-3 Heart Rate 1: 74 bpm Height: 5'5" SpO2: 90% Weight: 138 lbs 09/15/2016 Blood Pressure 1: 118/78 Code: 8480-6 Heart Rate 1: 82 bpm SpO2: 90% Weight: 141 lbs 08/18/2016 Blood Pressure 1: 142/82 Code: 8480-6 BMI: 24.1 Code: 81151-2 Heart Rate 1: 72 bpm Height: 5'5" SpO2: 91% Weight: 145 lbs 06/23/2016 Blood Pressure 1: 148/86 Code: 8480-6 BMI: 24.1 Code: 73714-5 Heart Rate 1: 70 bpm Height: 5'5" SpO2: 90% Weight: 145 lbs 05/19/2016 Blood Pressure 1: 162/76 Code: 8480-6 BMI: 24.3 Code: 10507-9 Heart Rate 1: 76 bpm Height: 5'5" Weight: 146 lbs 09/14/2014 Blood Pressure 1: 102/80 Code: 8480-6 BMI: 27.7 Code: 08251-1 Heart Rate 1: 90 bpm Height: 5' SpO2: 94% Weight: 144 lbs 08/24/2014 Blood Pressure 1: 122/92 Code: 8480-6 BMI: 28.4 Code: 28723-5 Heart Rate 1: 74 bpm Height: 5' SpO2: 94% Weight: 148 lbs 07/24/2014 Blood Pressure 1: 142/86 Code: 8480-6 BMI: 28.8 Code: 11919-9 Heart Rate 1: 88 bpm Height: 5' Weight: 150 lbs 05/25/2014 Blood Pressure 1: 136/88 Code: 8480-6 BMI: 28.8 Code: 66943-3 Heart Rate 1: 82 bpm Height: 5' Weight: 150 lbs 04/24/2014 Blood Pressure 1: 150/78 Code: 8480-6 BMI: 29.6 Code: 09782-0 Heart Rate 1: 60 bpm Height: 5' Weight: 154 lbs 01/22/2014 Blood Pressure 1: 140/78 Code: 8480-6 BMI: 29.6 Code: 34489-3 Heart Rate 1: 78 bpm Height: 5' SpO2: 90% Weight: 154 lbs 09/18/2013 Blood Pressure 1: 128/84 Code: 8480-6 BMI: 29.4 Code: 02463-7 Heart Rate 1: 80 bpm Height: 5' Weight: 153 lbs 03/20/2013 Blood Pressure 1: 122/80 Code: 8480-6 BMI: 29.0 Code: 18066-5 Heart Rate 1: 76 bpm Height: 5' Weight: 151 lbs 05/25/2012 Blood Pressure 1: 140/92 Code: 8480-6 BMI: 26.3 Code: 93289-9 Heart Rate 1: 88 bpm Height: 5' Weight: 137 lbs 09/17/2011 Blood Pressure 1: 128/78 Code: 8480-6 Heart Rate 1: 76 bpm Respiratory Rate: 24 bpm Weight: 137 lbs 05/21/2011 Blood Pressure 1: 114/72 Code: 8480-6 BMI: 27.1 Code: 94696-4 Heart Rate 1: 68 bpm Height: 5' Respiratory Rate: 16 bpm Weight: 141 lbs 01/20/2011 Blood Pressure 1: 130/72 Code: 8480-6 Heart Rate 1: 72 bpm Respiratory Rate: 16 bpm Weight: 143 lbs Functional Status No Functional Status data History of Present Illness Symptom Name Status Result Effective Date Notes edema Location on both ankles 10/13/2016 None [...] 05/21/2011 states she has been going to [place] to have the toxins removed from her feet cholesterol followup Quality increased cholesterol 01/20/2011 pt had labs 01/13/11; Dr. Jackson recommended to increase niacin to 1000 mg daily and increase fish oil to 1000mg tid Advance Directives No Advance Directive data Encounters Encounter Performer Location Codes Date ([id number]) [id number] EST. PATIENT, LEVEL IV Diagnosis: Essential (primary) hypertension[ICD10: I10] Diagnosis: Unsteadiness on feet[ICD10: R26.81] Diagnosis: Abnormal weight loss[ICD10: R63.4] Diagnosis: Mixed incontinence[ICD10: N39.46] Brigitte Jackson MD, [facility] CPT- 4: 74232 10/13/2016 [phone] [id number] EST. PATIENT, LEVEL IV Diagnosis: Essential (primary) hypertension[ICD10: I10] Diagnosis: Major depressive disorder, recurrent, moderate[ICD10: F33.1] Diagnosis: Unsteadiness on feet[ICD10: R26.81] [facility] CPT-4: 32285 09/15/2016 [id number] EST. PATIENT, LEVEL IV Diagnosis: Essential (primary) hypertension[ICD10: I10] Diagnosis: Mixed hyperlipidemia[ICD10: E78.2] Diagnosis: Major depressive disorder, recurrent, moderate[ICD10: F33.1] Diagnosis: Unsteadiness on feet[ICD10: R26.81] Brigitte Jackson MD, [facility] CPT-4: 31516 08/18/2016 ([id number]) 07314 EST. PATIENT, LEVEL III Diagnosis: Essential (primary) hypertension[ICD10: I10] Brigitte Jackson MD, [facility] CPT-4: 89912 06/23/2016 ([id number]) 62270 EST. 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 PATIENT, LEVEL III Diagnosis: ESSENTIAL HYPERTENSION[ICD9: 401.9] Diagnosis: EDEMA[ICD9: 782.3] Brigitte Jackson MD, [facility] CPT-4: 51226 09/14/2014 ([id number]) 27616 EST. PATIENT, LEVEL III Diagnosis: ESSENTIAL HYPERTENSION[ICD9: 401.9] Diagnosis: EDEMA[ICD9: 782.3] Georgia Jackson MD, [facility] CPT-4: 39473 08/24/2014 ([id number]) 13540 EST. PATIENT, LEVEL IV Diagnosis: Peripheral vascular disease[ICD9: 443.9] Diagnosis: ESSENTIAL HYPERTENSION[ICD9: 401.9] Diagnosis: Chronic fatigue[ICD9: 780.79] Diagnosis: Ataxia[ICD9: 781.3] Georgia Jackson MD, [facility] CPT-4: 96751 07/24/2014 ([id number]) 78689 EST. PATIENT, LEVEL III Diagnosis: ESSENTIAL HYPERTENSION[ICD9: 401.9] Diagnosis: EDEMA[ICD9: 782.3] Georgia Jackson MD, [facility] CPT-4: 32453 05/25/2014 ([id number]) 94846 EST. 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 PATIENT, LEVEL IV Diagnosis: ESSENTIAL HYPERTENSION[ICD9: 401.9] Diagnosis: HYPERLIPIDEMIA[ICD9: 272.4] Diagnosis: VACCIN FOR INFLUENZA[ICD10: Z23] Georgia Jackson MD, [facility] CPT-4: 06759 01/22/2014 ([id number]) 22978 EST. 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 PATIENT, LEVEL IV Diagnosis: ESSENTIAL HYPERTENSION[SNOMED: 27695907] Diagnosis: LACK OF COORDINATION[ICD9: 781.3] Diagnosis: PERIPH VASCULAR DIS[ICD9: 443.9] Diagnosis: ENCNTR LONG-RX USE NEC[ICD9: V58.69] Georgia Jackson MD, [facility] CPT- 4: 38424 03/20/2013 ([id number]) 79916 EST. PATIENT, LEVEL IV Diagnosis: ESSENTIAL HYPERTENSION[SNOMED: 47817105] Diagnosis: HYPERLIPIDEMIA[ICD9: 272.4] Diagnosis: LACK OF COORDINATION[ICD9: 781.3] Diagnosis: TOBACCO USE DISORDER[ICD9: 305.1] Georgia Jackson MD, [facility] CPT- 4: 03336 05/25/2012 ([id number]) 22392 EST. PATIENT, LEVEL IV Diagnosis: ESSENTIAL HYPERTENSION[SNOMED: 53045557] Diagnosis: TOBACCO USE DISORDER[ICD9: 305.1] Diagnosis: HYPERLIPIDEMIA[ICD9: 272.4] Diagnosis: Varicose vein of leg[ICD9: 454.9] Diagnosis: Leg pain, posterior[ICD9: 729.5] Diagnosis: Intermittent claudication[ICD9: 443.9] [facility] CPT-4: 70234 09/17/2011 ([id number]) 66413 EST. PATIENT, LEVEL IV Diagnosis: ESSENTIAL HYPERTENSION[SNOMED: 68585210] Diagnosis: LACK OF COORDINATION[ICD9: 781.3] Diagnosis: TOBACCO USE DISORDER[ICD9: 305.1] [facility] CPT- 4: 40018 05/21/2011 22316 EST. PATIENT, LEVEL IV Diagnosis: ESSENTIAL HYPERTENSION[SNOMED: 62040123] Diagnosis: HYPERLIPIDEMIA[ICD9: 272.4] Diagnosis: Ataxia[ICD9: 781.3] [facility] CPT-4: 29845 01/20/2011 Plan of Care Planned Activity Notes Codes Status Date Visit Plan: Hypertension - well controlled - continue with current medications, continue with no added salt diet. Pt has been encouraged to exercise daily.The pt has been advised to call the office if there are any acute concerns about change in blood pressure readings at home.Gait bzbxldoqaoj-hgyqrylk-qghkszofox PT-patient refuses-also recommend patient use a walker at all times Weight loss-recommend patient increase intake Mixed urinary incontinence-samples of myrebetriq provided and instructed on use 10/13/2016 Appointment: Brigitte Vann WPtel: [address] [place], [place] [phone] (30 min) Complex 10/13/2016 Patient Education: Patient Medication Summary Completed 10/13/2016 Visit Plan: Hypertension - well controlled - continue with current medications, continue with no added salt diet. Pt has been encouraged to exercise daily.The pt has been advised to call the office if there are any acute concerns about change in blood pressure readings at home.Tnryljmkqw-xfulnrz-tazgiwph lexapro to 10mg daily-repeat in 1 month Gait instability-again recommend patient use walker 09/15/2016 Appointment: Brigitte Vann WPtel: [address] [place], [place] [phone] (15 min) Moderate 09/15/2016 Patient Education: Patient [...] refuses at this time. 08/18/2016 Appointment: Brigitte Vanntel: [phone] [phone] (15 min) Moderate 08/18/2016 Patient Education: Patient Medication Summary Completed 08/18/2016 Visit Plan: Hypertension - well controlled - continue with current medications, continue with no added salt diet. Pt has been encouraged to exercise daily.The pt has been advised to call the office if there are any acute concerns about change in blood pressure readings at home. 06/23/2016 Appointment: Brigitte Vann WPtel: [phone] [phone] (30 min) Complex 06/23/2016 Patient Education: Patient [...] evaluation 05/19/2016 Appointment: Brigitte Vann WPtel: [phone] [phone] [place] [address] (30 min) Complex 05/19/2016 Patient Education: Patient Medication Summary Completed 05/19/2016 Care Plan: Referral Order [facility]qu[facility] : [phone] Pending 05/19/2016 Visit Plan: Hypertension - well controlled - continue with current medications, continue with no added salt diet. Pt has been encouraged to exercise daily.The pt has been advised to call the office if there are any acute concerns about change in blood pressure readings at home.Nwjvz-cgxtgjby-tf change in treatment 09/14/2014 Appointment: Follow up [...] 2 weeks. 08/24/2014 Appointment: Georgia Jackson [facility]el[phone] [facility] 08/24/2014 Patient Education: Patient Medication [...] home. 07/24/2014 Appointment: Georgia Jackson [facility]Ptel[phone] Follow up 07/24/2014 Patient Education: Patient Medication Summary Completed 07/24/2014 Patient Education: Hypertension Completed 07/24/2014 Care Plan: Referral Order SNOMED-CT : [id number] Ordered 07/24/2014 Visit Plan: Hypertension - well [...] edema. 05/25/2014 App[facility]ment: [phone] Follow up 05/25/2014 Patient Education: Patient Medication [...] normalized. 04/24/2014 Appointment: Georgia Jackson WPtel: [phone] [facility] Follow up 04/24/2014 Patient Education: Patient [...] medications. 01/22/2014 Appointment: Georgia Jackson [facility]Ptel[phone] Follow up 01/22/2014 Patient Education: Patient Medication [...] exercise. 09/18/2013 Appointment: Georgia Jackson [facility]Ptel: [phone] Follow up 09/18/2013 Patient Education: Patient Medication [...] a year. 03/20/2013 Appointment: Georgia Jackson [facility]Ptel[phone] Follow up 03/20/2013 Patient Education: Patient Medication Summary Completed 03/20/2013 Patient Education: Hypertension Completed 03/20/2013 Appointment: Georgia Jackson WPtel[phone] Lab Draw 05/27/2012 Patient Education: Patient Medication [...] NEEDS TO FILL THE NEW SCRIPT AT [facility] FOR THE 10MG ENALAPRIL PILL TO [...] in public. 05/25/2012 Appointment: Georgia Jackson WPtel: [facility] Other 05/25/2012 Patient Education: Patient Medication Summary Completed 05/25/2012 Patient Education: Hypertension Completed 05/25/2012 Patient Education: Smoking and Tobacco Addiction Completed 05/25/2012 Appointment: Georgia Jackson WPtel: [facility] [address] Lab Draw 09/21/2011 Patient Education: Patient Medication [...] leg pain. 09/17/2011 Appointment: Georgia Jackson WPtel: [facility] Other 09/17/2011 Patient Education: Patient Medication Summary Completed 09/17/2011 Patient Education: High Blood Pressure: Essential Hypertension Completed 09/17/2011 Patient Education: Smoking: Hazards of Smoking Completed 09/17/2011 Patient Education: Smoking and Ways to Quit Completed 09/17/2011 Appointment: Georgia Jackson WPtel: [phone] [facility] Other 05/22/2011 Visit Plan: Hypertension - well [...] assist cessation. 05/21/2011 Appointment: Georgia Jackson WPtel: [phone] Other 05/21/2011 Patient Education: Patient Medication Summary [...] THINK ABOUT GOING TO PHYSICAL THERAPY AT [facility] FOR BALANCE TRAINING. 01/20/2011 Appointment: Renetta Georgia WPtel: [phone] [facility] [place] Other 01/20/2011 Patient Education: Patient Medication Summary Completed 01/20/2011 Appointment: Renetta Georgia WPtel: [phone] [facility] [place] Lab Draw 01/13/2011 Patient Education: Patient Medication Summary Completed 01/13/2011 Referral: Wojciech Antunez WPtel: [phone] [facility] Referral Appointment Requested Instructions Comment . Hypertension [...] change in blood pressure readings at home. Fcdczavcrx-wryjqeo-tlwxenwx lexapro to 10mg daily-repeat in 1 month [...] in blood pressure readings at home. Gait kuwkgvtkgbo-qapdxbnu-sdxcjpaomh PT-patient refuses-also recommend patient use a walker [...] change in blood pressure readings at home. Whopg-zetynwce-lf change in treatment . Hypertension - well [...] THINK ABOUT GOING TO PHYSICAL THERAPY AT [facility] FOR BALANCE TRAINING. PT IS TO INCREASE THE ENALAPRIL TO 10MG DAILY - WHICH WILL EQUAL TWO OF THE 5 MG PILLS DAILY UNTIL THAT SUPPLY IS GONE, THEN PT NEEDS TO FILL THE NEW SCRIPT AT [facility] FOR THE 10MG ENALAPRIL PILL TO [...] NEEDS TO FILL THE NEW SCRIPT AT [facility] FOR THE 10MG ENALAPRIL PILL TO [...]
--- NOTE | 2018-11-16 07:32 | ED GI ---
General Chief Complaint: Rect Problems Stated Complaint: VAGINAL OR RECTAL BLEEDING Source of Information: Patient Exam Limitations: No Limitations History of Present Illness Date Seen by Provider: Nov 16, 2018 Time Seen by Provider: 07:13 Initial Comments Patient presents to ER by private conveyance with her family and chief complaint that she woke up this morning in her bed was covered in blood. She had a stool this morning and had a little blood around it. She does not think she has any vaginal bleeding but she's not sure. She has a history of some kind of abdominal surgery done decades ago but she does not know what it was. She denies any abdominal pain nausea fevers chills dysuria discharge or fever. She takes Plavix and aspirin daily. She takes one blood pressure medicine which she said she took this morning. She denies use of oxygen her history of COPD or asthma. Allergies and Home Medications Allergies Coded Allergies: No Known Drug Allergies (Verified , 08/13/09) Home Medications Aspirin 81 Mg Tabec, 81 MG PO DAILY, (Reported) Cholecalciferol 1,000 Unit Tablet, 1,000 UNIT PO DAILY, (Reported) Clopidogrel Bisulfate 75 Mg Tab, 75 MG PO DAILY, (Reported) Enalapril Maleate 20 Mg Tablet, 20 MG PO DAILY, (Reported) Multivits-Min/Fa/Ca Carb/Vit K 1 Each Tablet, 1 TAB PO DAILY, (Reported) [place]-3/Dha/Epa/Fish Oil 1,000 Mg Capsule, 1,000 MG PO TID, (Reported) Pravastatin Sodium 10 Mg Tablet, 10 MG PO HS, (Reported) Patient Home Medication List Home Medication List Reviewed: Yes Review of Systems Review of Systems Constitutional: No chills, No diaphoresis EENTM: No Blurred Vision, No Double Vision Respiratory: Denies Cough, Denies Shortness of Air Cardiovascular: Denies Chest Pain, Denies Edema Gastrointestinal: Denies Abdomen Distended, Denies Abdominal Pain; Blood Strea ked Stools; Denies Constipated, Denies Diarrhea Genitourinary: Denies Burning, Denies Discharge Musculoskeletal: No back pain, No joint pain Skin: No pruritus, No rash Psychiatric/Neurological: Denies Headache, Denies Numbness Past Gfjlupq-Vvatwy-Sjhcjw Hx Patient Social History Alcohol Use: Denies Use Recreational Drug Use: No Smoking Status: Never a Smoker Recent Foreign Travel: No Contact w/Someone Who Travel: No Immunizations Up To Date Tetanus Booster (TDap): Unknown PED Vaccines UTD: No Date of Pneumonia Vaccine: Aug 16, 2012 Date of Influenza Vaccine: Mar 18, 2014 Past Medical History Reproductive Disorders: No Sexually Transmitted Disease: No HIV/AIDS: No Physical Exam Vital Signs Vital Signs - First Documented 11/16/18 07:24 Temp 98.4 Pulse 71 Resp 18 B/P (MAP) 201/108 (139) Pulse Ox 93 O2 Delivery Nasal Cannula O2 Flow Rate 2.00 Capillary Refill : Height/Weight/BMI Height: 5'2.00" Weight: 152lbs. 8.0oz. 69.735053zy; BMI Method: General Appearance: WD/WN, no apparent distress HEENT: normal ENT inspection; No pharynx normal Respiratory: lungs clear, normal breath sounds, no respiratory distress (oral pharynx is dry), no accessory muscle use Cardiovascular: normal peripheral pulses, regular rate, rhythm Gastrointestinal: normal bowel sounds, non tender, soft Rectal: normal exam, normal rectal tone, heme negative stool Genital/Rectal: normal genital exam, normal rectal exam, normal vaginal exam, other (normal, closed cervix with friable tissue. No blood in the vaginal vault.) Neurologic/Psychiatric: alert, normal mood/affect, oriented x 3 Skin: normal color, warm/dry Progress/Results/Core Measures Results/Orders Lab Results Laboratory Tests Test 11/16/18 07:40 11/16/18 08:30 Range/Units White Blood Count 5.5 4.3-11.0 10^3/uL Red Blood Count 4.84 4.35-5.85 10^6/uL Hemoglobin 14.6 11.5-16.0 G/DL Hematocrit 45 35-52 % Mean Corpuscular Volume 93 80-99 FL Mean Corpuscular Hemoglobin 30 25-34 PG Mean Corpuscular Hemoglobin Concent 32 32-36 G/DL Red Cell Distribution Width 13.8 10.0-14.5 % Platelet Count 221 130-400 10^3/uL Mean Platelet Volume 8.8 7.4-10.4 FL Sodium Level 147 H 135-145 MMOL/L Potassium Level 3.0 L 3.6-5.0 MMOL/L Chloride Level 103 98-107 MMOL/L Carbon Dioxide Level 32 21-32 MMOL/L Anion Gap 12 5-14 MMOL/L Blood Urea Nitrogen 18 7-18 MG/DL Creatinine 0.95 0.60-1.30 MG/DL Estimat Glomerular Filtration Rate 55 BUN/Creatinine Ratio 19 Glucose Level 94 70-105 MG/DL Calcium Level 9.6 8.5-10.1 MG/DL Corrected Calcium 9.7 8.5-10.1 MG/DL Total Bilirubin 0.4 0.1-1.0 MG/DL Aspartate Amino Transf (AST/SGOT) 19 5-34 U/L Alanine Aminotransferase (ALT/SGPT) 13 0-55 U/L Alkaline Phosphatase 46 40-136 U/L Total Protein 6.3 L 6.4-8.2 GM/DL Albumin 3.9 3.2-4.5 GM/DL Urine Color YELLOW Urine Clarity CLEAR Urine pH 8 5-9 Urine Specific [place] 1.015 L 1.016-1.022 Urine Protein NEGATIVE NEGATIVE Urine Glucose (UA) NEGATIVE NEGATIVE Urine Ketones NEGATIVE NEGATIVE Urine Nitrite NEGATIVE NEGATIVE Urine Bilirubin NEGATIVE NEGATIVE Urine Urobilinogen NORMAL NORMAL MG/DL Urine Leukocyte Esterase 2+ H NEGATIVE Urine RBC (Auto) 2+ H NEGATIVE Urine RBC 0-2 /HPF Urine WBC 2-5 /HPF Urine Squamous Epithelial Cells 2-5 /HPF Urine Crystals NONE /LPF Urine Bacteria FEW H /HPF Urine Casts NONE /LPF Urine Mucus NEGATIVE /LPF Urine Culture Indicated NO Micro Results Microbiology 11/16/18 Wet Prep - Final, Complete My Orders Orders - SONDRA SCHUMACHER Ua Culture If Indicated (11/16/18 07:13) Occult Blood Stool (11/16/18 07:13) Cbc No Diff (11/16/18 07:30) Comprehensive Metabolic Panel (11/16/18 07:30) Iv Heplock-Insert (Order) (11/16/18 07:30) Chest 1 View, Ap/Pa Only (11/16/18 07:30) Wet Prep (11/16/18 07:55) Ed Iv/Invasive Line Start (11/16/18 07:55) Ns Iv 1000 Ml (Sodium Chloride 0.9%) (11/16/18 07:55) Enalapril Tablet (Vasotec Tablet) (11/16/18 08:00) Hydralazine Injection (Apresoline Inject (11/16/18 09:15) Medications Given in ED Current Medications Medications Dose Ordered Sig/Claudia Route Start Time Stop Time Status Last Admin Dose Admin Enalapril Maleate 20 mg ONCE ONCE PO 11/16/18 08:00 11/16/18 08:01 DC 11/16/18 08:07 20 MG Hydralazine HCl 10 mg ONCE ONCE IV 11/16/18 09:15 11/16/18 09:16 DC 11/16/18 09:33 10 MG Vital Signs/I&O 11/16/18 07:24 Temp 98.4 Pulse 71 Resp 18 B/P (MAP) 201/108 (139) Pulse Ox 93 O2 Delivery Nasal Cannula O2 Flow Rate 2.00 Progress Progress Note #1: Time: 08:02 Progress Note Her blood pressure was initially elevated 200/110. She insists that she did take her blood pressure medicine. We will get allowed her to rest and it came down to 160s over 105. We'll give her a dose of enalapril which is what she has schedule d for blood pressure. We'll be rather permissive with her blood pressure. Fecal occult is negative so plan to do a speculum exam wet prep. The patient's unable to give a urine specimen and she appears to be clinically dry so we will give her a liter of saline. Progress Note #2: Time: 09:38 Progress Note Hydralazine 10mg given for elevated asymptomatic HTN. Permissive elevated BP preferred. The monitor is picking up and doubling her HR. Pulse in 60-80 range, regular. Patient without evidence of respiratory distress however her oxygen sats of been with poor waveform in the 80s. She has very thick in the nail qatari. With some effort a forehead probe read in the mid 90s. There is no blood in the vaginal vault, rectal Hemoccult was negative and urine is without bloody appearance. No wound was found on her skin to explain the blood. Suspect food or other substance? The son who accompanies her said he did not see the sheets with the blood on it. Diagnostic Imaging Diagonstic Imaging: Xray Plain Films/CT/US/NM/MRI: chest (1v) Comments NAME: MILO MADDOX MED REC#: [id number] PT STATUS: REG ER : 1930 PHYSICIAN: SONDRA SCHUMACHER MD ADMIT DATE: 11/16/18/ER Draft Date of Exam:11/16/18 CHEST 1 VIEW, AP/PA ONLY Indication: GI bleed. Time of exam 8:10 AM Comparison is made with prior chest from 08/16/2014. Heart size is stable. There is ectasia and tortuosity of the descending thoracic aorta. There appears to be some bibasilar atelectasis or scarring. Otherwise the lungs are clear. No effusion or pneumothorax is seen. Impression: No acute cardiopulmonary process is detected. Dictated on workstation # [id number] Dict: 11/16/18816 Trans: 11/16/18 0827 [facility] [id number] Interpreted by: SARA KEITH MD Electronically signed by: Reviewed: Reviewed by Me Departure Impression Primary Impression: Adult general medical exam Additional Impression: Asymptomatic hypertension Disposition: 01 HOME, SELF-CARE Condition: Stable Departure-Patient Inst. Decision time for Depature: 09:43 Referrals: SUH CID MD (PCP/Family) Primary Care Physician Patient Instructions: Controlling Your Blood Pressure Through Lifestyle Add. Discharge Instructions: We could not find a source for your bleeding today but would recommend you follow-up with primary care have a reexamination in the next 1-2 weeks. All discharge instructions reviewed with patient and/or family. Voiced understanding. SONDRA SCHUMACHER Nov 16, 2018 07:32
--- OUTSIDE RECORDS SUMMARY | 2018-11-16 07:33 | XMS REPORT | CCD ---
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 Name Role Phone Georgia Jackson PP Unavailable CCM Unavailable Summary Purpose Interface Exchange Insurance Providers Payer name Policy type / Coverage type Covered republican ID Effective Begin Date Effective End Date WPS Medicare Part B [id number] 2014 Unknown [employer] [id number] Unknown Family history Brother Diagnosis Age At [...] Description Effective Dates Tobacco history SNOMED CT: 5471979 Former smoker states quit in 2011 or 12 09/18/2013 Marital status Unknown 01/20/2011 Number of children Unknown 2 01/20/2011 Employment Unknown 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, 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 [...] Instructions Myrbetriq 25 mg tablet,extended release RxNorm: 4234821 1 Tablet(s) PO daily 10/13/2016 No Stop Date Active Lexapro 10 mg tablet RxNorm: 543521 1 Tablet(s) PO QPM 09/15/2016 03/13/2017 Active enalapril maleate 20 mg tablet RxNorm: 852362 1 Tablet(s) PO daily TAKE ONE TABLET BY MOUTH DAILY 08/18/2016 02/13/2017 Active Lexapro 5 mg tablet RxNorm: 104056 1 Tablet(s) PO QPM 08/18/2016 09/14/2016 Inactive enalapril maleate 20 mg tablet RxNorm: 697895 TAKE ONE TABLET BY MOUTH DAILY 05/15/2016 08/12/2016 Inactive enalapril maleate 20 mg tablet RxNorm: 372343 1 Tablet(s) PO daily 05/17/2015 05/10/2016 Inactive chlorthalidone 25 mg tablet RxNorm: 940400 1 Tablet(s) PO QAM 08/24/2014 05/18/2016 Inactive [SAVINGS FOR NON-COVERED DRUGS -- BIN:[id number], PCN: [id number], Group: XXXXX, ID# [id number], Questions: . THIS IS NOT INSURANCE.] Lasix 20 mg tablet RxNorm: 405913 1 Tablet(s) PO QDAY PRN 05/25/2014 05/18/2016 Inactive daily x 3 days then as needed, Take potassium with lasix potassium chloride ER 10 mEq tablet,extended release RxNorm: 822532 1 Tablet(s) PO QDAY PRN 05/25/2014 05/18/2016 Inactive take with lasix enalapril maleate 20 mg tablet RxNorm: 382156 1 Tablet(s) PO daily 04/24/2014 04/18/2015 Inactive enalapril maleate 10 mg tablet RxNorm: 459564 TAKE ONE TABLET BY MOUTH EVERY DAY 12/11/2013 04/23/2014 Inactive enalapril maleate 10 mg tablet RxNorm: 564094 1 Tablet(s) PO daily 03/08/2013 12/02/2013 Inactive enalapril maleate 10 mg tablet RxNorm: 357979 1 Tablet(s) PO daily 09/07/2012 03/07/2013 Inactive enalapril maleate 10 mg tablet RxNorm: 600554 1 Tablet(s) PO daily 05/25/2012 09/06/2012 Inactive enalapril maleate 5 mg tablet RxNorm: 666222 1/2 Tablet(s) PO BID 01/01/2012 05/24/2012 Inactive enalapril maleate 5 mg tablet RxNorm: 992202 1/2 Tablet(s) PO BID 10/02/2011 12/31/2011 Inactive Fish Oil 1,000 mg Cap RxNorm: 3 Capsule(s) PO daily 09/23/2011 No Stop Date Active enalapril maleate 5 mg Tab RxNorm: 205802 1/2 Tablet(s) PO BID 06/29/2011 10/01/2011 Inactive Influenza Virus Vaccine 0.5 mL RxNorm: IM 01/13/2011 01/13/2011 Inactive Pneumovax 23 25 mcg/0.5 mL Injection RxNorm: 650189 Milliliter(s) Inj 01/13/2011 01/13/2011 Inactive Veramyst 27.5 mcg/Actuation Nasal [place] RxNorm: 3272405 1 [place] NASAL daily No Start Date Active multivitamin Oral RxNorm: Oral No Start Date Active Calcium + D Oral RxNorm: Oral No Start Date Active enalapril maleate 5 mg Tab RxNorm: 403865 1/2 Tablet(s) PO BID No Start Date 06/28/2011 Inactive niacin 500 mg Tab RxNorm: 230692 1 Tablet(s) PO QHS No Start Date 05/18/2016 Inactive Reclast 5 mg/100 mL IV RxNorm: 069418 1 Milliliter(s) IV Yearly No Start Date 05/18/2016 Inactive Fish Oil 1,000 mg Cap RxNorm: Oral No Start Date 09/22/2011 Inactive Medication Administered Medication Codes Instructions Start Date Status Influenza Virus Vaccine 0.5 mL RxNorm: 01/13/2011 No longer Active Pneumovax 23 25 mcg/0.5 mL Injection RxNorm: 966903 Milliliter 01/13/2011 No longer Active Immunizations Vaccine [...] 26.0 % 08/18/2016 Cbc With Differential Ord2 [place]% 8.5 % 08/18/2016 Cbc With Differential Ord2 [...] 1.61 K/ul 08/18/2016 Cbc With Differential Ord2 [place] ABS# 0.5 K/ul 08/18/2016 Cbc With Differential Ord2 Eos ABS# 0.3 K/ul 08/18/2016 Cbc With Differential Ord2 Baso ABS# 0.1 K/ul 08/18/2016 Comp Metabolic Tlr609 NA 143 mEq/L 08/18/2016 Comp Metabolic Xnq781 K 4.3 mEq/L 08/18/2016 Comp Metabolic Aip523 CL 105 mEq/L 08/18/2016 Comp Metabolic Ybs346 CO2 28.0 mEq/L 08/18/2016 Comp Metabolic Ztn173 ANION GAP 14 08/18/2016 Comp Metabolic Klr817 GLUCOSE 77 mg/dL 08/18/2016 Comp Metabolic Asa733 Creat 0.9 mg/dL 08/18/2016 Comp Metabolic Ixb280 eGFR 67 ml/min/1.73m2 08/18/2016 Comp Metabolic Ncv805 BUN 21 mg/dL 08/18/2016 Comp Metabolic Qkp516 B/C Ratio 24.7 Ratio 08/18/2016 Comp Metabolic Stw559 CALCIUM 9.0 mg/dL 08/18/2016 Comp Metabolic Bdw254 ALK PHOS 56 U/L 08/18/2016 Comp Metabolic Zux470 AST(SGOT) 18 U/L 08/18/2016 Comp Metabolic Pya533 ALT(SGPT) 11 U/L 08/18/2016 Comp Metabolic Pjh416 BILI T 0.4 mg/dL 08/18/2016 Comp Metabolic Ypq480 ALBUMIN 3.9 g/dL 08/18/2016 Comp Metabolic Nlo661 TPRO 6.4 g/dL 08/18/2016 Comp Metabolic Eob752 GLOB 2.5 g/dL 08/18/2016 Comp Metabolic Ylj421 A/G Ratio 1.6 Ratio 08/18/2016 Comp Metabolic Wcm205 Osmo 287 mOsmo 08/18/2016 Lipid Ord30 CHOL 183 mg/dL 08/18/2016 Lipid Ord30 HDL 46.0 mg/dl 08/18/2016 Lipid Ord30 TRIG 129 mg/dL 08/18/2016 Lipid Ord30 LDL 111 mg/dL 08/18/2016 Lipid Ord30 C/HDL 4.0 Ratio 08/18/2016 Tsh Ord6 hTSH II 0.70 uIU/mL 08/18/2016 Comp Metabolic Lye190 NA 141 mEq/L 05/20/2016 Comp Metabolic Irr860 K 4.3 mEq/L 05/20/2016 Comp Metabolic Aje280 CL 103 mEq/L 05/20/2016 Comp Metabolic Yzj979 CO2 31.0 mEq/L 05/20/2016 Comp Metabolic Xkp729 ANION GAP 11 05/20/2016 Comp Metabolic Hzc135 GLUCOSE 93 mg/dL 05/20/2016 Comp Metabolic Bgi942 Creat 1.0 mg/dL 05/20/2016 Comp Metabolic Xej896 eGFR 57 ml/min/1.73m2 05/20/2016 Comp Metabolic Rhp717 BUN 16 mg/dL 05/20/2016 Comp Metabolic Pym324 B/C Ratio 16.3 Ratio 05/20/2016 Comp Metabolic Lis951 CALCIUM 10.1 mg/dL 05/20/2016 Comp Metabolic Iju102 ALK PHOS 49 U/L 05/20/2016 Comp Metabolic Jte718 AST(SGOT) 17 U/L 05/20/2016 Comp Metabolic Pjk544 ALT(SGPT) 11 U/L 05/20/2016 Comp Metabolic Jjg366 BILI T 0.3 mg/dL 05/20/2016 Comp Metabolic Pve597 ALBUMIN 4.4 g/dL 05/20/2016 Comp Metabolic Lpt865 TPRO 6.8 g/dL 05/20/2016 Comp Metabolic Drd755 GLOB 2.4 g/dL 05/20/2016 Comp Metabolic Gpj006 A/G Ratio 1.8 Ratio 05/20/2016 Comp Metabolic Odd109 Osmo 282 mOsmo 05/20/2016 Cbc With Differential [...] 38.3 % 05/20/2016 Cbc With Differential Ord2 [place]% 7.8 % 05/20/2016 Cbc With Differential Ord2 [...] 2.45 K/ul 05/20/2016 Cbc With Differential Ord2 [place] ABS# 0.5 K/ul 05/20/2016 Cbc With Differential Ord2 Eos ABS# 0.3 K/ul 05/20/2016 Cbc With Differential Ord2 Baso ABS# 0.1 K/ul 05/20/2016 Tsh Ord6 hTSH II 0.80 uIU/mL 05/20/2016 GFR CALC 8440784 GFR AA >60 ML/MIN 07/24/2014 GFR CALC 2148567 GFR NON-AA >60 ML/MIN 07/24/2014 TSH 1082565 TSH 0.192 uIU/ML 07/24/2014 CBC 3148019 WBC 6.4 10e9/L 07/24/2014 CBC 5808015 RBC 4.61 10e12/L 07/24/2014 CBC 8568120 HGB 13.7 g/dL 07/24/2014 CBC 4836948 HCT DET 42.6 % 07/24/2014 CBC 7583984 MCV 92.4 fL 07/24/2014 CBC 6667436 MCH 29.7 pg 07/24/2014 CBC 9257949 MCHC 32.2 g/dL 07/24/2014 CBC 6247640 PLT 280 10e9/L 07/24/2014 CBC 0152065 MPV 8.9 fL 07/24/2014 CBC 4300741 A[place] % 59.5 % 07/24/2014 CBC 5734481 LY % 30.6 % 07/24/2014 CBC 5637194 MON % 5.9 % 07/24/2014 CBC 9822332 EOS % 3.4 % 07/24/2014 CBC 9148858 BASO % 0.6 % 07/24/2014 CBC 8467935 RDW 14.8 % 07/24/2014 CBC 1832082 ABS AISSATOU 3.81 10e9/L 07/24/2014 CBC 8293683 ABS LYMPH 1.96 10e9/L 07/24/2014 CBC 0073212 ABS MONO 0.38 10e9/L 07/24/2014 CBC 7752152 ABS EOS 0.22 10e9/L 07/24/2014 CBC 2850598 ABS BASO 0.04 10e9/L 07/24/2014 CBC 2861222 RDW-SD 48.9 fL 07/24/2014 CHEM 14 8950426 AST 17 U/L 07/24/2014 CHEM 14 7805765 ALT 11 IU/L 07/24/2014 CHEM 14 9978348 BUN 13 MG/DL 07/24/2014 CHEM 14 9604369 ALBUMIN 4.2 GM/DL 07/24/2014 CHEM 14 2828724 CHLORIDE 104 MMOL/L 07/24/2014 CHEM 14 1076957 BILI TOT 0.6 MG/DL 07/24/2014 CHEM 14 4629966 ALK PHOS 52 U/L 07/24/2014 CHEM 14 5885889 SODIUM 141 MMOL/L 07/24/2014 CHEM 14 6862654 CREATININE 0.87 MG/DL 07/24/2014 CHEM 14 9308020 CALCIUM 9.1 MG/DL 07/24/2014 CHEM 14 4901121 POTASSIUM 4.1 MMOL/L 07/24/2014 CHEM 14 2940323 PROT TOT 6.4 GM/DL 07/24/2014 CHEM 14 6883179 GLUCOSE 100 MG/DL 07/24/2014 CHEM 14 1169460 BICARB 27 MMOL/L 07/24/2014 CHEM 14 9918319 ANION GAP 10 MEQ/L 07/24/2014 FREE T4 5504306 FREE T4 1.08 NG/DL 09/20/2013 T3 TOT 8289299 T3 TOT 1.1 NG/ML 09/20/2013 CHEM 14 7176206 AST 20 U/L 09/18/2013 CHEM 14 3055424 ALT 17 IU/L 09/18/2013 CHEM 14 2668941 BUN 18 MG/DL 09/18/2013 CHEM 14 9134668 ALBUMIN 4.4 GM/DL 09/18/2013 CHEM 14 8024944 CHLORIDE 106 MMOL/L 09/18/2013 CHEM 14 8494818 BILI TOT 0.4 MG/DL 09/18/2013 CHEM 14 1798334 ALK PHOS 50 U/L 09/18/2013 CHEM 14 9929569 SODIUM 142 MMOL/L 09/18/2013 CHEM 14 7034616 CREATININE 0.92 MG/DL 09/18/2013 CHEM 14 5149948 CALCIUM 9.3 MG/DL 09/18/2013 CHEM 14 6619135 POTASSIUM 4.1 MMOL/L 09/18/2013 CHEM 14 1378647 PROT TOT 6.5 GM/DL 09/18/2013 CHEM 14 0489574 GLUCOSE 98 MG/DL 09/18/2013 CHEM 14 3420846 BICARB 27 MMOL/L 09/18/2013 CHEM 14 2015954 ANION GAP 9 MEQ/L 09/18/2013 TSH 3571702 TSH 0.209 uIU/ML 09/18/2013 CBC 0240086 WBC 7.1 10e9/L 09/18/2013 CBC 2781491 RBC 4.59 10e12/L 09/18/2013 CBC 2865589 HGB 14.1 g/dL 09/18/2013 CBC 0042642 HCT DET 43.3 % 09/18/2013 CBC 5435442 MCV 94.3 fL 09/18/2013 CBC 8264860 MCH 30.7 pg 09/18/2013 CBC 8635666 MCHC 32.6 g/dL 09/18/2013 CBC 3793603 PLT 274 10e9/L 09/18/2013 CBC 3103846 MPV 9.1 fL 09/18/2013 CBC 1822466 AISSAOTU % 60.9 % 09/18/2013 CBC 2372067 LY % 29.2 % 09/18/2013 CBC 8388516 MON % 6.1 % 09/18/2013 CBC 2046941 EOS % 3.2 % 09/18/2013 CBC 8784493 BASO % 0.6 % 09/18/2013 CBC 8777106 RDW 13.8 % 09/18/2013 CBC 1842505 ABS AISSATOU 4.32 10e9/L 09/18/2013 CBC 4574150 ABS LYMPH 2.07 10e9/L 09/18/2013 CBC 8379061 ABS MONO 0.43 10e9/L 09/18/2013 CBC 8292574 ABS EOS 0.23 10e9/L 09/18/2013 CBC 2109287 ABS BASO 0.04 10e9/L 09/18/2013 CBC 1115352 RDW-SD 46.0 fL 09/18/2013 LIPID GRP HDL TEST 70 MG/DL 09/18/2013 LIPID GRP TRIG 114 MG/DL 09/18/2013 LIPID GRP TEST LDL 198 MG/DL 09/18/2013 LIPID GRP CHOL 291 MG/DL 09/18/2013 LIPID GRP RCHOL/HDL 4.16 RATIO 09/18/2013 GFR CALC 4270819 GFR AA >60 ML/MIN 09/18/2013 GFR CALC 9607296 GFR NON-AA 58.0L ML/MIN 09/18/2013 FREE T4 1845630 FREE T4 1.05 NG/DL 03/22/2013 T3 TOT 1988128 T3 TOT 0.9 NG/ML 03/22/2013 CHEM 14 8010988 AST 18 U/L 03/20/2013 CHEM 14 4075034 ALT 13 IU/L 03/20/2013 CHEM 14 5021297 BUN 25 MG/DL 03/20/2013 CHEM 14 6329164 ALBUMIN 4.4 GM/DL 03/20/2013 CHEM 14 5923648 CHLORIDE 105 MMOL/L 03/20/2013 CHEM 14 8310984 BILI TOT 0.4 MG/DL 03/20/2013 CHEM 14 8536520 ALK PHOS 40 U/L 03/20/2013 CHEM 14 4735731 SODIUM 141 MMOL/L 03/20/2013 CHEM 14 3406902 CREATININE 0.95 MG/DL 03/20/2013 CHEM 14 2390856 CALCIUM 9.8 MG/DL 03/20/2013 CHEM 14 5721402 POTASSIUM 4.1 MMOL/L 03/20/2013 CHEM 14 5842755 PROT TOT 6.2 GM/DL 03/20/2013 CHEM 14 7888656 GLUCOSE 89 MG/DL 03/20/2013 CHEM 14 4404861 BICARB 29 MMOL/L 03/20/2013 CHEM 14 3163051 ANION GAP 7 MEQ/L 03/20/2013 TSH 7855104 TSH 0.228 uIU/ML 03/20/2013 GFR CALC 9558424 GFR AA >60 ML/MIN 03/20/2013 GFR CALC 8946907 GFR NON-AA 56.0L ML/MIN 03/20/2013 CBC 9324404 WBC 6.8 10e9/L 03/20/2013 CBC 8654888 RBC 4.58 10e12/L 03/20/2013 CBC 6423081 HGB 14.1 g/dL 03/20/2013 CBC 9846484 HCT DET 43.1 % 03/20/2013 CBC 6182807 MCV 94.1 fL 03/20/2013 CBC 1847788 MCH 30.8 pg 03/20/2013 CBC 7448243 MCHC 32.7 g/dL 03/20/2013 CBC 0483133 PLT 294 10e9/L 03/20/2013 CBC 9424290 MPV 9.4 fL 03/20/2013 CBC 7714205 AISS[place] % 50.3 % 03/20/2013 CBC 2123312 LY % 35.9 % 03/20/2013 CBC 6199165 MON % 7.3 % 03/20/2013 CBC 6787313 EOS % 5.8 % 03/20/2013 CBC 0665910 BASO % 0.7 % 03/20/2013 CBC 3923367 RDW 14.5 % 03/20/2013 CBC 1984303 ABS AISSATOU 3.42 10e9/L 03/20/2013 CBC 2858474 ABS LYMPH 2.44 10e9/L 03/20/2013 CBC 3018683 ABS MONO 0.50 10e9/L 03/20/2013 CBC 2997696 ABS EOS 0.39 10e9/L 03/20/2013 CBC 9628700 ABS BASO 0.05 10e9/L 03/20/2013 CBC 6112568 RDW-SD 48.2 fL 03/20/2013 LIPID GRP HDL TEST 71 MG/DL 03/20/2013 LIPID GRP TRIG 87 MG/DL 03/20/2013 LIPID GRP TEST LDL 168 MG/DL 03/20/2013 LIPID GRP CHOL 256 MG/DL 03/20/2013 LIPID GRP 8942428 RCHOL/HDL 3.61 RATIO 03/20/2013 FREE T4 5082419 FREE T4 1.09 NG/DL 05/31/2012 T3 TOT 3762968 T3 TOT 0.9 NG/ML 05/31/2012 CBC 3236342 WBC 7.1 10e9/L 05/27/2012 CBC 9183717 RBC 4.58 10e12/L 05/27/2012 CBC 6217131 HGB 14.4 g/dL 05/27/2012 CBC 8877208 HCT DET 43.5 % 05/27/2012 CBC 0892149 MCV 95.0 fL 05/27/2012 CBC 0511575 MCH 31.4 pg 05/27/2012 CBC 9349372 MCHC 33.1 g/dL 05/27/2012 CBC 8279218 PLT 285 10e9/L 05/27/2012 CBC 2130989 MPV 9.2 fL 05/27/2012 CBC 2125063 [place] % 61.2 % 05/27/2012 CBC 0742833 LY % 27.5 % 05/27/2012 CBC 6950088 MON % 6.8 % 05/27/2012 CBC 4832141 EOS % 3.8 % 05/27/2012 CBC 9678777 BASO % 0.7 % 05/27/2012 CBC 7412025 RDW 14.1 % 05/27/2012 CBC 8408896 ABS AISSATOU 4.35 10e9/L 05/27/2012 CBC 3506768 ABS LYMPH 1.95 10e9/L 05/27/2012 CBC 4916780 ABS MONO 0.48 10e9/L 05/27/2012 CBC 3724255 ABS EOS 0.27 10e9/L 05/27/2012 CBC 6698898 ABS BASO 0.05 10e9/L 05/27/2012 CBC 4163353 RDW-SD 47.2 fL 05/27/2012 LIPID GRP HDL TEST 57 MG/DL 05/27/2012 LIPID GRP TRIG 110 MG/DL 05/27/2012 LIPID GRP TEST LDL 156 MG/DL 05/27/2012 LIPID GRP CHOL 235 MG/DL 05/27/2012 LIPID GRP RCHOL/HDL 4.12 RATIO 05/27/2012 CHEM 14 20271105 AST 19 U/L 05/27/2012 CHEM 14 20271105 ALT 13 IU/L 05/27/2012 CHEM 14 5982067 BUN 19 MG/DL 05/27/2012 CHEM 14 6108137 ALBUMIN 4.7 GM/DL 05/27/2012 CHEM 14 7625318 CHLORIDE 106 MMOL/L 05/27/2012 CHEM 14 4489466 BILI TOT 0.5 MG/DL 05/27/2012 CHEM 14 1394900 ALK PHOS 51 U/L 05/27/2012 CHEM 14 1743826 SODIUM 141 MMOL/L 05/27/2012 CHEM 14 7865095 CREATININE 0.85 MG/DL 05/27/2012 CHEM 14 1389975 CALCIUM 9.4 MG/DL 05/27/2012 CHEM 14 2778513 POTASSIUM 4.0 MMOL/L 05/27/2012 CHEM 14 0135859 PROT TOT 6.7 GM/DL 05/27/2012 CHEM 14 8074587 GLUCOSE 101 MG/DL 05/27/2012 CHEM 14 0214388 BICARB 29 MMOL/L 05/27/2012 CHEM 14 8678753 ANION GAP 6 MEQ/L 05/27/2012 TSH 2264727 TSH 0.275 uIU/ML 05/27/2012 GFR CALC 3085055 GFR AA >60 ML/MIN 05/27/2012 GFR CALC 6171953 GFR NON-AA >60 ML/MIN 05/27/2012 CHEM 14 8533827 AST 18 U/L 09/21/2011 CHEM 14 3891968 ALT 11 IU/L 09/21/2011 CHEM 14 0369827 BUN 18 MG/DL 09/21/2011 CHEM 14 0785151 ALBUMIN 4.3 GM/DL 09/21/2011 CHEM 14 1266420 CHLORIDE 102 MMOL/L 09/21/2011 CHEM 14 5290813 BILI TOT 0.4 MG/DL 09/21/2011 CHEM 14 7532866 ALK PHOS 47 U/L 09/21/2011 CHEM 14 5744197 SODIUM 139 MMOL/L 09/21/2011 CHEM 14 6835865 CREATININE 0.92 MG/DL 09/21/2011 CHEM 14 0590545 CALCIUM 9.2 MG/DL 09/21/2011 CHEM 14 6386668 POTASSIUM 4.1 MMOL/L 09/21/2011 CHEM 14 9219476 PROT TOT 6.4 GM/DL 09/21/2011 CHEM 14 6570053 GLUCOSE 89 MG/DL 09/21/2011 CHEM 14 7150526 BICARB 28 MMOL/L 09/21/2011 CHEM 14 0164554 ANION GAP 9 MEQ/L 09/21/2011 TSH 0444931 TSH 0.352 uIU/ML 09/21/2011 GFR CALC 3201091 GFR AA >60 ML/MIN 09/21/2011 GFR CALC 4353539 GFR NON-AA 58.0L ML/MIN 09/21/2011 LIPID GRP HDL TEST 54 MG/DL 09/21/2011 LIPID GRP TRIG 81 MG/DL 09/21/2011 LIPID GRP TEST LDL 154 MG/DL 09/21/2011 LIPID GRP CHOL 224 MG/DL 09/21/2011 LIPID GRP RCHOL/HDL 4.15 RATIO 09/21/2011 CBC 0410701 WBC 9.6 10e9/L 09/21/2011 CBC 3154869 RBC 4.85 10e12/L 09/21/2011 CBC 1471568 HGB 15.0 g/dL 09/21/2011 CBC 1536960 HCT DET 46.5 % 09/21/2011 CBC 3480900 MCV 95.9 fL 09/21/2011 CBC 4287249 MCH 30.9 pg 09/21/2011 CBC 3079156 MCHC 32.3 g/dL 09/21/2011 CBC 3770885 PLT 279 10e9/L 09/21/2011 CBC 8418673 MPV 9.1 fL 09/21/2011 CBC 3988775 A[place] % 63.4 % 09/21/2011 CBC 0603708 LY % 26.1 % 09/21/2011 CBC 4430512 MON % 5.6 % 09/21/2011 CBC 6633330 EOS % 4.4 % 09/21/2011 CBC 8086009 BASO % 0.5 % 09/21/2011 CBC 1966605 RDW 14.0 % 09/21/2011 CBC 7014460 ABS AISSATOU 6.09 10e9/L 09/21/2011 CBC 4196242 ABS LYMPH 2.51 10e9/L 09/21/2011 CBC 4056492 ABS MONO 0.54 10e9/L 09/21/2011 CBC 6181018 ABS EOS 0.42 10e9/L 09/21/2011 CBC 5111276 ABS BASO 0.05 10e9/L 09/21/2011 CBC 0552626 RDW-SD 47.9 fL 09/21/2011 Review of Systems [...] Procedures Procedure Codes Date ROUTINE VENIPUNCTURE CPT-4: 26576Hxzuzrw 07/24/2014 ADMIN INFLUENZA VIRUS VAC CPT-4: U2629Muszvkl 01/22/2014 FLU VAC NO PRSV 4 LISSA 3 YRS+ Assigned to/Earle Laura CPT-4: 52063Jtimriw 01/22/2014 ROUTINE VENIPUNCTURE CPT-4: 54889Auycxhp 09/18/2013 ROUTINE VENIPUNCTURE CPT-4: 80988Vfyahfc 03/20/2013 ROUTINE VENIPUNCTURE CPT-4: 28937Xdrfpla 05/27/2012 ROUTINE VENIPUNCTURE CPT-4: 03444Bzxbkzy 09/21/2011 ROUTINE VENIPUNCTURE CPT-4: 20474Lsuflpr 01/13/2011 Pneumococcal Polysaccharide Vaccine, 23-Valent, Ad CPT-4: 09618Qtwntms 01/13/2011 ADMIN INFLUENZA VIRUS VAC CPT-4: C8363Aeaywcg 01/13/2011 ADMIN PNEUMOCOCCAL VACCINE SNOMED CT: 09957475 CPT-4: V5208Pagnixc 01/13/2011 FLULAVAL VACC, 3 YRS & >, IM CPT-4: Q1330Eibtyhd 01/13/2011 Vital Signs Date Vital 10/13/2016 Blood Pressure 1: 142/86 Code: 8480-6 Blood Pressure 1: 170/96 Code: 8480-6 BMI: 23.0 Code: 63095-4 Heart Rate 1: 74 bpm Height: 5'5" SpO2: 90% Weight: 138 lbs 09/15/2016 Blood Pressure 1: 118/78 Code: 8480-6 Heart Rate 1: 82 bpm SpO2: 90% Weight: 141 lbs 08/18/2016 Blood Pressure 1: 142/82 Code: 8480-6 BMI: 24.1 Code: 25374-7 Heart Rate 1: 72 bpm Height: 5'5" SpO2: 91% Weight: 145 lbs 06/23/2016 Blood Pressure 1: 148/86 Code: 8480-6 BMI: 24.1 Code: 01275-3 Heart Rate 1: 70 bpm Height: 5'5" SpO2: 90% Weight: 145 lbs 05/19/2016 Blood Pressure 1: 162/76 Code: 8480-6 BMI: 24.3 Code: 75057-0 Heart Rate 1: 76 bpm Height: 5'5" Weight: 146 lbs 09/14/2014 Blood Pressure 1: 102/80 Code: 8480-6 BMI: 27.7 Code: 92360-4 Heart Rate 1: 90 bpm Height: 5' SpO2: 94% Weight: 144 lbs 08/24/2014 Blood Pressure 1: 122/92 Code: 8480-6 BMI: 28.4 Code: 00325-9 Heart Rate 1: 74 bpm Height: 5' SpO2: 94% Weight: 148 lbs 07/24/2014 Blood Pressure 1: 142/86 Code: 8480-6 BMI: 28.8 Code: 22832-7 Heart Rate 1: 88 bpm Height: 5' Weight: 150 lbs 05/25/2014 Blood Pressure 1: 136/88 Code: 8480-6 BMI: 28.8 Code: 51970-4 Heart Rate 1: 82 bpm Height: 5' Weight: 150 lbs 04/24/2014 Blood Pressure 1: 150/78 Code: 8480-6 BMI: 29.6 Code: 18579-4 Heart Rate 1: 60 bpm Height: 5' Weight: 154 lbs 01/22/2014 Blood Pressure 1: 140/78 Code: 8480-6 BMI: 29.6 Code: 56963-7 Heart Rate 1: 78 bpm Height: 5' SpO2: 90% Weight: 154 lbs 09/18/2013 Blood Pressure 1: 128/84 Code: 8480-6 BMI: 29.4 Code: 63250-1 Heart Rate 1: 80 bpm Height: 5' Weight: 153 lbs 03/20/2013 Blood Pressure 1: 122/80 Code: 8480-6 BMI: 29.0 Code: 79642-6 Heart Rate 1: 76 bpm Height: 5' Weight: 151 lbs 05/25/2012 Blood Pressure 1: 140/92 Code: 8480-6 BMI: 26.3 Code: 15048-2 Heart Rate 1: 88 bpm Height: 5' Weight: 137 lbs 09/17/2011 Blood Pressure 1: 128/78 Code: 8480-6 Heart Rate 1: 76 bpm Respiratory Rate: 24 bpm Weight: 137 lbs 05/21/2011 Blood Pressure 1: 114/72 Code: 8480-6 BMI: 27.1 Code: 36128-0 Heart Rate 1: 68 bpm Height: 5' [...] 05/21/2011 states she has been going to [place] to have the toxins removed from her feet cholesterol followup Quality increased cholesterol 01/20/2011 pt had labs 01/13/11; Dr. Jackson recommended to increase niacin to 1000 mg daily and increase fish oil to 1000mg tid Advance Directives No Advance Directive data Encounters Encounter Performer Location Codes Date ([id number]) [id number] EST. PATIENT, LEVEL IV Diagnosis: Essential (primary) hypertension[ICD10: I10] Diagnosis: Unsteadiness on feet[ICD10: R26.81] Diagnosis: Abnormal weight loss[ICD10: R63.4] Diagnosis: Mixed incontinence[ICD10: N39.46] Brigitte Jackson MD, [facility] CPT- 4: 56872 10/13/2016 [id number] [phone] EST. PATIENT, LEVEL IV Diagnosis: Essential (primary) hypertension[ICD10: I10] Diagnosis: Major depressive disorder, recurrent, moderate[ICD10: F33.1] Diagnosis: Unsteadiness on feet[ICD10: R26.81] [facility] CPT-4: 01988 09/15/2016 [id number] EST. PATIENT, LEVEL IV Diagnosis: Essential (primary) hypertension[ICD10: I10] Diagnosis: Mixed hyperlipidemia[ICD10: E78.2] Diagnosis: Major depressive disorder, recurrent, moderate[ICD10: F33.1] Diagnosis: Unsteadiness on feet[ICD10: R26.81] Brigitte Jackson MD, [facility] CPT-4: 89697 08/18/2016 ([id number]) 15842 EST. PATIENT, LEVEL III Diagnosis: Essential (primary) hypertension[ICD10: I10] Brigitte Jackson MD, [facility] CPT-4: 84376 06/23/2016 ([id number]) 71999 EST. 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 PATIENT, LEVEL III Diagnosis: ESSENTIAL HYPERTENSION[ICD9: 401.9] Diagnosis: EDEMA[ICD9: 782.3] Brigitte Jackson MD, [facility] CPT-4: 39932 09/14/2014 ([id number]) 85773 EST. PATIENT, LEVEL III Diagnosis: ESSENTIAL HYPERTENSION[ICD9: 401.9] Diagnosis: EDEMA[ICD9: 782.3] Georgia Jackson MD, [facility] CPT-4: 25012 08/24/2014 ([id number]) 64938 EST. PATIENT, LEVEL IV Diagnosis: Peripheral vascular disease[ICD9: 443.9] Diagnosis: ESSENTIAL HYPERTENSION[ICD9: 401.9] Diagnosis: Chronic fatigue[ICD9: 780.79] Diagnosis: Ataxia[ICD9: 781.3] Georgia Jackson MD, [facility] CPT-4: 32382 07/24/2014 ([id number]) 62692 EST. PATIENT, LEVEL III Diagnosis: ESSENTIAL HYPERTENSION[ICD9: 401.9] Diagnosis: EDEMA[ICD9: 782.3] Georgia Jackson MD, [facility] CPT-4: 26721 05/25/2014 ([id number]) 79959 EST. PATIENT, LEVEL IV Diagnosis: ESSENTIAL HYPERTENSION[ICD9: 401.9] Diagnosis: Ataxia[ICD9: 781.3] Diagnosis: HYPERLIPIDEMIA[ICD9: 272.4] Diagnosis: THYROTOXICOSIS NOS W/O CRISIS[ICD9: 242.90] Georgia Jackson MD, [facility] CPT-4: 11507 04/24/2014 ([id number]) 55554 EST. PATIENT, LEVEL IV Diagnosis: ESSENTIAL HYPERTENSION[ICD9: 401.9] Diagnosis: HYPERLIPIDEMIA[ICD9: 272.4] Diagnosis: VACCIN FOR INFLUENZA[ICD10: Z23] Georgia Jackson MD, [facility] CPT-4: 75630 01/22/2014 ([id number]) 90892 EST. PATIENT, LEVEL IV Diagnosis: ESSENTIAL HYPERTENSION[SNOMED: 98403487] Diagnosis: MALAISE AND FATIGUE[ICD9: 780.79] Diagnosis: LACK OF COORDINATION[ICD9: 781.3] Diagnosis: HYPERLIPIDEMIA[ICD9: 272.4] Diagnosis: THYROTOXICOSIS NOS W/O CRISIS[ICD9: 242.90] Georgia Jackson MD, [facility] CPT-4: 97741 09/18/2013 ([id number]) 48768 EST. PATIENT, LEVEL IV Diagnosis: ESSENTIAL HYPERTENSION[SNOMED: 14920571] Diagnosis: LACK OF COORDINATION[ICD9: 781.3] Diagnosis: PERIPH VASCULAR DIS[ICD9: 443.9] Diagnosis: ENCNTR LONG-RX USE NEC[ICD9: V58.69] Georgia Jackson MD, [facility] CPT- 4: 39101 03/20/2013 ([id number]) 62409 EST. PATIENT, LEVEL IV Diagnosis: ESSENTIAL HYPERTENSION[SNOMED: 18944933] Diagnosis: HYPERLIPIDEMIA[ICD9: 272.4] Diagnosis: LACK OF COORDINATION[ICD9: 781.3] Diagnosis: TOBACCO USE DISORDER[ICD9: 305.1] Georgia Jackson MD, [facility] CPT- 4: 19848 05/25/2012 ([id number]) 91582 EST. PATIENT, LEVEL IV Diagnosis: ESSENTIAL HYPERTENSION[SNOMED: 06749292] Diagnosis: TOBACCO USE DISORDER[ICD9: 305.1] Diagnosis: HYPERLIPIDEMIA[ICD9: 272.4] Diagnosis: Varicose vein of leg[ICD9: 454.9] Diagnosis: Leg pain, posterior[ICD9: 729.5] Diagnosis: Intermittent claudication[ICD9: 443.9] [facility] CPT-4: 08298 09/17/2011 ([id number]) 83334 EST. PATIENT, LEVEL IV Diagnosis: ESSENTIAL HYPERTENSION[SNOMED: 53928667] Diagnosis: LACK OF COORDINATION[ICD9: 781.3] Diagnosis: TOBACCO USE DISORDER[ICD9: 305.1] [facility] CPT- 4: 26580 05/21/2011 [id number] EST. PATIENT, LEVEL IV Diagnosis: ESSENTIAL HYPERTENSION[SNOMED: 96131200] Diagnosis: HYPERLIPIDEMIA[ICD9: 272.4] Diagnosis: Ataxia[ICD9: 781.3] [facility] CPT-4: 78055 01/20/2011 Plan of Care Planned Activity Notes Codes Status Date Visit Plan: Hypertension - well controlled - continue with current medications, continue with no added salt diet. Pt has been encouraged to exercise daily.The pt has been advised to call the office if there are any acute concerns about change in blood pressure readings at home.Gait [id number] PT-patient refuses-also recommend patient use a walker at all times Weight loss-recommend patient increase intake Mixed urinary incontinence-samples of myrebetriq provided and instructed on use 10/13/2016 Patient Education: Patient Medication Summary Completed 10/13/2016 Visit Plan: Hypertension - well controlled - continue with current medications, continue with no added salt diet. Pt has been encouraged to exercise daily.The pt has been advised to call the office if there are any acute concerns about change in blood pressure readings at home.Rxrpenqmut-wriatli-lxmexsto lexapro to 10mg daily-repeat in 1 month Gait instability-again recommend patient use walker 09/15/2016 Appointment: Brigitte Vann WPtel: [address] [place], [place] [phone] (15 min) Moderate 09/15/2016 Patient Education: Patient [...] refuses at this time. 08/18/2016 Appointment: Brigitte Vannl: [phone] [phone] (15 min) Moderate 08/18/2016 Patient Education: Patient Medication Summary Completed 08/18/2016 Visit Plan: Hypertension - well controlled - continue with current medications, continue with no added salt diet. Pt has been encouraged to exercise daily.The pt has been advised to call the office if there are any acute concerns about change in blood pressure readings at home. 06/23/2016 Appointment: Brigitte Vannl: [phone] [phone] (30 min) Complex 06/23/2016 Patient Education: Patient [...] Dr Esqueda for evaluation 05/19/2016 [facility]ment[phone] (30 min) Complex 05/19/2016 Patient Education: Patient Medication Summary Completed 05/19/2016 Care Plan: Referral Order Dr Yin LUNA- CT : [phone] Pending 05/19/2016 Visit Plan: Hypertension - well controlled - continue with current medications, continue with no added salt diet. Pt has been encouraged to exercise daily.The pt has been advised to call the office if there are any acute concerns about change in blood pressure readings at home.Nhqgd-uvzfjjkx-ug change in treatment 09/14/2014 Appointment: Follow up [...] 2 weeks. 08/24/2014 Appointment: Georgia Jackson [facility]Ptel[facility] [facility] follow up 08/24/2014 Patient Education: Patient [...] at home. 07/24/2014 Appointment: Georgia Jackson WPtel: [facility] Follow up 07/24/2014 Patient Education: Patient Medication Summary Completed 07/24/2014 Patient Education: Hypertension Completed 07/24/2014 Care Plan: Referral Order SNOMED-CT : [id number] Ordered 07/24/2014 Visit Plan: Hypertension - well [...] peripheral edema. 05/25/2014 Appointment: Brig[facility]el[phone] Follow up 05/25/2014 Patient Education: Patient [...] is normalized. 04/24/2014 Appointment: Georgia Jackson WPtel: [address] [facility] Follow up 04/24/2014 Patient Education: Patient [...] to medications. 01/22/2014 Appointment: Georgia Jackson WPtel: [address] [facility] Follow up 01/22/2014 Patient Education: Patient Medication [...] strengthening exercise. 09/18/2013 Appointment: Georgia Jackson WPtel: [phone] [facility] Follow up 09/18/2013 Patient Education: Patient Medication [...] year. 03/20/2013 Appointment: [facility]Ptel[phone] Follow up 03/20/2013 Patient Education: Patient Medication Summary Completed 03/20/2013 Patient Education: Hypertension Completed 03/20/2013 Appointment: [facility] Jackson WPtel[phone] [place] Lab Draw 05/27/2012 Patient Education: Patient [...] NEEDS TO FILL THE NEW SCRIPT AT [facility] FOR THE 10MG ENALAPRIL PILL TO BE [...] in public. 05/25/2012 Appointment: Georgia Jackson WPtel: [facility] Other 05/25/2012 Patient Education: Patient Medication Summary Completed 05/25/2012 Patient Education: Hypertension Completed 05/25/2012 Patient Education: Smoking and Tobacco Addiction Completed 05/25/2012 Appointment: Georgia Jackson WPtel: [facility] [facility] 09/21/2011 Patient Education: Patient Medication [...] leg pain. 09/17/2011 Appointment: Georgia Jackson WPtel: [facility] Other 09/17/2011 Patient Education: Patient Medication Summary Completed 09/17/2011 Patient Education: High Blood Pressure: Essential Hypertension Completed 09/17/2011 Patient Education: Smoking: Hazards of Smoking Completed 09/17/2011 Patient Education: Smoking and Ways to Quit Completed 09/17/2011 Appointment: Georgia Jackson WPtel: [phone] Other 05/22/2011 Visit Plan: Hypertension - [...] cessation. 05/21/2011 Appointment: [facility] Jackson WPtel[phone] Other 05/21/2011 Patient Education: Patient Medication [...] THINK ABOUT GOING TO PHYSICAL THERAPY AT [facility] FOR BALANCE TRAINING. 01/20/2011 Appointment: Georgia Jackson WPtel: [phone] [facility] [place] Other 01/20/2011 Patient Education: Patient Medication Summary Completed 01/20/2011 Appointment: [facility] Jackson WPtel[phone] [place] Lab Draw 01/13/2011 Patient Education: Patient Medication Summary Completed 01/13/2011 Referral: Harmony Wojciech WPtel: [address] [facility] Referral Appointment Requested Instructions Comment [...] change in blood pressure readings at home. Iaidholptu-lyjvdim-urdsndmo lexapro to 10mg daily-repeat in 1 month [...] in blood pressure readings at home. Gait eliazkmoftb-husvtvpa-weizghmaqu PT-patient refuses-also recommend patient use a walker [...] change in blood pressure readings at home. Mpzck-oprxhvas-ex change in treatment . Hypertension - well [...] THINK ABOUT GOING TO PHYSICAL THERAPY AT [facility] FOR BALANCE TRAINING. PT IS TO INCREASE THE ENALAPRIL TO 10MG DAILY - WHICH WILL EQUAL TWO OF THE 5 MG PILLS DAILY UNTIL THAT SUPPLY IS GONE, THEN PT NEEDS TO FILL THE NEW SCRIPT AT [facility] FOR THE 10MG ENALAPRIL PILL TO BE [...] NEEDS TO FILL THE NEW SCRIPT AT [facility] FOR THE 10MG ENALAPRIL PILL TO BE [...]
--- OUTSIDE RECORDS SUMMARY | 2018-11-16 07:36 | XMS REPORT | CCD ---
Author Author Georgia Jackson Organization Georgia Jackson MD, [facility] Address [address] [place] [address] Phone Care Team Providers Care Field Care Advocate Name Role Phone Georgia Jackson PP Unavailable CCM Unavailable Summary Purpose Interface Exchange Insurance Providers Payer name Policy type / Coverage type Covered constitution party ID Effective Begin Date Effective End Date WPS Medicare Part B [id number] 2014 Unknown [employer] [id number] 2014 Unknown Family history Brother Diagnosis Age [...] Codes Description Effective Dates Living arrangements Unknown Apartment/[facility] 02/18/[address]: 6260826 Former smoker states quit in 2011 or 13 09/18/2013 Marital status Unknown 01/20/2011 Number of children Unknown 2 01/20/2011 Employment Unknown 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, 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 [...] Start Date Stop Date Status Fill Instructions enalapril maleate 20 mg tablet RxNorm: 963292 1 Tablet(s) PO daily 08/03/2018 10/26/2019 Active Plavix 75 mg tablet RxNorm: 164996 1 Tablet(s) PO daily 08/03/2018 10/26/2019 Active enalapril maleate 20 mg tablet RxNorm: 827971 1 Tablet(s) PO daily 05/26/2018 08/02/2018 Inactive Lexapro 10 mg tablet RxNorm: 436344 1 Tablet(s) PO QPM 01/17/2018 07/15/2018 Inactive ketoconazole 2 % topical cream RxNorm: 182578 1 Application TOP BID 01/17/2018 01/30/2018 Inactive Plavix 75 mg tablet RxNorm: 801527 1 Tablet(s) PO daily 01/17/2018 07/15/2018 Inactive enalapril maleate 20 mg tablet RxNorm: 339972 1 Tablet(s) PO daily 08/10/2017 05/25/2018 Inactive Plavix 75 mg tablet RxNorm: 980696 1 Tablet(s) PO daily 07/06/2017 01/01/2018 Inactive Lexapro 10 mg tablet RxNorm: 627950 1 Tablet(s) PO QPM 07/06/2017 01/01/2018 Inactive enalapril maleate 20 mg tablet RxNorm: 245834 1 Tablet(s) PO daily TAKE ONE TABLET BY MOUTH DAILY 02/15/2017 08/09/2017 Inactive enalapril maleate 20 mg tablet RxNorm: 396681 TAKE ONE TABLET BY MOUTH DAILY 02/15/2017 02/14/2017 Inactive Myrbetriq 25 mg tablet,extended release RxNorm: 6309424 1 Tablet(s) PO daily 10/13/2016 No Stop Date Active Lexapro 10 mg tablet RxNorm: 479993 1 Tablet(s) PO QPM 09/15/2016 03/13/2017 Inactive enalapril maleate 20 mg tablet RxNorm: 465435 1 Tablet(s) PO daily TAKE ONE TABLET BY MOUTH DAILY 08/18/2016 02/13/2017 Inactive Lexapro 5 mg tablet RxNorm: 788728 1 Tablet(s) PO QPM 08/18/2016 09/14/2016 Inactive enalapril maleate 20 mg tablet RxNorm: 446237 TAKE ONE TABLET BY MOUTH DAILY 05/15/2016 08/12/2016 Inactive enalapril maleate 20 mg tablet RxNorm: 535386 1 Tablet(s) PO daily 05/17/2015 05/10/2016 Inactive chlorthalidone 25 mg tablet RxNorm: 372987 1 Tablet(s) PO QAM 08/24/2014 05/18/2016 Inactive [SAVINGS FOR NON-COVERED DRUGS -- BIN:[id number], PCN: [id number], Group: [id number], ID# [id number], Questions: . THIS IS NOT INSURANCE.] Lasix 20 mg tablet RxNorm: 822989 1 Tablet(s) PO QDAY PRN 05/25/2014 05/18/2016 Inactive daily x 3 days then as needed, Take potassium with lasix potassium chloride ER 10 mEq tablet,extended release RxNorm: 780795 1 Tablet(s) PO QDAY PRN 05/25/2014 05/18/2016 Inactive take with lasix enalapril maleate 20 mg tablet RxNorm: 889222 1 Tablet(s) PO daily 04/24/2014 04/18/2015 Inactive enalapril maleate 10 mg tablet RxNorm: 367961 TAKE ONE TABLET BY MOUTH EVERY DAY 12/11/2013 04/23/2014 Inactive enalapril maleate 10 mg tablet RxNorm: 455939 1 Tablet(s) PO daily 03/08/2013 12/02/2013 Inactive enalapril maleate 10 mg tablet RxNorm: 180451 1 Tablet(s) PO daily 09/07/2012 03/07/2013 Inactive enalapril maleate 10 mg tablet RxNorm: 039894 1 Tablet(s) PO daily 05/25/2012 09/06/2012 Inactive enalapril maleate 5 mg tablet RxNorm: 355350 1/2 Tablet(s) PO BID 01/01/2012 05/24/2012 Inactive enalapril maleate 5 mg tablet RxNorm: 922982 1/2 Tablet(s) PO BID 10/02/2011 12/31/2011 Inactive Fish Oil 1,000 mg Cap RxNorm: 3 Capsule(s) PO daily 09/23/2011 No Stop Date Active enalapril maleate 5 mg Tab RxNorm: 094467 1/2 Tablet(s) PO BID 06/29/2011 10/01/2011 Inactive Influenza Virus Vaccine 0.5 mL RxNorm: IM 01/13/2011 01/13/2011 Inactive Pneumovax 23 25 mcg/0.5 mL Injection RxNorm: 820850 Milliliter(s) Inj 01/13/2011 01/13/2011 Inactive Veramyst 27.5 mcg/Actuation Nasal [place] RxNorm: 0150321 1 [place] NASAL daily No Start Date Active multivitamin Oral RxNorm: Oral No Start Date Active Calcium + D Oral RxNorm: Oral No Start Date Active enalapril maleate 5 mg Tab RxNorm: 611338 1/2 Tablet(s) PO BID No Start Date 06/28/2011 Inactive niacin 500 mg Tab RxNorm: 555269 1 Tablet(s) PO QHS No Start Date 05/18/2016 Inactive Reclast 5 mg/100 mL IV RxNorm: 066463 1 Milliliter(s) IV Yearly No Start Date 05/18/2016 Inactive Fish Oil 1,000 mg Cap RxNorm: Oral No Start Date 09/22/2011 Inactive Medication Administered Medication Codes Instructions Start Date Status Influenza Virus Vaccine 0.5 mL RxNorm: 01/13/2011 No longer Active Pneumovax 23 25 mcg/0.5 mL Injection RxNorm: 605619 Milliliter 01/13/2011 No longer Active Immunizations Vaccine Codes Date Status Influenza CVX: 141 02/20/2018 completed Influenza CVX: 141 01/22/2014 completed Influenza CVX: 141 02/13/2013 completed Influenza Unknown 01/13/2011 completed Influenza CVX: 141 01/13/2011 completed Pneumococcal (Adult) CVX: 33 01/13/2011 completed Assessments Condition Codes Effective Dates Major depressive disorder, recurrent, moderate ICD-10: F33.1 ICD-9: 296.32 05/26/2018 Essential (primary) hypertension ICD-10: I10 ICD-9: 401.9 05/26/2018 Mixed incontinence ICD-10: N39.46 ICD-9: 788.33 05/26/2018 [...] For Visit Effective Dates Notes gait abnormality 05/26/2018 headache 05/11/2018 gait abnormality [...] 27.8 pg 07/06/2017 Cbc With Differential Ord2 [place]% 6.9 % 07/06/2017 Cbc With Differential Ord2 [...] 1.43 K/ul 07/06/2017 Cbc With Differential Ord2 [place] ABS# 0.4 K/ul 07/06/2017 Cbc With Differential Ord2 Eos ABS# 0.4 K/ul 07/06/2017 Cbc With Differential Ord2 Baso ABS# 0.1 K/ul 07/06/2017 Comp Metabolic Kaw279 NA 144 mEq/L 07/06/2017 Comp Metabolic Tku215 K 3.7 mEq/L 07/06/2017 Comp Metabolic Vmi851 CL 105 mEq/L 07/06/2017 Comp Metabolic Wan931 CO2 30.0 mEq/L 07/06/2017 Comp Metabolic Fnw569 ANION GAP 13 07/06/2017 Comp Metabolic Ntw045 GLUCOSE 84 mg/dL 07/06/2017 Comp Metabolic Uzx124 Creat 0.9 mg/dL 07/06/2017 Comp Metabolic Bge449 eGFR 67 ml/min/1.73m2 07/06/2017 Comp Metabolic Lyg115 BUN 19 mg/dL 07/06/2017 Comp Metabolic Uix225 B/C Ratio 22.4 Ratio 07/06/2017 Comp Metabolic Lmt116 CALCIUM 9.3 mg/dL 07/06/2017 Comp Metabolic Get175 ALK PHOS 58 U/L 07/06/2017 Comp Metabolic Zib077 AST(SGOT) 15 U/L 07/06/2017 Comp Metabolic Gxh419 ALT(SGPT) 9 U/L 07/06/2017 Comp Metabolic Iyb428 BILI T 0.2 mg/dL 07/06/2017 Comp Metabolic Dcb909 ALBUMIN 4.0 g/dL 07/06/2017 Comp Metabolic Cbt978 TPRO 6.2 g/dL 07/06/2017 Comp Metabolic Xef930 GLOB 2.2 g/dL 07/06/2017 Comp Metabolic Eex798 A/G Ratio 1.8 Ratio 07/06/2017 Comp Metabolic Tti382 Osmo 288 mOsmo 07/06/2017 Tsh Ord6 TSH (3rd IS) 0.56 uIU/mL 07/06/2017 Tibc Iron 114 ug/dl 07/06/2017 Tibc UIBC 290 ug/dL 07/06/2017 Tibc TIBC 404 ug/dL 07/06/2017 Tibc Fe-%Sat 28.2 % 07/06/2017 Ferritin Ord22 FERRITIN 15.1 ng/mL 07/06/2017 B12 Hkj598 B12 >1500.00 pg/ml 07/06/2017 Cbc With Differential [...] 30.3 pg 08/18/2016 Cbc With Differential Ord2 [place]% 8.5 % 08/18/2016 Cbc With Differential Ord2 [...] 1.61 K/ul 08/18/2016 Cbc With Differential Ord2 [place] ABS# 0.5 K/ul 08/18/2016 Cbc With Differential Ord2 Eos ABS# 0.3 K/ul 08/18/2016 Cbc With Differential Ord2 Baso ABS# 0.1 K/ul 08/18/2016 Comp Metabolic Ooy036 NA 143 mEq/L 08/18/2016 Comp Metabolic Lwq767 K 4.3 mEq/L 08/18/2016 Comp Metabolic Jmf363 CL 105 mEq/L 08/18/2016 Comp Metabolic Yxq461 CO2 28.0 mEq/L 08/18/2016 Comp Metabolic Pco719 ANION GAP 14 08/18/2016 Comp Metabolic Gjb804 GLUCOSE 77 mg/dL 08/18/2016 Comp Metabolic Uvh881 Creat 0.9 mg/dL 08/18/2016 Comp Metabolic Vyt492 eGFR 67 ml/min/1.73m2 08/18/2016 Comp Metabolic Lto148 BUN 21 mg/dL 08/18/2016 Comp Metabolic Rxf468 B/C Ratio 24.7 Ratio 08/18/2016 Comp Metabolic Sts614 CALCIUM 9.0 mg/dL 08/18/2016 Comp Metabolic Vom321 ALK PHOS 56 U/L 08/18/2016 Comp Metabolic Xfc708 AST(SGOT) 18 U/L 08/18/2016 Comp Metabolic Kgq011 ALT(SGPT) 11 U/L 08/18/2016 Comp Metabolic Tbw947 BILI T 0.4 mg/dL 08/18/2016 Comp Metabolic Kgp181 ALBUMIN 3.9 g/dL 08/18/2016 Comp Metabolic Wyw858 TPRO 6.4 g/dL 08/18/2016 Comp Metabolic Gnj663 GLOB 2.5 g/dL 08/18/2016 Comp Metabolic Itq912 A/G Ratio 1.6 Ratio 08/18/2016 Comp Metabolic Huc797 Osmo 287 mOsmo 08/18/2016 Lipid Ord30 CHOL 183 mg/dL 08/18/2016 Lipid Ord30 HDL 46.0 mg/dl 08/18/2016 Lipid Ord30 TRIG 129 mg/dL 08/18/2016 Lipid Ord30 LDL 111 mg/dL 08/18/2016 Lipid Ord30 C/HDL 4.0 Ratio 08/18/2016 Tsh Ord6 hTSH II 0.70 uIU/mL 08/18/2016 Comp Metabolic Lsj994 NA 141 mEq/L 05/20/2016 Comp Metabolic Hzn178 K 4.3 mEq/L 05/20/2016 Comp Metabolic Skw843 CL 103 mEq/L 05/20/2016 Comp Metabolic Wch160 CO2 31.0 mEq/L 05/20/2016 Comp Metabolic Irt342 ANION GAP 11 05/20/2016 Comp Metabolic Uph757 GLUCOSE 93 mg/dL 05/20/2016 Comp Metabolic Ich103 Creat 1.0 mg/dL 05/20/2016 Comp Metabolic Edr750 eGFR 57 ml/min/1.73m2 05/20/2016 Comp Metabolic Mub068 BUN 16 mg/dL 05/20/2016 Comp Metabolic Kmw031 B/C Ratio 16.3 Ratio 05/20/2016 Comp Metabolic Zns556 CALCIUM 10.1 mg/dL 05/20/2016 Comp Metabolic Qcz180 ALK PHOS 49 U/L 05/20/2016 Comp Metabolic Ppp560 AST(SGOT) 17 U/L 05/20/2016 Comp Metabolic Oia914 ALT(SGPT) 11 U/L 05/20/2016 Comp Metabolic Lte278 BILI T 0.3 mg/dL 05/20/2016 Comp Metabolic Fbo061 ALBUMIN 4.4 g/dL 05/20/2016 Comp Metabolic Xgu842 TPRO 6.8 g/dL 05/20/2016 Comp Metabolic Wnz882 GLOB 2.4 g/dL 05/20/2016 Comp Metabolic Gsq553 A/G Ratio 1.8 Ratio 05/20/2016 Comp Metabolic Nep822 Osmo 282 mOsmo 05/20/2016 Cbc With Differential [...] 30.6 pg 05/20/2016 Cbc With Differential Ord2 [place]% 7.8 % 05/20/2016 Cbc With Differential Ord2 [...] 2.45 K/ul 05/20/2016 Cbc With Differential Ord2 [place] ABS# 0.5 K/ul 05/20/2016 Cbc With Differential Ord2 Eos ABS# 0.3 K/ul 05/20/2016 Cbc With Differential Ord2 Baso ABS# 0.1 K/ul 05/20/2016 Tsh Ord6 hTSH II 0.80 uIU/mL 05/20/2016 GFR CALC 4510205 GFR AA >60 ML/MIN 07/24/2014 GFR CALC 2709282 GFR NON-AA >60 ML/MIN 07/24/2014 TSH 8446389 TSH 0.192 uIU/ML 07/24/2014 CBC 5469609 WBC 6.4 10e9/L 07/24/2014 CBC 6647139 RBC 4.61 10e12/L 07/24/2014 CBC 8767623 HGB 13.7 g/dL 07/24/2014 CBC 0690786 HCT DET 42.6 % 07/24/2014 CBC 8607532 MCV 92.4 fL 07/24/2014 CBC 9668881 MCH 29.7 pg 07/24/2014 CBC 7399533 MCHC 32.2 g/dL 07/24/2014 CBC 2838089 PLT 280 10e9/L 07/24/2014 CBC 8382083 MPV 8.9 fL 07/24/2014 CBC 0052374 AISSATOU % 59.5 % 07/24/2014 CBC 6986601 LY % 30.6 % 07/24/2014 CBC 6777463 MON % 5.9 % 07/24/2014 CBC 7462200 EOS % 3.4 % 07/24/2014 CBC 9080610 BASO % 0.6 % 07/24/2014 CBC 9279321 RDW 14.8 % 07/24/2014 CBC 3253041 ABS AISSATOU 3.81 10e9/L 07/24/2014 CBC 9786459 ABS LYMPH 1.96 10e9/L 07/24/2014 CBC 6004452 ABS MONO 0.38 10e9/L 07/24/2014 CBC 3456919 ABS EOS 0.22 10e9/L 07/24/2014 CBC 1858357 ABS BASO 0.04 10e9/L 07/24/2014 CBC 5122976 RDW-SD 48.9 fL 07/24/2014 CHEM 14 6484230 AST 17 U/L 07/24/2014 CHEM 14 0775655 ALT 11 IU/L 07/24/2014 CHEM 14 5794034 BUN 13 MG/DL 07/24/2014 CHEM 14 8976813 ALBUMIN 4.2 GM/DL 07/24/2014 CHEM 14 2321402 CHLORIDE 104 MMOL/L 07/24/2014 CHEM 14 0850478 BILI TOT 0.6 MG/DL 07/24/2014 CHEM 14 7920146 ALK PHOS 52 U/L 07/24/2014 CHEM 14 1181249 SODIUM 141 MMOL/L 07/24/2014 CHEM 14 0495156 CREATININE 0.87 MG/DL 07/24/2014 CHEM 14 4503431 CALCIUM 9.1 MG/DL 07/24/2014 CHEM 14 7267923 POTASSIUM 4.1 MMOL/L 07/24/2014 CHEM 14 8808022 PROT TOT 6.4 GM/DL 07/24/2014 CHEM 14 4146885 GLUCOSE 100 MG/DL 07/24/2014 CHEM 14 3205003 BICARB 27 MMOL/L 07/24/2014 CHEM 14 3378376 ANION GAP 10 MEQ/L 07/24/2014 FREE T4 5719415 FREE T4 1.08 NG/DL 09/20/2013 T3 TOT 3825956 T3 TOT 1.1 NG/ML 09/20/2013 CHEM 14 7070357 AST 20 U/L 09/18/2013 CHEM 14 4599314 ALT 17 IU/L 09/18/2013 CHEM 14 5677114 BUN 18 MG/DL 09/18/2013 CHEM 14 0814030 ALBUMIN 4.4 GM/DL 09/18/2013 CHEM 14 5281850 CHLORIDE 106 MMOL/L 09/18/2013 CHEM 14 0849664 BILI TOT 0.4 MG/DL 09/18/2013 CHEM 14 2143853 ALK PHOS 50 U/L 09/18/2013 CHEM 14 7909015 SODIUM 142 MMOL/L 09/18/2013 CHEM 14 1229465 CREATININE 0.92 MG/DL 09/18/2013 CHEM 14 8813141 CALCIUM 9.3 MG/DL 09/18/2013 CHEM 14 5536610 POTASSIUM 4.1 MMOL/L 09/18/2013 CHEM 14 6758743 PROT TOT 6.5 GM/DL 09/18/2013 CHEM 14 3982120 GLUCOSE 98 MG/DL 09/18/2013 CHEM 14 4085107 BICARB 27 MMOL/L 09/18/2013 CHEM 14 8712918 ANION GAP 9 MEQ/L 09/18/2013 TSH 7249680 TSH 0.209 uIU/ML 09/18/2013 CBC 8146820 WBC 7.1 10e9/L 09/18/2013 CBC 4169098 RBC 4.59 10e12/L 09/18/2013 CBC 3239120 HGB 14.1 g/dL 09/18/2013 CBC 2665222 HCT DET 43.3 % 09/18/2013 CBC 1234961 MCV 94.3 fL 09/18/2013 CBC 5637786 MCH 30.7 pg 09/18/2013 CBC 1606166 MCHC 32.6 g/dL 09/18/2013 CBC 6295598 PLT 274 10e9/L 09/18/2013 CBC 4061459 MPV 9.1 fL 09/18/2013 CBC 5733095 [place] % 60.9 % 09/18/2013 CBC 4737803 LY % 29.2 % 09/18/2013 CBC 9460749 MON % 6.1 % 09/18/2013 CBC 7323225 EOS % 3.2 % 09/18/2013 CBC 1057651 BASO % 0.6 % 09/18/2013 CBC 4486778 RDW 13.8 % 09/18/2013 CBC 2297161 ABS AISSATOU 4.32 10e9/L 09/18/2013 CBC 7337891 ABS LYMPH 2.07 10e9/L 09/18/2013 CBC 5323515 ABS MONO 0.43 10e9/L 09/18/2013 CBC 3903741 ABS EOS 0.23 10e9/L 09/18/2013 CBC 0914175 ABS BASO 0.04 10e9/L 09/18/2013 CBC 9533878 RDW-SD 46.0 fL 09/18/2013 LIPID GRP HDL TEST 70 MG/DL 09/18/2013 LIPID GRP TRIG 114 MG/DL 09/18/2013 LIPID GRP TEST LDL 198 MG/DL 09/18/2013 LIPID GRP CHOL 291 MG/DL 09/18/2013 LIPID GRP RCHOL/HDL 4.16 RATIO 09/18/2013 GFR CALC 4714890 GFR AA >60 ML/MIN 09/18/2013 GFR CALC 2290577 GFR NON-AA 58.0L ML/MIN 09/18/2013 FREE T4 2342757 FREE T4 1.05 NG/DL 03/22/2013 T3 TOT 9120302 T3 TOT 0.9 NG/ML 03/22/2013 CHEM 14 2224924 AST 18 U/L 03/20/2013 CHEM 14 4500240 ALT 13 IU/L 03/20/2013 CHEM 14 2059407 BUN 25 MG/DL 03/20/2013 CHEM 14 2086474 ALBUMIN 4.4 GM/DL 03/20/2013 CHEM 14 0186631 CHLORIDE 105 MMOL/L 03/20/2013 CHEM 14 0218426 BILI TOT 0.4 MG/DL 03/20/2013 CHEM 14 7182058 ALK PHOS 40 U/L 03/20/2013 CHEM 14 1679662 SODIUM 141 MMOL/L 03/20/2013 CHEM 14 8148527 CREATININE 0.95 MG/DL 03/20/2013 CHEM 14 9379174 CALCIUM 9.8 MG/DL 03/20/2013 CHEM 14 6921770 POTASSIUM 4.1 MMOL/L 03/20/2013 CHEM 14 8082856 PROT TOT 6.2 GM/DL 03/20/2013 CHEM 14 4715346 GLUCOSE 89 MG/DL 03/20/2013 CHEM 14 8829831 BICARB 29 MMOL/L 03/20/2013 CHEM 14 0930919 ANION GAP 7 MEQ/L 03/20/2013 TSH 2037400 TSH 0.228 uIU/ML 03/20/2013 GFR CALC 6086855 GFR AA >60 ML/MIN 03/20/2013 GFR CALC 4654820 GFR NON-AA 56.0L ML/MIN 03/20/2013 CBC 2444265 WBC 6.8 10e9/L 03/20/2013 CBC 7820145 RBC 4.58 10e12/L 03/20/2013 CBC 6734746 HGB 14.1 g/dL 03/20/2013 CBC 5531794 HCT DET 43.1 % 03/20/2013 CBC 7754847 MCV 94.1 fL 03/20/2013 CBC 7998037 MCH 30.8 pg 03/20/2013 CBC 4552756 MCHC 32.7 g/dL 03/20/2013 CBC 6542572 PLT 294 10e9/L 03/20/2013 CBC 1036638 MPV 9.4 fL 03/20/2013 CBC 2815103 AISS[place] % 50.3 % 03/20/2013 CBC 3860986 LY % 35.9 % 03/20/2013 CBC 6110835 MON % 7.3 % 03/20/2013 CBC 7735084 EOS % 5.8 % 03/20/2013 CBC 4153990 BASO % 0.7 % 03/20/2013 CBC 9603098 RDW 14.5 % 03/20/2013 CBC 0582173 ABS AISSATOU 3.42 10e9/L 03/20/2013 CBC 5985263 ABS LYMPH 2.44 10e9/L 03/20/2013 CBC 5929219 ABS MONO 0.50 10e9/L 03/20/2013 CBC 6031354 ABS EOS 0.39 10e9/L 03/20/2013 CBC 1182481 ABS BASO 0.05 10e9/L 03/20/2013 CBC 1117050 RDW-SD 48.2 fL 03/20/2013 LIPID GRP HDL TEST 71 MG/DL 03/20/2013 LIPID GRP TRIG 87 MG/DL 03/20/2013 LIPID GRP TEST LDL 168 MG/DL 03/20/2013 LIPID GRP CHOL 256 MG/DL 03/20/2013 LIPID GRP RCHOL/HDL 3.61 RATIO 03/20/2013 FREE T4 6133628 FREE T4 1.09 NG/DL 05/31/2012 T3 TOT 4055458 T3 TOT 0.9 NG/ML 05/31/2012 CBC 1052587 WBC 7.1 10e9/L 05/27/2012 CBC 9874567 RBC 4.58 10e12/L 05/27/2012 CBC 9615296 HGB 14.4 g/dL 05/27/2012 CBC 6866133 HCT DET 43.5 % 05/27/2012 CBC 6000543 MCV 95.0 fL 05/27/2012 CBC 9438335 MCH 31.4 pg 05/27/2012 CBC 0262201 MCHC 33.1 g/dL 05/27/2012 CBC 1576608 PLT 285 10e9/L 05/27/2012 CBC 0680922 MPV 9.2 fL 05/27/2012 CBC 4022787 [place] % 61.2 % 05/27/2012 CBC 3874095 LY % 27.5 % 05/27/2012 CBC 2806754 MON % 6.8 % 05/27/2012 CBC 9034413 EOS % 3.8 % 05/27/2012 CBC 8540642 BASO % 0.7 % 05/27/2012 CBC 6690439 RDW 14.1 % 05/27/2012 CBC 0516180 ABS AISSATOU 4.35 10e9/L 05/27/2012 CBC 2180596 ABS LYMPH 1.95 10e9/L 05/27/2012 CBC 5959362 ABS MONO 0.48 10e9/L 05/27/2012 CBC 8629107 ABS EOS 0.27 10e9/L 05/27/2012 CBC 3467273 ABS BASO 0.05 10e9/L 05/27/2012 CBC 6632224 RDW-SD 47.2 fL 05/27/2012 LIPID GRP HDL TEST 57 MG/DL 05/27/2012 LIPID GRP TRIG 110 MG/DL 05/27/2012 LIPID GRP TEST LDL 156 MG/DL 05/27/2012 LIPID GRP CHOL 235 MG/DL 05/27/2012 LIPID GRP RCHOL/HDL 4.12 RATIO 05/27/2012 CHEM 14 7355321 AST 19 U/L 05/27/2012 CHEM 14 9319817 ALT 13 IU/L 05/27/2012 CHEM 14 6705231 BUN 19 MG/DL 05/27/2012 CHEM 14 8821982 ALBUMIN 4.7 GM/DL 05/27/2012 CHEM 14 9621968 CHLORIDE 106 MMOL/L 05/27/2012 CHEM 14 2434149 BILI TOT 0.5 MG/DL 05/27/2012 CHEM 14 0406847 ALK PHOS 51 U/L 05/27/2012 CHEM 14 3268854 SODIUM 141 MMOL/L 05/27/2012 CHEM 14 7601254 CREATININE 0.85 MG/DL 05/27/2012 CHEM 14 2056316 CALCIUM 9.4 MG/DL 05/27/2012 CHEM 14 7720852 POTASSIUM 4.0 MMOL/L 05/27/2012 CHEM 14 4011260 PROT TOT 6.7 GM/DL 05/27/2012 CHEM 14 7457152 GLUCOSE 101 MG/DL 05/27/2012 CHEM 14 1783591 BICARB 29 MMOL/L 05/27/2012 CHEM 14 4522832 ANION GAP 6 MEQ/L 05/27/2012 TSH 3277476 TSH 0.275 uIU/ML 05/27/2012 GFR CALC 5410864 GFR AA >60 ML/MIN 05/27/2012 GFR CALC 1867467 GFR NON-AA >60 ML/MIN 05/27/2012 CHEM 14 6586768 AST 18 U/L 09/21/2011 CHEM 14 1795456 ALT 11 IU/L 09/21/2011 CHEM 14 1815049 BUN 18 MG/DL 09/21/2011 CHEM 14 5661525 ALBUMIN 4.3 GM/DL 09/21/2011 CHEM 14 0682372 CHLORIDE 102 MMOL/L 09/21/2011 CHEM 14 0853061 BILI TOT 0.4 MG/DL 09/21/2011 CHEM 14 8647160 ALK PHOS 47 U/L 09/21/2011 CHEM 14 6922484 SODIUM 139 MMOL/L 09/21/2011 CHEM 14 0036783 CREATININE 0.92 MG/DL 09/21/2011 CHEM 14 4400573 CALCIUM 9.2 MG/DL 09/21/2011 CHEM 14 1071502 POTASSIUM 4.1 MMOL/L 09/21/2011 CHEM 14 6217950 PROT TOT 6.4 GM/DL 09/21/2011 CHEM 14 0663178 GLUCOSE 89 MG/DL 09/21/2011 CHEM 14 3868881 BICARB 28 MMOL/L 09/21/2011 CHEM 14 0707440 ANION GAP 9 MEQ/L 09/21/2011 TSH 1355576 TSH 0.352 uIU/ML 09/21/2011 GFR CALC GFR AA >60 ML/MIN 09/21/2011 GFR CALC GFR NON-AA 58.0L ML/MIN 09/21/2011 LIPID GRP HDL TEST 54 MG/DL 09/21/2011 LIPID GRP TRIG 81 MG/DL 09/21/2011 LIPID GRP TEST LDL 154 MG/DL 09/21/2011 LIPID GRP CHOL 224 MG/DL 09/21/2011 LIPID GRP RCHOL/HDL 4.15 RATIO 09/21/2011 CBC 7907165 WBC 9.6 10e9/L 09/21/2011 CBC 6638174 RBC 4.85 10e12/L 09/21/2011 CBC 0593128 HGB 15.0 g/dL 09/21/2011 CBC 9947029 HCT DET 46.5 % 09/21/2011 CBC 6671601 MCV 95.9 fL 09/21/2011 CBC 4504140 MCH 30.9 pg 09/21/2011 CBC 7357041 MCHC 32.3 g/dL 09/21/2011 CBC 7238810 PLT 279 10e9/L 09/21/2011 CBC 8760424 MPV 9.1 fL 09/21/2011 CBC 4921570 A[place] % 63.4 % 09/21/2011 CBC 1385830 LY % 26.1 % 09/21/2011 CBC 9201597 MON % 5.6 % 09/21/2011 CBC 9484251 EOS % 4.4 % 09/21/2011 CBC 0483240 BASO % 0.5 % 09/21/2011 CBC 7128733 RDW 14.0 % 09/21/2011 CBC 9121484 ABS AISSATOU 6.09 10e9/L 09/21/2011 CBC 5951726 ABS LYMPH 2.51 10e9/L 09/21/2011 CBC 0632859 ABS MONO 0.54 10e9/L 09/21/2011 CBC 3427231 ABS EOS 0.42 10e9/L 09/21/2011 CBC 9755271 ABS BASO 0.05 10e9/L 09/21/2011 CBC 7338879 RDW-SD 47.9 fL 09/21/2011 Review of Systems System Result Effective Dates Constitutional No recent illness 05/26/2018 Constitutional No [...] accomodation 05/21/2011 None Full Exam - General 1995 Ears/Nose/Throat otoscopic exam Overall: external auditory canals clear 05/21/2011 None Full Exam - General 1995 Ears/Nose/Throat otoscopic exam Tympanic membrane: tympanosclerosis 05/21/2011 [...] Procedure Codes Date ROUTINE VENIPUNCTURE CPT- 4: 70292 07/24/2014 ADMIN INFLUENZA VIRUS VAC CPT-4: G0008 01/22/2014 FLU VAC NO PRSV 4 LISSA 3 YRS+ Assigned to/Laura Og CPT-4: [id number] 01/22/2014 ROUTINE VENIPUNCTURE CPT- 4: 79262 09/18/2013 ROUTINE VENIPUNCTURE CPT- 4: 38899 03/20/2013 ROUTINE VENIPUNCTURE CPT- 4: 72339 05/27/2012 ROUTINE VENIPUNCTURE CPT- 4: 77187 09/21/2011 ROUTINE VENIPUNCTURE CPT- 4: 94109 01/13/2011 Pneumococcal Polysaccharide Vaccine, 23-Valent, Ad CPT-4: 30721 01/13/2011 ADMIN INFLUENZA VIRUS VAC CPT-4: G0008 01/13/2011 ADMIN PNEUMOCOCCAL VACCINE SNOMED CT: 78014805 CPT-4: G0009 01/13/2011 FLULAVAL VACC, 3 YRS & >, IM CPT-4: Q2036 01/13/2011 Vital Signs Date Vital 05/26/2018 Blood Pressure 1: 120/82 Code: 8480-6 BMI: 25.2 Code: 56465-0 Heart Rate 1: 67 bpm Height: 5'3" SpO2: 92% Weight: 142 lbs 05/11/2018 Blood Pressure 1: 166/100 Code: 8480-6 Heart Rate 1: 68 bpm Height: 5'5" SpO2: 91% Weight: 01/17/2018 Blood Pressure 1: 108/76 Code: 8480-6 BMI: 23.1 Code: 65807-5 Heart Rate 1: 86 bpm Height: 5'5" SpO2: 97% Weight: 139 lbs 10/12/2017 Blood Pressure 1: 144/84 Code: 8480-6 BMI: 23.6 Code: 52420-9 Heart Rate 1: 70 bpm Height: 5'5" SpO2: 92% Weight: 142 lbs 08/10/2017 Blood Pressure 1: 138/84 Code: 8480-6 BMI: 22.5 Code: 71365-7 Heart Rate 1: 55 bpm Height: 5'5" SpO2: 91% Weight: 135 lbs 07/06/2017 Blood Pressure 1: 140/78 Code: 8480-6 BMI: 22.5 Code: 29894-7 Heart Rate 1: 87 bpm Height: 5'5" SpO2: 96% Weight: 135 lbs 03/18/2017 Blood Pressure 1: 152/88 Code: 8480-6 BMI: 22.5 Code: 11335-4 Heart Rate 1: 55 bpm Height: 5'5" SpO2: 92% Temperature: 36.8 (C) / 98.2 (F) Weight: 135 lbs 02/18/2017 Blood Pressure 1: 108/80 Code: 8480-6 BMI: 22.0 Code: 28955-8 Heart Rate 1: 87 bpm Height: 5'5" SpO2: 93% Weight: 132 lbs 11/16/2016 Blood Pressure 1: 146/84 Code: 8480-6 BMI: 23.0 Code: 35436-3 Heart Rate 1: 72 bpm Height: 5'5" SpO2: 95% Weight: 138 lbs 10/13/2016 Blood Pressure 1: 170/96 Code: 8480-6 Blood Pressure 1: 142/86 Code: 8480-6 BMI: 23.0 Code: 42449-1 Heart Rate 1: 74 bpm Height: 5'5" SpO2: 90% Weight: 138 lbs 09/15/2016 Blood Pressure 1: 118/78 Code: 8480-6 Heart Rate 1: 82 bpm SpO2: 90% Weight: 141 lbs 08/18/2016 Blood Pressure 1: 142/82 Code: 8480-6 BMI: 24.1 Code: 26482-5 Heart Rate 1: 72 bpm Height: 5'5" SpO2: 91% Weight: 145 lbs 06/23/2016 Blood Pressure 1: 148/86 Code: 8480-6 BMI: 24.1 Code: 16387-3 Heart Rate 1: 70 bpm Height: 5'5" SpO2: 90% Weight: 145 lbs 05/19/2016 Blood Pressure 1: 162/76 Code: 8480-6 BMI: 24.3 Code: 36446-8 Heart Rate 1: 76 bpm Height: 5'5" Weight: 146 lbs 09/14/2014 Blood Pressure 1: 102/80 Code: 8480-6 BMI: 27.7 Code: 06630-1 Heart Rate 1: 90 bpm Height: 5' SpO2: 94% Weight: 144 lbs 08/24/2014 Blood Pressure 1: 122/92 Code: 8480-6 BMI: 28.4 Code: 29321-1 Heart Rate 1: 74 bpm Height: 5' SpO2: 94% Weight: 148 lbs 07/24/2014 Blood Pressure 1: 142/86 Code: 8480-6 BMI: 28.8 Code: 89293-2 Heart Rate 1: 88 bpm Height: 5' Weight: 150 lbs 05/25/2014 Blood Pressure 1: 136/88 Code: 8480-6 BMI: 28.8 Code: 50966-8 Heart Rate 1: 82 bpm Height: 5' Weight: 150 lbs 04/24/2014 Blood Pressure 1: 150/78 Code: 8480-6 BMI: 29.6 Code: 87808-7 Heart Rate 1: 60 bpm Height: 5' Weight: 154 lbs 01/22/2014 Blood Pressure 1: 140/78 Code: 8480-6 BMI: 29.6 Code: 39701-2 Heart Rate 1: 78 bpm Height: 5' SpO2: 90% Weight: 154 lbs 09/18/2013 Blood Pressure 1: 128/84 Code: 8480-6 BMI: 29.4 Code: 37151-5 Heart Rate 1: 80 bpm Height: 5' Weight: 153 lbs 03/20/2013 Blood Pressure 1: 122/80 Code: 8480-6 BMI: 29.0 Code: 25441-7 Heart Rate 1: 76 bpm Height: 5' Weight: 151 lbs 05/25/2012 Blood Pressure 1: 140/92 Code: 8480-6 BMI: 26.3 Code: 93080-7 Heart Rate 1: 88 bpm Height: 5' Weight: 137 lbs 09/17/2011 Blood Pressure 1: 128/78 Code: 8480-6 Heart Rate 1: 76 bpm Respiratory Rate: 24 bpm Weight: 137 lbs 05/21/2011 Blood Pressure 1: 114/72 Code: 8480-6 BMI: 27.1 Code: 01243-5 Heart Rate 1: 68 bpm Height: 5' Respiratory Rate: 16 bpm Weight: 141 lbs 01/20/2011 Blood Pressure 1: 130/72 Code: 8480-6 Heart Rate 1: 72 bpm Respiratory Rate: 16 bpm Weight: 143 lbs Functional Status No Functional Status data History of Present Illness Symptom Name Status Result Effective Date Notes Quality chronic 05/26/2018 None Quality unsteady 05/26/2018 [...] data Encounters Encounter Performer Location Codes Date () 99256 EST. PATIENT, LEVEL IV Diagnosis: Essential (primary) hypertension[ICD10: I10] Diagnosis: Major depressive disorder, recurrent, moderate[ICD10: F33.1] Diagnosis: Mixed incontinence[ICD10: N39.46] [facility] CPT- 4: 88551 05/26/2018 52283 EST. PATIENT, LEVEL III Diagnosis: Headache[ICD10: R51] Diagnosis: Weakness[ICD10: R53.1] [facility] CPT-4: 28191 05/11/2018 ([id number] 45293 EST. PATIENT, LEVEL IV Diagnosis: Essential (primary) hypertension[ICD10: I10] Diagnosis: Rash and other nonspecific skin eruption[ICD10: R21] Diagnosis: Major depressive disorder, recurrent, moderate[ICD10: F33.1] Brigitte Jackson MD, [facility] CPT-4: 42254 01/17/2018 ([id number]) 67452 EST. PATIENT, LEVEL III Diagnosis: Essential (primary) hypertension[ICD10: I10] Diagnosis: Unsteadiness on feet[ICD10: R26.81] Brigitte Jackson MD, [facility] CPT-4: 72202 10/12/2017 ([id number]) 94512 EST. PATIENT, LEVEL III Diagnosis: Essential (primary) hypertension[ICD10: I10] Diagnosis: Unsteadiness on feet[ICD10: R26.81] Brigitte Jackson MD, [facility] CPT-4: 37707 08/10/2017 ([id number]) 43462 EST. PATIENT, LEVEL IV Diagnosis: Essential (primary) hypertension[ICD10: I10] Diagnosis: Major depressive disorder, recurrent, moderate[ICD10: F33.1] Diagnosis: Unsteadiness on feet[ICD10: R26.81] Brigitte Jackson MD, [facility] CPT-4: 68447 07/06/2017 ([id number]) 44373 EST. PATIENT, LEVEL III Diagnosis: Essential (primary) hypertension[ICD10: I10] Diagnosis: Major depressive disorder, recurrent, moderate[ICD10: F33.1] Diagnosis: Abnormal weight loss[ICD10: R63.4] Brigitte Jackson MD, [facility] CPT- 4: 96243 03/18/2017 ([id number]) 20665 EST. PATIENT, LEVEL IV Diagnosis: Essential (primary) hypertension[ICD10: I10] Diagnosis: Chronic obstructive pulmonary disease, unspecified[ICD10: J44.9] Diagnosis: Unsteadiness on feet[ICD10: R26.81] Diagnosis: Abnormal weight loss[ICD10: R63.4] Brigitte Jackson MD, [facility] CPT- 4: 93173 02/18/2017 ([id number]) 16291 EST. PATIENT, LEVEL IV Diagnosis: Unsteadiness on feet[ICD10: R26.81] Diagnosis: Major depressive disorder, recurrent, moderate[ICD10: F33.1] Diagnosis: Chronic obstructive pulmonary disease, unspecified[ICD10: J44.9] Brigitte Jackson MD, [facility] CPT-4: 47063 11/16/2016 ([id number]) 56081 EST. PATIENT, LEVEL IV Diagnosis: Essential (primary) hypertension[ICD10: I10] Diagnosis: Unsteadiness on feet[ICD10: R26.81] Diagnosis: Abnormal weight loss[ICD10: R63.4] Diagnosis: Mixed incontinence[ICD10: N39.46] Brigitte Jackson MD, [facility] CPT- 4: 00993 10/13/2016 ([id number]) 94234 EST. PATIENT, LEVEL IV Diagnosis: Essential (primary) hypertension[ICD10: I10] Diagnosis: Major depressive disorder, recurrent, moderate[ICD10: F33.1] Diagnosis: Unsteadiness on feet[ICD10: R26.81] Brigitte Jackson MD, [facility] CPT-4: 39358 09/15/2016 ([id number]) 22598 EST. PATIENT, LEVEL IV Diagnosis: Essential (primary) hypertension[ICD10: I10] Diagnosis: Mixed hyperlipidemia[ICD10: E78.2] Diagnosis: Major depressive disorder, recurrent, moderate[ICD10: F33.1] Diagnosis: Unsteadiness on feet[ICD10: R26.81] Brigitte Jackson MD, [facility] CPT-4: 07388 08/18/2016 ([id number]) 21374 EST. PATIENT, LEVEL III Diagnosis: Essential (primary) hypertension[ICD10: I10] Brigitte Jackson MD, [facility] CPT-4: 60406 06/23/2016 ([id number]) 92758 EST. 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 PATIENT, LEVEL III Diagnosis: ESSENTIAL HYPERTENSION[ICD9: 401.9] Diagnosis: EDEMA[ICD9: 782.3] Brigitte Jackson MD, [facility] CPT-4: 52050 09/14/2014 ([id number]) 08357 EST. PATIENT, LEVEL III Diagnosis: ESSENTIAL HYPERTENSION[ICD9: 401.9] Diagnosis: EDEMA[ICD9: 782.3] Georgia Jackson MD, [facility] CPT-4: 11442 08/24/2014 ([id number]) 06787 EST. PATIENT, LEVEL IV Diagnosis: Peripheral vascular disease[ICD9: 443.9] Diagnosis: ESSENTIAL HYPERTENSION[ICD9: 401.9] Diagnosis: Chronic fatigue[ICD9: 780.79] Diagnosis: Ataxia[ICD9: 781.3] Georgia Jackson MD, [facility] CPT-4: 68279 07/24/2014 ([id number]) 54696 EST. PATIENT, LEVEL III Diagnosis: ESSENTIAL HYPERTENSION[ICD9: 401.9] Diagnosis: EDEMA[ICD9: 782.3] Georgia Jackson MD, [facility] CPT-4: 20896 05/25/2014 ([id number]) 93119 EST. 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 PATIENT, LEVEL IV Diagnosis: ESSENTIAL HYPERTENSION[ICD9: 401.9] Diagnosis: HYPERLIPIDEMIA[ICD9: 272.4] Diagnosis: VACCIN FOR INFLUENZA[ICD10: Z23] Georgia Jackson MD, [facility] CPT-4: 73393 01/22/2014 ([id number]) 63232 EST. 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 PATIENT, LEVEL IV Diagnosis: ESSENTIAL HYPERTENSION[SNOMED: 09946389] Diagnosis: LACK OF COORDINATION[ICD9: 781.3] Diagnosis: PERIPH VASCULAR DIS[ICD9: 443.9] Diagnosis: ENCNTR LONG-RX USE NEC[ICD9: V58.69] Georgia Jackson MD, [facility] CPT- 4: 75701 03/20/2013 ([id number]) 84892 EST. PATIENT, LEVEL IV Diagnosis: ESSENTIAL HYPERTENSION[SNOMED: 85806731] Diagnosis: HYPERLIPIDEMIA[ICD9: 272.4] Diagnosis: LACK OF COORDINATION[ICD9: 781.3] Diagnosis: TOBACCO USE DISORDER[ICD9: 305.1] Georgia Jackson MD, [facility] CPT- 4: 10849 05/25/2012 ([id number]) 38385 EST. PATIENT, LEVEL IV Diagnosis: ESSENTIAL HYPERTENSION[SNOMED: 03321329] Diagnosis: TOBACCO USE DISORDER[ICD9: 305.1] Diagnosis: HYPERLIPIDEMIA[ICD9: 272.4] Diagnosis: Varicose vein of leg[ICD9: 454.9] Diagnosis: Leg pain, posterior[ICD9: 729.5] Diagnosis: Intermittent claudication[ICD9: 443.9] Georgia Jackson MD, [facility] CPT-4: 35463 09/17/2011 ([id number]) 06147 EST. PATIENT, LEVEL IV Diagnosis: ESSENTIAL HYPERTENSION[SNOMED: 49781501] Diagnosis: LACK OF COORDINATION[ICD9: 781.3] Diagnosis: TOBACCO USE DISORDER[ICD9: 305.1] Georgia Jackson MD, [facility] CPT- 4: 28415 05/21/2011 61708 EST. PATIENT, LEVEL IV Diagnosis: ESSENTIAL HYPERTENSION[SNOMED: 39241888] Diagnosis: HYPERLIPIDEMIA[ICD9: 272.4] Diagnosis: Ataxia[ICD9: 781.3] Georgia Jackson MD, [facility] CPT-4: 33282 01/20/2011 Plan of Care Planned Activity Notes [...] current medications. 05/26/2018 Appointment: Georgia Jackson WPtel: [facility] (15 min) Moderate 05/26/2018 Patient Education: Patient [...] 05/11/2018 Appointment: Denisha De La Fuente WPtel: [facility] (15 min) Moderate 05/11/2018 Patient Education: Patient [...] is at. 01/17/2018 Appointment: Brigitte Vann WPtel: [facility]3 [phone] (15 min) Moderate 01/17/2018 Patient Education: Patient [...] assisted living 10/12/2017 Appointment: Brigitte Vann WPtel: [facility]7 [facility] [place] [address] (30 min) Complex 10/12/2017 Patient Education: Patient [...] Fanny Martinez 08/10/2017 Appointment: Brigitte Vann WPtel: [address] [place], [place] [phone] [place] [address] (15 min) Moderate 08/10/2017 Patient Education: Patient [...] verbalized understanding. 07/06/2017 Appointment: Brigitte Vann WPtel: [phone] [place] [address] (30 min) Complex 07/06/2017 Patient Education: Patient Medication Summary Completed 07/06/2017 Patient Education: Patient Medication Summary Completed 07/06/2017 Care Plan: Referral Order SNOMED-CT : 117234514 Pending 07/06/2017 Care Plan: [employer] [...] Weight loss-stable 03/18/2017 Appointment: Brigitte Vann WPtel: [address] [place], [place] [phone] [place] [address] (30 min) Complex 03/18/2017 Patient Education: Patient [...] 1 month 02/18/2017 Appointment: Brigitte Vann WPtel: [facility]5 [id number] (30 min) Complex 02/18/2017 Patient Education: Patient Medication Summary Completed 02/18/2017 Appointment: Brigitte Vann WPtel: [phone] (30 min) Complex 12/17/2016 Visit Plan: Gait instability-recommend PT with home health-patient refuses-recommend patient start using walker XOFQ-fvpoviy-umwldpz qualified for oxygen but refuses to wear it Weight ygiu-vbtyyy-ifojzduw to monitor Memory loss-recommend patient move to an assisted living facility 11/16/2016 Appointment: Brigitte Vann WPtel: [facility]5 [phone] (15 min) Moderate 11/16/2016 Patient Education: Patient Medication Summary Completed 11/16/2016 Visit Plan: Hypertension - well controlled - continue with current medications, continue with no added salt diet. Pt has been encouraged to exercise daily. The pt has been advised to call the office if there are any acute concerns about change in blood pressure readings at home. Gait iyxmnhwcnpj-lrjgdlnu-tsbbdmenps PT-patient refuses-also recommend patient use a walker at all times Weight loss-recommend patient increase intake Mixed urinary incontinence-samples of myrebetriq provided and instructed on use 10/13/2016 Appointment: Brigitte Vann WPtel: [phone] (30 min) Complex 10/13/2016 Patient Education: Patient Medication Summary Completed 10/13/2016 Visit Plan: Hypertension - well controlled - continue with current medications, continue with no added salt diet. Pt has been encouraged to exercise daily. The pt has been advised to call the office if there are any acute concerns about change in blood pressure readings at home. Iygveyxmio-mopfkbh-yntfrqfc lexapro to 10mg daily-repeat in 1 month Gait instability-again recommend patient use walker 09/15/2016 Appointment: Brigitte Vann WPtel: [address] [place], [place] [phone] (15 min) Moderate 09/15/2016 Patient Education: Patient [...] this time. 08/18/2016 Appointment: Brigitte Vann WPtel: [address] [place], [place] [phone] (15 min) Moderate 08/18/2016 Patient Education: Patient Medication Summary Completed 08/18/2016 Visit Plan: Hypertension - well controlled - continue with current medications, continue with no added salt diet. Pt has been encouraged to exercise daily. The pt has been advised to call the office if there are any acute concerns about change in blood pressure readings at home. 06/23/2016 Appointment: Brigitte Vann WPtel: [phone] (30 min) Complex 06/23/2016 Patient Education: Patient [...] for evaluation 05/19/2016 Appointment: Brigitte Vann WPtel: [phone] (30 min) Complex 05/19/2016 Patient Education: Patient Medication Summary Completed 05/19/2016 Care Plan: Referral Order Dr Esqueda SNOMED- CT : [id number] Pending 05/19/2016 Visit Plan: Hypertension - well controlled - continue with current medications, continue with no added salt diet. Pt has been encouraged to exercise daily. The pt has been advised to call the office if there are any acute concerns about change in blood pressure readings at home. Elpxh-hfegsllh-xl change in treatment 09/14/2014 Appointment: Follow up [...] 2 weeks. 08/24/2014 Appointment: Georgia Jackson WPtel: [facility] follow up 08/24/2014 Patient Education: Patient Medication [...] at home. 07/24/2014 Appointment: Georgia Jackson WPtel: [facility]3 [place] [phone] Follow up 07/24/2014 Patient Education: Patient Medication Summary Completed 07/24/2014 Patient Education: Hypertension Completed 07/24/2014 Care Plan: Referral Order SNOMED-CT : [id number] Ordered 07/24/2014 Visit Plan: Hypertension - well [...] edema. 05/25/2014 Appointment: Brig[facility]ann [facility]Ptel[phone] Follow up 05/25/2014 Patient Education: Patient Medication [...] n ormalized. 04/24/2014 Appointment: [phone] Follow up 04/24/2014 Patient Education: [...] 01/22/2014 Appointment: [facility]el[phone] Follow up 01/22/2014 Patient Education: [...] exercise. 09/18/2013 Appointment: Georgia Jackson [facility]Ptel[phone] Follow up 09/18/2013 Patient Education: Patient Medication [...] 03/20/2013 Appointment: [facility]el[phone] Follow up 03/20/2013 Patient Education: Patient Medication Summary Completed 03/20/2013 Patient Education: Hypertension Completed 03/20/2013 Appointment: Georgia Jackson [facility]Ptel[phone] Lab Draw 05/27/2012 Patient Education: Patient Medication [...] TO FILL THE NEW SCRIPT AT [facility] FOR THE 10MG ENALAPRIL PILL [...] in public. 05/25/2012 Appointment: Georgia Jackson WPtel: [facility] Other 05/25/2012 Patient Education: Patient Medication Summary Completed 05/25/2012 Patient Education: Hypertension Completed 05/25/2012 Patient Education: Smoking and Tobacco Addiction Completed 05/25/2012 Appointment: Georgia Jackson WPtel: [address] [place], [place] [phone] Lab Draw 09/21/2011 Patient Education: Patient Medication [...] leg pain. 09/17/2011 Appointment: Georgia Jackson WPtel: [address] [place], [place] [phone] Other 09/17/2011 Patient Education: Patient Medication Summary Completed 09/17/2011 Patient Education: High Blood Pressure: Essential Hypertension Completed 09/17/2011 Patient Education: Smoking: Hazards of Smoking Completed 09/17/2011 Patient Education: Smoking and Ways to Quit Completed 09/17/2011 Appointment: Georgia Jackson WPtel: [address] [place], [place] [phone] Other 05/22/2011 Visit Plan: Hypertension - well [...] assist cessation. 05/21/2011 Appointment: Georgia Jackson WPtel: [address] [place] [address] Other 05/21/2011 Patient Education: Patient Medication Summary [...] THINK ABOUT GOING TO PHYSICAL THERAPY AT [facility] FOR BALANCE TRAINING. 01/20/2011 Appointment: Georgia Jackson WPtel: [facility] Other 01/20/2011 Patient Education: Patient Medication Summary Completed 01/20/2011 Appointment: Georgia Jackson [facility]Ptel[phone] Lab Draw 01/13/2011 Patient Education: Patient Medication Summary Completed 01/13/2011 Referral: Wojciech Antunez WPtel: [phone] [id number] [place] Referral Appointment Requested Referral: [facility] WPtel: Referral Appointment Requested Referral: Fanny [...] walking -completed PT with Fanny Martinez . Hypertension - well controlled - continue [...] and wants to where she is at. . Hypertension - well controlled - continue [...] change in blood pressure readings at home. Jxilciuula-lnwfwie-lriwrlky lexapro to 10mg daily-repeat in 1 month Gait instability-again recommend patient use walker . Hypertension - well controlled - continue with current medications, continue with no added salt diet. Pt has been encouraged to exercise daily. The pt has been advised to call the office if there are any acute concerns about change in blood pressure readings at home. Gait ucvgbzapwii-lgmsmmet-iswpehfvrr PT-patient refuses-also recommend patient use a walker at all times Weight loss-recommend patient increase intake Mixed urinary incontinence-samples of myrebetriq provided and instructed on use . Falls, weakness, headache - will send for CT scan and treat as indicated - pt strongly encouraged to move to assisted living facility for safety purposes - pt/son are to notify clinic with any changes, questions, or concerns. . Hypertension - continue with current medications, [...] change in blood pressure readings at home. Dpthq-sfbrpejk-fl change in treatment . Hypertension - well [...] verbalized understanding. RECOMMEND FLU/PREVNAR -PATIENT GOING TO [facility] TO GET VACCINES . Hypertension - well [...] to assure normal liver response to medications. PT IS TO INCREASE THE ENALAPRIL TO 10MG DAILY - WHICH WILL EQUAL TWO OF THE 5 MG PILLS DAILY UNTIL THAT SUPPLY IS GONE, THEN PT NEEDS TO FILL THE NEW SCRIPT AT [facility] FOR THE 10MG ENALAPRIL PILL [...] TO FILL THE NEW SCRIPT AT [facility] FOR THE 10MG ENALAPRIL PILL [...] a walker or cane when in public. . Hypertension - well controlled - continue [...] THINK ABOUT GOING TO PHYSICAL THERAPY AT [facility] FOR BALANCE TRAINING. . Hypertension - well controlled - continue [...] situational exposure. No change in current medications. RECOMMEND PHYSICAL THERAPY -ALSO RECOMMEND WALKER AT ALL TIMES RECOMMEND OXYGEN . Gait instability-recommend PT with home health-patient refuses-recommend patient start using walker SSBN-qmfkjif-iwsfcby qualified for oxygen but refuses to wear it Weight gcgn-hazidu-cxbnzwsb to monitor Memory loss-recommend patient move to an assisted living facility
--- OUTSIDE RECORDS SUMMARY | 2018-11-16 07:39 | XMS REPORT | CCD ---
Author Author Georgia Jackson Organization Georgia Jackson MD, [facility] Address [address] [place] [address] Phone Care Team Providers Care Security Compliance Engineer Name Role Phone Georgia Jackson PP Unavailable CCM Unavailable Summary Purpose Interface Exchange Insurance Providers Payer name Policy type / Coverage type Covered alliance party ID Effective Begin Date Effective End Date WPS Medicare Part B [id number] 2014 Unknown [employer] [id number] 2014 Unknown Family history Brother Diagnosis Age [...] Codes Description Effective Dates Living arrangements Unknown Apartment/[facility] 02/18/[address]: 3959777 Former smoker states quit in 2011 or 13 09/18/2013 Marital status Unknown 01/20/2011 Number of children Unknown 2 01/20/2011 Employment Unknown 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, 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 [...] Instructions enalapril maleate 20 mg tablet RxNorm: 612907 1 Tablet(s) PO daily 05/26/2018 05/20/2019 Active Lexapro 10 mg tablet RxNorm: 913024 1 Tablet(s) PO QPM 01/17/2018 07/15/2018 Active Plavix 75 mg tablet RxNorm: 147940 1 Tablet(s) PO daily 01/17/2018 07/15/2018 Active ketoconazole 2 % topical cream RxNorm: 708421 1 Application TOP BID 01/17/2018 01/30/2018 Inactive enalapril maleate 20 mg tablet RxNorm: 987575 1 Tablet(s) PO daily 08/10/2017 05/25/2018 Inactive Plavix 75 mg tablet RxNorm: 406164 1 Tablet(s) PO daily 07/06/2017 01/01/2018 Inactive Lexapro 10 mg tablet RxNorm: 766044 1 Tablet(s) PO QPM 07/06/2017 01/01/2018 Inactive enalapril maleate 20 mg tablet RxNorm: 772609 1 Tablet(s) PO daily TAKE ONE TABLET BY MOUTH DAILY 02/15/2017 08/09/2017 Inactive enalapril maleate 20 mg tablet RxNorm: 193891 TAKE ONE TABLET BY MOUTH DAILY 02/15/2017 02/14/2017 Inactive Myrbetriq 25 mg tablet,extended release RxNorm: 4105341 1 Tablet(s) PO daily 10/13/2016 No Stop Date Active Lexapro 10 mg tablet RxNorm: 866774 1 Tablet(s) PO QPM 09/15/2016 03/13/2017 Inactive enalapril maleate 20 mg tablet RxNorm: 201947 1 Tablet(s) PO daily TAKE ONE TABLET BY MOUTH DAILY 08/18/2016 02/13/2017 Inactive Lexapro 5 mg tablet RxNorm: 727231 1 Tablet(s) PO QPM 08/18/2016 09/14/2016 Inactive enalapril maleate 20 mg tablet RxNorm: 336736 TAKE ONE TABLET BY MOUTH DAILY 05/15/2016 08/12/2016 Inactive enalapril maleate 20 mg tablet RxNorm: 379720 1 Tablet(s) PO daily 05/17/2015 05/10/2016 Inactive chlorthalidone 25 mg tablet RxNorm: 106906 1 Tablet(s) PO QAM 08/24/2014 05/18/2016 Inactive [SAVINGS FOR NON-COVERED DRUGS -- BIN:[id number], PCN: [id number], Group: XXXXX, ID# [id number], Questions: . THIS IS NOT INSURANCE.] Lasix 20 mg tablet RxNorm: 801993 1 Tablet(s) PO QDAY PRN 05/25/2014 05/18/2016 Inactive daily x 3 days then as needed, Take potassium with lasix potassium chloride ER 10 mEq tablet,extended release RxNorm: 937993 1 Tablet(s) PO QDAY PRN 05/25/2014 05/18/2016 Inactive take with lasix enalapril maleate 20 mg tablet RxNorm: 511568 1 Tablet(s) PO daily 04/24/2014 04/18/2015 Inactive enalapril maleate 10 mg tablet RxNorm: 623908 TAKE ONE TABLET BY MOUTH EVERY DAY 12/11/2013 04/23/2014 Inactive enalapril maleate 10 mg tablet RxNorm: 743328 1 Tablet(s) PO daily 03/08/2013 12/02/2013 Inactive enalapril maleate 10 mg tablet RxNorm: 512176 1 Tablet(s) PO daily 09/07/2012 03/07/2013 Inactive enalapril maleate 10 mg tablet RxNorm: 554553 1 Tablet(s) PO daily 05/25/2012 09/06/2012 Inactive enalapril maleate 5 mg tablet RxNorm: 377030 1/2 Tablet(s) PO BID 01/01/2012 05/24/2012 Inactive enalapril maleate 5 mg tablet RxNorm: 971354 1/2 Tablet(s) PO BID 10/02/2011 12/31/2011 Inactive Fish Oil 1,000 mg Cap RxNorm: 3 Capsule(s) PO daily 09/23/2011 No Stop Date Active enalapril maleate 5 mg Tab RxNorm: 439641 1/2 Tablet(s) PO BID 06/29/2011 10/01/2011 Inactive Influenza Virus Vaccine 0.5 mL RxNorm: IM 01/13/2011 01/13/2011 Inactive Pneumovax 23 25 mcg/0.5 mL Injection RxNorm: 037951 Milliliter(s) Inj 01/13/2011 01/13/2011 Inactive Veramyst 27.5 mcg/Actuation Nasal [place] RxNorm: 1318416 1 [place] NASAL daily No Start Date Active multivitamin Oral RxNorm: Oral No Start Date Active Calcium + D Oral RxNorm: Oral No Start Date Active enalapril maleate 5 mg Tab RxNorm: 641242 1/2 Tablet(s) PO BID No Start Date 06/28/2011 Inactive niacin 500 mg Tab RxNorm: 206386 1 Tablet(s) PO QHS No Start Date 05/18/2016 Inactive Reclast 5 mg/100 mL IV RxNorm: 312754 1 Milliliter(s) IV Yearly No Start Date 05/18/2016 Inactive Fish Oil 1,000 mg Cap RxNorm: Oral No Start Date 09/22/2011 Inactive Medication Administered Medication Codes Instructions Start Date Status Influenza Virus Vaccine 0.5 mL RxNorm: 01/13/2011 No longer Active Pneumovax 23 25 mcg/0.5 mL Injection RxNorm: 711866 Milliliter 01/13/2011 No longer Active Immunizations Vaccine [...] 11.5 g/dl 07/06/2017 Cbc With Differential Ord2 Neut% 58.0 % 07/06/2017 Cbc With Differential Ord2 HCT 38.5 % 07/06/2017 Cbc With Differential Ord2 Lymph% 26.1 % 07/06/2017 Cbc With Differential Ord2 MCV 93.2 fl 07/06/2017 Cbc With Differential Ord2 [place]pton% 6.9 % 07/06/2017 Cbc With Differential Ord2 MCH 27.8 pg 07/06/2017 Cbc With Differential Ord2 Eos% 7.9 % 07/06/2017 Cbc With Differential Ord2 MCHC 29.9 pg 07/06/2017 Cbc With Differential Ord2 PLT 271 K/ul 07/06/2017 Cbc With Differential Ord2 Baso% 1.1 % 07/06/2017 Cbc With Differential Ord2 Neut ABS# 3.17 K/ul 07/06/2017 Cbc With Differential Ord2 RDW 14.3 % 07/06/2017 Cbc With Differential Ord2 Lymph ABS# 1.43 K/ul 07/06/2017 Cbc With Differential Ord2 [place] ABS# 0.4 K/ul 07/06/2017 Cbc With Differential Ord2 Eos ABS# 0.4 K/ul 07/06/2017 Cbc With Differential Ord2 Baso ABS# 0.1 K/ul 07/06/2017 Comp Metabolic Mkk255 NA 144 mEq/L 07/06/2017 Comp Metabolic Tek140 K 3.7 mEq/L 07/06/2017 Comp Metabolic Ewp236 CL 105 mEq/L 07/06/2017 Comp Metabolic Rsc695 CO2 30.0 mEq/L 07/06/2017 Comp Metabolic Mqt385 ANION GAP 13 07/06/2017 Comp Metabolic Wkg706 GLUCOSE 84 mg/dL 07/06/2017 Comp Metabolic Uli683 Creat 0.9 mg/dL 07/06/2017 Comp Metabolic Jcm820 eGFR 67 ml/min/1.73m2 07/06/2017 Comp Metabolic Naj001 BUN 19 mg/dL 07/06/2017 Comp Metabolic Kdg188 B/C Ratio 22.4 Ratio 07/06/2017 Comp Metabolic Tbl390 CALCIUM 9.3 mg/dL 07/06/2017 Comp Metabolic Ldw156 ALK PHOS 58 U/L 07/06/2017 Comp Metabolic Xpw446 AST(SGOT) 15 U/L 07/06/2017 Comp Metabolic Rix731 ALT(SGPT) 9 U/L 07/06/2017 Comp Metabolic Ewd652 BILI T 0.2 mg/dL 07/06/2017 Comp Metabolic Ffn921 ALBUMIN 4.0 g/dL 07/06/2017 Comp Metabolic Gwo101 TPRO 6.2 g/dL 07/06/2017 Comp Metabolic Vhk000 GLOB 2.2 g/dL 07/06/2017 Comp Metabolic Nus118 A/G Ratio 1.8 Ratio 07/06/2017 Comp Metabolic Opm135 Osmo 288 mOsmo 07/06/2017 Tsh Ord6 TSH (3rd IS) 0.56 uIU/mL 07/06/2017 Tibc Iron 114 ug/dl 07/06/2017 Tibc UIBC 290 ug/dL 07/06/2017 Tibc TIBC 404 ug/dL 07/06/2017 Tibc Fe-%Sat 28.2 % 07/06/2017 Ferritin Ord22 FERRITIN 15.1 ng/mL 07/06/2017 B12 Xyg211 B12 >1500.00 pg/ml 07/06/2017 Cbc With Differential [...] 30.3 pg 08/18/2016 Cbc With Differential Ord2 Upton% 8.5 % 08/18/2016 Cbc With Differential Ord2 Eos% 5.3 % 08/18/2016 Cbc With Differential Ord2 MCHC 31.5 pg 08/18/2016 Cbc With Differential Ord2 Baso% 0.8 % 08/18/2016 Cbc With Differential Ord2 PLT 254 K/ul 08/18/2016 Cbc With Differential Ord2 RDW 14.3 % 08/18/2016 Cbc With Differential Ord2 Neut ABS# 3.68 K/ul 08/18/2016 Cbc With Differential Ord2 Lymph ABS# 1.61 K/ul 08/18/2016 Cbc With Differential Ord2 Upton ABS# 0.5 K/ul 08/18/2016 Cbc With Differential Ord2 Eos ABS# 0.3 K/ul 08/18/2016 Cbc With Differential Ord2 Baso ABS# 0.1 K/ul 08/18/2016 Comp Metabolic Xsg831 NA 143 mEq/L 08/18/2016 Comp Metabolic Nnv562 K 4.3 mEq/L 08/18/2016 Comp Metabolic Jon993 CL 105 mEq/L 08/18/2016 Comp Metabolic Bdj333 CO2 28.0 mEq/L 08/18/2016 Comp Metabolic Pcr359 ANION GAP 14 08/18/2016 Comp Metabolic Gbp953 GLUCOSE 77 mg/dL 08/18/2016 Comp Metabolic Gpx802 Creat 0.9 mg/dL 08/18/2016 Comp Metabolic Dkv538 eGFR 67 ml/min/1.73m2 08/18/2016 Comp Metabolic Inb729 BUN 21 mg/dL 08/18/2016 Comp Metabolic Pxx778 B/C Ratio 24.7 Ratio 08/18/2016 Comp Metabolic Arq994 CALCIUM 9.0 mg/dL 08/18/2016 Comp Metabolic Qmz376 ALK PHOS 56 U/L 08/18/2016 Comp Metabolic Mrb473 AST(SGOT) 18 U/L 08/18/2016 Comp Metabolic Enw426 ALT(SGPT) 11 U/L 08/18/2016 Comp Metabolic Iwd847 BILI T 0.4 mg/dL 08/18/2016 Comp Metabolic Rrb919 ALBUMIN 3.9 g/dL 08/18/2016 Comp Metabolic Sjx630 TPRO 6.4 g/dL 08/18/2016 Comp Metabolic Mfw365 GLOB 2.5 g/dL 08/18/2016 Comp Metabolic Ucd026 A/G Ratio 1.6 Ratio 08/18/2016 Comp Metabolic Hbg087 Osmo 287 mOsmo 08/18/2016 Lipid Ord30 CHOL 183 mg/dL 08/18/2016 Lipid Ord30 HDL 46.0 mg/dl 08/18/2016 Lipid Ord30 TRIG 129 mg/dL 08/18/2016 Lipid Ord30 LDL 111 mg/dL 08/18/2016 Lipid Ord30 C/HDL 4.0 Ratio 08/18/2016 Tsh Ord6 hTSH II 0.70 uIU/mL 08/18/2016 Comp Metabolic Wij952 NA 141 mEq/L 05/20/2016 Comp Metabolic Iak960 K 4.3 mEq/L 05/20/2016 Comp Metabolic Azh460 CL 103 mEq/L 05/20/2016 Comp Metabolic Eeh432 CO2 31.0 mEq/L 05/20/2016 Comp Metabolic Jon712 ANION GAP 11 05/20/2016 Comp Metabolic Wbs894 GLUCOSE 93 mg/dL 05/20/2016 Comp Metabolic Gen901 Creat 1.0 mg/dL 05/20/2016 Comp Metabolic Fag234 eGFR 57 ml/min/1.73m2 05/20/2016 Comp Metabolic Oor085 BUN 16 mg/dL 05/20/2016 Comp Metabolic Keo946 B/C Ratio 16.3 Ratio 05/20/2016 Comp Metabolic Pmz970 CALCIUM 10.1 mg/dL 05/20/2016 Comp Metabolic Spv076 ALK PHOS 49 U/L 05/20/2016 Comp Metabolic Uhu590 AST(SGOT) 17 U/L 05/20/2016 Comp Metabolic Zgf387 ALT(SGPT) 11 U/L 05/20/2016 Comp Metabolic Ypf166 BILI T 0.3 mg/dL 05/20/2016 Comp Metabolic Kdq341 ALBUMIN 4.4 g/dL 05/20/2016 Comp Metabolic Bcl573 TPRO 6.8 g/dL 05/20/2016 Comp Metabolic Mos496 GLOB 2.4 g/dL 05/20/2016 Comp Metabolic Mxw759 A/G Ratio 1.8 Ratio 05/20/2016 Comp Metabolic Otc948 Osmo 282 mOsmo 05/20/2016 Cbc With Differential Ord2 WBC 6.40 K/ul 05/20/2016 Cbc With Differential Ord2 RBC 4.57 M/ul 05/20/2016 Cbc With Differential Ord2 HGB 14.0 g/dl 05/20/2016 Cbc With Differential Ord2 HCT 44.1 % 05/20/2016 Cbc With Differential Ord2 Neut% 47.6 % 05/20/2016 Cbc With Differential Ord2 Lymph% 38.3 % 05/20/2016 Cbc With Differential Ord2 MCV 96.5 fl 05/20/2016 Cbc With Differential Ord2 Upton% 7.8 % 05/20/2016 Cbc With Differential Ord2 MCH 30.6 pg 05/20/2016 Cbc With Differential Ord2 Eos% 4.4 % 05/20/2016 Cbc With Differential Ord2 MCHC 31.7 pg 05/20/2016 Cbc With Differential Ord2 PLT 279 K/ul 05/20/2016 Cbc With Differential Ord2 Baso% 1.9 % 05/20/2016 Cbc With Differential Ord2 RDW 13.8 % 05/20/2016 Cbc With Differential Ord2 Neut ABS# 3.05 K/ul 05/20/2016 Cbc With Differential Ord2 Lymph ABS# 2.45 K/ul 05/20/2016 Cbc With Differential Ord2 [place] ABS# 0.5 K/ul 05/20/2016 Cbc With Differential Ord2 Eos ABS# 0.3 K/ul 05/20/2016 Cbc With Differential Ord2 Baso ABS# 0.1 K/ul 05/20/2016 Tsh Ord6 hTSH II 0.80 uIU/mL 05/20/2016 GFR CALC 5045841 GFR AA >60 ML/MIN 07/24/2014 GFR CALC 8099828 GFR NON-AA >60 ML/MIN 07/24/2014 TSH 3622811 TSH 0.192 uIU/ML 07/24/2014 CBC 8851523 WBC 6.4 10e9/L 07/24/2014 CBC 4357721 RBC 4.61 10e12/L 07/24/2014 CBC 2076748 HGB 13.7 g/dL 07/24/2014 CBC 5563013 HCT DET 42.6 % 07/24/2014 CBC 7092862 MCV 92.4 fL 07/24/2014 CBC 4016457 MCH 29.7 pg 07/24/2014 CBC 5871987 MCHC 32.2 g/dL 07/24/2014 CBC 6479148 PLT 280 10e9/L 07/24/2014 CBC 1761382 MPV 8.9 fL 07/24/2014 CBC 1367860 AISSATOU % 59.5 % 07/24/2014 CBC 7059059 LY % 30.6 % 07/24/2014 CBC 6506249 MON % 5.9 % 07/24/2014 CBC 8221470 EOS % 3.4 % 07/24/2014 CBC 7122333 BASO % 0.6 % 07/24/2014 CBC 6409350 RDW 14.8 % 07/24/2014 CBC 3485506 ABS AISSATOU 3.81 10e9/L 07/24/2014 CBC 3311977 ABS LYMPH 1.96 10e9/L 07/24/2014 CBC 2052056 ABS MONO 0.38 10e9/L 07/24/2014 CBC 8748798 ABS EOS 0.22 10e9/L 07/24/2014 CBC 9116988 ABS BASO 0.04 10e9/L 07/24/2014 CBC 9543206 RDW-SD 48.9 fL 07/24/2014 CHEM 14 1887506 AST 17 U/L 07/24/2014 CHEM 14 8232205 ALT 11 IU/L 07/24/2014 CHEM 14 2533879 BUN 13 MG/DL 07/24/2014 CHEM 14 7348276 ALBUMIN 4.2 GM/DL 07/24/2014 CHEM 14 5767341 CHLORIDE 104 MMOL/L 07/24/2014 CHEM 14 1531140 BILI TOT 0.6 MG/DL 07/24/2014 CHEM 14 2380828 ALK PHOS 52 U/L 07/24/2014 CHEM 14 3769065 SODIUM 141 MMOL/L 07/24/2014 CHEM 14 1920327 CREATININE 0.87 MG/DL 07/24/2014 CHEM 14 6715911 CALCIUM 9.1 MG/DL 07/24/2014 CHEM 14 9487446 POTASSIUM 4.1 MMOL/L 07/24/2014 CHEM 14 2587815 PROT TOT 6.4 GM/DL 07/24/2014 CHEM 14 3179270 GLUCOSE 100 MG/DL 07/24/2014 CHEM 14 5571186 BICARB 27 MMOL/L 07/24/2014 CHEM 14 6409061 ANION GAP 10 MEQ/L 07/24/2014 FREE T4 4409532 FREE T4 1.08 NG/DL 09/20/2013 T3 TOT 6083702 T3 TOT 1.1 NG/ML 09/20/2013 CHEM 14 9357587 AST 20 U/L 09/18/2013 CHEM 14 7680691 ALT 17 IU/L 09/18/2013 CHEM 14 5843907 BUN 18 MG/DL 09/18/2013 CHEM 14 2817397 ALBUMIN 4.4 GM/DL 09/18/2013 CHEM 14 3898432 CHLORIDE 106 MMOL/L 09/18/2013 CHEM 14 8830494 BILI TOT 0.4 MG/DL 09/18/2013 CHEM 14 5886955 ALK PHOS 50 U/L 09/18/2013 CHEM 14 3679400 SODIUM 142 MMOL/L 09/18/2013 CHEM 14 5418622 CREATININE 0.92 MG/DL 09/18/2013 CHEM 14 3599069 CALCIUM 9.3 MG/DL 09/18/2013 CHEM 14 9027487 POTASSIUM 4.1 MMOL/L 09/18/2013 CHEM 14 4875590 PROT TOT 6.5 GM/DL 09/18/2013 CHEM 14 3226176 GLUCOSE 98 MG/DL 09/18/2013 CHEM 14 6488953 BICARB 27 MMOL/L 09/18/2013 CHEM 14 4017316 ANION GAP 9 MEQ/L 09/18/2013 TSH 6590068 TSH 0.209 uIU/ML 09/18/2013 CBC 0000486 WBC 7.1 10e9/L 09/18/2013 CBC 3574344 RBC 4.59 10e12/L 09/18/2013 CBC 6393781 HGB 14.1 g/dL 09/18/2013 CBC 3937499 HCT DET 43.3 % 09/18/2013 CBC 0592127 MCV 94.3 fL 09/18/2013 CBC 4468980 MCH 30.7 pg 09/18/2013 CBC 7283902 MCHC 32.6 g/dL 09/18/2013 CBC 8248863 PLT 274 10e9/L 09/18/2013 CBC 2747399 MPV 9.1 fL 09/18/2013 CBC 2392784 AISSATOU % 60.9 % 09/18/2013 CBC 8803588 LY % 29.2 % 09/18/2013 CBC 6743741 MON % 6.1 % 09/18/2013 CBC 3899356 EOS % 3.2 % 09/18/2013 CBC 6888973 BASO % 0.6 % 09/18/2013 CBC 3624421 RDW 13.8 % 09/18/2013 CBC 4299642 ABS AISSATOU 4.32 10e9/L 09/18/2013 CBC 7390170 ABS LYMPH 2.07 10e9/L 09/18/2013 CBC 9516550 ABS MONO 0.43 10e9/L 09/18/2013 CBC 5824574 ABS EOS 0.23 10e9/L 09/18/2013 CBC 2130008 ABS BASO 0.04 10e9/L 09/18/2013 CBC 2388666 RDW-SD 46.0 fL 09/18/2013 LIPID GRP HDL TEST 70 MG/DL 09/18/2013 LIPID GRP TRIG 114 MG/DL 09/18/2013 LIPID GRP TEST LDL 198 MG/DL 09/18/2013 LIPID GRP CHOL 291 MG/DL 09/18/2013 LIPID GRP RCHOL/HDL 4.16 RATIO 09/18/2013 GFR CALC 9119749 GFR AA >60 ML/MIN 09/18/2013 GFR CALC 0840001 GFR NON-AA 58.0L ML/MIN 09/18/2013 FREE T4 9691896 FREE T4 1.05 NG/DL 03/22/2013 T3 TOT 6471112 T3 TOT 0.9 NG/ML 03/22/2013 CHEM 14 4069310 AST 18 U/L 03/20/2013 CHEM 14 3040117 ALT 13 IU/L 03/20/2013 CHEM 14 4339151 BUN 25 MG/DL 03/20/2013 CHEM 14 0751847 ALBUMIN 4.4 GM/DL 03/20/2013 CHEM 14 4987961 CHLORIDE 105 MMOL/L 03/20/2013 CHEM 14 5541335 BILI TOT 0.4 MG/DL 03/20/2013 CHEM 14 7174746 ALK PHOS 40 U/L 03/20/2013 CHEM 14 8917211 SODIUM 141 MMOL/L 03/20/2013 CHEM 14 0630025 CREATININE 0.95 MG/DL 03/20/2013 CHEM 14 8099851 CALCIUM 9.8 MG/DL 03/20/2013 CHEM 14 3298263 POTASSIUM 4.1 MMOL/L 03/20/2013 CHEM 14 6330073 PROT TOT 6.2 GM/DL 03/20/2013 CHEM 14 9187382 GLUCOSE 89 MG/DL 03/20/2013 CHEM 14 6017197 BICARB 29 MMOL/L 03/20/2013 CHEM 14 4127448 ANION GAP 7 MEQ/L 03/20/2013 TSH 2820243 TSH 0.228 uIU/ML 03/20/2013 GFR CALC 7441143 GFR AA >60 ML/MIN 03/20/2013 GFR CALC 9242239 GFR NON-AA 56.0L ML/MIN 03/20/2013 CBC 9890151 WBC 6.8 10e9/L 03/20/2013 CBC 6820669 RBC 4.58 10e12/L 03/20/2013 CBC 4367304 HGB 14.1 g/dL 03/20/2013 CBC 4938769 HCT DET 43.1 % 03/20/2013 CBC 4113513 MCV 94.1 fL 03/20/2013 CBC 2795836 MCH 30.8 pg 03/20/2013 CBC 4506737 MCHC 32.7 g/dL 03/20/2013 CBC 4919982 PLT 294 10e9/L 03/20/2013 CBC 6626961 MPV 9.4 fL 03/20/2013 CBC 3580263 AISSATOU % 50.3 % 03/20/2013 CBC 7940253 LY % 35.9 % 03/20/2013 CBC 4453800 MON % 7.3 % 03/20/2013 CBC 9674598 EOS % 5.8 % 03/20/2013 CBC 2323570 BASO % 0.7 % 03/20/2013 CBC 5140287 RDW 14.5 % 03/20/2013 CBC 5447578 ABS AISSATOU 3.42 10e9/L 03/20/2013 CBC 1817267 ABS LYMPH 2.44 10e9/L 03/20/2013 CBC 5918912 ABS MONO 0.50 10e9/L 03/20/2013 CBC 7939109 ABS EOS 0.39 10e9/L 03/20/2013 CBC 3370149 ABS BASO 0.05 10e9/L 03/20/2013 CBC 9354309 RDW-SD 48.2 fL 03/20/2013 LIPID GRP HDL TEST 71 MG/DL 03/20/2013 LIPID GRP 5249207 TRIG 87 MG/DL 03/20/2013 LIPID GRP TEST LDL 168 MG/DL 03/20/2013 LIPID GRP CHOL 256 MG/DL 03/20/2013 LIPID GRP RCHOL/HDL 3.61 RATIO 03/20/2013 FREE T4 4336829 FREE T4 1.09 NG/DL 05/31/2012 T3 TOT 0760510 T3 TOT 0.9 NG/ML 05/31/2012 CBC 6472786 WBC 7.1 10e9/L 05/27/2012 CBC 9339109 RBC 4.58 10e12/L 05/27/2012 CBC 2697943 HGB 14.4 g/dL 05/27/2012 CBC 9351441 HCT DET 43.5 % 05/27/2012 CBC 0749636 MCV 95.0 fL 05/27/2012 CBC 3797332 MCH 31.4 pg 05/27/2012 CBC 2275143 MCHC 33.1 g/dL 05/27/2012 CBC 4499793 PLT 285 10e9/L 05/27/2012 CBC 5230380 MPV 9.2 fL 05/27/2012 CBC 9519154 AISSATOU % 61.2 % 05/27/2012 CBC 9726143 LY % 27.5 % 05/27/2012 CBC 7690138 MON % 6.8 % 05/27/2012 CBC 1872007 EOS % 3.8 % 05/27/2012 CBC 2007646 BASO % 0.7 % 05/27/2012 CBC 0422617 RDW 14.1 % 05/27/2012 CBC 6126941 ABS AISSATOU 4.35 10e9/L 05/27/2012 CBC 2956690 ABS LYMPH 1.95 10e9/L 05/27/2012 CBC 1661542 ABS MONO 0.48 10e9/L 05/27/2012 CBC 1469994 ABS EOS 0.27 10e9/L 05/27/2012 CBC 6682228 ABS BASO 0.05 10e9/L 05/27/2012 CBC 4887203 RDW-SD 47.2 fL 05/27/2012 LIPID GRP HDL TEST 57 MG/DL 05/27/2012 LIPID GRP TRIG 110 MG/DL 05/27/2012 LIPID GRP TEST LDL 156 MG/DL 05/27/2012 LIPID GRP CHOL 235 MG/DL 05/27/2012 LIPID GRP RCHOL/HDL 4.12 RATIO 05/27/2012 CHEM 14 8565663 AST 19 U/L 05/27/2012 CHEM 14 7540598 ALT 13 IU/L 05/27/2012 CHEM 14 1728500 BUN 19 MG/DL 05/27/2012 CHEM 14 9172591 ALBUMIN 4.7 GM/DL 05/27/2012 CHEM 14 1389434 CHLORIDE 106 MMOL/L 05/27/2012 CHEM 14 2339533 BILI TOT 0.5 MG/DL 05/27/2012 CHEM 14 4838751 ALK PHOS 51 U/L 05/27/2012 CHEM 14 7100402 SODIUM 141 MMOL/L 05/27/2012 CHEM 14 4666373 CREATININE 0.85 MG/DL 05/27/2012 CHEM 14 8770824 CALCIUM 9.4 MG/DL 05/27/2012 CHEM 14 6858807 POTASSIUM 4.0 MMOL/L 05/27/2012 CHEM 14 9682004 PROT TOT 6.7 GM/DL 05/27/2012 CHEM 14 1348088 GLUCOSE 101 MG/DL 05/27/2012 CHEM 14 6495938 BICARB 29 MMOL/L 05/27/2012 CHEM 14 7484445 ANION GAP 6 MEQ/L 05/27/2012 TSH 3254993 TSH 0.275 uIU/ML 05/27/2012 GFR CALC 2513751 GFR AA >60 ML/MIN 05/27/2012 GFR CALC 5313350 GFR NON-AA >60 ML/MIN 05/27/2012 CHEM 14 9602659 AST 18 U/L 09/21/2011 CHEM 14 6302126 ALT 11 IU/L 09/21/2011 CHEM 14 0278309 BUN 18 MG/DL 09/21/2011 CHEM 14 6082289 ALBUMIN 4.3 GM/DL 09/21/2011 CHEM 14 4613705 CHLORIDE 102 MMOL/L 09/21/2011 CHEM 14 1939653 BILI TOT 0.4 MG/DL 09/21/2011 CHEM 14 1633801 ALK PHOS 47 U/L 09/21/2011 CHEM 14 4046423 SODIUM 139 MMOL/L 09/21/2011 CHEM 14 3718822 CREATININE 0.92 MG/DL 09/21/2011 CHEM 14 3917305 CALCIUM 9.2 MG/DL 09/21/2011 CHEM 14 5023165 POTASSIUM 4.1 MMOL/L 09/21/2011 CHEM 14 4176845 PROT TOT 6.4 GM/DL 09/21/2011 CHEM 14 0559615 GLUCOSE 89 MG/DL 09/21/2011 CHEM 14 9945160 BICARB 28 MMOL/L 09/21/2011 CHEM 14 3898507 ANION GAP 9 MEQ/L 09/21/2011 TSH 0294931 TSH 0.352 uIU/ML 09/21/2011 GFR CALC 7953743 GFR AA >60 ML/MIN 09/21/2011 GFR CALC 1832451 GFR NON-AA 58.0L ML/MIN 09/21/2011 LIPID GRP HDL TEST 54 MG/DL 09/21/2011 LIPID GRP TRIG 81 MG/DL 09/21/2011 LIPID GRP TEST LDL 154 MG/DL 09/21/2011 LIPID GRP CHOL 224 MG/DL 09/21/2011 LIPID GRP RCHOL/HDL 4.15 RATIO 09/21/2011 CBC 9108520 WBC 9.6 10e9/L 09/21/2011 CBC 9216086 RBC 4.85 10e12/L 09/21/2011 CBC 2316085 HGB 15.0 g/dL 09/21/2011 CBC 9892270 HCT DET 46.5 % 09/21/2011 CBC 6980510 MCV 95.9 fL 09/21/2011 CBC 8814799 MCH 30.9 pg 09/21/2011 CBC 3735132 MCHC 32.3 g/dL 09/21/2011 CBC 6927040 PLT 279 10e9/L 09/21/2011 CBC 9479069 MPV 9.1 fL 09/21/2011 CBC 9828061 AISSATOU % 63.4 % 09/21/2011 CBC 2473602 LY % 26.1 % 09/21/2011 CBC 6332998 MON % 5.6 % 09/21/2011 CBC 8464426 EOS % 4.4 % 09/21/2011 CBC 2927224 BASO % 0.5 % 09/21/2011 CBC 6791280 RDW 14.0 % 09/21/2011 CBC 1644622 ABS AISSATOU 6.09 10e9/L 09/21/2011 CBC 8273327 ABS LYMPH 2.51 10e9/L 09/21/2011 CBC 4221725 ABS MONO 0.54 10e9/L 09/21/2011 CBC 4001105 ABS EOS 0.42 10e9/L 09/21/2011 CBC 9178601 ABS BASO 0.05 10e9/L 09/21/2011 CBC 9170122 RDW-SD 47.9 fL 09/21/2011 Review of Systems [...] distress 05/11/2018 None Full Exam - General 1995 Constitutional general appearance Overall: well nourished 05/11/2018 None Full Exam - General 1995 Eyes conjunctiva/eyelids Overall: eyelids normal 05/11/2018 None Full Exam - General 1995 Eyes conjunctiva/eyelids Overall: cornea clear 05/11/2018 None Full Exam - General 1995 Eyes conjunctiva/eyelids Overall: conjunctiva clear 05/11/2018 None [...] affect 05/21/2011 None Full Exam - General 1994 Constitutional general appearance Development: well developed 05/21/2011 None Full Exam - General 1994 Constitutional general appearance Overall: in no acute distress 05/21/2011 None Full Exam - General 1994 Constitutional general appearance Stature/Body Habitus: normal body [...] Procedure Codes Date ROUTINE VENIPUNCTURE CPT- 4: 37946 07/24/2014 ADMIN INFLUENZA VIRUS VAC CPT-4: G0008 01/22/2014 FLU VAC NO PRSV 4 LISSA 3 YRS+ Assigned to/Laura Og CPT-4: 31142Kynojev 01/22/2014 ROUTINE VENIPUNCTURE CPT- 4: 32427 09/18/2013 ROUTINE VENIPUNCTURE CPT- 4: 23672 03/20/2013 ROUTINE VENIPUNCTURE CPT- 4: 19077 05/27/2012 ROUTINE VENIPUNCTURE CPT- 4: 75839 09/21/2011 ROUTINE VENIPUNCTURE CPT- 4: 14595 01/13/2011 Pneumococcal Polysaccharide Vaccine, 23-Valent, Ad CPT-4: 47864 01/13/2011 ADMIN INFLUENZA VIRUS VAC CPT-4: G0008 01/13/2011 ADMIN PNEUMOCOCCAL VACCINE SNOMED CT: [id number] CPT-4: G0009 01/13/2011 FLULAVAL VACC, 3 YRS & >, IM CPT-4: Q2036 01/13/2011 Vital Signs Date Vital 05/26/2018 Blood Pressure 1: 120/82 Code: 8480-6 BMI: 25.2 Code: 34119-2 Heart Rate 1: 67 bpm Height: 5'3" SpO2: 92% Weight: 142 lbs 05/11/2018 Blood Pressure 1: 166/100 Code: 8480-6 Heart Rate 1: 68 bpm Height: 5'5" SpO2: 91% Weight: 01/17/2018 Blood Pressure 1: 108/76 Code: 8480-6 BMI: 23.1 Code: 73224-3 Heart Rate 1: 86 bpm Height: 5'5" SpO2: 97% Weight: 139 lbs 10/12/2017 Blood Pressure 1: 144/84 Code: 8480-6 BMI: 23.6 Code: 28418-5 Heart Rate 1: 70 bpm Height: 5'5" SpO2: 92% Weight: 142 lbs 08/10/2017 Blood Pressure 1: 138/84 Code: 8480-6 BMI: 22.5 Code: 43795-0 Heart Rate 1: 55 bpm Height: 5'5" SpO2: 91% Weight: 135 lbs 07/06/2017 Blood Pressure 1: 140/78 Code: 8480-6 BMI: 22.5 Code: 41189-7 Heart Rate 1: 87 bpm Height: 5'5" SpO2: 96% Weight: 135 lbs 03/18/2017 Blood Pressure 1: 152/88 Code: 8480-6 BMI: 22.5 Code: 62515-6 Heart Rate 1: 55 bpm Height: 5'5" SpO2: 92% Temperature: 36.8 (C) / 98.2 (F) Weight: 135 lbs 02/18/2017 Blood Pressure 1: 108/80 Code: 8480-6 BMI: 22.0 Code: 39021-8 Heart Rate 1: 87 bpm Height: 5'5" SpO2: 93% Weight: 132 lbs 11/16/2016 Blood Pressure 1: 146/84 Code: 8480-6 BMI: 23.0 Code: 62155-5 Heart Rate 1: 72 bpm Height: 5'5" SpO2: 95% Weight: 138 lbs 10/13/2016 Blood Pressure 1: 142/86 Code: 8480-6 Blood Pressure 1: 170/96 Code: 8480-6 BMI: 23.0 Code: 38886-3 Heart Rate 1: 74 bpm Height: 5'5" SpO2: 90% Weight: 138 lbs 09/15/2016 Blood Pressure 1: 118/78 Code: 8480-6 Heart Rate 1: 82 bpm SpO2: 90% Weight: 141 lbs 08/18/2016 Blood Pressure 1: 142/82 Code: 8480-6 BMI: 24.1 Code: 21879-9 Heart Rate 1: 72 bpm Height: 5'5" SpO2: 91% Weight: 145 lbs 06/23/2016 Blood Pressure 1: 148/86 Code: 8480-6 BMI: 24.1 Code: 28556-6 Heart Rate 1: 70 bpm Height: 5'5" SpO2: 90% Weight: 145 lbs 05/19/2016 Blood Pressure 1: 162/76 Code: 8480-6 BMI: 24.3 Code: 96772-9 Heart Rate 1: 76 bpm Height: 5'5" Weight: 146 lbs 09/14/2014 Blood Pressure 1: 102/80 Code: 8480-6 BMI: 27.7 Code: 68122-4 Heart Rate 1: 90 bpm Height: 5' SpO2: 94% Weight: 144 lbs 08/24/2014 Blood Pressure 1: 122/92 Code: 8480-6 BMI: 28.4 Code: 00676-4 Heart Rate 1: 74 bpm Height: 5' SpO2: 94% Weight: 148 lbs 07/24/2014 Blood Pressure 1: 142/86 Code: 8480-6 BMI: 28.8 Code: 13000-8 Heart Rate 1: 88 bpm Height: 5' Weight: 150 lbs 05/25/2014 Blood Pressure 1: 136/88 Code: 8480-6 BMI: 28.8 Code: 76943-4 Heart Rate 1: 82 bpm Height: 5' Weight: 150 lbs 04/24/2014 Blood Pressure 1: 150/78 Code: 8480-6 BMI: 29.6 Code: 26319-9 Heart Rate 1: 60 bpm Height: 5' Weight: 154 lbs 01/22/2014 Blood Pressure 1: 140/78 Code: 8480-6 BMI: 29.6 Code: 48534-1 Heart Rate 1: 78 bpm Height: 5' SpO2: 90% Weight: 154 lbs 09/18/2013 Blood Pressure 1: 128/84 Code: 8480-6 BMI: 29.4 Code: 65691-4 Heart Rate 1: 80 bpm Height: 5' Weight: 153 lbs 03/20/2013 Blood Pressure 1: 122/80 Code: 8480-6 BMI: 29.0 Code: 25127-7 Heart Rate 1: 76 bpm Height: 5' Weight: 151 lbs 05/25/2012 Blood Pressure 1: 140/92 Code: 8480-6 BMI: 26.3 Code: 58000-8 Heart Rate 1: 88 bpm Height: 5' Weight: 137 lbs 09/17/2011 Blood Pressure 1: 128/78 Code: 8480-6 Heart Rate 1: 76 bpm Respiratory Rate: 24 bpm Weight: 137 lbs 05/21/2011 Blood Pressure 1: 114/72 Code: 8480-6 BMI: 27.1 Code: 95066-7 Heart Rate 1: 68 bpm Height: 5' [...] 05/21/2011 states she has been going to [place] to have the toxins removed from her feet cholesterol followup Quality increased cholesterol 01/20/2011 pt had labs 01/13/11; Dr. Jackson recommended to increase niacin to 1000 mg daily and increase fish oil to 1000mg tid Advance Directives No Advance Directive data Encounters Encounter Performer Location Codes Date ([id number]) 14339 EST. PATIENT, LEVEL IV Diagnosis: Essential (primary) hypertension[ICD10: I10] Diagnosis: Major depressive disorder, recurrent, moderate[ICD10: F33.1] Diagnosis: Mixed incontinence[ICD10: N39.46] Georgia Jackson MD, [facility] CPT- 4: 68462 05/26/2018 [id number] EST. PATIENT, LEVEL III Diagnosis: Headache[ICD10: R51] Diagnosis: Weakness[ICD10: R53.1] [facility] CPT-4: 37269 05/11/2018 ([id number] 32781 EST. PATIENT, LEVEL IV Diagnosis: Essential (primary) hypertension[ICD10: I10] Diagnosis: Rash and other nonspecific skin eruption[ICD10: R21] Diagnosis: Major depressive disorder, recurrent, moderate[ICD10: F33.1] [facility] CPT-4: 54016 01/17/2018 [id number] 09313 EST. PATIENT, LEVEL III Diagnosis: Essential (primary) hypertension[ICD10: I10] Diagnosis: Unsteadiness on feet[ICD10: R26.81] Brigitte Jackson MD, [facility] CPT-4: 04355 10/12/2017 ([id number]) 65777 EST. PATIENT, LEVEL III Diagnosis: Essential (primary) hypertension[ICD10: I10] Diagnosis: Unsteadiness on feet[ICD10: R26.81] Brigitte Jackson MD, [facility] CPT-4: 66497 08/10/2017 ([id number]) 02756 EST. PATIENT, LEVEL IV Diagnosis: Essential (primary) hypertension[ICD10: I10] Diagnosis: Major depressive disorder, recurrent, moderate[ICD10: F33.1] Diagnosis: Unsteadiness on feet[ICD10: R26.81] Brigitte Jackson MD, [facility] CPT-4: 64148 07/06/2017 ([id number]) 40202 EST. PATIENT, LEVEL III Diagnosis: Essential (primary) hypertension[ICD10: I10] Diagnosis: Major depressive disorder, recurrent, moderate[ICD10: F33.1] Diagnosis: Abnormal weight loss[ICD10: R63.4] Brigitte Jackson MD, [facility] CPT- 4: 82637 03/18/2017 ([id number]) 95531 EST. PATIENT, LEVEL IV Diagnosis: Essential (primary) hypertension[ICD10: I10] Diagnosis: Chronic obstructive pulmonary disease, unspecified[ICD10: J44.9] Diagnosis: Unsteadiness on feet[ICD10: R26.81] Diagnosis: Abnormal weight loss[ICD10: R63.4] Brigitte Jackson MD, [facility] CPT- 4: 10962 02/18/2017 ([id number]) 48957 EST. PATIENT, LEVEL IV Diagnosis: Unsteadiness on feet[ICD10: R26.81] Diagnosis: Major depressive disorder, recurrent, moderate[ICD10: F33.1] Diagnosis: Chronic obstructive pulmonary disease, unspecified[ICD10: J44.9] Brigitte Jackson MD, [facility] CPT-4: 16555 11/16/2016 ([id number]) 81727 EST. PATIENT, LEVEL IV Diagnosis: Essential (primary) hypertension[ICD10: I10] Diagnosis: Unsteadiness on feet[ICD10: R26.81] Diagnosis: Abnormal weight loss[ICD10: R63.4] Diagnosis: Mixed incontinence[ICD10: N39.46] Brigitte Jackson MD, [facility] CPT- 4: 81137 10/13/2016 ([id number]) 57326 EST. PATIENT, LEVEL IV Diagnosis: Essential (primary) hypertension[ICD10: I10] Diagnosis: Major depressive disorder, recurrent, moderate[ICD10: F33.1] Diagnosis: Unsteadiness on feet[ICD10: R26.81] Brigitte Jackson MD, [facility] CPT-4: 49717 09/15/2016 ([id number]) 26918 EST. PATIENT, LEVEL IV Diagnosis: Essential (primary) hypertension[ICD10: I10] Diagnosis: Mixed hyperlipidemia[ICD10: E78.2] Diagnosis: Major depressive disorder, recurrent, moderate[ICD10: F33.1] Diagnosis: Unsteadiness on feet[ICD10: R26.81] Brigitte Jackson MD, [facility] CPT-4: 28099 08/18/2016 ([id number]) 30182 EST. PATIENT, LEVEL III Diagnosis: Essential (primary) hypertension[ICD10: I10] Brigitte Jackson MD, [facility] CPT-4: 23046 06/23/2016 ([id number]) 40477 EST. 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 PATIENT, LEVEL III Diagnosis: ESSENTIAL HYPERTENSION[ICD9: 401.9] Diagnosis: EDEMA[ICD9: 782.3] Brigitte Jackson MD, [facility] CPT-4: 73712 09/14/2014 ([id number]) 25116 EST. PATIENT, LEVEL III Diagnosis: ESSENTIAL HYPERTENSION[ICD9: 401.9] Diagnosis: EDEMA[ICD9: 782.3] Georgia Jackson MD [facility] CPT-4: 26862 08/24/2014 ([id number]) 34431 EST. PATIENT, LEVEL IV Diagnosis: Peripheral vascular disease[ICD9: 443.9] Diagnosis: ESSENTIAL HYPERTENSION[ICD9: 401.9] Diagnosis: Chronic fatigue[ICD9: 780.79] Diagnosis: Ataxia[ICD9: 781.3] Georgia Jackson MD, [facility] CPT-4: 44124 07/24/2014 ([id number]) 92631 EST. PATIENT, LEVEL III Diagnosis: ESSENTIAL HYPERTENSION[ICD9: 401.9] Diagnosis: EDEMA[ICD9: 782.3] Georgia Jackson MD, [facility] CPT-4: 79372 05/25/2014 ([id number]) 53566 EST. 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 PATIENT, LEVEL IV Diagnosis: ESSENTIAL HYPERTENSION[ICD9: 401.9] Diagnosis: HYPERLIPIDEMIA[ICD9: 272.4] Diagnosis: VACCIN FOR INFLUENZA[ICD10: Z23] Georgia Jackson MD [facility] CPT-4: 22840 01/22/2014 ([id number]) 81458 EST. 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 PATIENT, LEVEL IV Diagnosis: ESSENTIAL HYPERTENSION[SNOMED: 26405544] Diagnosis: LACK OF COORDINATION[ICD9: 781.3] Diagnosis: PERIPH VASCULAR DIS[ICD9: 443.9] Diagnosis: ENCNTR LONG-RX USE NEC[ICD9: V58.69] Georgia Jackson MD, [facility] CPT- 4: 55122 03/20/2013 ([id number]) 64760 EST. PATIENT, LEVEL IV Diagnosis: ESSENTIAL HYPERTENSION[SNOMED: 54903693] Diagnosis: HYPERLIPIDEMIA[ICD9: 272.4] Diagnosis: LACK OF COORDINATION[ICD9: 781.3] Diagnosis: TOBACCO USE DISORDER[ICD9: 305.1] Georgia Jackson MD, [facility] CPT- 4: 41552 05/25/2012 ([id number]) 80806 EST. 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 PATIENT, LEVEL IV Diagnosis: ESSENTIAL HYPERTENSION[SNOMED: 99974726] Diagnosis: LACK OF COORDINATION[ICD9: 781.3] Diagnosis: TOBACCO USE DISORDER[ICD9: 305.1] Georgia Jackson MD, [facility] CPT- 4: 32812 05/21/2011 97697 EST. PATIENT, LEVEL IV Diagnosis: ESSENTIAL HYPERTENSION[SNOMED: 11121378] Diagnosis: HYPERLIPIDEMIA[ICD9: 272.4] Diagnosis: Ataxia[ICD9: 781.3] Georgia Jackson MD, [facility] CPT-4: 06870 01/20/2011 Plan of Care Planned Activity Notes [...] exposure. No change in current medications. 05/26/2018 Patient Education: Patient Medication Summary Completed [...] Appointment[facility] La [phone] (15 min) Moderate 05/11/2018 Patient Education: Patient [...] at. 01/17/2018 Appointment: Brig[facility] Vann [phone] [place] (15 min) Moderate 01/17/2018 Patient Education: [...] assisted living 10/12/2017 Appointment: Brigitte Vann WPtel: [phone] (30 min) Complex 10/12/2017 Patient Education: Patient [...] Fanny Martinez 08/10/2017 Appointment: Brigitte Vann WPtel: [phone] (15 min) Moderate 08/10/2017 Patient Education: Patient [...] verbalized understanding. 07/06/2017 Appointment: Brig[facility]ann [phone] (30 min) Complex 07/06/2017 Patient Education: Patient Medication Summary Completed 07/06/2017 Patient Education: Patient Medication Summary Completed 07/06/2017 Care Plan: Referral Order SNOMED-CT : 680570602 Pending 07/06/2017 Care Plan: [employer] [...] Weight loss-stable 03/18/2017 Appointment: Brigitte Vann WPtel: [address] [place], [place] [phone] [place] [address] (30 min) Complex 03/18/2017 Patient Education: Patient [...] 1 month 02/18/2017 Appointment: Brigitte Vann WPtel: [address] [place], [place] [phone] [place] [address] (30 min) Complex 02/18/2017 Patient Education: Patient Medication Summary Completed 02/18/2017 Appointment: Brigitte Vann WPtel: [address] [place], [place] [phone] [place] [address] (30 min) Complex 12/17/2016 Visit Plan: Gait instability-recommend PT with home health-patient refuses-recommend patient start using walker QOKM-pbnhdbr-tbyaekq qualified for oxygen but refuses to wear it Weight jmqw-pbpcip-pmltazay to monitor Memory loss-recommend patient move to an assisted living facility 11/16/2016 Appointment: Brigitte Vann WPtel: [address] [place], [place] [phone] (15 min) Moderate 11/16/2016 Patient Education: Patient Medication Summary Completed 11/16/2016 Visit Plan: Hypertension - well controlled - continue with current medications, continue with no added salt diet. Pt has been encouraged to exercise daily. The pt has been advised to call the office if there are any acute concerns about change in blood pressure readings at home. Gait hkotwreopma-rjbbhfoy-caaxirmsjg PT-patient refuses-also recommend patient use a walker at all times Weight loss-recommend patient increase intake Mixed urinary incontinence-samples of myrebetriq provided and instructed on use 10/13/2016 Appointment: Brigitte Vann WPtel: [phone] (30 min) Complex 10/13/2016 Patient Education: Patient Medication Summary Completed 10/13/2016 Visit Plan: Hypertension - well controlled - continue with current medications, continue with no added salt diet. Pt has been encouraged to exercise daily. The pt has been advised to call the office if there are any acute concerns about change in blood pressure readings at home. Jyijguwkso-llmcpwr-usgaqbxe lexapro to 10mg daily-repeat in 1 month Gait instability-again recommend patient use walker 09/15/2016 Appointment: Brig[facility] Vann [phone] (15 min) Moderate 09/15/2016 Patient Education: Patient [...] patient refuses at this time. 08/18/2016 Appointment: Brigtite Vann WPtel: [phone] [phone] (15 min) Moderate 08/18/2016 Patient Education: Patient [...] home. 06/23/2016 Appointment: Brigitte Vann WPtel: [phone] [phone] (30 min) Complex 06/23/2016 Patient Education: Patient [...] evaluation 05/19/2016 Appointment: Brigitte Vann WPtel: [phone] [phone] (30 min) Complex 05/19/2016 Patient Education: Patient Medication Summary Completed 05/19/2016 Care Plan: Referral Order Dr Esqueda SNOMED- CT : 457665284 Pending 05/19/2016 Visit Plan: Hypertension - well controlled - continue with current medications, continue with no added salt diet. Pt has been encouraged to exercise daily. The pt has been advised to call the office if there are any acute concerns about change in blood pressure readings at home. Nppyr-yjjvwxar-jm change in treatment 09/14/2014 Appointment: Follow up [...] 2 weeks. 08/24/2014 Appointment: Georgia Jackson WPtel: [address] [place] [address] follow up 08/24/2014 Patient Education: Patient Medication [...] at home. 07/24/2014 Appointment: Georgia Jackson WPtel: [facility] [place] [phone] Follow up 07/24/2014 Patient Education: Patient Medication Summary Completed 07/24/2014 Patient Education: Hypertension Completed 07/24/2014 Care Plan: Referral Order SNOMED-CT : 486365600 Ordered 07/24/2014 Visit Plan: Hypertension - well [...] edema. 05/25/2014 Appointment: Brig[facility]ann [phone] Follow up 05/25/2014 Patient Education: Patient Medication [...] ormalized. 04/24/2014 [facility]ment: [phone] Follow [facility] 04/24/2014 Patient Education: Patient Medication [...] medications. 01/22/2014 Appointment: Georgia Jackson WPtel: [phone] [facility] Follow up 01/22/2014 Patient Education: Patient Medication [...] strengthening exercise. 09/18/2013 Appointment: Georgia Jackson WPtel[facility] Follow [facility] 09/18/2013 Patient Education: Patient [...] year. 03/20/2013 [facility]ment: [phone] Follow up 03/20/2013 Patient Education: Patient Medication Summary Completed 03/20/2013 Patient Education: Hypertension Completed 03/20/2013 Appointment: Georgia Jackson WPtel: [phone] [facility] Lab Draw 05/27/2012 Patient Education: Patient Medication [...] in public. 05/25/2012 Appointment: [phone] Other 05/25/2012 Patient Education: Patient Medication Summary Completed 05/25/2012 Patient Education: Hypertension Completed 05/25/2012 Patient Education: Smoking and Tobacco Addiction Completed 05/25/2012 Appointment: Georgia Jackson WPtel: [facility] [address] Lab Draw 09/21/2011 Patient Education: Patient [...] leg pain. 09/17/2011 Appointment: Georgia Jackson WPtel: [facility] Other 09/17/2011 Patient Education: Patient Medication Summary Completed 09/17/2011 Patient Education: High Blood Pressure: Essential Hypertension Completed 09/17/2011 Patient Education: Smoking: Hazards of Smoking Completed 09/17/2011 Patient Education: Smoking and Ways to Quit Completed 09/17/2011 Appointment: Georgia Jackson WPtel: [phone] Other 05/22/2011 Visit Plan: Hypertension - well [...] cessation. 05/21/2011 Appointment: Georgia Jackson WPtel: [phone] [phone] Other 05/21/2011 Patient Education: Patient Medication Summary [...] THINK ABOUT GOING TO PHYSICAL THERAPY AT [facility] FOR BALANCE TRAINING. 01/20/2011 Appointment: Georgia Jackson WPtel: [phone] [phone] Other 01/20/2011 Patient Education: Patient Medication Summary Completed 01/20/2011 Appointment: Georgia Jackson WPtel: [phone] [facility] [place] Lab Draw 01/13/2011 Patient Education: Patient Medication Summary Completed 01/13/2011 Referral: Wojciech Antunez WPtel: [phone] [facility] [place] Referral Appointment Requested Referral: Fanny Wynne WPtel: Referral Appointment Requested Referral: Fanny Wynne WPtel: 07/07 Referral info faxed. Verified that [...] increase activity - needs strengthening exercise. . Falls, weakness, headache - will send [...] in blood pressure readings at home. Gait xdzrijudzyo-vmhcqmik-pmurcwhara PT-patient refuses-also recommend patient use a walker [...] assure normal liver response to medications. INCREASE ENALAPRIL TO TWO PILLS TO EQUAL [...] using walking -completed PT with Fanny Martinez RECOMMEND PHYSICAL THERAPY -ALSO RECOMMEND WALKER AT ALL TIMES RECOMMEND OXYGEN . Gait instability-recommend PT with home health-patient refuses-recommend patient start using walker TCYK-jvcwvpf-wrmjsdp qualified for oxygen but refuses to wear it Weight pbqo-vmbllz-ekwynawu to monitor Memory loss-recommend patient move to [...] change in blood pressure readings at home. Jjiio-lqhevqpf-vw change in treatment . Hypertension - continue with current medications, [...] THINK ABOUT GOING TO PHYSICAL THERAPY AT [facility] FOR BALANCE TRAINING. RECOMMEND PT WITH FANNY MARTINEZ FOR GAIT [...] verbalized understanding. RECOMMEND FLU/PREVNAR -PATIENT GOING TO [facility] TO GET VACCINES . Hypertension - well [...] No change in current medications. Weight loss-stable PT IS TO INCREASE THE ENALAPRIL TO [...] change in blood pressure readings at home. Uyjsydyvsx-nsypvli-xcirvxon lexapro to 10mg daily-repeat in 1 month [...] times-also recommend PT-patient refuses at this time. Refer to Dr Esqueda recommend patient start [...]
--- OUTSIDE RECORDS SUMMARY | 2018-11-16 07:42 | XMS REPORT | CCD ---
Author Author Georgia Jackson Organization Georgia Jackson MD, [facility] Address [address] [place] [address] Phone Care Team Providers Care Regulatory Leader Name Role Phone Georgia Jackson PP Unavailable CCM Unavailable Summary Purpose Interface Exchange Insurance Providers Payer name Policy type / Coverage type Covered green party ID Effective Begin Date Effective End Date WPS Medicare Part B [id number] 2014 Unknown iTiffin [id number] 2014 Unknown Family history Brother Diagnosis Age [...] Codes Description Effective Dates Living arrangements Unknown Apartment/[facility] 02/18/[address]: 0984167 Former smoker states quit in 2011 or 12 09/18/2013 Marital status Unknown 01/20/2011 Number of children Unknown 2 01/20/2011 Employment Unknown 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, 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 [...] Codes Condition Status Onset Date Resolved Date Headache ICD-9: 784.0 ICD-10: R51 Active 05/11/2018 Unknown Weakness ICD-9: 780.79 ICD-10: R53.1 Active 05/11/2018 Unknown Essential (primary) hypertension ICD-9: 401.9 ICD-10: I10 Active 05/18/2016 Unknown Major depressive disorder, recurrent, moderate ICD-9: 296.32 ICD-10: F33.1 Active 08/18/2016 Unknown Rash and other nonspecific skin eruption ICD-9: 782.1 ICD-10: R21 Active 01/17/2018 Unknown Unsteadiness on feet ICD- 9: 781.2 ICD-10: R26.81 Active 05/18/2016 Unknown Anemia, unspecified ICD- 9: 285.9 ICD-10: D64.9 Active 07/06/2017 Unknown Abnormal weight loss ICD- 9: 783.21 ICD-10: R63.4 Active 10/13/2016 Unknown Chronic obstructive pulmonary disease, unspecified ICD-9: 496 ICD-10: J44.9 Active 11/16/2016 Unknown Mixed incontinence ICD- 9: 788.33 ICD-10: [...] Problems Condition Codes Effective Dates Condition Status Headache ICD-9: 784.0 ICD-10: R51 05/11/2018 Active Weakness ICD-9: 780.79 ICD-10: R53.1 05/11/2018 Active Essential (primary) hypertension ICD-9: 401.9 ICD-10: I10 05/18/2016 Active Major depressive disorder, recurrent, moderate ICD-9: 296.32 ICD-10: F33.1 08/18/2016 Active Rash and other nonspecific skin eruption ICD-9: 782.1 ICD-10: R21 01/17/2018 Active Unsteadiness on feet ICD- 9: 781.2 ICD-10: R26.81 05/18/2016 Active Anemia, unspecified ICD- 9: 285.9 ICD-10: D64.9 07/06/2017 Active Abnormal weight loss ICD- 9: 783.21 ICD-10: R63.4 10/13/2016 Active Chronic obstructive pulmonary disease, unspecified ICD-9: 496 ICD-10: J44.9 11/16/2016 Active Mixed incontinence ICD- 9: 788.33 ICD-10: [...] Start Date Stop Date Status Fill Instructions Lexapro 10 mg tablet RxNorm: 733866 1 Tablet(s) PO QPM 01/17/2018 07/15/2018 Active Plavix 75 mg tablet RxNorm: 097539 1 Tablet(s) PO daily 01/17/2018 07/15/2018 Active ketoconazole 2 % topical cream RxNorm: 651048 1 Application TOP BID 01/17/2018 01/30/2018 Inactive enalapril maleate 20 mg tablet RxNorm: 995516 1 Tablet(s) PO daily 08/10/2017 08/04/2018 Active Plavix 75 mg tablet RxNorm: 048528 1 Tablet(s) PO daily 07/06/2017 01/01/2018 Inactive Lexapro 10 mg tablet RxNorm: 155168 1 Tablet(s) PO QPM 07/06/2017 01/01/2018 Inactive enalapril maleate 20 mg tablet RxNorm: 254718 1 Tablet(s) PO daily TAKE ONE TABLET BY MOUTH DAILY 02/15/2017 08/09/2017 Inactive enalapril maleate 20 mg tablet RxNorm: 536193 TAKE ONE TABLET BY MOUTH DAILY 02/15/2017 02/14/2017 Inactive Myrbetriq 25 mg tablet,extended release RxNorm: 4905409 1 Tablet(s) PO daily 10/13/2016 No Stop Date Active Lexapro 10 mg tablet RxNorm: 959359 1 Tablet(s) PO QPM 09/15/2016 03/13/2017 Inactive enalapril maleate 20 mg tablet RxNorm: 666917 1 Tablet(s) PO daily TAKE ONE TABLET BY MOUTH DAILY 08/18/2016 02/13/2017 Inactive Lexapro 5 mg tablet RxNorm: 280296 1 Tablet(s) PO QPM 08/18/2016 09/14/2016 Inactive enalapril maleate 20 mg tablet RxNorm: 031144 TAKE ONE TABLET BY MOUTH DAILY 05/15/2016 08/12/2016 Inactive enalapril maleate 20 mg tablet RxNorm: 547224 1 Tablet(s) PO daily 05/17/2015 05/10/2016 Inactive chlorthalidone 25 mg tablet RxNorm: 857470 1 Tablet(s) PO QAM 08/24/2014 05/18/2016 Inactive [SAVINGS FOR NON-COVERED DRUGS -- BIN:[id number], PCN: [id number], Group: [id number], ID# [id number], Questions: . THIS IS NOT INSURANCE.] Lasix 20 mg tablet RxNorm: 009913 1 Tablet(s) PO QDAY PRN 05/25/2014 05/18/2016 Inactive daily x 3 days then as needed, Take potassium with lasix potassium chloride ER 10 mEq tablet,extended release RxNorm: 232015 1 Tablet(s) PO QDAY PRN 05/25/2014 05/18/2016 Inactive take with lasix enalapril maleate 20 mg tablet RxNorm: 079695 1 Tablet(s) PO daily 04/24/2014 04/18/2015 Inactive enalapril maleate 10 mg tablet RxNorm: 966571 TAKE ONE TABLET BY MOUTH EVERY DAY 12/11/2013 04/23/2014 Inactive enalapril maleate 10 mg tablet RxNorm: 607356 1 Tablet(s) PO daily 03/08/2013 12/02/2013 Inactive enalapril maleate 10 mg tablet RxNorm: 235213 1 Tablet(s) PO daily 09/07/2012 03/07/2013 Inactive enalapril maleate 10 mg tablet RxNorm: 549850 1 Tablet(s) PO daily 05/25/2012 09/06/2012 Inactive enalapril maleate 5 mg tablet RxNorm: 309602 1/2 Tablet(s) PO BID 01/01/2012 05/24/2012 Inactive enalapril maleate 5 mg tablet RxNorm: 900363 1/2 Tablet(s) PO BID 10/02/2011 12/31/2011 Inactive Fish Oil 1,000 mg Cap RxNorm: 3 Capsule(s) PO daily 09/23/2011 No Stop Date Active enalapril maleate 5 mg Tab RxNorm: 404762 1/2 Tablet(s) PO BID 06/29/2011 10/01/2011 Inactive Influenza Virus Vaccine 0.5 mL RxNorm: IM 01/13/2011 01/13/2011 Inactive Pneumovax 23 25 mcg/0.5 mL Injection RxNorm: 058907 Milliliter(s) Inj 01/13/2011 01/13/2011 Inactive Veramyst 27.5 mcg/Actuation Nasal [place] RxNorm: 8251534 1 [place] NASAL daily No Start Date Active multivitamin Oral RxNorm: Oral No Start Date Active Calcium + D Oral RxNorm: Oral No Start Date Active enalapril maleate 5 mg Tab RxNorm: 395555 1/2 Tablet(s) PO BID No Start Date 06/28/2011 Inactive niacin 500 mg Tab RxNorm: 085592 1 Tablet(s) PO QHS No Start Date 05/18/2016 Inactive Reclast 5 mg/100 mL IV RxNorm: 909198 1 Milliliter(s) IV Yearly No Start Date 05/18/2016 Inactive Fish Oil 1,000 mg Cap RxNorm: Oral No Start Date 09/22/2011 Inactive Medication Administered Medication Codes Instructions Start Date Status Influenza Virus Vaccine 0.5 mL RxNorm: 01/13/2011 No longer Active Pneumovax 23 25 mcg/0.5 mL Injection RxNorm: 468679 Milliliter 01/13/2011 No longer Active Immunizations Vaccine Codes Date Status Influenza CVX: 141 02/20/2018 completed Influenza CVX: 141 01/22/2014 completed Influenza CVX: 141 02/13/2013 completed Influenza Unknown 01/13/2011 completed Influenza CVX: 141 01/13/2011 completed Pneumococcal (Adult) CVX: 33 01/13/2011 completed Assessments Condition Codes Effective Dates Weakness ICD-10: R53.1 ICD-9: 780.79 05/11/2018 Headache ICD-10: R51 ICD-9: 784.0 05/11/2018 Rash and other nonspecific skin eruption ICD-10: R21 ICD-9: 782.1 01/17/2018 Essential (primary) hypertension ICD-10: I10 ICD-9: 401.9 01/17/2018 Major depressive disorder, recurrent, moderate ICD-10: F33.1 ICD-9: 296.32 01/17/2018 Unsteadiness on feet ICD-10: R26.81 ICD-9: 781.2 10/12/2017 Anemia, unspecified ICD-10: D64.9 ICD-9: 285.9 07/06/2017 Abnormal weight loss ICD-10: R63.4 ICD-9: 783.21 03/18/2017 Chronic obstructive pulmonary disease, unspecified ICD-10: J44.9 ICD-9: 496 02/18/2017 Mixed incontinence ICD-10: N39.46 ICD-9: 788.33 10/13/2016 Mixed hyperlipidemia ICD-10: E78.2 ICD-9: 272.4 [...] Visit Reason For Visit Effective Dates Notes headache 05/11/2018 gait abnormality 01/17/2018 gait abnormality [...] 93.2 fl 07/06/2017 Cbc With Differential Ord2 [place]% 6.9 % 07/06/2017 Cbc With Differential Ord2 [...] 1.43 K/ul 07/06/2017 Cbc With Differential Ord2 [place] ABS# 0.4 K/ul 07/06/2017 Cbc With Differential Ord2 Eos ABS# 0.4 K/ul 07/06/2017 Cbc With Differential Ord2 Baso ABS# 0.1 K/ul 07/06/2017 Comp Metabolic Nni506 NA 144 mEq/L 07/06/2017 Comp Metabolic Gvj244 K 3.7 mEq/L 07/06/2017 Comp Metabolic Hki661 CL 105 mEq/L 07/06/2017 Comp Metabolic Dan198 CO2 30.0 mEq/L 07/06/2017 Comp Metabolic Rny901 ANION GAP 13 07/06/2017 Comp Metabolic Rse947 GLUCOSE 84 mg/dL 07/06/2017 Comp Metabolic Jxi027 Creat 0.9 mg/dL 07/06/2017 Comp Metabolic Zyi739 eGFR 67 ml/min/1.73m2 07/06/2017 Comp Metabolic Awb632 BUN 19 mg/dL 07/06/2017 Comp Metabolic Fzb979 B/C Ratio 22.4 Ratio 07/06/2017 Comp Metabolic Jom088 CALCIUM 9.3 mg/dL 07/06/2017 Comp Metabolic Akl637 ALK PHOS 58 U/L 07/06/2017 Comp Metabolic Kqg176 AST(SGOT) 15 U/L 07/06/2017 Comp Metabolic Ukf226 ALT(SGPT) 9 U/L 07/06/2017 Comp Metabolic Uum317 BILI T 0.2 mg/dL 07/06/2017 Comp Metabolic Wfd507 ALBUMIN 4.0 g/dL 07/06/2017 Comp Metabolic Fuc169 TPRO 6.2 g/dL 07/06/2017 Comp Metabolic Kea727 GLOB 2.2 g/dL 07/06/2017 Comp Metabolic Qox469 A/G Ratio 1.8 Ratio 07/06/2017 Comp Metabolic Mbt444 Osmo 288 mOsmo 07/06/2017 Tsh Ord6 TSH (3rd IS) 0.56 uIU/mL 07/06/2017 Tibc Iron 114 ug/dl 07/06/2017 Tibc UIBC 290 ug/dL 07/06/2017 Tibc TIBC 404 ug/dL 07/06/2017 Tibc Fe-%Sat 28.2 % 07/06/2017 Ferritin Ord22 FERRITIN 15.1 ng/mL 07/06/2017 B12 Txu209 B12 >1500.00 pg/ml 07/06/2017 Cbc With Differential [...] 30.3 pg 08/18/2016 Cbc With Differential Ord2 [place]% 8.5 % 08/18/2016 Cbc With Differential Ord2 [...] 1.61 K/ul 08/18/2016 Cbc With Differential Ord2 [place] ABS# 0.5 K/ul 08/18/2016 Cbc With Differential Ord2 Eos ABS# 0.3 K/ul 08/18/2016 Cbc With Differential Ord2 Baso ABS# 0.1 K/ul 08/18/2016 Comp Metabolic Zmf467 NA 143 mEq/L 08/18/2016 Comp Metabolic Elj098 K 4.3 mEq/L 08/18/2016 Comp Metabolic Jdw494 CL 105 mEq/L 08/18/2016 Comp Metabolic Abz986 CO2 28.0 mEq/L 08/18/2016 Comp Metabolic Ept257 ANION GAP 14 08/18/2016 Comp Metabolic Qqy273 GLUCOSE 77 mg/dL 08/18/2016 Comp Metabolic Cby339 Creat 0.9 mg/dL 08/18/2016 Comp Metabolic Ieh482 eGFR 67 ml/min/1.73m2 08/18/2016 Comp Metabolic Ltr419 BUN 21 mg/dL 08/18/2016 Comp Metabolic Bjx525 B/C Ratio 24.7 Ratio 08/18/2016 Comp Metabolic Pad207 CALCIUM 9.0 mg/dL 08/18/2016 Comp Metabolic Jfu172 ALK PHOS 56 U/L 08/18/2016 Comp Metabolic Dez175 AST(SGOT) 18 U/L 08/18/2016 Comp Metabolic Dbz917 ALT(SGPT) 11 U/L 08/18/2016 Comp Metabolic Tde050 BILI T 0.4 mg/dL 08/18/2016 Comp Metabolic Brp567 ALBUMIN 3.9 g/dL 08/18/2016 Comp Metabolic Gti252 TPRO 6.4 g/dL 08/18/2016 Comp Metabolic Fhd589 GLOB 2.5 g/dL 08/18/2016 Comp Metabolic Ofk946 A/G Ratio 1.6 Ratio 08/18/2016 Comp Metabolic Abo250 Osmo 287 mOsmo 08/18/2016 Lipid Ord30 CHOL 183 mg/dL 08/18/2016 Lipid Ord30 HDL 46.0 mg/dl 08/18/2016 Lipid Ord30 TRIG 129 mg/dL 08/18/2016 Lipid Ord30 LDL 111 mg/dL 08/18/2016 Lipid Ord30 C/HDL 4.0 Ratio 08/18/2016 Tsh Ord6 hTSH II 0.70 uIU/mL 08/18/2016 Comp Metabolic Hxl453 NA 141 mEq/L 05/20/2016 Comp Metabolic Nwx860 K 4.3 mEq/L 05/20/2016 Comp Metabolic Btf130 CL 103 mEq/L 05/20/2016 Comp Metabolic Hep508 CO2 31.0 mEq/L 05/20/2016 Comp Metabolic Jeg679 ANION GAP 11 05/20/2016 Comp Metabolic Zjn423 GLUCOSE 93 mg/dL 05/20/2016 Comp Metabolic Iwa762 Creat 1.0 mg/dL 05/20/2016 Comp Metabolic Qod135 eGFR 57 ml/min/1.73m2 05/20/2016 Comp Metabolic Pzl583 BUN 16 mg/dL 05/20/2016 Comp Metabolic Vfs019 B/C Ratio 16.3 Ratio 05/20/2016 Comp Metabolic Aii241 CALCIUM 10.1 mg/dL 05/20/2016 Comp Metabolic Apc321 ALK PHOS 49 U/L 05/20/2016 Comp Metabolic Sfd014 AST(SGOT) 17 U/L 05/20/2016 Comp Metabolic Tfv417 ALT(SGPT) 11 U/L 05/20/2016 Comp Metabolic Nzq679 BILI T 0.3 mg/dL 05/20/2016 Comp Metabolic Cln671 ALBUMIN 4.4 g/dL 05/20/2016 Comp Metabolic Hvq279 TPRO 6.8 g/dL 05/20/2016 Comp Metabolic Nkf296 GLOB 2.4 g/dL 05/20/2016 Comp Metabolic Scj791 A/G Ratio 1.8 Ratio 05/20/2016 Comp Metabolic Isd243 Osmo 282 mOsmo 05/20/2016 Cbc With Differential [...] 96.5 fl 05/20/2016 Cbc With Differential Ord2 [place]% 7.8 % 05/20/2016 Cbc With Differential Ord2 [...] 2.45 K/ul 05/20/2016 Cbc With Differential Ord2 [place] ABS# 0.5 K/ul 05/20/2016 Cbc With Differential Ord2 Eos ABS# 0.3 K/ul 05/20/2016 Cbc With Differential Ord2 Baso ABS# 0.1 K/ul 05/20/2016 Tsh Ord6 hTSH II 0.80 uIU/mL 05/20/2016 GFR CALC 9522956 GFR AA >60 ML/MIN 07/24/2014 GFR CALC 2630505 GFR NON-AA >60 ML/MIN 07/24/2014 TSH 2161149 TSH 0.192 uIU/ML 07/24/2014 CBC 8049396 WBC 6.4 10e9/L 07/24/2014 CBC 6054934 RBC 4.61 10e12/L 07/24/2014 CBC 9887561 HGB 13.7 g/dL 07/24/2014 CBC 7683321 HCT DET 42.6 % 07/24/2014 CBC 1613445 MCV 92.4 fL 07/24/2014 CBC 3868890 MCH 29.7 pg 07/24/2014 CBC 7778329 MCHC 32.2 g/dL 07/24/2014 CBC 3426539 PLT 280 10e9/L 07/24/2014 CBC 8337622 MPV 8.9 fL 07/24/2014 CBC 8239844 [place] % 59.5 % 07/24/2014 CBC 5214222 LY % 30.6 % 07/24/2014 CBC 1171875 MON % 5.9 % 07/24/2014 CBC 0372180 EOS % 3.4 % 07/24/2014 CBC 7535076 BASO % 0.6 % 07/24/2014 CBC 2624990 RDW 14.8 % 07/24/2014 CBC 6636743 ABS [place] 3.81 10e9/L 07/24/2014 CBC 6283801 ABS LYMPH 1.96 10e9/L 07/24/2014 CBC 4824477 ABS MONO 0.38 10e9/L 07/24/2014 CBC 2396748 ABS EOS 0.22 10e9/L 07/24/2014 CBC 9451234 ABS BASO 0.04 10e9/L 07/24/2014 CBC 1038861 RDW-SD 48.9 fL 07/24/2014 CHEM 14 5782467 AST 17 U/L 07/24/2014 CHEM 14 0556936 ALT 11 IU/L 07/24/2014 CHEM 14 1820672 BUN 13 MG/DL 07/24/2014 CHEM 14 2464787 ALBUMIN 4.2 GM/DL 07/24/2014 CHEM 14 9378282 CHLORIDE 104 MMOL/L 07/24/2014 CHEM 14 4496851 BILI TOT 0.6 MG/DL 07/24/2014 CHEM 14 4281284 ALK PHOS 52 U/L 07/24/2014 CHEM 14 5722329 SODIUM 141 MMOL/L 07/24/2014 CHEM 14 2569150 CREATININE 0.87 MG/DL 07/24/2014 CHEM 14 5594483 CALCIUM 9.1 MG/DL 07/24/2014 CHEM 14 9610168 POTASSIUM 4.1 MMOL/L 07/24/2014 CHEM 14 1758688 PROT TOT 6.4 GM/DL 07/24/2014 CHEM 14 5139724 GLUCOSE 100 MG/DL 07/24/2014 CHEM 14 1273015 BICARB 27 MMOL/L 07/24/2014 CHEM 14 3189911 ANION GAP 10 MEQ/L 07/24/2014 FREE T4 8345007 FREE T4 1.08 NG/DL 09/20/2013 T3 TOT 8654516 T3 TOT 1.1 NG/ML 09/20/2013 CHEM 14 6722506 AST 20 U/L 09/18/2013 CHEM 14 9038602 ALT 17 IU/L 09/18/2013 CHEM 14 8498690 BUN 18 MG/DL 09/18/2013 CHEM 14 3225271 ALBUMIN 4.4 GM/DL 09/18/2013 CHEM 14 1958286 CHLORIDE 106 MMOL/L 09/18/2013 CHEM 14 3867967 BILI TOT 0.4 MG/DL 09/18/2013 CHEM 14 9938984 ALK PHOS 50 U/L 09/18/2013 CHEM 14 1810918 SODIUM 142 MMOL/L 09/18/2013 CHEM 14 2605826 CREATININE 0.92 MG/DL 09/18/2013 CHEM 14 0004225 CALCIUM 9.3 MG/DL 09/18/2013 CHEM 14 2902351 POTASSIUM 4.1 MMOL/L 09/18/2013 CHEM 14 1427116 PROT TOT 6.5 GM/DL 09/18/2013 CHEM 14 8389798 GLUCOSE 98 MG/DL 09/18/2013 CHEM 14 6021726 BICARB 27 MMOL/L 09/18/2013 CHEM 14 7196913 ANION GAP 9 MEQ/L 09/18/2013 TSH 0369465 TSH 0.209 uIU/ML 09/18/2013 CBC 7205882 WBC 7.1 10e9/L 09/18/2013 CBC 8167339 RBC 4.59 10e12/L 09/18/2013 CBC 0324070 HGB 14.1 g/dL 09/18/2013 CBC 4104992 HCT DET 43.3 % 09/18/2013 CBC 0006710 MCV 94.3 fL 09/18/2013 CBC 1321828 MCH 30.7 pg 09/18/2013 CBC 5236899 MCHC 32.6 g/dL 09/18/2013 CBC 1942493 PLT 274 10e9/L 09/18/2013 CBC 2664735 MPV 9.1 fL 09/18/2013 CBC 7088792 [place] % 60.9 % 09/18/2013 CBC 6352947 LY % 29.2 % 09/18/2013 CBC 8689798 MON % 6.1 % 09/18/2013 CBC 4955337 EOS % 3.2 % 09/18/2013 CBC 2251889 BASO % 0.6 % 09/18/2013 CBC 5573582 RDW 13.8 % 09/18/2013 CBC 9910117 ABS [place] 4.32 10e9/L 09/18/2013 CBC 6055575 ABS LYMPH 2.07 10e9/L 09/18/2013 CBC 5882763 ABS MONO 0.43 10e9/L 09/18/2013 CBC 7449135 ABS EOS 0.23 10e9/L 09/18/2013 CBC 7895089 ABS BASO 0.04 10e9/L 09/18/2013 CBC 6777496 RDW-SD 46.0 fL 09/18/2013 LIPID GRP HDL TEST 70 MG/DL 09/18/2013 LIPID GRP TRIG 114 MG/DL 09/18/2013 LIPID GRP TEST LDL 198 MG/DL 09/18/2013 LIPID GRP CHOL 291 MG/DL 09/18/2013 LIPID GRP RCHOL/HDL 4.16 RATIO 09/18/2013 GFR CALC 8752201 GFR AA >60 ML/MIN 09/18/2013 GFR CALC 6049139 GFR NON-AA 58.0L ML/MIN 09/18/2013 FREE T4 5809669 FREE T4 1.05 NG/DL 03/22/2013 T3 TOT 3285149 T3 TOT 0.9 NG/ML 03/22/2013 CHEM 14 0819226 AST 18 U/L 03/20/2013 CHEM 14 8960263 ALT 13 IU/L 03/20/2013 CHEM 14 8459498 BUN 25 MG/DL 03/20/2013 CHEM 14 7715433 ALBUMIN 4.4 GM/DL 03/20/2013 CHEM 14 6152291 CHLORIDE 105 MMOL/L 03/20/2013 CHEM 14 1450746 BILI TOT 0.4 MG/DL 03/20/2013 CHEM 14 0182047 ALK PHOS 40 U/L 03/20/2013 CHEM 14 5604223 SODIUM 141 MMOL/L 03/20/2013 CHEM 14 3081381 CREATININE 0.95 MG/DL 03/20/2013 CHEM 14 1312611 CALCIUM 9.8 MG/DL 03/20/2013 CHEM 14 1531435 POTASSIUM 4.1 MMOL/L 03/20/2013 CHEM 14 7319637 PROT TOT 6.2 GM/DL 03/20/2013 CHEM 14 8054116 GLUCOSE 89 MG/DL 03/20/2013 CHEM 14 5422758 BICARB 29 MMOL/L 03/20/2013 CHEM 14 4403071 ANION GAP 7 MEQ/L 03/20/2013 TSH 5292632 TSH 0.228 uIU/ML 03/20/2013 GFR CALC 8939755 GFR AA >60 ML/MIN 03/20/2013 GFR CALC 6308826 GFR NON-AA 56.0L ML/MIN 03/20/2013 CBC 4435588 WBC 6.8 10e9/L 03/20/2013 CBC 9302201 RBC 4.58 10e12/L 03/20/2013 CBC 0590398 HGB 14.1 g/dL 03/20/2013 CBC 1135876 HCT DET 43.1 % 03/20/2013 CBC 5223759 MCV 94.1 fL 03/20/2013 CBC 6462980 MCH 30.8 pg 03/20/2013 CBC 7078084 MCHC 32.7 g/dL 03/20/2013 CBC 7468162 PLT 294 10e9/L 03/20/2013 CBC 3578453 MPV 9.4 fL 03/20/2013 CBC 6061575 [place] % 50.3 % 03/20/2013 CBC 5935056 LY % 35.9 % 03/20/2013 CBC 5591725 MON % 7.3 % 03/20/2013 CBC 5505104 EOS % 5.8 % 03/20/2013 CBC 8848849 BASO % 0.7 % 03/20/2013 CBC 8072869 RDW 14.5 % 03/20/2013 CBC 4192088 ABS [place] 3.42 10e9/L 03/20/2013 CBC 1216546 ABS LYMPH 2.44 10e9/L 03/20/2013 CBC 9804654 ABS MONO 0.50 10e9/L 03/20/2013 CBC 9214910 ABS EOS 0.39 10e9/L 03/20/2013 CBC 9691786 ABS BASO 0.05 10e9/L 03/20/2013 CBC 4957591 RDW-SD 48.2 fL 03/20/2013 LIPID GRP HDL TEST 71 MG/DL 03/20/2013 LIPID GRP TRIG 87 MG/DL 03/20/2013 LIPID GRP TEST LDL 168 MG/DL 03/20/2013 LIPID GRP CHOL 256 MG/DL 03/20/2013 LIPID GRP RCHOL/HDL 3.61 RATIO 03/20/2013 FREE T4 2668204 FREE T4 1.09 NG/DL 05/31/2012 T3 TOT 0377464 T3 TOT 0.9 NG/ML 05/31/2012 CBC 2702479 WBC 7.1 10e9/L 05/27/2012 CBC 2211179 RBC 4.58 10e12/L 05/27/2012 CBC 6392394 HGB 14.4 g/dL 05/27/2012 CBC 1384976 HCT DET 43.5 % 05/27/2012 CBC 1446523 MCV 95.0 fL 05/27/2012 CBC 2080704 MCH 31.4 pg 05/27/2012 CBC 8498352 MCHC 33.1 g/dL 05/27/2012 CBC 6374297 PLT 285 10e9/L 05/27/2012 CBC 6680234 MPV 9.2 fL 05/27/2012 CBC 8940743 [place] % 61.2 % 05/27/2012 CBC 8883125 LY % 27.5 % 05/27/2012 CBC 9243999 MON % 6.8 % 05/27/2012 CBC 5236446 EOS % 3.8 % 05/27/2012 CBC 0542321 BASO % 0.7 % 05/27/2012 CBC 5198249 RDW 14.1 % 05/27/2012 CBC 8623979 ABS [place] 4.35 10e9/L 05/27/2012 CBC 9131485 ABS LYMPH 1.95 10e9/L 05/27/2012 CBC 7163410 ABS MONO 0.48 10e9/L 05/27/2012 CBC 7938008 ABS EOS 0.27 10e9/L 05/27/2012 CBC 1699306 ABS BASO 0.05 10e9/L 05/27/2012 CBC 3400687 RDW-SD 47.2 fL 05/27/2012 LIPID GRP HDL TEST 57 MG/DL 05/27/2012 LIPID GRP TRIG 110 MG/DL 05/27/2012 LIPID GRP TEST LDL 156 MG/DL 05/27/2012 LIPID GRP CHOL 235 MG/DL 05/27/2012 LIPID GRP RCHOL/HDL 4.12 RATIO 05/27/2012 CHEM 14 5570857 AST 19 U/L 05/27/2012 CHEM 14 2504590 ALT 13 IU/L 05/27/2012 CHEM 14 4168739 BUN 19 MG/DL 05/27/2012 CHEM 14 3177495 ALBUMIN 4.7 GM/DL 05/27/2012 CHEM 14 6011527 CHLORIDE 106 MMOL/L 05/27/2012 CHEM 14 3066998 BILI TOT 0.5 MG/DL 05/27/2012 CHEM 14 1424840 ALK PHOS 51 U/L 05/27/2012 CHEM 14 4354670 SODIUM 141 MMOL/L 05/27/2012 CHEM 14 0660967 CREATININE 0.85 MG/DL 05/27/2012 CHEM 14 7108076 CALCIUM 9.4 MG/DL 05/27/2012 CHEM 14 4859999 POTASSIUM 4.0 MMOL/L 05/27/2012 CHEM 14 2047794 PROT TOT 6.7 GM/DL 05/27/2012 CHEM 14 2758428 GLUCOSE 101 MG/DL 05/27/2012 CHEM 14 9673449 BICARB 29 MMOL/L 05/27/2012 CHEM 14 7324780 ANION GAP 6 MEQ/L 05/27/2012 TSH 8696756 TSH 0.275 uIU/ML 05/27/2012 GFR CALC 3070176 GFR AA >60 ML/MIN 05/27/2012 GFR CALC 7638417 GFR NON-AA >60 ML/MIN 05/27/2012 CHEM 14 9393491 AST 18 U/L 09/21/2011 CHEM 14 5897295 ALT 11 IU/L 09/21/2011 CHEM 14 4437580 BUN 18 MG/DL 09/21/2011 CHEM 14 0211612 ALBUMIN 4.3 GM/DL 09/21/2011 CHEM 14 0059712 CHLORIDE 102 MMOL/L 09/21/2011 CHEM 14 8174756 BILI TOT 0.4 MG/DL 09/21/2011 CHEM 14 6139765 ALK PHOS 47 U/L 09/21/2011 CHEM 14 6929418 SODIUM 139 MMOL/L 09/21/2011 CHEM 14 4353256 CREATININE 0.92 MG/DL 09/21/2011 CHEM 14 0075159 CALCIUM 9.2 MG/DL 09/21/2011 CHEM 14 7804126 POTASSIUM 4.1 MMOL/L 09/21/2011 CHEM 14 1171673 PROT TOT 6.4 GM/DL 09/21/2011 CHEM 14 5278807 GLUCOSE 89 MG/DL 09/21/2011 CHEM 14 9101476 BICARB 28 MMOL/L 09/21/2011 CHEM 14 8922360 ANION GAP 9 MEQ/L 09/21/2011 TSH 4029046 TSH 0.352 uIU/ML 09/21/2011 GFR CALC 7072995 GFR AA >60 ML/MIN 09/21/2011 GFR CALC 1469105 GFR NON-AA 58.0L ML/MIN 09/21/2011 LIPID GRP HDL TEST 54 MG/DL 09/21/2011 LIPID GRP TRIG 81 MG/DL 09/21/2011 LIPID GRP TEST LDL 154 MG/DL 09/21/2011 LIPID GRP CHOL 224 MG/DL 09/21/2011 LIPID GRP RCHOL/HDL 4.15 RATIO 09/21/2011 CBC 4735967 WBC 9.6 10e9/L 09/21/2011 CBC 2206648 RBC 4.85 10e12/L 09/21/2011 CBC 8704237 HGB 15.0 g/dL 09/21/2011 CBC 4972520 HCT DET 46.5 % 09/21/2011 CBC 5884721 MCV 95.9 fL 09/21/2011 CBC 9459432 MCH 30.9 pg 09/21/2011 CBC 2096666 MCHC 32.3 g/dL 09/21/2011 CBC 5524941 PLT 279 10e9/L 09/21/2011 CBC 1235878 MPV 9.1 fL 09/21/2011 CBC 2160560 [place] % 63.4 % 09/21/2011 CBC 0723543 LY % 26.1 % 09/21/2011 CBC [id number] MON % 5.6 % 09/21/2011 CBC [id number] EOS % 4.4 % 09/21/2011 CBC [id number] BASO % 0.5 % 09/21/2011 CBC [id number] RDW 14.0 % 09/21/2011 CBC [id number] ABS AISSATOU 6.09 10e9/L 09/21/2011 CBC [id number] ABS LYMPH 2.51 10e9/L 09/21/2011 CBC [id number] ABS MONO 0.54 10e9/L 09/21/2011 CBC [id number] ABS EOS 0.42 10e9/L 09/21/2011 CBC [id number] ABS BASO 0.05 10e9/L 09/21/2011 CBC [id number] RDW-SD 47.9 fL 09/21/2011 Review of Systems System Result Effective Dates Constitutional No recent illness 05/11/2018 Constitutional No [...] developed 05/11/2018 None Full Exam - General 1995 [...] clear 10/12/2017 None Full Exam - General 1995 Ears/Nose/Throat lips/teeth/gingiva Overall: benign lips 10/12/2017 None [...] clear 09/18/2013 None Full Exam - General 1995 Ears/Nose/Throat [...] bilaterally 05/25/2012 None Full Exam - General 1995 [...] Procedure Codes Date ROUTINE VENIPUNCTURE CPT- 4: 38270 07/24/2014 ADMIN INFLUENZA VIRUS VAC CPT-4: G0008 01/22/2014 FLU VAC NO PRSV 4 LISSA 3 YRS+ Assigned to/Laura Og CPT-4: [id number] 01/22/2014 ROUTINE VENIPUNCTURE CPT- 4: 29432 09/18/2013 ROUTINE VENIPUNCTURE CPT- 4: 23829 03/20/2013 ROUTINE VENIPUNCTURE CPT- 4: 40198 05/27/2012 ROUTINE VENIPUNCTURE CPT- 4: 20199 09/21/2011 ROUTINE VENIPUNCTURE CPT- 4: 57083 01/13/2011 Pneumococcal Polysaccharide Vaccine, 23-Valent, Ad CPT-4: 85733 01/13/2011 ADMIN INFLUENZA VIRUS VAC CPT-4: G0008 01/13/2011 ADMIN PNEUMOCOCCAL VACCINE SNOMED CT: 69980718 CPT-4: G0009 01/13/2011 FLULAVAL VACC, 3 YRS & >, IM CPT-4: Q2036 01/13/2011 Vital Signs Date Vital 05/11/2018 Blood Pressure 1: 166/100 Code: 8480-6 Heart Rate 1: 68 bpm Height: 5'5" SpO2: 91% Weight: 01/17/2018 Blood Pressure 1: 108/76 Code: 8480-6 BMI: 23.1 Code: 74906-9 Heart Rate 1: 86 bpm Height: 5'5" SpO2: 97% Weight: 139 lbs 10/12/2017 Blood Pressure 1: 144/84 Code: 8480-6 BMI: 23.6 Code: 00252-6 Heart Rate 1: 70 bpm Height: 5'5" SpO2: 92% Weight: 142 lbs 08/10/2017 Blood Pressure 1: 138/84 Code: 8480-6 BMI: 22.5 Code: 98598-1 Heart Rate 1: 55 bpm Height: 5'5" SpO2: 91% Weight: 135 lbs 07/06/2017 Blood Pressure 1: 140/78 Code: 8480-6 BMI: 22.5 Code: 21633-6 Heart Rate 1: 87 bpm Height: 5'5" SpO2: 96% Weight: 135 lbs 03/18/2017 Blood Pressure 1: 152/88 Code: 8480-6 BMI: 22.5 Code: 73848-1 Heart Rate 1: 55 bpm Height: 5'5" SpO2: 92% Temperature: 36.8 (C) / 98.2 (F) Weight: 135 lbs 02/18/2017 Blood Pressure 1: 108/80 Code: 8480-6 BMI: 22.0 Code: 98708-4 Heart Rate 1: 87 bpm Height: 5'5" SpO2: 93% Weight: 132 lbs 11/16/2016 Blood Pressure 1: 146/84 Code: 8480-6 BMI: 23.0 Code: 06176-7 Heart Rate 1: 72 bpm Height: 5'5" SpO2: 95% Weight: 138 lbs 10/13/2016 Blood Pressure 1: 142/86 Code: 8480-6 Blood Pressure 1: 170/96 Code: 8480-6 BMI: 23.0 Code: 97995-9 Heart Rate 1: 74 bpm Height: 5'5" SpO2: 90% Weight: 138 lbs 09/15/2016 Blood Pressure 1: 118/78 Code: 8480-6 Heart Rate 1: 82 bpm SpO2: 90% Weight: 141 lbs 08/18/2016 Blood Pressure 1: 142/82 Code: 8480-6 BMI: 24.1 Code: 19326-1 Heart Rate 1: 72 bpm Height: 5'5" SpO2: 91% Weight: 145 lbs 06/23/2016 Blood Pressure 1: 148/86 Code: 8480-6 BMI: 24.1 Code: 93760-0 Heart Rate 1: 70 bpm Height: 5'5" SpO2: 90% Weight: 145 lbs 05/19/2016 Blood Pressure 1: 162/76 Code: 8480-6 BMI: 24.3 Code: 29859-3 Heart Rate 1: 76 bpm Height: 5'5" Weight: 146 lbs 09/14/2014 Blood Pressure 1: 102/80 Code: 8480-6 BMI: 27.7 Code: 94663-1 Heart Rate 1: 90 bpm Height: 5' SpO2: 94% Weight: 144 lbs 08/24/2014 Blood Pressure 1: 122/92 Code: 8480-6 BMI: 28.4 Code: 05886-9 Heart Rate 1: 74 bpm Height: 5' SpO2: 94% Weight: 148 lbs 07/24/2014 Blood Pressure 1: 142/86 Code: 8480-6 BMI: 28.8 Code: 09026-0 Heart Rate 1: 88 bpm Height: 5' Weight: 150 lbs 05/25/2014 Blood Pressure 1: 136/88 Code: 8480-6 BMI: 28.8 Code: 33616-7 Heart Rate 1: 82 bpm Height: 5' Weight: 150 lbs 04/24/2014 Blood Pressure 1: 150/78 Code: 8480-6 BMI: 29.6 Code: 51000-5 Heart Rate 1: 60 bpm Height: 5' Weight: 154 lbs 01/22/2014 Blood Pressure 1: 140/78 Code: 8480-6 BMI: 29.6 Code: 24114-2 Heart Rate 1: 78 bpm Height: 5' SpO2: 90% Weight: 154 lbs 09/18/2013 Blood Pressure 1: 128/84 Code: 8480-6 BMI: 29.4 Code: 13969-0 Heart Rate 1: 80 bpm Height: 5' Weight: 153 lbs 03/20/2013 Blood Pressure 1: 122/80 Code: 8480-6 BMI: 29.0 Code: 72500-0 Heart Rate 1: 76 bpm Height: 5' Weight: 151 lbs 05/25/2012 Blood Pressure 1: 140/92 Code: 8480-6 BMI: 26.3 Code: 86568-9 Heart Rate 1: 88 bpm Height: 5' Weight: 137 lbs 09/17/2011 Blood Pressure 1: 128/78 Code: 8480-6 Heart Rate 1: 76 bpm Respiratory Rate: 24 bpm Weight: 137 lbs 05/21/2011 Blood Pressure 1: 114/72 Code: 8480-6 BMI: 27.1 Code: 49140-2 Heart Rate 1: 68 bpm Height: 5' Respiratory Rate: 16 bpm Weight: 141 lbs 01/20/2011 Blood Pressure 1: 130/72 Code: 8480-6 Heart Rate 1: 72 bpm Respiratory Rate: 16 bpm Weight: 143 lbs Functional Status No Functional Status data History of Present Illness Symptom Name Status Result Effective Date Notes Quality acute 05/11/2018 None Onset and Resolution [...] 05/21/2011 states she has been going to [place] to have the toxins removed from her feet cholesterol followup Quality increased cholesterol 01/20/2011 pt had labs 01/13/11; Dr. Jackson recommended to increase niacin to 1000 mg daily and increase fish oil to 1000mg tid Advance Directives No Advance Directive data Encounters Encounter Performer Location Codes Date 58170 EST. PATIENT, LEVEL III Diagnosis: Headache[ICD10: R51] Diagnosis: Weakness[ICD10: R53.1] Denisha Jackson MD, [facility] CPT-4: 03155 05/11/2018 ([id number]) 90263 EST. PATIENT, LEVEL IV Diagnosis: Essential (primary) hypertension[ICD10: I10] Diagnosis: Rash and other nonspecific skin eruption[ICD10: R21] Diagnosis: Major depressive disorder, recurrent, moderate[ICD10: F33.1] Brigitte Jackson MD, [facility] CPT-4: 31615 01/17/2018 ([id number]) 57915 EST. PATIENT, LEVEL III Diagnosis: Essential (primary) hypertension[ICD10: I10] Diagnosis: Unsteadiness on feet[ICD10: R26.81] Brigitte Jackson MD, [facility] CPT-4: 00231 10/12/2017 ([id number]) 72504 EST. PATIENT, LEVEL III Diagnosis: Essential (primary) hypertension[ICD10: I10] Diagnosis: Unsteadiness on feet[ICD10: R26.81] Brigitte Jackson MD, [facility] CPT-4: 89109 08/10/2017 ([id number]) 82575 EST. PATIENT, LEVEL IV Diagnosis: Essential (primary) hypertension[ICD10: I10] Diagnosis: Major depressive disorder, recurrent, moderate[ICD10: F33.1] Diagnosis: Unsteadiness on feet[ICD10: R26.81] Brigitte Jacskon MD, [facility] CPT-4: 56524 07/06/2017 ([id number]) 36053 EST. PATIENT, LEVEL III Diagnosis: Essential (primary) hypertension[ICD10: I10] Diagnosis: Major depressive disorder, recurrent, moderate[ICD10: F33.1] Diagnosis: Abnormal weight loss[ICD10: R63.4] Brigitte Jackson MD, [facility] CPT- 4: 67182 03/18/2017 ([id number]) 95041 EST. PATIENT, LEVEL IV Diagnosis: Essential (primary) hypertension[ICD10: I10] Diagnosis: Chronic obstructive pulmonary disease, unspecified[ICD10: J44.9] Diagnosis: Unsteadiness on feet[ICD10: R26.81] Diagnosis: Abnormal weight loss[ICD10: R63.4] Brigitte Jackson MD, [facility] CPT- 4: 09723 02/18/2017 ([id number]) 63538 EST. PATIENT, LEVEL IV Diagnosis: Unsteadiness on feet[ICD10: R26.81] Diagnosis: Major depressive disorder, recurrent, moderate[ICD10: F33.1] Diagnosis: Chronic obstructive pulmonary disease, unspecified[ICD10: J44.9] Brigitte Jackson MD, [facility] CPT-4: 19571 11/16/2016 ([id number]) 43690 EST. PATIENT, LEVEL IV Diagnosis: Essential (primary) hypertension[ICD10: I10] Diagnosis: Unsteadiness on feet[ICD10: R26.81] Diagnosis: Abnormal weight loss[ICD10: R63.4] Diagnosis: Mixed incontinence[ICD10: N39.46] Brigitte Jackson MD, [facility] CPT- 4: 41062 10/13/2016 ([id number]) 55424 EST. PATIENT, LEVEL IV Diagnosis: Essential (primary) hypertension[ICD10: I10] Diagnosis: Major depressive disorder, recurrent, moderate[ICD10: F33.1] Diagnosis: Unsteadiness on feet[ICD10: R26.81] Brigitte Jackson MD, [facility] CPT-4: 05858 09/15/2016 ([id number]) 01628 EST. PATIENT, LEVEL IV Diagnosis: Essential (primary) hypertension[ICD10: I10] Diagnosis: Mixed hyperlipidemia[ICD10: E78.2] Diagnosis: Major depressive disorder, recurrent, moderate[ICD10: F33.1] Diagnosis: Unsteadiness on feet[ICD10: R26.81] Brigitte Jackson MD, [facility] CPT-4: 92516 08/18/2016 ([id number]) 62651 EST. PATIENT, LEVEL III Diagnosis: Essential (primary) hypertension[ICD10: I10] Brigitte Jackson MD, [facility] CPT-4: 10406 06/23/2016 ([id number]) 13761 EST. 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 PATIENT, LEVEL III Diagnosis: ESSENTIAL HYPERTENSION[ICD9: 401.9] Diagnosis: EDEMA[ICD9: 782.3] Brigitte Jackson MD, [facility] CPT-4: 95518 09/14/2014 ([id number]) 12963 EST. PATIENT, LEVEL III Diagnosis: ESSENTIAL HYPERTENSION[ICD9: 401.9] Diagnosis: EDEMA[ICD9: 782.3] Georgia Jackson MD, [facility] CPT-4: 74880 08/24/2014 ([id number]) 58347 EST. PATIENT, LEVEL IV Diagnosis: Peripheral vascular disease[ICD9: 443.9] Diagnosis: ESSENTIAL HYPERTENSION[ICD9: 401.9] Diagnosis: Chronic fatigue[ICD9: 780.79] Diagnosis: Ataxia[ICD9: 781.3] Georgia Jackson MD, [facility] CPT-4: 72272 07/24/2014 ([id number]) 63410 EST. PATIENT, LEVEL III Diagnosis: ESSENTIAL HYPERTENSION[ICD9: 401.9] Diagnosis: EDEMA[ICD9: 782.3] Georgia Jackson MD, [facility] CPT-4: 47635 05/25/2014 ([id number]) 83805 EST. 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 PATIENT, LEVEL IV Diagnosis: ESSENTIAL HYPERTENSION[ICD9: 401.9] Diagnosis: HYPERLIPIDEMIA[ICD9: 272.4] Diagnosis: VACCIN FOR INFLUENZA[ICD10: Z23] Georgia Jackson MD, [facility] CPT-4: 72678 01/22/2014 ([id number]) 80389 EST. 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 PATIENT, LEVEL IV Diagnosis: ESSENTIAL HYPERTENSION[SNOMED: 72021949] Diagnosis: LACK OF COORDINATION[ICD9: 781.3] Diagnosis: PERIPH VASCULAR DIS[ICD9: 443.9] Diagnosis: ENCNTR LONG-RX USE NEC[ICD9: V58.69] Georgia Jackson MD, [facility] CPT- 4: 37577 03/20/2013 ([id number]) 66918 EST. PATIENT, LEVEL IV Diagnosis: ESSENTIAL HYPERTENSION[SNOMED: 57790031] Diagnosis: HYPERLIPIDEMIA[ICD9: 272.4] Diagnosis: LACK OF COORDINATION[ICD9: 781.3] Diagnosis: TOBACCO USE DISORDER[ICD9: 305.1] Georgia Jackson MD, [facility] CPT- 4: 40101 05/25/2012 ([id number]) 05160 EST. PATIENT, LEVEL IV Diagnosis: ESSENTIAL HYPERTENSION[SNOMED: 38628229] Diagnosis: TOBACCO USE DISORDER[ICD9: 305.1] Diagnosis: HYPERLIPIDEMIA[ICD9: 272.4] Diagnosis: Varicose vein of leg[ICD9: 454.9] Diagnosis: Leg pain, posterior[ICD9: 729.5] Diagnosis: Intermittent claudication[ICD9: 443.9] Georgia Jackson MD, [facility] CPT-4: 41852 09/17/2011 ([id number]) 78711 EST. PATIENT, LEVEL IV Diagnosis: ESSENTIAL HYPERTENSION[SNOMED: 29957723] Diagnosis: LACK OF COORDINATION[ICD9: 781.3] Diagnosis: TOBACCO USE DISORDER[ICD9: 305.1] Georgia Jackson MD, [facility] CPT- 4: 66274 05/21/2011 41815 EST. PATIENT, LEVEL IV Diagnosis: ESSENTIAL HYPERTENSION[SNOMED: 18283123] Diagnosis: HYPERLIPIDEMIA[ICD9: 272.4] Diagnosis: Ataxia[ICD9: 781.3] [facility] CPT-4: 60293 01/20/2011 Plan of Care Planned Activity Notes Codes Status Date Visit Plan: Falls, weakness, headache - will send for CT scan and treat as indicated - pt strongly encouraged to move to assisted living facility for safety purposes - pt/son are to notify clinic with any changes, questions, or concerns. 05/11/2018 Appointment: Denisha De La Fuente [facility] (15 min) Moderate 05/11/2018 Patient Education: [...] is at. 01/17/2018 Appointment: Brigitte Vann WPtel: [phone] (15 min) Moderate 01/17/2018 Patient Education: Patient [...] assisted living 10/12/2017 Appointment: Brigitte Vann WPtel: [phone] [place] (30 min) Complex 10/12/2017 Patient Education: Patient [...] Fanny Martinez 08/10/2017 Appointment: Brigitte Vann WPtel: [phone] [place] [address] (15 min) Moderate 08/10/2017 Patient Education: Patient [...] verbalized understanding. 07/06/2017 Appointment: Brigitte Vann WPtel: [phone] (30 min) Complex 07/06/2017 Patient Education: Patient Medication Summary Completed 07/06/2017 Patient Education: Patient Medication Summary Completed 07/06/2017 Care Plan: Referral Order SNOMED-CT : [id number] Pending 07/06/2017 Care Plan: [employer] [...] current medications. Weight loss-stable 03/18/2017 Appointment: Brigitte Vann: [address] [place], [place] [phone] (30 min) Complex 03/18/2017 Patient Education: Patient [...] 1 month 02/18/2017 Appointment: Brigitte Vann WPtel: [phone] (30 min) Complex 02/18/2017 Patient Education: Patient Medication Summary Completed 02/18/2017 Appointment: Brigitte Vann WPtel: [address] [place], [place] [phone] (30 min) Complex 12/17/2016 Visit Plan: Gait instability-recommend PT with home health-patient refuses-recommend patient start using walker YPKZ-boqfjof-wztiufi qualified for oxygen but refuses to wear it Weight refv-ekpsia-fwwfxotf to monitor Memory loss-recommend patient move to an assisted living facility 11/16/2016 Appointment: Brigitte Vann WPtel: [address] [place], [place] [phone] (15 min) Moderate 11/16/2016 Patient Education: Patient Medication Summary Completed 11/16/2016 Visit Plan: Hypertension - well controlled - continue with current medications, continue with no added salt diet. Pt has been encouraged to exercise daily. The pt has been advised to call the office if there are any acute concerns about change in blood pressure readings at home. Gait izgxvypinnz-wtafhddf-wkqzhauvpo PT-patient refuses-also recommend patient use a walker at all times Weight loss-recommend patient increase intake Mixed urinary incontinence-samples of myrebetriq provided and instructed on use 10/13/2016 Appointment: Brigitte Vann WPtel: [phone] [phone] (30 min) Complex 10/13/2016 Patient Education: Patient Medication Summary Completed 10/13/2016 Visit Plan: Hypertension - well controlled - continue with current medications, continue with no added salt diet. Pt has been encouraged to exercise daily. The pt has been advised to call the office if there are any acute concerns about change in blood pressure readings at home. Bghsoyvvky-ugekwhg-esxcfkxv lexapro to 10mg daily-repeat in 1 month Gait instability-again recommend patient use walker 09/15/2016 Appointment: Brigitte Vann WPtel: [phone] [phone] (15 min) Moderate 09/15/2016 Patient Education: Patient [...] this time. 08/18/2016 Appointment: Brigitte Vann WPtel: [phone] [phone] (15 min) Moderate 08/18/2016 Patient Education: Patient Medication Summary Completed 08/18/2016 Visit Plan: Hypertension - well controlled - continue with current medications, continue with no added salt diet. Pt has been encouraged to exercise daily. The pt has been advised to call the office if there are any acute concerns about change in blood pressure readings at home. 06/23/2016 Appointment: Brigitte Vann WPtel: [phone] (30 min) Complex 06/23/2016 Patient Education: Patient [...] evaluation 05/19/2016 Appointment: [phone] [phone] (30 min) Complex 05/19/2016 Patient Education: Patient Medication Summary Completed 05/19/2016 Care Plan: Referral Order [facility] Esqueda [facility]- [place] : [id number] Pending 05/19/2016 Visit Plan: Hypertension - well controlled - continue with current medications, continue with no added salt diet. Pt has been encouraged to exercise daily. The pt has been advised to call the office if there are any acute concerns about change in blood pressure readings at home. Rkiri-bbmuksly-lk change in treatment 09/14/2014 Appointment: Follow up [...] 2 weeks. 08/24/2014 Appointment: Georgia Jackson WPtel: [phone] [facility] [facility] follow up 08/24/2014 Patient Education: Patient [...] at home. 07/24/2014 Appointment: Georgia Jackson WPtel: [facility] Follow up 07/24/2014 Patient Education: Patient Medication Summary Completed 07/24/2014 Patient Education: Hypertension Completed 07/24/2014 Care Plan: Referral Order SNOMED-CT : [id number] Ordered 07/24/2014 Visit Plan: Hypertension - well [...] peripheral edema. 05/25/2014 Appointment: Brigitte Vann WPtel: [phone] Follow up 05/25/2014 Patient Education: Patient Medication [...] ormalized. 04/24/2014 Appointment: Georgia Jackson WPtel: [phone] [facility] Follow up 04/24/2014 Patient Education: Patient Medication [...] to medications. 01/22/2014 [facility]ment: [phone] Follow up 01/22/2014 Patient Education: [...] strengthening exercise. 09/18/2013 Appointment: Georgia Jackson WPtel: [facility] [place] Follow up 09/18/2013 Patient Education: Patient Medication [...] a year. 03/20/2013 Appointment: [phone] [place] Follow up 03/20/2013 Patient Education: Patient Medication Summary Completed 03/20/2013 Patient Education: Hypertension Completed 03/20/2013 Appointment: [phone] [place] Lab Draw 05/27/2012 Patient [...] NEEDS TO FILL THE NEW SCRIPT AT [facility] FOR THE 10MG ENALAPRIL PILL TO [...] public. 05/25/2012 Appointment: Georgia [phone] [place] Other 05/25/2012 Patient Education: Patient Medication Summary Completed 05/25/2012 Patient Education: Hypertension Completed 05/25/2012 Patient Education: Smoking and Tobacco Addiction Completed 05/25/2012 Appointment: Georgia [facility]el[phone] [facility] [place] Lab Draw 09/21/2011 Patient Education: Patient Medication [...] leg pain. 09/17/2011 Appointment: Georgia Jackson WPtel: [address] [place], [place] [phone] Other 09/17/2011 Patient Education: Patient Medication Summary Completed 09/17/2011 Patient Education: High Blood Pressure: Essential Hypertension Completed 09/17/2011 Patient Education: Smoking: Hazards of Smoking Completed 09/17/2011 Patient Education: Smoking and Ways to Quit Completed 09/17/2011 Appointment: Georgia Jackson WPtel: [address] [place], [place] [phone] Other 05/22/2011 Visit Plan: Hypertension - [...] assist cessation. 05/21/2011 Appointment: Georgia Jackson WPtel: [facility] Other 05/21/2011 Patient Education: Patient Medication Summary [...] THINK ABOUT GOING TO PHYSICAL THERAPY AT [facility] FOR BALANCE TRAINING. 01/20/2011 Appointment: Georgia [phone] [facility] [place] Other 01/20/2011 Patient Education: Patient Medication Summary Completed 01/20/2011 Appointment: Georgia [facility]el[phone] [facility] [place] Lab Draw 01/13/2011 Patient Education: Patient Medication Summary Completed 01/13/2011 Referral: Wojciech Antunez WPtel: [phone] [facility] Referral Appointment Requested Referral: [facility] W[facility]el: Referral Appointment Requested Referral: [facility] W[facility]el: 07/07 Referral info faxed. Verified that she received the referral. She will contact the patient to set up. Appointment Requested Instructions Comment . Falls, weakness, headache - will send [...] in blood pressure readings at home. Gait lqvrftzfoud-yzxvbzyy-smoihrsnzv PT-patient refuses-also recommend patient use a walker [...] times to prevent falls. Patient verbalized understanding. . Hypertension - well controlled - continue [...] to assure normal liver response to medications. START LEXAPRO 5MG IN THE EVENING CHECK [...] instability and leg pain. . Hypertension - well controlled - continue [...] home health-patient refuses-recommend patient start using walker NSAK-vortabz-sjtwgea qualified for oxygen but refuses to wear it Weight rpti-sjxnzu-briiufqc to monitor Memory loss-recommend patient move to [...] change in blood pressure readings at home. Vxrry-kjfdtdzi-in change in treatment . Hypertension - continue [...] THINK ABOUT GOING TO PHYSICAL THERAPY AT [facility] FOR BALANCE TRAINING. RECOMMEND FLU/PREVNAR -PATIENT GOING TO [place] TO [...] change in blood pressure readings at home. Kzdnetzoki-yjqpsgy-zjodfvkz lexapro to 10mg daily-repeat in 1 month Gait instability-again recommend patient use walker . Hypertension - uncontrolled - the patient's [...] not had labs for over a year. Refer to Dr Esqueda recommend patient start [...]
--- OUTSIDE RECORDS SUMMARY | 2018-11-16 07:43 | XMS REPORT | Continuity of Care Document ---
Author Organization Unknown Address Unknown Allergies Active Description Code Type Severity Reaction Onset Reported/Identified Relationship to Patient Clinical Status Yes No Known Drug Allergies [id number] Drug Allergy Unknown N/A 08/13/2009 Medications There is no data. Problems Date Dx Coded Attending Type Code Diagnosis Diagnosed By 08/08/2009 Ot 305.1 08/08/2009 Ot 311 08/08/2009 Ot 530.81 08/08/2009 Ot 734 08/08/2009 Ot 781.2 08/08/2009 Ot V12.54 08/08/2009 Ot V57.1 08/14/2009 Ot 733.13 08/14/2009 Ot 733.90 10/06/2011 Ot 414.01 CORONARY ATHEROSCLEROSIS OF [place] CORON 10/06/2011 Ot 440.21 ATHEROSCL [place] ARTER EXTREM W INTERMIT 10/06/2011 Ot 737.30 IDIOPATHIC SCOLIOSIS 10/06/2011 Ot V58.69 OTH MED,LT,CURRENT USE 08/01/2014 Ot 794.5 08/01/2014 Ot 246.2 08/01/2014 Ot 242.90 08/01/2014 Ot 331.9 08/01/2014 Ot 443.9 08/01/2014 Ot 781.2 08/01/2014 Ot 242.90 08/01/2014 Ot 401.9 08/01/2014 Ot 733.00 08/01/2014 Ot V58.69 08/01/2014 Ot 331.9 08/01/2014 Ot 401.9 08/01/2014 Ot 780.4 08/01/2014 Ot 781.2 08/01/2014 Ot 440.20 08/01/2014 Ot 454.9 08/01/2014 Ot 443.9 08/01/2014 Ot V58.69 08/01/2014 Ot V67.09 08/01/2014 Ot 443.9 08/01/2014 Ot 241.0 08/07/2014 CORI YEN, ANETA Daly Ot 242.90 THYROTOX NOS NO CRISIS 08/07/2014 ANETA PERSAUD MD Ot 272.4 HYPERLIPIDEMIA NEC/NOS 08/07/2014 ANETA PERSAUD MD Ot 401.9 HYPERTENSION NOS 08/07/2014 ANETA PERSAUD MD Ot 440.0 AORTIC ATHEROSCLEROSIS 08/07/2014 ANETA PERSAUD MD Ot 440.21 ATHEROSCL [place] ARTER EXTREM W INTERMIT 08/07/2014 ANETA PERSAUD MD Ot 440.8 ATHEROSCLEROSIS NEC 08/07/2014 ANETA PERSAUD MD Ot 442.2 ILIAC ARTERY ANEURYSM 08/07/2014 ANETA PERSAUD MD Ot 722.52 LUMB/LUMBOSAC DISC DEGEN 08/07/2014 ANETA PERSAUD MD Ot 737.30 IDIOPATHIC SCOLIOSIS 08/07/2014 ANETA PERSAUD MD Ot 781.3 LACK OF COORDINATION 08/07/2014 ANETA PERSAUD MD Ot 786.09 RESPIRATORY ABNORM NEC 08/07/2014 ANETA PERSAUD MD Ot V15.82 HISTORY OF TOBACCO USE 08/07/2014 ANETA PERSAUD MD Ot V58.69 OTH MED,LT,CURRENT USE 08/16/2014 Ot 794.5 08/16/2014 Ot 246.2 08/16/2014 Ot 242.90 08/16/2014 Ot 331.9 08/16/2014 Ot 443.9 08/16/2014 Ot 781.2 08/16/2014 Ot 242.90 08/16/2014 Ot 401.9 08/16/2014 Ot 733.00 08/16/2014 Ot V58.69 08/16/2014 Ot 331.9 08/16/2014 Ot 401.9 08/16/2014 Ot 780.4 08/16/2014 Ot 781.2 08/16/2014 Ot 440.20 08/16/2014 Ot 454.9 08/16/2014 Ot 443.9 08/16/2014 Ot V58.69 08/16/2014 Ot V67.09 08/16/2014 Ot 443.9 08/16/2014 Ot 241.0 08/16/2014 ANETA PERSAUD MD Ot 401.9 08/16/2014 ANETA PERSAUD MD Ot 443.9 08/16/2014 ANETA PERSAUD MD Ot 781.3 08/17/2014 ANETA PERSAUD MD Ot 401.9 HYPERTENSION NOS 08/17/2014 ANETA PERSAUD MD Ot 414.00 CORON ATHEROSCLER NOS TYPE VESSEL, NATIV 08/17/2014 ANETA PERSAUD MD Ot 440.21 ATHEROSCL [place] ARTER EXTREM W INTERMIT 08/17/2014 ANETA PERSAUD MD Ot 440.4 CHRONIC TOTAL OCCLUSION OF ARTERY OF THE 08/17/2014 ANETA PERSAUD MD Ot V15.82 HISTORY OF TOBACCO USE 08/17/2014 ANETA PERSAUD MD Ot V45.81 AORTOCORONARY BYPASS 08/17/2014 ANETA PERSAUD MD, Ot V58.69 OTH MED,LT,CURRENT USE 08/29/2014 ANETA PERSAUD MD Ot 401.9 08/29/2014 ANETA PERSAUD MD Ot 443.9 08/29/2014 ANETA PERSAUD MD, Ot 781.3 06/30/2016 Ot 440.20 ATHEROSCLEROSIS [place] ARTERIES EXTREMIT 06/30/2016 Ot 454.9 ASYMPTOMATIC VARICOSE VEINS 06/30/2016 Ot 443.9 PERIPH VASCULAR DIS NOS 06/30/2016 Ot V58.69 OTH MED,LT,CURRENT USE 06/30/2016 Ot V67.09 SURGERY FOLLOW- UP, OTHER SURGERY 06/30/2016 Ot 443.9 PERIPH VASCULAR DIS NOS 06/30/2016 Ot 241.0 NONTOX UNINODULAR GOITER 06/30/2016 ANETA PERSAUD MD Ot 401.9 HYPERTENSION NOS 06/30/2016 ANETA PERSAUD MD Ot 443.9 PERIPH VASCULAR DIS NOS 06/30/2016 ANETA PERSAUD MD Ot 781.3 LACK OF COORDINATION 07/01/2016 RADHA YEN, Ephraim BARCENAS Ot R06.02 SHORTNESS OF BREATH 07/01/2016 Ephraim GARCIA MD Ot R26.81 UNSTEADINESS ON FEET 07/21/2016 Ephraim GARCIA MD Ot R06.02 SHORTNESS OF BREATH 07/21/2016 Ephraim GARCIA MD Ot R26.81 UNSTEADINESS ON FEET 05/11/2018 ANETA PERSAUD MD Ot 401.9 HYPERTENSION NOS 05/11/2018 ANETA PERSAUD MD Ot 443.9 PERIPH VASCULAR DIS NOS 05/11/2018 ANETA PERSAUD MD Ot 781.3 LACK OF COORDINATION 05/11/2018 Ephraim GARCIA MD Ot R06.02 SHORTNESS OF BREATH 05/11/2018 Ephraim GARCIA MD Ot R26.81 UNSTEADINESS ON FEET 05/12/2018 DANY GUILLORY APRN Ot M47.812 SPONDYLOSIS W/O MYELOPATHY OR RADICULOPA 05/12/2018 DANY GUILLORY APRN Ot R90.82 WHITE MATTER DISEASE, UNSPECIFIED 05/12/2018 DANY GUILLORY APRN Ot S00.93XA CONTUSION OF UNSPECIFIED PART OF HEAD, I 05/12/2018 DANY GUILLORY APRN Ot W19.XXXA UNSPECIFIED FALL, INITIAL ENCOUNTER 06/06/2018 ADNY GUILLORY APRN Ot M47.812 SPONDYLOSIS W/O MYELOPATHY OR RADICULOPA 06/06/2018 DANY GUILLORY APRN Ot R90.82 WHITE MATTER DISEASE, UNSPECIFIED 06/06/2018 DANY GUILLORY APRN Ot S00.93XA CONTUSION OF UNSPECIFIED PART OF HEAD, I 06/06/2018 DANY GUILLORY APRN Ot W19.XXXA UNSPECIFIED FALL, INITIAL ENCOUNTER Procedures There is no data. Results Test Result Range Complete blood count (CBC) with automated white blood cell (WBC) differential - 05/11/18 12:43 Blood leukocytes automated count (number/volume) 4.9 10*3/uL 4.3-11.0 Blood erythrocytes automated count (number/volume) 4.64 10*6/uL 4.35-5.85 Venous blood hemoglobin measurement (mass/volume) 13.6 g/dL 11.5-16.0 Blood hematocrit (volume fraction) 44 % 35-52 Automated erythrocyte mean corpuscular volume 95 [foz_us] 80-99 Automated erythrocyte mean corpuscular hemoglobin (mass per erythrocyte) 29 pg 25-34 Automated erythrocyte mean corpuscular hemoglobin concentration measurement (mass/volume) 31 g/dL 32-36 Automated erythrocyte distribution width ratio 14.2 % 10.0- 14.5 Automated blood platelet count (count/volume) 248 10*3/uL 130-400 Automated blood platelet mean volume measurement 8.6 [foz_us] 7.4-10.4 Automated blood neutrophils/100 leukocytes 66 % 42-75 Automated blood lymphocytes/100 leukocytes 23 % 12-44 Blood monocytes/100 leukocytes 7 % 0-12 Automated blood eosinophils/100 leukocytes 4 % 0-10 Automated blood basophils/100 leukocytes 1 % 0-10 Blood neutrophils automated count (number/volume) 3.3 10*3 1.8-7.8 Blood lymphocytes automated count (number/volume) 1.1 10*3 1.0-4.0 Blood monocytes automated count (number/volume) 0.3 10*3 0.0- 1.0 Automated eosinophil count 0.2 10*3/uL 0.0-0.3 Automated blood basophil count (count/volume) 0.0 10*3/uL 0.0-0.1 Comprehensive metabolic panel - 05/11/18 12:43 Serum or plasma sodium measurement (moles/volume) 142 mmol/L 135-145 Serum or plasma potassium measurement (moles/volume) 3.7 mmol/L 3.6-5.0 Serum or plasma chloride measurement (moles/volume) 106 mmol/L 98-107 Carbon dioxide 26 mmol/L 21-32 Serum or plasma anion gap determination (moles/volume) 10 mmol/L 5-14 Serum or plasma urea nitrogen measurement (mass/volume) 18 mg/dL 7-18 Serum or plasma creatinine measurement (mass/volume) 0.94 mg/dL 0.60-1.30 Serum or plasma urea nitrogen/creatinine mass ratio 19 NRG Serum or plasma creatinine measurement with calculation of estimated glomerular filtration rate 56 NRG Serum or plasma glucose measurement (mass/volume) 90 mg/dL 70-105 Serum or plasma calcium measurement (mass/volume) 9.2 mg/dL 8.5-10.1 Serum or plasma total bilirubin measurement (mass/volume) 0.4 mg/dL 0.1-1.0 Serum or plasma alkaline phosphatase measurement (enzymatic activity/volume) 54 U/L 40-136 Serum or plasma aspartate aminotransferase measurement (enzymatic activity/volume) 20 U/L 5-34 Serum or plasma alanine aminotransferase measurement (enzymatic activity/volume) 11 U/L 0-55 Serum or plasma protein measurement (mass/volume) 6.9 g/dL 6.4-8.2 Serum or plasma albumin measurement (mass/volume) 4.3 g/dL 3.2-4.5 CALCIUM CORRECTED 9.0 mg/dL 8.5-10.1 THYROID STIMULATING HORMONE - 05/11/18 12:43 THYROID STIMULATING HORMONE 0.50 u[iU]/mL 0.35-4.94 Complete urinalysis with reflex to culture - 05/11/18 13:52 Urine color determination YELLOW NRG Urine clarity determination CLEAR NRG Urine pH measurement by test strip 8 5-9 Specific gravity of urine by test strip 1.010 1.016-1.022 Urine protein assay by test strip, semi-quantitative NEGATIVE NEGATIVE Urine glucose detection by automated test strip NEGATIVE NEGATIVE Erythrocytes detection in urine sediment by light microscopy NEGATIVE NEGATIVE Urine ketones detection by automated test strip NEGATIVE NEGATIVE Urine nitrite detection by test strip NEGATIVE NEGATIVE Urine total bilirubin detection by test strip NEGATIVE NEGATIVE Urine urobilinogen measurement by automated test strip (mass/volume) NORMAL NORMAL Urine leukocyte esterase detection by dipstick NEGATIVE NEGATIVE Automated urine sediment erythrocyte count by microscopy (number/high power field) [HPF] NRG Automated urine sediment leukocyte count by microscopy (number/high power field) [HPF] NRG Bacteria detection in urine sediment by light microscopy FEW NRG Squamous epithelial cells detection in urine sediment by light microscopy 2-5 NRG Crystals detection in urine sediment by light microscopy NONE NRG Casts detection in urine sediment by light microscopy NONE NRG Mucus detection in urine sediment by light microscopy NEGATIVE NRG Complete urinalysis with reflex to culture NO NRG Encounters ACCT No. Visit Date/Time Discharge Status Pt. Type Provider Facility Loc./Unit Complaint [id number] 05/11/2018 12:26:00 05/11/2018 23:59:59 CLS Outpatient DANY GUILLORY APRN [facility] RAD FALL,HEAD TRAUMA [id number] 06/30/2016 12:44:00 06/30/2016 23:59:59 CLS Outpatient Ephraim GARCIA MD [facility] CARD BREATH,SHORTNESS,UNSTEADY ON FEET [id number] 08/16/2014 07:16:00 08/17/2014 09:25:00 DIS Outpatient ANETA PERSAUD MD [facility] CATH CLAUDICATION,HIGH BLOOD PRESSURE [id number] 08/06/2014 08:26:00 08/07/2014 11:47:00 DIS Outpatient ANETA PERSAUD MD [facility] CATH DFD CLAUTIFICATION HIGH BLOOD PRESSURE ATAXIA [id number] 08/01/2014 10:45:00 08/01/2014 23:59:59 CLS Outpatient ANETA PERSAUD MD [facility] RAD CLAUDICATON,EXERTIONAL HYPERTENSION,ATAXIA [id number] 08/01/2014 10:53:00 Document Registration [id number] 08/01/2014 10:53:00 Document Registration [id number] 08/01/2014 10:53:00 Document Registration [id number] 06/09/2012 10:08:00 Document Registration [id number] 10/05/2011 05:58:00 Document Registration [id number] 10/01/2011 10:15:00 Document Registration [id number] 09/22/2011 13:04:00 Document Registration [id number] 08/19/2010 13:05:00 Document Registration [id number] 08/12/2010 10:15:00 Document Registration [id number] 01/07/2010 13:13:00 Document Registration [id number] 12/19/2009 10:53:00 Document Registration [id number] 10/29/2009 11:49:00 Document Registration [id number] 08/13/2009 13:08:00 Document Registration [id number] 08/08/2009 08:56:00 Document Registration [id number] 08/16/2014 07:16:29 ACT Document Registration
[2018-11-16 07:51] LABS: HEMOGLOBIN 14.6 G/DL (11.5-16.0); MEAN PLATELET VOLUME 8.8 FL (7.4-10.4); RED CELL DISTRIBUTION WIDTH 13.8 % (10.0-14.5); WHITE BLOOD COUNT 5.5 10^3/uL (4.3-11.0)
[2018-11-16] MEDS ORDERED: NS IV 1000 ML 1,000 ML IV SCH (07:55)
[2018-11-16] MEDS ORDERED: ENALAPRIL 10 MG (VASOTEC) TAB PO ONE (08:00)
[2018-11-16 08:10] LABS: ALBUMIN 3.9 GM/DL (3.2-4.5); BILIRUBIN,TOTAL 0.4 MG/DL (0.1-1.0); CALCIUM 9.6 MG/DL (8.5-10.1); CREATININE SERUM 0.95 MG/DL (0.60-1.30); TOTAL PROTEIN 6.3 GM/DL (6.4-8.2)
--- NOTE | 2018-11-16 08:28 | Diagnostic Imaging Report ---
Indication: GI bleed. Time of exam 8:10 AM Comparison is made with prior chest from 08/16/2014. Heart size is stable. There is ectasia and tortuosity of the descending thoracic aorta. There appears to be some bibasilar atelectasis or scarring. Otherwise the lungs are clear. No effusion or pneumothorax is seen. Impression: No acute cardiopulmonary process is detected. Dictated by: Dictated on workstation # [id number]
[2018-11-16 08:42] LABS: BILIRUBIN,URINE NEGATIVE (NEGATIVE); CLARITY,URINE CLEAR; COLOR,URINE YELLOW; GLUCOSE, URINE (UA) NEGATIVE (NEGATIVE); KETONES,URINE NEGATIVE (NEGATIVE); LEUKOCYTE ESTERASE ,URINE 2+ (NEGATIVE); NITRITE,URINE NEGATIVE (NEGATIVE); PH,URINE 8 (5-9); PROTEIN,URINE NEGATIVE (NEGATIVE); UROBILINOGEN,URINE NORMAL (NORMAL)
[2018-11-16 08:50] LABS: BACTERIA,URINE FEW /HPF; RBC,URINE 0-2 /HPF
[2018-11-16] MEDS ORDERED: hydrALAZINE (APESOLINE) 20 MG/ML VIAL IV ONE (09:15)
[2018-11-16 09:58] VITALS: BP 143/89
== END 2018-11-16 09:58 | disposition home or self-care (01) ==
LOC: EDUNIT# 07:11 → ER 07:12
DX: I10 Essential (primary) hypertension (principal); Z79.02 Long term (current) use of antithrombotics/antiplatelets; Z79.82 Long term (current) use of aspirin
CPT/HCPCS: 36415; 71045; 80053; 81000; 85027; 87210; 96361; 96374

== ENCOUNTER → 2018-11-25 | Emergency (ER) | payer MEDICARE, OTHER ==
[~2018-11-25] VITALS: Ht 165.1 cm; Wt 63.5 kg
[~2018-11-25] MED LIST changes: +NS IV 1000 ML 1,000 ML IV SCH; +SULF-222 PO; +TRIM/SULFAMETH 160/800 (SEPTRA DS) TAB PO ONE
[2018-11-25 16:34] LABS: BASOPHILS % (AUTO) 1 % (0-10); EOSINOPHILS # (AUTO) 0.1 10^3/uL (0.0-0.3); EOSINOPHILS % (AUTO) 1 % (0-10); HEMATOCRIT 44 % (35-52); HEMOGLOBIN 14.2 G/DL (11.5-16.0); LYMPHOCYTES # (AUTO) 0.9 X 10^3 (1.0-4.0); LYMPHOCYTES % (AUTO) 16 % (12-44); MEAN CORPUSCULAR HEMOGLOBIN 30 PG (25-34); MEAN CORPUSCULAR HGB CONC 32 G/DL (32-36); MEAN CORPUSCULAR VOLUME 93 FL (80-99); MEAN PLATELET VOLUME 9.3 FL (7.4-10.4); MONOCYTES # (AUTO) 0.4 X 10^3 (0.0-1.0); MONOCYTES % (AUTO) 7 % (0-12); NEUTROPHILS # (AUTO) 4.6 X 10^3 (1.8-7.8); NEUTROPHILS % (AUTO) 76 % (42-75); PLATELET COUNT 249 10^3/uL (130-400); RED CELL DISTRIBUTION WIDTH 14.6 % (10.0-14.5)
[2018-11-25 16:34] LABS: BILIRUBIN,URINE NEGATIVE (NEGATIVE); CLARITY,URINE CLEAR; COLOR,URINE YELLOW; GLUCOSE, URINE (UA) NEGATIVE (NEGATIVE); KETONES,URINE 4+ (NEGATIVE); LEUKOCYTE ESTERASE ,URINE 2+ (NEGATIVE); NITRITE,URINE POSITIVE (NEGATIVE); PH,URINE 6 (5-9); PROTEIN,URINE 2+ (NEGATIVE); UROBILINOGEN,URINE 1 MG/DL (NORMAL)
[2018-11-25 16:47] LABS: ALANINE AMINOTRANSFERASE 12 U/L (0-55); ALKALINE PHOSPHATASE 47 U/L (40-136); BILIRUBIN,TOTAL 0.6 MG/DL (0.1-1.0); BUN/CREATININE RATIO 24; CALCIUM 9.2 MG/DL (8.5-10.1); CARBON DIOXIDE 26 MMOL/L (21-32); CHLORIDE 104 MMOL/L (98-107); CREATININE SERUM 0.75 MG/DL (0.60-1.30); GFR ESTIMATED > 60; GLUCOSE 84 MG/DL (70-105); SODIUM 146 MMOL/L (135-145); TOTAL PROTEIN 6.5 GM/DL (6.4-8.2)
[2018-11-25 16:59] LABS: BACTERIA,URINE LARGE /HPF; RBC,URINE 0-2 /HPF
--- NOTE | 2018-11-25 17:23 | ED General ---
General Chief Complaint: Abdominal/GI Problems Stated Complaint: CAN'T SWALLOW,VOMITING Nursing Triage Note: THE PT ARRIVAL BY EMS. NO DISTRESS IS SEEN ON ARRIVAL. LOC IS NORMAL FOR THE PT WITH DOMR SLIGHT CONFUSION DETECTED. Nursing Sepsis Screen: No Definite Risk History of Present Illness Date Seen by Provider: Nov 25, 2018 Time Seen by Provider: 15:55 Initial Comments 88-year-old female presents via EMS because of recurrent vomiting and dysphagia. She reports calling Dr. Jackson's office and being referred here. She was here recently for a geriatric exam that did not reveal acute findings. Discussed with Dr Jackson's office, they have been trying to get her moved to [facility], but she has refused and wants "to at [place]" She called their office multiple times today, stating difficulty breathing. Her son had called their office and she has an appointment on Wednesday. Patient reports her son is "golfing and turned his phone off" but he immediately answered when this provider called. He was unaware she was in the ED. She denies any nausea and is drinking water with no swallowing or vomiting issues. Timing/Duration: 1-3 Hours Associated Systoms: Denies Symptoms Allergies and Home Medications Allergies Coded Allergies: No Known Drug Allergies (Verified , 08/13/09) Home Medications Aspirin 81 Mg Tabec, 81 MG PO DAILY, (Reported) Cholecalciferol 1,000 Unit Tablet, 1,000 UNIT PO DAILY, (Reported) Clopidogrel Bisulfate 75 Mg Tab, 75 MG PO DAILY, (Reported) Enalapril Maleate 20 Mg Tablet, 20 MG PO DAILY, (Reported) Multivits-Min/Fa/Ca Carb/Vit K 1 Each Tablet, 1 TAB PO DAILY, (Reported) [place]-3/Dha/Epa/Fish Oil 1,000 Mg Capsule, 1,000 MG PO TID, (Reported) Pravastatin Sodium 10 Mg Tablet, 10 MG PO HS, (Reported) Sulfamethoxazole/Trimethoprim 1 Each Tablet, 1 EACH PO BID Prescribed by: EDGAR DUNAWAY on 11/25/18 1663 Patient Home Medication List Home Medication List Reviewed: Yes Review of Systems Review of Systems Constitutional: no symptoms reported, see HPI All Other Systems Reviewed Negative Unless Noted: Yes Past Bfvmmtn-Nltfqo-Gqhacy Hx Past Med/Social Hx: Reviewed Nursing Past Med/Soc Hx Patient Social History Alcohol Beverage of Choice: Beer Type Used: Cigarettes Former Smoker, Quit: Nov 01, 1999 Recent Foreign Travel: No Contact w/Someone Who Travel: No Recent Infectious Disease Expo: No Recent Hopitalizations: No Physical Abuse: No Sexual Abuse: No Mistreated: No Fear: No Immunizations Up To Date Tetanus Booster (TDap): Unknown PED Vaccines UTD: No Date of Pneumonia Vaccine: Aug 16, 2012 Date of Influenza Vaccine: Mar 18, 2014 Past Medical History Surgeries: No Abdominal, Appendectomy Respiratory: No Cardiac: Yes Hypertension Neurological: No Reproductive Disorders: No Sexually Transmitted Disease: No HIV/AIDS: No Genitourinary: No Gastrointestinal: No Musculoskeletal: No Endocrine: No Cancer: No Psychosocial: No Integumentary: No Physical Exam Vital Signs Vital Signs - First Documented 11/25/18 11/25/18 15:53 18:44 Temp 97.0 Pulse 60 Resp 18 B/P (MAP) 190/92 (124) Pulse Ox 93 O2 Flow Rate 2.00 Capillary Refill : Less Than 3 Seconds Height, Weight, BMI Height: 5'5.00" Weight: 140lbs. 8.0oz. 63.754138dn; 29.26 BMI Method:Estimated General Appearance: No Apparent Distress, WD/WN Eyes: Bilateral Eye Normal Inspection, Bilateral Eye PERRL, Bilateral Eye EOMI HEENT: PERRL/EOMI, TMs Normal, Normal ENT Inspection, Pharynx Normal Neck: Full Range of Motion, Normal Inspection, Non Tender, Supple Respiratory: Chest Non Tender, Lungs Clear, Normal Breath Sounds Cardiovascular: Regular Rate, Rhythm, No Murmur, Normal Peripheral Pulses Gastrointestinal: Normal Bowel Sounds, Non Tender, Soft Extremity: Normal Capillary Refill, Normal Inspection, Normal Range of Motion, No Pedal Edema Neurologic/Psychiatric: Alert, Normal Mood/Affect, Other (Oriented to Person and Place, was unable to state year but did state it was summer. ) Progress/Results/Core Measures Suspected Sepsis Recent Fever Within 48 Hours: No Infection Criteria Present: None New/Unexplained Altered Menta: No Sepsis Screen: No Definite Risk SIRS Temperature:97.0 Pulse: 60 Respiratory Rate: 18 Laboratory Tests 11/25/18 15:40: White Blood Count 6.0 Blood Pressure 190 /92 Mean: 124 Laboratory Tests 11/25/18 15:40: Creatinine 0.75, Platelet Count 249, Total Bilirubin 0.6 Results/Orders Lab Results Laboratory Tests Test 11/25/18 15:40 11/25/18 16:30 Range/Units White Blood Count 6.0 4.3-11.0 10^3/uL Red Blood Count 4.73 4.35-5.85 10^6/uL Hemoglobin 14.2 11.5-16.0 G/DL Hematocrit 44 35-52 % Mean Corpuscular Volume 93 80-99 FL Mean Corpuscular Hemoglobin 30 25-34 PG Mean Corpuscular Hemoglobin Concent 32 32-36 G/DL Red Cell Distribution Width 14.6 H 10.0-14.5 % Platelet Count 249 130-400 10^3/uL Mean Platelet Volume 9.3 7.4-10.4 FL Neutrophils (%) (Auto) 76 H 42-75 % Lymphocytes (%) (Auto) 16 12-44 % Monocytes (%) (Auto) 7 0-12 % Eosinophils (%) (Auto) 1 0-10 % Basophils (%) (Auto) 1 0-10 % Neutrophils # (Auto) 4.6 1.8-7.8 X 10^3 Lymphocytes # (Auto) 0.9 L 1.0-4.0 X 10^3 Monocytes # (Auto) 0.4 0.0-1.0 X 10^3 Eosinophils # (Auto) 0.1 0.0-0.3 10^3/uL Basophils # (Auto) 0.0 0.0-0.1 10^3/uL Sodium Level 146 H 135-145 MMOL/L Potassium Level 3.0 L 3.6-5.0 MMOL/L Chloride Level 104 98-107 MMOL/L Carbon Dioxide Level 26 21-32 MMOL/L Anion Gap 16 H 5-14 MMOL/L Blood Urea Nitrogen 18 7-18 MG/DL Creatinine 0.75 0.60-1.30 MG/DL Estimat Glomerular Filtration Rate > 60 BUN/Creatinine Ratio 24 Glucose Level 84 70-105 MG/DL Calcium Level 9.2 8.5-10.1 MG/DL Corrected Calcium 9.2 8.5-10.1 MG/DL Total Bilirubin 0.6 0.1-1.0 MG/DL Aspartate Amino Transf (AST/SGOT) 22 5-34 U/L Alanine Aminotransferase (ALT/SGPT) 12 0-55 U/L Alkaline Phosphatase 47 40-136 U/L Total Protein 6.5 6.4-8.2 GM/DL Albumin 4.0 3.2-4.5 GM/DL Urine Color YELLOW Urine Clarity CLEAR Urine pH 6 5-9 Urine Specific [place] 1.020 1.016-1.022 Urine Protein 2+ H NEGATIVE Urine Glucose (UA) NEGATIVE NEGATIVE Urine Ketones 4+ H NEGATIVE Urine Nitrite POSITIVE H NEGATIVE Urine Bilirubin NEGATIVE NEGATIVE Urine Urobilinogen 1 NORMAL MG/DL Urine Leukocyte Esterase 2+ H NEGATIVE Urine RBC (Auto) 3+ H NEGATIVE Urine RBC 0-2 /HPF Urine WBC 10-25 H /HPF Urine Squamous Epithelial Cells 5-10 /HPF Urine Crystals NONE /LPF Urine Bacteria LARGE H /HPF Urine Casts NONE /LPF Urine Mucus NEGATIVE /LPF Urine Culture Indicated YES My Orders Orders - EDGAR DUNAWAY Cbc With Automated Diff (11/25/18 16:01) Comprehensive Metabolic Panel (11/25/18 16:01) Ua Culture If Indicated (11/25/18 16:01) Urine Culture (11/25/18 16:30) Ed Iv/Invasive Line Start (11/25/18 17:16) Ns Iv 1000 Ml (Sodium Chloride 0.9%) (11/25/18 17:16) Sulfamethoxazole/Trimet Ds Tab (Bactrim (11/25/18 17:30) Medications Given in ED Current Medications Medications Dose Ordered Sig/Claudia Route Start Time Stop Time Status Last Admin Dose Admin Trimethoprim/ Sulfamethoxazole 1 ea ONCE ONCE PO 11/25/18 17:30 11/25/18 17:31 DC 11/25/18 17:47 1 EA Vital Signs/I&O 11/25/18 11/25/18 15:53 18:44 Temp 97.0 Pulse 60 60 Resp 18 18 B/P (MAP) 190/92 (124) 180/88 (118) Pulse Ox 93 O2 Flow Rate 2.00 Capillary Refill : Less Than 3 Seconds Blood Pressure Mean: 124 Progress Note : Time: 15:55 Progress Note Patient seen and evaluated, will obtain labs and reevaluate. Patient is taking water, with no vomiting or dysphagia. 1430 UA shows UTI and ketones, will administer NS 1 L per IV and Bactrim DS. Spoke with son, he will come to ED. 1720 Patient denies complaints, only 100 ml of IV infused. 1745 Son at bedside. Patient concerned about going home, says she needs help at home. Son assured her they will assist her. She made several references to wanting to because she "is old and worn out." Patient denies being suicidal or homicidal. Discharge instructions and return precautions reviewed. All questions answered. Departure Impression Primary Impression: UTI (urinary tract infection) Qualified Codes: N30.01 - Acute cystitis with hematuria Additional Impression: Dementia Qualified Codes: F03.90 - Unspecified dementia without behavioral disturbance Disposition: HOME, SELF-CARE Condition: Stable Departure-Patient Inst. Decision time for Depature: 17:45 Referrals: SHU JACKSON MD (PCP) Primary Care Physician Patient Instructions: Dementia (DC), Urinary Tract Infection, Adult (DC) Add. Discharge Instructions: Follow-up during scheduled appointment with Dr. Jackson on Wednesday. Consider placement in long-term care for the patient with have activities and more assistance Take antibiotics, as prescribed. You were given dose for tonight, get prescription to start in the morning. Increase water intake, 16 oz every 2-3 hours while awake. Empty blader frequently. Return to emergency department for new, urgent health care problems. All discharge instructions reviewed with patient and/or family. Voiced understanding. Scripts Sulfamethoxazole/Trimethoprim (Sulfamethoxazole-Tmp Ds Tablet) 1 Each Tablet 1 EACH PO BID, #14 TAB 0 Refills Prov: EDGAR DUNAWAY 11/25/18 Copy Copies To 1: SHU JACKSON MD, AMY ARNP Nov 25, 2018 17:23
[2018-11-25 18:44] VITALS: BP 180/88
== END | disposition home or self-care (01) ==
LOC: EDUNIT# 15:33 → ER 15:34
DX: N39.0 Urinary tract infection, site not specified (principal); F03.90 Unspecified dementia, unspecified severity, without behavioral disturbance, psychotic disturbance, mood disturbance, and anxiety; I10 Essential (primary) hypertension; Z79.82 Long term (current) use of aspirin; Z79.02 Long term (current) use of antithrombotics/antiplatelets; Z87.891 Personal history of nicotine dependence; Z90.49 Acquired absence of other specified parts of digestive tract
CPT/HCPCS: 36415; 80053; 81000; 85025; 87077; 87088; 87186; 96360; 99283

== ENCOUNTER 2019-03-27 07:15 | Emergency (ER) | payer MEDICARE, OTHER ==
[~2019-03-27] VITALS: Ht 157 cm; Wt 66.0 kg
[~2019-03-27 07:15] MED LIST changes: -NS IV 1000 ML 1,000 ML IV SCH; -TRIM/SULFAMETH 160/800 (SEPTRA DS) TAB PO ONE
[2019-03-27] MEDS ORDERED: NS IV 500 ML 500 ML IV ONE (07:25)
[2019-03-27 07:37] LABS: BASOPHILS # (AUTO) 0.1 10^3/uL (0.0-0.1); BASOPHILS % (AUTO) 1 % (0-10); EOSINOPHILS # (AUTO) 0.4 10^3/uL (0.0-0.3); EOSINOPHILS % (AUTO) 8 % (0-10); HEMATOCRIT 45 % (35-52); HEMOGLOBIN 14.1 G/DL (11.5-16.0); LYMPHOCYTES % (AUTO) 36 % (12-44); MEAN CORPUSCULAR HEMOGLOBIN 30 PG (25-34); MEAN CORPUSCULAR HGB CONC 32 G/DL (32-36); MEAN CORPUSCULAR VOLUME 96 FL (80-99); MEAN PLATELET VOLUME 8.7 FL (7.4-10.4); MONOCYTES # (AUTO) 0.4 X 10^3 (0.0-1.0); MONOCYTES % (AUTO) 7 % (0-12); NEUTROPHILS # (AUTO) 2.6 X 10^3 (1.8-7.8); NEUTROPHILS % (AUTO) 48 % (42-75); PLATELET COUNT 222 10^3/uL (130-400); RED CELL DISTRIBUTION WIDTH 13.4 % (10.0-14.5); WHITE BLOOD COUNT 5.6 10^3/uL (4.3-11.0)
[2019-03-27 07:55] LABS: ALBUMIN 4.3 GM/DL (3.2-4.5); BILIRUBIN,TOTAL 0.3 MG/DL (0.1-1.0); CALCIUM 9.3 MG/DL (8.5-10.1); CREATININE SERUM 1.17 MG/DL (0.60-1.30); POTASSIUM 4.3 MMOL/L (3.6-5.0); TOTAL PROTEIN 7.1 GM/DL (6.4-8.2)
--- NOTE | 2019-03-27 08:01 | ED General ---
General Chief Complaint: General Problems/Pain Stated Complaint: "OLD AGE" Nursing Triage Note: PT TO ROOM 6 PER W/C PT CO OF OLD AGE NOT FEELING WELL. HAS PAIN IN LEGS FOR YEARS. HX OF UTI'S. SON AT REPLACED BY [facility] Nursing Sepsis Screen: No Definite Risk Source of Information: Patient Exam Limitations: No Limitations History of Present Illness Date Seen by Provider: Mar 27, 2019 Time Seen by Provider: 07:20 Initial Comments Here with report of feeling weak and dizzy. This is been going on since yesterday. She called her son who brought her here today. He states that she's had urinary tract infections before that presents similar. Denies nausea vomiting. Denies chest pain or breathing problems Timing/Duration: 12-24 Hours Severity: Mild Associated Systoms: No Chest Pain, No Cough, No Fever/Chills, No Nausea/Vomiting, No Shortness of Air; Weakness Allergies and Home Medications Allergies Coded Allergies: No Known Drug Allergies (Verified , 08/13/09) Home Medications Aspirin 81 Mg Tabec, 81 MG PO DAILY, (Reported) Cholecalciferol 1,000 Unit Tablet, 1,000 UNIT PO DAILY, (Reported) Clopidogrel Bisulfate 75 Mg Tab, 75 MG PO DAILY, (Reported) Enalapril Maleate 20 Mg Tablet, 20 MG PO DAILY, (Reported) Multivits-Min/Fa/Ca Carb/Vit K 1 Each Tablet, 1 TAB PO DAILY, (Reported) [place]-3/Dha/Epa/Fish Oil 1,000 Mg Capsule, 1,000 MG PO TID, (Reported) Pravastatin Sodium 10 Mg Tablet, 10 MG PO HS, (Reported) Sulfamethoxazole/Trimethoprim 1 Each Tablet, 1 EACH PO BID Prescribed by: EDGAR DUNAWAY on 11/25/18 4160 Patient Home Medication List Home Medication List Reviewed: Yes Review of Systems Review of Systems Constitutional: see HPI; No chills, No fever EENTM: no symptoms reported Respiratory: no symptoms reported Cardiovascular: no symptoms reported Gastrointestinal: no symptoms reported Genitourinary: No dysuria, No pain Musculoskeletal: no symptoms reported Psychiatric/Neurological: See HPI All Other Systems Reviewed Negative Unless Noted: Yes Past Zcilxbh-Cmcnph-Wdtlmc Hx Past Med/Social Hx: Reviewed Nursing Past Med/Soc Hx Patient Social History Alcohol Use: Occasionally Uses Alcohol Beverage of Choice: Beer Recreational Drug Use: No Smoking Status: Former Smoker Type Used: Cigarettes Former Smoker, Quit: Nov 01, 1999 Recent Foreign Travel: No Contact w/Someone Who Travel: No Recent Infectious Disease Expo: No Recent Hopitalizations: No Immunizations Up To Date Tetanus Booster (TDap): Unknown PED Vaccines UTD: No Date of Pneumonia Vaccine: Aug 16, 2012 Date of Influenza Vaccine: Mar 18, 2014 Past Medical History Surgeries: No Abdominal, Appendectomy Respiratory: No Cardiac: Yes Hypertension Neurological: No 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 8.0oz. 63.485361qj; 26.00 BMI Method:Estimated General Appearance: No Apparent Distress, WD/WN HEENT: PERRL/EOMI, Pharynx Normal Neck: Non Tender, Supple Respiratory: Lungs Clear, Normal Breath Sounds Cardiovascular: Regular Rate, Rhythm, No Murmur Gastrointestinal: Non Tender, Soft Back: Normal Inspection, No CVA Tenderness, No Vertebral Tenderness Extremity: Normal Range of Motion, Non Tender Neurologic/Psychiatric: Alert, Oriented x3 Skin: Normal Color, Warm/Dry Progress/Results/Core Measures Suspected Sepsis Recent Fever Within 48 Hours: No Infection Criteria Present: None New/Unexplained Altered Menta: No Sepsis Screen: No Definite Risk SIRS Temperature: Pulse: 56 Respiratory Rate: 20 Laboratory Tests 03/27/19 07:30: White Blood Count 5.6 Blood Pressure 176 /105 Mean: 128 Laboratory Tests 03/27/19 07:30: Creatinine 1.17, Platelet Count 222, Total Bilirubin 0.3 Results/Orders Lab Results Laboratory Tests Test 03/27/19 07:30 03/27/19 07:50 Range/Units White Blood Count 5.6 4.3-11.0 10^3/uL Red Blood Count 4.64 4.35-5.85 10^6/uL Hemoglobin 14.1 11.5-16.0 G/DL Hematocrit 45 35-52 % Mean Corpuscular Volume 96 80-99 FL Mean Corpuscular Hemoglobin 30 25-34 PG Mean Corpuscular Hemoglobin Concent 32 32-36 G/DL Red Cell Distribution Width 13.4 10.0-14.5 % Platelet Count 222 130-400 10^3/uL Mean Platelet Volume 8.7 7.4-10.4 FL Neutrophils (%) (Auto) 48 42-75 % Lymphocytes (%) (Auto) 36 12-44 % Monocytes (%) (Auto) 7 0-12 % Eosinophils (%) (Auto) 8 0-10 % Basophils (%) (Auto) 1 0-10 % Neutrophils # (Auto) 2.6 1.8-7.8 X 10^3 Lymphocytes # (Auto) 2.0 1.0-4.0 X 10^3 Monocytes # (Auto) 0.4 0.0-1.0 X 10^3 Eosinophils # (Auto) 0.4 H 0.0-0.3 10^3/uL Basophils # (Auto) 0.1 0.0-0.1 10^3/uL Sodium Level 144 135-145 MMOL/L Potassium Level 4.3 3.6-5.0 MMOL/L Chloride Level 107 98-107 MMOL/L Carbon Dioxide Level 24 21-32 MMOL/L Anion Gap 13 5-14 MMOL/L Blood Urea Nitrogen 25 H 7-18 MG/DL Creatinine 1.17 0.60-1.30 MG/DL Estimat Glomerular Filtration Rate 44 BUN/Creatinine Ratio 21 Glucose Level 90 70-105 MG/DL Calcium Level 9.3 8.5-10.1 MG/DL Corrected Calcium 9.1 8.5-10.1 MG/DL Total Bilirubin 0.3 0.1-1.0 MG/DL Aspartate Amino Transf (AST/SGOT) 16 5-34 U/L Alanine Aminotransferase (ALT/SGPT) 11 0-55 U/L Alkaline Phosphatase 48 40-136 U/L C-Reactive Protein High Sensitivity 0.04 0.00-0.50 MG/DL Total Protein 7.1 6.4-8.2 GM/DL Albumin 4.3 3.2-4.5 GM/DL Urine Color YELLOW Urine Clarity CLEAR Urine pH 6.0 5-9 Urine Specific [place] >=1.030 1.016-1.022 Urine Protein NEGATIVE NEGATIVE Urine Glucose (UA) NEGATIVE NEGATIVE Urine Ketones NEGATIVE NEGATIVE Urine Nitrite POSITIVE NEGATIVE Urine Bilirubin NEGATIVE NEGATIVE Urine Urobilinogen 0.2 < = 1.0 MG/DL Urine Leukocyte Esterase 1+ H NEGATIVE Urine RBC (Auto) TRACE-I NEGATIVE Urine RBC 0-2 /HPF Urine WBC 10-25 H /HPF Urine Squamous Epithelial Cells 0-2 /HPF Urine Crystals NONE /LPF Urine Bacteria LARGE H /HPF Urine Casts NONE /LPF Urine Mucus NEGATIVE /LPF Urine Culture Indicated NO My Orders Orders - CHRISTO MULTANI MD Chest 1 View, Ap/Pa Only (03/27/19 07:25) Ed Iv/Invasive Line Start (03/27/19 07:25) Ns Iv 500 Ml (Sodium Chloride 0.9%) (03/27/19 07:25) Cbc With Automated Diff (03/27/19 07:25) Comprehensive Metabolic Panel (03/27/19 07:25) Hs C Reactive Protein (03/27/19 07:25) Ua Culture If Indicated (03/27/19 07:25) Ceftriaxone For Iv Use (Rocephin For I (03/27/19 09:15) Medications Given in ED Current Medications Medications Dose Ordered Sig/Claudia Route Start Time Stop Time Status Last Admin Dose Admin Ceftriaxone Sodium 1000 mg/ Sterile Water 10 ml @ 200 mls/hr ONCE ONCE IV 03/27/19 09:15 03/27/19 09:17 DC 03/27/19 09:25 200 MLS/HR Sodium Chloride 500 ml @ 0 mls/hr Q0M ONCE IV 03/27/19 07:25 03/27/19 07:27 DC 03/27/19 07:49 500 MLS/HR Vital Signs/I&O 03/27/19 07:20 Temp 36.3 Pulse 56 Resp 20 B/P (MAP) 176/105 (128) Capillary Refill : Less Than 3 Seconds Blood Pressure Mean: 128 POS Progress Note : Progress Note Seen and evaluated. IV, labs, UA, normal saline 500 mL bolus and chest x-ray ordered. Patient 89% on room air. We started O2 2 L. She is not normally on oxygen. Monitor patient. 0920: Patient does have urinary tract infection. She was taken off O2 and she does decline while resting to 89-90%. She is in no distress with that. I will make contact with Dr. Jackson regarding that. Rocephin 1 g IV. 0945: I discussed the case with Dr. Jackson. We will send the patient directly to her office after this visit for walking O2 sat on evaluation for needs of oxygen at home. She will continue outpatient antibiotics. D ischarged home with return precautions. Patient and family verbalize understanding instructions and agreement with plan. Diagnostic Imaging Diagonstic Imaging: Xray Plain Films/CT/US/NM/MRI: chest Comments [facility]. POS [place], [place] POS NAME: MILO MADDOX [facility] REC#: [id number] PT STATUS: REG ER : 1929 PHYSICIAN: CHRISTO MULTANI MD ADMIT DATE: 03/27/19/ER Draft POSDate of Exam:03/27/19 CHEST 1 VIEW, AP/PA ONLY INDICATION: Pain FINDINGS: The heart is enlarged. Some chronic air trapping. There is mild bibasilar zones of curvilinear subsegmental atelectasis. No pneumothorax or definite substantial pleural fluid volume, no change. IMPRESSION: Continued enlargement of the cardiac silhouette, air trapping and mild basilar atelectasis. Dictated on workstation # [id number] Dict: 03/27/19 0838 Trans: 03/27/19 0842 [facility] [id number] Interpreted by: EBENEZER NAVARRO Electronically signed by: Departure Impression Primary Impression: Urinary tract infection Qualified Codes: N30.00 - Acute cystitis without hematuria Additional Impression: Hypoxia Disposition: 01 HOME, SELF-CARE Condition: Improved Departure-Patient Inst. Decision time for Depature: 09:52 Referrals: SHU JACKSON MD (PCP/Family) Primary Care Physician Patient Instructions: Urinary Tract Infection, Child (DC) Add. Discharge Instructions: All discharge instructions reviewed with patient and/or family. Voiced understanding. Your oxygen is on the low and of normal and it appears that you would benefit from continuous oxygen at home. You need to go by Dr. Jackson's office for evaluation of your walking O2 saturation in to see if you qualify for oxygen. Go directly there after leaving here. Take your medications as directed. You will start your new prescription for antibiotics tonight. Return for worse pain, fever, vomiting, weakness, breathing problems or other concerns as needed. Scripts Cephalexin (Cephalexin) 500 Mg Tablet 500 MG PO BID, #8 TAB 0 Refills Prov: CHRISTO MULTANI MD 03/27/19 Copy Copies To 1: SHU JACKSON MD, TIMOTHY D MD Mar 27, 2019 08:01 POS
[2019-03-27 08:07] LABS: BILIRUBIN,URINE NEGATIVE (NEGATIVE); CLARITY,URINE CLEAR; COLOR,URINE YELLOW; GLUCOSE, URINE (UA) NEGATIVE (NEGATIVE); KETONES,URINE NEGATIVE (NEGATIVE); LEUKOCYTE ESTERASE ,URINE 1+ (NEGATIVE); NITRITE,URINE POSITIVE (NEGATIVE); PROTEIN,URINE NEGATIVE (NEGATIVE)
[2019-03-27 08:15] LABS: BACTERIA,URINE LARGE /HPF; RBC,URINE 0-2 /HPF; SQUAMOUS EPITHELIAL CELL,UR 0-2 /HPF
--- NOTE | 2019-03-27 08:43 | Diagnostic Imaging Report ---
INDICATION: Pain FINDINGS: The heart is enlarged. Some chronic air trapping. There is mild bibasilar zones of curvilinear subsegmental atelectasis. No pneumothorax or definite substantial pleural fluid volume, no change. IMPRESSION: Continued enlargement of the cardiac silhouette, air trapping and mild basilar atelectasis. Dictated by: Dictated on workstation # [id number]
[2019-03-27] MEDS ORDERED: cefTRIAXone FOR IV USE 1,000 MG in WATER (STERILE) FOR INJECTION 10 ML IV ONE (09:15)
[2019-03-27] MEDS ORDERED: CEPH500T PO (09:54)
[2019-03-27 10:26] VITALS: BP 171/90
== END 2019-03-27 10:26 | disposition home or self-care (01) ==
LOC: EDUNIT# 07:15 → ER 07:18
DX: N39.0 Urinary tract infection, site not specified (principal); R09.02 Hypoxemia; I10 Essential (primary) hypertension; Z90.710 Acquired absence of both cervix and uterus; Z79.82 Long term (current) use of aspirin; Z79.02 Long term (current) use of antithrombotics/antiplatelets; Z87.891 Personal history of nicotine dependence; Z90.49 Acquired absence of other specified parts of digestive tract
CPT/HCPCS: 36415; 71045; 80053; 81000; 85025; 86141; 96374

== ENCOUNTER 2019-05-27 00:54 | Inpatient (IN) | payer MEDICARE ==
[~2019-05-27] VITALS: Ht 162 cm; Wt 56.8 kg
[~2019-05-27 00:54] MED LIST changes: +CEPH500T PO
[2019-05-27] MEDS ORDERED: NS IV 1000 ML 1,000 ML IV ONE (01:02)
[2019-05-27] MEDS ORDERED: TETANUS,DIPTH,PERTUSS P/F (BOOSTRIX) 0.5 ML VIAL IM ONE (01:15)
[2019-05-27 01:17] LABS: BASOPHILS % (AUTO) 1 % (0-10); EOSINOPHILS # (AUTO) 0.4 10^3/uL (0.0-0.3); EOSINOPHILS % (AUTO) 7 % (0-10); HEMATOCRIT 40 % (35-52); HEMOGLOBIN 12.6 G/DL (11.5-16.0); LYMPHOCYTES # (AUTO) 1.9 X 10^3 (1.0-4.0); LYMPHOCYTES % (AUTO) 36 % (12-44); MEAN CORPUSCULAR HEMOGLOBIN 30 PG (25-34); MEAN CORPUSCULAR HGB CONC 32 G/DL (32-36); MEAN CORPUSCULAR VOLUME 95 FL (80-99); MEAN PLATELET VOLUME 8.8 FL (7.4-10.4); MONOCYTES # (AUTO) 0.4 X 10^3 (0.0-1.0); MONOCYTES % (AUTO) 8 % (0-12); NEUTROPHILS # (AUTO) 2.6 X 10^3 (1.8-7.8); NEUTROPHILS % (AUTO) 49 % (42-75); PLATELET COUNT 229 10^3/uL (130-400); RED CELL DISTRIBUTION WIDTH 13.8 % (10.0-14.5); WHITE BLOOD COUNT 5.4 10^3/uL (4.3-11.0)
[2019-05-27 01:28] LABS: PROTHROMBIN TIME PATIENT 13.5 SEC (12.2-14.7)
[2019-05-27 01:36] LABS: ALANINE AMINOTRANSFERASE 8 U/L (0-55); ALBUMIN 3.8 GM/DL (3.2-4.5); ALKALINE PHOSPHATASE 47 U/L (40-136); BILIRUBIN,TOTAL 0.4 MG/DL (0.1-1.0); BUN/CREATININE RATIO 19; CALCIUM 8.7 MG/DL (8.5-10.1); CARBON DIOXIDE 23 MMOL/L (21-32); CHLORIDE 106 MMOL/L (98-107); CREATININE SERUM 0.88 MG/DL (0.60-1.30); GFR ESTIMATED > 60; GLUCOSE 88 MG/DL (70-105); POTASSIUM 3.7 MMOL/L (3.6-5.0); SODIUM 141 MMOL/L (135-145); TOTAL PROTEIN 6.1 GM/DL (6.4-8.2)
--- NOTE | 2019-05-27 02:25 | NUR ---
C-Collar removed by Dr. Gregory at this time.
[2019-05-27] MEDS: fentaNYL INJECTION 100 MCG/2 ML AMP IVP PRN ×4 (02:46→08:30)
--- NOTE | 2019-05-27 02:50 | ED Fall/Injury ---
General Chief Complaint: Trauma-Non Activation Stated Complaint: FALL Nursing Triage Note: Pt to RM 5 via EMS with c-collar in place. Pt states she fell tonight on concrete from standing position. Pt has lac to right eyebrow area with bleeding controlled by dressing. Pt has bruising and moderate swelling present to rt knee. Pt c/o pain to rt knee. Pt denies any head or neck pain. Source: patient (LIMITED HISTORIAN, AND IS VERY POOR HISTORIAN ABOUT PAST MEDICAL HISTORY), old records (MOST OF PMH IS FROM OLD CHARTS) History of Present Illness Date Seen by Provider: May 27, 2019 Time Seen by Provider: 00:53 Initial Comments PT ARRIVES VIA EMS FROM HOME, WITH CERVICAL COLLAR IN PLACE PT LIVES ALONE AT [facility] PT STATES SHE GOT UP TO GET A DRINK AND FELL--STATES SHE DOES NOT KNOW WHY SHE FELL, AND THE FALL WAS NOT WITNESSED BY ANYONE. PT IS ADAMANT THAT SHE FELL BACKWARDS AND LANDED ON CONCRETE FLOOR, BUT ALL OF PT'S INJURIES ARE ON THE FRONT OF HER BODY C/O RIGHT KNEE PAIN AND SWELLING--PT'S MAIN COMPLAINT C/O RIGHT PERIORBITAL PAIN AND SWELLING AND LACERATION ABOVE RIGHT BROW. PT IS ADAMANT THAT SHE DID NOT PASS OUT OR HAVE LOSS OF CONSCIOUSNESS AFTER SHE FELL. EMS WAS CALLED BY NEIGHBOR, WHO REPORTEDLY HEARD HER FALL, AND SAW BLOOD ON THE FLOOR THROUGH THE WINDOW PT WAS SITTING UP WHEN EMS ARRIVED AT THE SCENE. PT DENIES ANY NECK OR BACK PAIN DENIES ANY HEADACHE, STATES HER FOREHEAD JUST HURTS A LITTLE DENIES VISION CHANGES DENIES DIZZINESS DENIES NAUSEA/VOMITING DENIES PARESTHESIAS OR MOTOR DEFICITS DENIES CHEST PAIN OR SHORTNESS OF BREATH OR PALPITATIONS PT ADAMANTLY DENIES MULTIPLE TIMES THAT SHE IS ON ANY BLOOD THINNERS OR ASPIRIN LAST TETANUS VACCINATION IS UNKNOWN PCP: DR. CID Allergies and Home Medications Allergies Coded Allergies: No Known Drug Allergies (Verified , 08/13/09) Home Medications Aspirin 81 Mg Tabec, 81 MG PO DAILY, (Reported) Cephalexin 500 Mg Tablet, 500 MG PO BID Prescribed by: CHRISTO MULTANI on 03/27/19 3812 Cholecalciferol 1,000 Unit Tablet, 1,000 UNIT PO DAILY, (Reported) Clopidogrel Bisulfate 75 Mg Tab, 75 MG PO DAILY, (Reported) Enalapril Maleate 20 Mg Tablet, 20 MG PO DAILY, (Reported) Multivits-Min/Fa/Ca Carb/Vit K 1 Each Tablet, 1 TAB PO DAILY, (Reported) Golden-3/Dha/Epa/Fish Oil 1,000 Mg Capsule, 1,000 MG PO TID, (Reported) Pravastatin Sodium 10 Mg Tablet, 10 MG PO HS, (Reported) Sulfamethoxazole/Trimethoprim 1 Each Tablet, 1 EACH PO BID Prescribed by: EDGAR DUNAWAY on 11/25/18 3745 Patient Home Medication List Home Medication List Reviewed: Yes Review of Systems Review of Systems Constitutional: no symptoms reported; No dizziness, No fever Eyes: See HPI (RIGHT PERIORBITAL HEMATOMA AND LACERATION TO RIGHT FOREHEAD. HAS SOME DECREASED VISION TO BOTH EYES, BUT RIGHT > LEFT) Ears, Nose, Mouth, Throat: no symptoms reported Respiratory: no symptoms reported; No cough, No short of breath Cardiovascular: no symptoms reported; No chest pain, No edema, No palpitations, No syncope Gastrointestinal: no symptoms reported; No abdominal pain, No nausea, No vomiting Musculoskeletal: see HPI Skin: see HPI Psychiatric/Neurological: No Symptoms Reported; Denies Headache, Denies Numbness, Denies Paresthesia, Denies Tingling, Denies Weakness Past Edsprgb-Dxgqiq-Kwhzgy Hx Patient Social History Alcohol Use: Occasionally Uses Number of Drinks Today: AA Alcohol Beverage of Choice: Beer Recreational Drug Use: No Smoking Status: Former Smoker (> 2 PPD) Type Used: Cigarettes (> 2 PPD) Former Smoker, Quit: May 03, 2014 (QUIT AT AGE 83) Recent Foreign Travel: No Contact w/Someone Who Travel: No Recent Infectious Disease Expo: No Recent Hopitalizations: No Physical Abuse: No Sexual Abuse: No Mistreated: No Fear: No Immunizations Up To Date Tetanus Booster (TDap): Unknown PED Vaccines UTD: No Date of Pneumonia Vaccine: Aug 16, 2012 Date of Influenza Vaccine: Mar 18, 2014 Past Medical History Surgeries: Yes (UNKNOWN ABDOMINAL SURGERY; ? HYST ? 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 Sexually Transmitted Disease: No HIV/AIDS: No Genitourinary: Yes Bladder Infection Gastrointestinal: No Musculoskeletal: Yes (COMPRESSION FRACTURES, KYPHOSCOLIOSIS) Degenerate Disk Disease, Osteoporosis, Arthritis, Scoliosis, Fractures Endocrine: Yes (PER OLD RECORDS, HAS HISTORY OF THYROTOXICOSIS) HEENT: Yes (S/P BILATERAL CATARACT SURGERY) Cataract Cancer: No Psychosocial: No Integumentary: No Blood Disorders: No Family Medical History PSH: PER OLD RECORDS, PT DOES NOT KNOW ANY OF HER PAST SURGERIES UNKNOWN ABDOMINAL SURGERY--METALLIC SURGICAL CLIPS NOTED IN PELVIS/LOWER ABDOMEN ON XRAYS, AND HAS A LOW MIDLINE VERTICAL SCAR. PT HAS HAD HYSTERECTOMY, APPENDECTOMY, AND BLADDER SUSPENSION PER OLD RECORDS PERIPHERAL ANGIOGRAMS IN 2014--MULTIPLE STENTS AND ANGIOPLASTIES BILATERAL LOWER EXTREMITIES--BILATERAL ILIAC STENTS, BILATERAL FEMORAL STENTS PERIPHERAL ANGIOGRAM 10/2011--ANGIOPLASTY OF RIGHT FEMORAL ARTERY Physical Exam Vital Signs Vital Signs - First Documented 05/27/19 00:58 Temp 36.9 Pulse 67 Resp 20 B/P (MAP) 184/108 (133) Pulse Ox 97 O2 Delivery Nasal Cannula Capillary Refill : Less Than 3 Seconds Height, Weight, BMI Height: 5'5.00" Weight: 140lbs. 8.0oz. 63.470676sq; 21.00 BMI Method:Estimated General Appearance: no apparent distress, thin, other (FRONT OF PT'S GOWN IS SATURATED WITH BLOOD) HEENT: PERRL/EOMI, TMs normal, pharynx normal, other (LARGE RIGHT PERIORBITAL HEMATOMA; 2 CM FULL THICKNESS LACERATION ABOVE RIGHT BROW, WITH CONSTANT OOZING OF BLOOD) Neck: non-tender (WITH CERVICAL COLLAR IN PLACE) Cardiovascular: regular rate, rhythm, no edema, no JVD, no murmur, other (PERIPHERAL PULSES VERY FAINT BILATERALLY, FEET SLIGHTLY COOL WITH CAP REFILL OF 5 SECONDS BILATERALLY. NO CYANOSIS; NO CHEST SURGICAL SCARS) Respiratory: chest non-tender, normal breath sounds, no respiratory distress, no accessory muscle use Gastrointestinal: normal bowel sounds, non tender, soft, other (VERTICAL LOWER ABDOMEN MIDLINE SCAR) Back: no CVA tenderness, no vertebral tenderness Extremities: no pedal edema, other (MASSIVE SWELLING AND ECCHYMOSIS TO RIGHT KNEE WITH MODERATE DIFFUSE TENDERNESS. VERY LIMITED ROM AND IS UNABLE TO STAND DUE TO RIGHT KNEE PAIN) Neurologic/Psychiatric: resume specialist II-XII nml as tested, no motor/sensory deficits, alert, normal mood/affect (SMILING, TALKATIVE. ), oriented x 3 (BUT DOES APPEAR TO HAVE POOR MEMORY AND SOMEWHAT CONFUSED) Skin: normal color, warm/dry Procedures/Interventions Wound Location: Face (RIGHT FOREHEAD/ABOVE BROW) Wound Length (cm): 2 Wound's Depth, Shape: linear, sub Q Wound Explored: clean Irrigated w/ Saline (ccs): 50 Betadine Prep?: No (BETASEPT) Anesthesia: Lidocaine w/ Epi (2%) Suture: Ethlion Suture Size: 4-0 Number of Sutures: 4 Layer Closure?: 1 Sterile Dressing Applied?: Yes Progress/Results/Core Measures Results/Orders Lab Results Laboratory Tests Test 05/27/19 01:09 Range/Units White Blood Count 5.4 4.3-11.0 10^3/uL Red Blood Count 4.18 L 4.35-5.85 10^6/uL Hemoglobin 12.6 11.5-16.0 G/DL Hematocrit 40 35-52 % Mean Corpuscular Volume 95 80-99 FL Mean Corpuscular Hemoglobin 30 25-34 PG Mean Corpuscular Hemoglobin Concent 32 32-36 G/DL Red Cell Distribution Width 13.8 10.0-14.5 % Platelet Count 229 130-400 10^3/uL Mean Platelet Volume 8.8 7.4-10.4 FL Neutrophils (%) (Auto) 49 42-75 % Lymphocytes (%) (Auto) 36 12-44 % Monocytes (%) (Auto) 8 0-12 % Eosinophils (%) (Auto) 7 0-10 % Basophils (%) (Auto) 1 0-10 % Neutrophils # (Auto) 2.6 1.8-7.8 X 10^3 Lymphocytes # (Auto) 1.9 1.0-4.0 X 10^3 Monocytes # (Auto) 0.4 0.0-1.0 X 10^3 Eosinophils # (Auto) 0.4 H 0.0-0.3 10^3/uL Basophils # (Auto) 0.0 0.0-0.1 10^3/uL Prothrombin Time 13.5 12.2-14.7 SEC INR Comment 1.0 0.8-1.4 Activated Partial Thromboplast Time 34 24-35 SEC Sodium Level 141 135-145 MMOL/L Potassium Level 3.7 3.6-5.0 MMOL/L Chloride Level 106 98-107 MMOL/L Carbon Dioxide Level 23 21-32 MMOL/L Anion Gap 12 5-14 MMOL/L Blood Urea Nitrogen 17 7-18 MG/DL Creatinine 0.88 0.60-1.30 MG/DL Estimat Glomerular Filtration Rate > 60 BUN/Creatinine Ratio 19 Glucose Level 88 70-105 MG/DL Calcium Level 8.7 8.5-10.1 MG/DL Corrected Calcium 8.9 8.5-10.1 MG/DL Total Bilirubin 0.4 0.1-1.0 MG/DL Aspartate Amino Transf (AST/SGOT) 16 5-34 U/L Alanine Aminotransferase (ALT/SGPT) 8 0-55 U/L Alkaline Phosphatase 47 40-136 U/L Total Protein 6.1 L 6.4-8.2 GM/DL Albumin 3.8 3.2-4.5 GM/DL My Orders Orders - MAXIMILIAN TRIVEDI DO Ed Iv/Invasive Line Start (05/27/19 01:02) Monitor-Rhythm Ecg Trace Only (05/27/19 01:02) Ct Head/Face/Cervical Wo (05/27/19 01:02) Ct Thoracic/Lumbar Spine Wo (05/27/19 01:02) Chest 1 View, Ap/Pa Only (05/27/19 01:02) Knee, Right, 3 Views (05/27/19 01:02) Pelvis (05/27/19 01:02) Cbc With Automated Diff (05/27/19 01:02) Comprehensive Metabolic Panel (05/27/19 01:02) Protime With Inr (05/27/19 01:02) Partial Thromboplastin Time (05/27/19 01:02) Ed Iv/Invasive Line Start (05/27/19 01:02) Ns Iv 1000 Ml (Sodium Chloride 0.9%) (05/27/19 01:02) Dipht,Pertuss(Acell),Tet Adult (Boostrix (05/27/19 01:15) Medications Given in ED Current Medications Medications Dose Ordered Sig/Claudia Route Start Time Stop Time Status Last Admin Dose Admin Diphtheria/ Tetanus/Acell Pertussis 0.5 ml ONCE ONCE IM 05/27/19 01:15 05/27/19 01:16 DC 05/27/19 01:15 0.5 ML Sodium Chloride 1,000 ml @ 0 mls/hr Q0M ONCE IV 05/27/19 01:02 05/27/19 01:03 DC 05/27/19 01:14 0 MLS/HR Vital Signs/I&O 05/27/19 00:58 Temp 36.9 Pulse 67 Resp 20 B/P (MAP) 184/108 (133) Pulse Ox 97 O2 Delivery Nasal Cannula Blood Pressure Mean: 133 Progress Progress Note : Progress Note UNEVENTFUL ER STAY, AND NO DETERIORATION IN PT'S CONDITION DURING ER STAY GIVEN HYDRALAZINE FOR PERSISTENTLY ELEVATED BP, PT CANNOT RECALL IF SHE TOOK HER MEDICATION TODAY ON REVIEW OF OLD RECORDS, PT HAS HAD MULTIPLE STENTS AND ANGIOPLASTIES OF LEGS--BILATERAL ILIAC ARTERY STENTS, BILATERAL FEMORAL ARTERY STENTS PER OLD CHART, IN 2014, PT WAS ON BOTH ASPIRIN AND PLAVIX. ON DIRECT QUESTIONING OF PT AGAIN, PRIOR TO ADMIT, IF PT HAD EVER BEEN ON ANY BLOOD THINNERS OR ASPIRIN--SHE FIRST STATED NO, THEN STATED YES, THEN STATED THAT SHE DID NOT KNOW. PT IS NOT ABLE TO GIVE ANY INFORMATION ABOUT ANY MEDICATIONS THAT SHE TAKES, EXCEPT THAT SHE THINKS SHE TAKES A BLOOD PRESSURE MEDICATION, BUT DOES NOT KNOW WHAT IT IS. FIRST SHE STATES SHE JUST GETS A "SHOT" FOR HER BLOOD PRESSURE, THEN ON QUESTIONING AGAIN, SHE THINKS SHE TAKES A BLOOD PRESSURE PILL. Initial ECG Impression Date: May 27, 2019 Initial ECG Impression Time: 03:53 Initial ECG Rate: 71 Initial ECG Rhythm: Normal Sinus Initial ECG Impression: Nonspecific Changes, 1st Degree AV Block EKG : EKG Time: 04:00 Rate: 48 Rhythm: Normal Sinus Diagnostic Imaging Comments CXR--NO ACUTE PROCESS PELVIS XRAY--NO FX OR DISLOCATION, METALLIC SURGICAL CLIPS IN PELVIS/LOWER ABDOMEN RIGHT KNEE XRAY--NO FX OR DISLOCATION. ARTHRITIC CHANGES, SIGNIFICANT SOFT TISSUE SWELLING ALL PENDING RADIOLOGIST REVIEW CT THORACIC/LUMBAR SPINE--DEGENERATIVE CHANGES, MARKED LEVOSCOLIOTIC CURVATURE OF LUMBAR SPINE, PER [facility] VIA FAX AT 6232 CT HEAD/MAXILLOFACIALS/CERVICAL SPINE- BIFRONTAL SCALP CONTUSION, NO SKULL FRACTURE OR INTRACRANIAL INJURY. CHRONIC ISCHEMIC MICROVASCULAR CHANGES, NO FACIAL FRACTURES, ORBITS UNREMARKABLE, NO ACUTE TRAUMATIC CHANGES OF CERVICAL SPINE, MULTILEVEL DEGENERATIVE CHANGES OF SPINE, WITH CENTRAL CANAL NARROWING AT C3-C4--PER [facility] VIA FAX AT 1516 Reviewed: Reviewed by Me Departure Communication (Admissions) 228--SPOKE WITH DR. HORVATH, TRAUMA SURGEON, ACCEPTS PT FOR ADMIT Impression Primary Impression: S/P UNWITNESSED FALL FROM STANDING Additional Impressions: Periorbital contusion of right eye Periorbital hematoma of right eye RIGHT FOREHEAD LACERATION Contusion of right knee MILD CONFUSION Closed head injury UTI (urinary tract infection) HTN (hypertension) Cwjtvxiigh-frdtyzfgr-kilmshh (DPT) vaccination administered at current visit Disposition: ADMITTED INPATIENT Condition: Stable Admissions Decision to Admit Reason: Admit from ER (Trauma) Decision to Admit/Date: May 27, 2019 Time/Decision to Admit Time: 02:30 Departure-Patient Inst. Referrals: SHU CID MD (PCP/Family) Primary Care Physician MAXIMILIAN TRIVEDI DO May 27, 2019 02:50
[2019-05-27] MEDS ORDERED: hydrALAZINE (APESOLINE) 20 MG/ML VIAL IV ONE ×2 (03:00→03:30)
[2019-05-27] MEDS ORDERED: LIDOCAINE/EPI 2% 1:100,00 (XYLOCAINE) 20 ML VIAL ONE (03:33)
[2019-05-27 03:36] LABS: BILIRUBIN,URINE NEGATIVE (NEGATIVE); CLARITY,URINE CLEAR; COLOR,URINE YELLOW; GLUCOSE, URINE (UA) NEGATIVE (NEGATIVE); KETONES,URINE TRACE (NEGATIVE); LEUKOCYTE ESTERASE ,URINE NEGATIVE (NEGATIVE); NITRITE,URINE POSITIVE (NEGATIVE); PH,URINE 7.5 (5-9); PROTEIN,URINE NEGATIVE (NEGATIVE)
[2019-05-27 03:48] LABS: BACTERIA,URINE LARGE /HPF
[2019-05-27] MEDS ORDERED: LIDOCAINE/EPI 2% 1:100,00 (XYLOCAINE) 20 ML VIAL INJ ONE (04:15)
[2019-05-27 05:26] VITALS: BP 134/77
[2019-05-27] MEDS ORDERED: hydrALAZINE (APESOLINE) 20 MG/ML VIAL IV PRN (06:00)
--- NOTE | 2019-05-27 07:06 | Diagnostic Imaging Report ---
PROCEDURE: CT thoracic and lumbar spine without contrast. TECHNIQUE: Multiple contiguous axial images were obtained through the thoracic and lumbar spine without the use of intravenous contrast. Sagittal and coronal reformations were then performed. All CT scans use one or more of the following dose optimizing techniques: automated exposure control, MA and/or KvP adjustment based on a patient size and exam type, or iterative reconstruction. INDICATION: Pain post fall. CORRELATION STUDY: None FINDINGS: Thoracic spine demonstrates minimal compensatory rightward curvature of lower thoracic spine. The alignment otherwise relatively anatomic. Thoracic vertebral body heights appear maintained without evidence for acute-appearing fracture. Diffuse bony demineralization is present. High-degree osseous narrowing of the canal and/or foramina is not suggested. Posterior elements are intact. Advanced degenerative changes of visualized lower cervical spine. There are mildly compressed lower cervical vertebral bodies. Lumbar spine demonstrates rather marked leftward scoliotic curvature to be present. Five lumbar-type vertebral bodies are noted. There is what appears to be bilateral pars articularis defect at the L5 level with grade 2 spondylolisthesis of L5 on S1. Marked endplate degenerative changes and subcortical sclerosis at this level. Additional marked disc space narrowing to the remaining lumbar vertebral body heights. There is also leftward subluxation of L3 in regards to L4. IMPRESSION: 1. Negative for acute fracture of thoracic spine. 2. Negative for acute fracture of lumbar spine. 3. Rather marked leftward curvature of the lumbar spine with compensatory rightward curvature of lower thoracic spine. 4. Nonacute L5 pars articularis defect with associated grade 2 spondylolisthesis of L4 on L5. A preliminary report was provided by [facility]. Dictated by: Dictated on workstation # [id number]
--- NOTE | 2019-05-27 07:14 | Diagnostic Imaging Report ---
PROCEDURE: CT head, face, and cervical spine without contrast. TECHNIQUE: Multiple contiguous axial images were obtained through the head, neck, and facial bones without the use of intravenous contrast. Sagittal and coronal reformations through the cervical spine and facial bones were also performed. Auto Exposure Controls were utilized during the CT exam to meet ALARA standards for radiation dose reduction. All CT scans use one or more of the following dose optimizing techniques: automated exposure control, MA and/or KvP adjustment based on a patient size and exam type, or iterative reconstruction. INDICATION: Trauma, fall. CORRELATION STUDY: CT head 05/11/2018. FINDINGS: CT HEAD: Bilateral frontal scalp hematoma, right slightly greater than left. Bony calvarium intact. Generalized atrophic changes with prominence of the ventricles and sulci. Scattered areas of low-attenuation, likely a reflecting small vessel ischemic disease. No acute intracranial hemorrhage. No abnormal extra-axial fluid collection. Basal cisterns are maintained. Intracranial vascular calcification. No hyperdense MCA sign. Paranasal sinuses generally clear without evidence for air-fluid level. CT MAXILLOFACIAL: There is no acute displaced maxillofacial fracture deformity. Right frontal and periorbital scalp hematoma and apparent laceration present. Visualized paranasal sinuses are clear without significant mucosal thickening or air-fluid levels. Orbits and retro-orbital structures appearing unremarkable. Patient is noted to be edentulous. There is a residual tooth within the right maxilla. CT CERVICAL SPINE: There is generalized reversal of normal cervical lordosis. There is approximately 5 mm of anterolisthesis of C3 on C4 and trace anterolisthesis of C4 on C5 and C6 on C7. There is multilevel loss of cervical vertebral body heights appearing to be chronic. This is most noticeable at C4, C5 and C6 level. Rather marked severity endplate sclerosis and loss of height, particularly at C3-C4, C4-C5, C5-C6 and C6-C7 levels. Posterior elements with asymmetric areas of thinning and hypertrophy. No appreciable jumped facet. No fracture. There is presence of multilevel at least mild canal narrowing, particularly at the C3-C4 level. No odontoid cystic change. Occipital condyles maintained. Visualized lung apices with emphysematous changes. Prominent calcification at carotid bifurcations, left greater than right. IMPRESSION: CT HEAD: 1. Negative for acute intracranial abnormality. Bifrontal scalp contusion. No associated skull fracture. CT MAXILLOFACIAL: 1. Negative for acute displaced maxillofacial fracture deformity. CT CERVICAL SPINE: 1. Negative for acute fracture or traumatic subluxation. Rather severe multilevel cervical spondylosis present. Likely resulting in some degrees of central canal narrowing, particularly at C3-C4 level. A preliminary report was provided by [facility]. Dictated by: Dictated on workstation # [id number]
--- NOTE | 2019-05-27 07:20 | Diagnostic Imaging Report ---
INDICATION: Status post fall. TECHNIQUE: Single view chest at 1:43 AM. CORRELATION STUDY: 03/27/2019 FINDINGS: Cardiac enlargement. Vasculature within normal limits. Prominent interstitial markings. No infiltrate or findings to suggest contusion. May be trace pleural effusions with slight blunting at the costophrenic angle. Rather advanced degenerative changes with scoliotic curvature of the visualized thoracolumbar spine. IMPRESSION: 1. Chronic changes about the lung parenchyma. Negative for acute cardiopulmonary abnormality. Stable severity cardiac enlargement without failure. Dictated by: Dictated on workstation # [id number]
--- NOTE | 2019-05-27 07:21 | Diagnostic Imaging Report ---
INDICATION: Status post fall. TECHNIQUE: Three views of the right knee. CORRELATION STUDY: None. FINDINGS: There is rather large hematoma over the anterior aspect of the knee. Bony structures appear to be intact. There is joint space narrowing, both medially and laterally. Long endovascular stents noted over the posterior leg. Additional calcification present. IMPRESSION: 1. Negative for acute bony abnormality of the knee. Rather large amount of edema/hematoma over the anterior aspect of the knee. Dictated by: Dictated on workstation # [id number]
--- NOTE | 2019-05-27 07:22 | Diagnostic Imaging Report ---
INDICATION: Status post fall, pain TECHNIQUE: AP pelvis 1:44 AM CORRELATION STUDY: None FINDINGS: No acute displaced pelvic fracture. SI joints appear to be maintained. Bilateral hip joints appear preserved but demonstrate mild narrowing. Bony trabecular pattern appearing intact. Rather marked severity degenerative changes lumbar spine with leftward curvature present. Multifocal aortic vascular stent with additional coronary vascular disease. Prior hernia repair with mesh over the pubic rami. IMPRESSION: Negative for acute displaced pelvic fracture. Dictated by: Dictated on workstation # [id number]
[2019-05-27] MEDS: TRIM/SULFAMETH 160/800 (SEPTRA DS) TAB PO SCH ×2 (07:49→17:05)
[2019-05-27] MEDS: 1/2 NS IV SOLUTION 1,000 ML IV SCH (07:52)
[2019-05-27 08:00] VITALS: BP 129/62
[2019-05-27 08:12] LABS: BASOPHILS % (AUTO) 0 % (0-10); EOSINOPHILS % (AUTO) 0 % (0-10); HEMATOCRIT 38 % (35-52); HEMOGLOBIN 12.2 G/DL (11.5-16.0); LYMPHOCYTES # (AUTO) 0.7 X 10^3 (1.0-4.0); LYMPHOCYTES % (AUTO) 8 % (12-44); MEAN CORPUSCULAR HEMOGLOBIN 31 PG (25-34); MEAN CORPUSCULAR HGB CONC 32 G/DL (32-36); MEAN CORPUSCULAR VOLUME 95 FL (80-99); MEAN PLATELET VOLUME 8.8 FL (7.4-10.4); MONOCYTES # (AUTO) 0.3 X 10^3 (0.0-1.0); MONOCYTES % (AUTO) 3 % (0-12); NEUTROPHILS # (AUTO) 7.7 X 10^3 (1.8-7.8); NEUTROPHILS % (AUTO) 88 % (42-75); PLATELET COUNT 213 10^3/uL (130-400); RED CELL DISTRIBUTION WIDTH 13.7 % (10.0-14.5); WHITE BLOOD COUNT 8.8 10^3/uL (4.3-11.0)
[2019-05-27 08:30] LABS: ALANINE AMINOTRANSFERASE 8 U/L (0-55); ALBUMIN 3.9 GM/DL (3.2-4.5); ALKALINE PHOSPHATASE 46 U/L (40-136); BILIRUBIN,TOTAL 0.4 MG/DL (0.1-1.0); BUN/CREATININE RATIO 20; CALCIUM 8.4 MG/DL (8.5-10.1); CARBON DIOXIDE 24 MMOL/L (21-32); CHLORIDE 105 MMOL/L (98-107); CREATININE SERUM 0.74 MG/DL (0.60-1.30); GFR ESTIMATED > 60; GLUCOSE 129 MG/DL (70-105); POTASSIUM 3.5 MMOL/L (3.6-5.0); SODIUM 141 MMOL/L (135-145); TOTAL PROTEIN 6.1 GM/DL (6.4-8.2)
[2019-05-27 08:54] LABS: BAND NEUTROPHILS 3 %; LYMPHOCYTES % (MANUAL) 10 %; MONOCYTES % (MANUAL) 4 %; NEUTROPHILS % (MANUAL) 83 %; RBC MORPH NORMAL
--- NOTE | 2019-05-27 10:38 | Physical Therapy Evaluation ---
PT Evaluation-General Medical Diagnosis Admission Date May 27, 2019 at 02:30 Medical Diagnosis: fall (R) knee contusion Onset Date: May 27, 2019 Therapy Diagnosis Therapy Diagnosis: impaired mobility Height/Weight Height (Feet): 5 Height (Inches): 5.00 Weight (Pounds): 140 Weight (Ounces): 8.0 Precautions Precautions/Isolations: Fall Prevention, Standard Precautions Weight Bear Status Right Lower Extremity: Right Weight Bearing/Tolerated Left Lower Extremity: Left Weight Bearing/Tolerated bedrest to bedside commode, with assistance Referral Physician: Bernadine Reason for Referral: Evaluation/Treatment Medical History Pertinent Medical History: PVD Additional Medical History multiple cardiac stents, appendectomy Current History Pt fell at home, striking her (R) ventral knee and (R) eye. Pt called EMS and transported to the hospital. Reviewed History: Yes Social History Home: Apartment Current Living Status: Alone Entry Into Home: Level Entry [place] Prior Prior Level of Function SCALE: Activities may be completed with or without assistive devices. 4-Vrjtetkwof-aehuwya completes the activity by him/herself with no assistance from a helper. 5-Set-up or Clean-up Assistance-helper sets up or cleans up; patient completes activity. [place] assists only prior to or following the activity. 4-Supervision or Touching Assistance-helper provides verbal cues and/or touching/steadying and/or contact guard assistance as patient completes a ctivity. Assistance may be provided throughout the activity or intermittently. 3-Partial/Moderate Assistance-helper does LESS THAN HALF the effort. [place] lifts, holds or supports trunk or limbs, but provides less than half the effort. 2-Substantial/Maximal Assistance-helper does MORE THAN HALF the effort. [place] lifts or holds trunk or limbs and provides more than half the effort. 9-Mmwayvdvb-tuasxh does ALL the effort. Patient does none of the effort to complete the activity. Or, the assistance of 2 or more helpers is required for the patient to complete the activity. If activity was not attempted, code reason: 7-Patient Refused. 9-Not Applicable-not attempted and the patient did not perform the activity before the current illness, exacerbation or injury. 10-Not Attempted due to Environmental Limitations-(lack of equipment, weather restraints, etc.). 88-Not Attempted due to Medical Conditions or Safety Concerns. Bed Mobility: 6 Transfers (B,C,W/C): 6 Gait: 5 Stairs: 5 Indoor Mobility (Ambulation): Independent Stairs: Needed Some Help Prior Devices Use: None Completely (I) with all mobility prior to fall. PT Evaluation-Current Subjective (R) knee pain and severe swelling. Pain Numeric Pain Scale: 7 Location: Right Location Body Site: Knee Pain Description: Throbbing, Tightness Pt/Family Goals Return home. Objective Patient Orientation: Person, Place, Time, Situation ROM/Strength ROM Upper Extremities WFL ROM Lower Extremities (R) knee flexion 0-25deg. (R) hip soreness with limited flexion tolerance. Strength Upper Extremities WFL Strength Lower Extremities (R) LE weakness due to pain. (L) LE WFL Sensory Vision: Functional Hearing: Functional Sensation Right Upper Extremit: Intact Sensation Left Upper Extremity: Intact Sensation Right Lower Extremit: Intact Sensation Left Lower Extremity: Intact Transfers Roll Left to Right (QC): 3 Sit to Lying (QC): 3 Lying to Sitting/Side of Bed(Q: 3 Pt was not able to bear wt on the (R) LE or flex the knee enough to fully sit edge of bed. Gait Does the Patient Walk?: No and Walking Goal IS indicated Mode of Locomotion: Walk Anticipated Mode of Locomotion: Walk Comments/Gait Description Unable to stand due to (R) knee pain. Wheelchair Training Does the Pt Use a Wheelchair?: No Balance Sitting Static: Normal Sitting Dynamic: Normal Assessment/Needs (R) knee pain and swelling currently limit her ability to use the (R) LE or to bear wt. Rehab Potential: Good PT Short Term Goals Short Term Goals Time Frame: Jun 02, 2019 Roll Left & Right: 5 Sit to lyin Lying to sitting on side of be: 5 Sit to stand: 5 Chair/lpo-iz-ferwe transfer: 5 Toilet transfer: 5 Car transfer: 5 Walk 10 feet: 5 Walk 50 feet with two turns: 5 Walk 150 feet: 5 PT Plan Problem List Problem List: Functional Strength, Safety, Balance, Gait, Transfer, Bed Mobility, ROM Treatment/Plan Treatment Plan: Continue Plan of Care Treatment Plan: Bed Mobility, Concurrent Therapy, Functional Activity Sahil, Functional Strength, Gait, Safety, Therapeutic Exercise, Transfers Treatment Duration: Jun 02, 2019 Frequency: 5 times per week Estimated Hrs Per Day: .25 hour per day Patient and/or Family Agrees t: Yes Time/GCodes Time In: 1000 Time Out: 1025 Total Billed Treatment Time: 25 Total Billed Treatment 1, raven 25 FLORA VALDES PT May 27, 2019 10:38
[2019-05-27 12:00] VITALS: BP 109/55
--- NOTE | 2019-05-27 13:06 | HISTORY AND PHYSICAL ---
DATE OF SERVICE: HISTORY OF PRESENT ILLNESS: The patient is an 88-year-old female who was brought by EMS to the emergency room after she suffered a one-level fall. Upon interview and exam, the patient appeared to be a poor historian and did have episodes of confusion. The majority of the information was obtained from the emergency room record. While in the ER, she stated that she did get up in the middle of the night to get a drink and reports that she fell and was not witnessed. She reports that she initially fell backwards; however, her injuries were sustained to the right side of her forehead as well as the right knee. She reports that she did not have any loss of consciousness. EMS was called by neighbor who reports that they heard her fall and then saw blood on the floor through the window. The patient was sitting up when the EMS arrived at the scene. She did undergo imaging studies, which did not show any fractures or dislocation. Right knee x-ray did show significant soft tissue swelling. PAST MEDICAL HISTORY: Hypertension, hypercholesterolemia. PAST SURGICAL HISTORY: Appendectomy, vascular surgery, bilateral cataract surgery. SOCIAL HISTORY: Previous for smoke. Rare for alcohol. FAMILY HISTORY: Noncontributory. VITAL SIGNS: Blood pressure 129/62. Temperature 36.8 degrees Celsius, pulse 81, respirations 20, pulse ox 93% on 2 liters nasal cannula. REVIEW OF SYSTEMS: This is a well-nourished elderly male who appears confused and in no acute distress. She is not experiencing any shortness of breath or difficulty breathing. No chest pain, palpitations or diaphoresis. No nausea, vomiting or abdominal pain. No diarrhea or constipation. No red blood per rectum. No dark tarry stools. No fever or chills. No recent inadvertent weight loss. All other review of systems are negative. PHYSICAL EXAMINATION: CHEST: Clear. Good breath sounds bilaterally. HEART: no murmurs. EXTREMITIES: There is ecchymosis as well as a massive swelling to the right knee with tenderness. There does appear to be limited range of motion at this time due to discomfort. Negative Homans sign. HEENT: No scleral icterus. No cervical lymphadenopathy. There is a periorbital ecchymosis as well as what appears to be a hematoma above the right eye. ABDOMEN: Soft, nontender, nondistended. There is a vertical lower abdomen line scar. SKIN: Warm, dry and pink. NEUROLOGIC: Awake, alert, oriented x3, but is on the year and does not appear to have consistent story with a recall of the events. ASSESSMENT AND PLAN: An 88-year-old female who suffered a one-level fall that was unwitnessed and suffered periorbital hematoma of the right eye, there was a contusion of the right knee. She was also found to have a urinary tract infection in the emergency room. At this time, we will admit the patient for neuro checks as well as proceed with PT and OT as well as pain management. We will continue to monitor the patient for any decline in neuro status as well as treat her with IV antibiotics for her urinary tract infection and consult hospitalist for medical management of her other medical problems. Job ID: [id number] DocumentID: [id number] Dictated Date: 05/27/2019 12:21:16 Radiation Protection Engineer Date: 05/27/2019 13:06:03 Dictated By: PREMA ROSA APRN
[2019-05-27 16:00] VITALS: BP 121/59
[2019-05-27 20:17] VITALS: BP 126/71
[2019-05-28] VITALS: BP 136/79
[2019-05-28] MEDS: fentaNYL INJECTION 100 MCG/2 ML AMP IVP PRN (00:24)
[2019-05-28] MEDS: 1/2 NS IV SOLUTION 1,000 ML IV SCH ×2 (01:33→15:33)
[2019-05-28 04:57] VITALS: BP 159/84
[2019-05-28] MEDS: TRIM/SULFAMETH 160/800 (SEPTRA DS) TAB PO SCH ×2 (06:39→17:19)
[2019-05-28 08:00] VITALS: BP 163/85
--- NOTE | 2019-05-28 08:30 | NUR ---
BP this AM of 163/85 prn BP mediation given
[2019-05-28] MEDS ORDERED: hydrALAZINE (APESOLINE) 20 MG/ML VIAL IV PRN (10:30)
[2019-05-28] MEDS ORDERED: ANTACID SUSP 30 ML UDC (MYLANTA) PO PRN (10:30)
[2019-05-28] MEDS ORDERED: ENALAPRIL 10 MG (VASOTEC) TAB PO ONE (10:30)
[2019-05-28] MEDS ORDERED: BISACODYL 10 MG SUPP (DULCOLAX) PR PRN (10:30)
[2019-05-28] MEDS ORDERED: POLYETHYLENE GLYCOL 17 GM (MIRALAX) PACK PO PRN (10:30)
[2019-05-28] MEDS ORDERED: ACETAMINOPHEN 325 MG TABLET PO PRN (10:30)
[2019-05-28] MEDS ORDERED: MELATONIN 3 MG TABLET PO PRN (10:30)
--- NOTE | 2019-05-28 10:32 | Progress Note ---
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 Colindres. Patient still confused. Patient reports does not know where she is at but does know the month, but not the year. Tolerating diet. Denies any pain or Headaches at this time. Objective Exam Vital Signs Date Time Temp Pulse Resp B/P (MAP) Pulse Ox O2 Delivery O2 Flow Rate FiO2 05/28/19 08:00 36.8 88 16 163/85 (111) 94 Nasal Cannula 1.50 05/28/19 08:00 93 Nasal Cannula 2.00 05/28/19 04:57 36.7 88 18 159/84 (109) 95 Nasal Cannula 1.50 05/28/19 00:00 36.8 88 20 136/79 (98) 93 Nasal Cannula 1.50 05/27/19 20:17 36.6 95 20 126/71 (89) 93 Nasal Cannula 1.50 05/27/19 20:00 Nasal Cannula 2.00 05/27/19 16:00 37.1 66 20 121/59 (79) 94 Nasal Cannula 1.50 05/27/19 12:00 37.5 65 20 109/55 (73) 94 Nasal Cannula 2.00 I & O 05/28/19 07:00 Intake Total 1772 ml Output Total 1550 ml Balance 222 ml Capillary Refill : Less Than 3 Seconds General Appearance: No Apparent Distress, WD/WN HEENT: Other (Right orbital brusing. Right forehead laceration with sutures in place C/D/I) Neck: Full Range of Motion, Normal Inspection, Non Tender, Supple Respiratory: Normal Breath Sounds, No Accessory Muscle Use, No Respiratory Distress Cardiovascular: Regular Rate, Rhythm, No Murmur Gastrointestinal: normal bowel sounds, non tender, soft Extremity: Normal Capillary Refill, Normal Range of Motion, Swelling (with brusing right knee.) Neurologic/Psychiatric: Alert, Normal Mood/Affect, Other (confused) Skin: Normal Color, Warm/Dry Results Lab Microbiology 05/27/19 Urine Culture - Preliminary, Resulted Escherichia coli Assessment/Plan Assessment/Plan Assess & Plan/Chief Complaint A 88 year old female with same level fall who suffered right forehead contusion and right knee, UTI VSS Patient does appear to be confused but unaware of normal mentation, but has UTI. Continue with medical management. May need SS for placement. 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
--- NOTE | 2019-05-28 10:40 | Consultation - Hospitalist ---
HPI History of Present Illness: HPI/Chief Complaint Rebecca Lemus is an 88-year-old female with past medical history of hypertension, hyperlipidemia, coronary artery disease, peripheral artery disease, who presented after a fall out of her chair at home and was admitted with a right knee hematoma. She reports that she just had a mechanical fall and she was in her chair. She was on the floor for an unknown amount of time. Her son found her on the floor. She denies any loss of consciousness. She did hit her head and has a right periorbital hematoma as well. She denies feeling lightheaded or dizzy. She denies any chest pain or palpitations. She denies any shortness of breath. She denies any fevers or chills. She denies any abdominal pain, nausea, vomiting, or diarrhea. Source: patient Exam Limitations: no limitations Date Seen 05/28/19 Attending Physician Mac Colindres MD PCP Georgia Jackson MD Referring Physician Date of Admission May 27, 2019 at 02:30 Home Medications & Allergies Home Medications Reviewed patient Home Medication Reconciliation performed by pharmacy medication reconciliations solids control technician and/or nursing. Patients Allergies have been reviewed. Allergies Allergies Coded Allergies No Known Drug Allergies (Verified08/13/09) Past Wrfcxuk-Qgppct-Hgtvet Hx Past Med/Social Hx: Reviewed Nursing Past Med/Soc Hx Patient Social History Alcohol Use: Occasionally Uses Number of Drinks Today: AA Alcohol Beverage of Choice: Beer Recreational Drug Use: No Smoking Status: Former Smoker Former Smoker, Quit: May 03, 2014 Type Used: Cigarettes Recent Foreign Travel: No Contact w/other who traveled: No Recent Hopitalizations: No Recent Infectious Disease Expo: No Immunizations Up To Date Tetanus Booster (TDap): Unknown Pediatric: No Date of Pneumonia Vaccine: Aug 16, 2012 Date of Influenza Vaccine: Mar 18, 2014 Past Medical History Surgeries: Abdominal, Appendectomy, Hysterectomy, Vascular Surgery Cardiac: High Cholesterol, Hypertension, Peripheral Vascular : No Reproductive: No Sexually Transmitted Disease: No HIV/AIDS: No Hysterectomy Genitourinary: Bladder Infection Musculoskeletal: Degenerate Disk Disease, Osteoporosis, Arthritis, Scoliosis, Fractures HEENT: Cataract History of Blood Disorders: No Family History PSH: PER OLD RECORDS, PT DOES NOT KNOW ANY OF HER PAST SURGERIES UNKNOWN ABDOMINAL SURGERY--METALLIC SURGICAL CLIPS NOTED IN PELVIS/LOWER ABDOMEN ON XRAYS, AND HAS A LOW MIDLINE VERTICAL SCAR. PT HAS HAD HYSTERECTOMY, APPENDECTOMY, AND BLADDER SUSPENSION PER OLD RECORDS PERIPHERAL ANGIOGRAMS IN 2015--MULTIPLE STENTS AND ANGIOPLASTIES BILATERAL LOWER EXTREMITIES--BILATERAL ILIAC STENTS, BILATERAL FEMORAL STENTS PERIPHERAL ANGIOGRAM 10/2011--ANGIOPLASTY OF RIGHT FEMORAL ARTERY Review of Systems Constitutional: no symptoms reported EENTM: no symptoms reported Respiratory: no symptoms reported Cardiovascular: no symptoms reported Gastrointestinal: no symptoms reported Genitourinary: no symptoms reported Musculoskeletal: joint pain Skin: other (bruising) Psychiatric/Neurological: No Symptoms Reported Physical Exam Physical Exam Vital Signs Vital Signs - First Documented 05/27/19 05/27/19 00:58 04:17 Temp 36.9 Pulse 67 Resp 20 B/P (MAP) 184/108 (133) Pulse Ox 97 O2 Delivery Nasal Cannula O2 Flow Rate 2.00 Capillary Refill : Less Than 3 Seconds Height, Weight, BMI Height: 5'5.00" Weight: 140lbs. 8.0oz. 63.762707ns; 21.64 BMI Method:Estimated General Appearance: No Apparent Distress, WD/WN HEENT: PERRL/EOMI, Pharynx Normal, Other (right periorbital hematoma) Neck: Normal Inspection, Supple Respiratory: Lungs Clear, Normal Breath Sounds, No Respiratory Distress Cardiovascular: Regular Rate, Rhythm, No Edema, No Murmur Gastrointestinal: Normal Bowel Sounds, Non Tender, Soft Extremity: Other (right knee swelling, bruising, and tenderness, with limited range of motion) Neurologic/Psychiatric: Alert, No Motor/Sensory Deficits, Normal Mood/Affect; No Disoriented Skin: Ecchymosis Results Results/Procedures Labs Laboratory Tests 05/27/19 01:09 05/27/19 08:05 Patient resulted labs reviewed. Imaging: Reviewed Imaging Report Assessment/Plan Assessment and Plan Assess & Plan/Chief Complaint Fall from chair Traumatic hematoma of right knee Periorbital hematoma right eye Trauma surgery admitted primary Trauma evaluation negative for acute fracture PT/OT consulted May require SNF on discharge Urinary tract infection UA consistent with UTI Started on Bactrim await urine culture Essential hypertension Resume enalapril hydralazine as needed CAD PAD Resume aspirin and Plavix when okay with surgery DVT prophylaxis: Pharmacologic prophylaxis held due to the hematoma, begin once okay with surgery Diagnosis/Problems Diagnosis/Problems (1) Fall from chair Status: Acute Qualifiers: Encounter type: initial encounter Qualified Codes: W07.XXXA - Fall from chair, initial encounter (2) Traumatic hematoma of right knee Status: Acute Qualifiers: Encounter type: initial encounter Qualified Codes: S80.01XA - Contusion of right knee, initial encounter (3) Periorbital hematoma of right eye Status: Acute (4) UTI (urinary tract infection) Status: Acute (5) HTN (hypertension) Status: Chronic Qualifiers: Hypertension type: essential hypertension Qualified Codes: I10 - Essential (primary) hypertension Clinical Quality Measures DVT/VTE Risk/Contraindication: Risk Factor Score Per Nursin RFS Level Per Nursing on Admit: 4+=Very High TITO LIRIANO MD May 28, 2019 10:40
[2019-05-28 12:00] VITALS: BP 140/74
[2019-05-28 16:00] VITALS: BP 123/79
[2019-05-28] MEDS: ONDANSETRON 4 MG (ZOFRAN) ORAL DISSOLVE TAB PO PRN (17:41)
[2019-05-28 20:00] VITALS: BP 132/79
[2019-05-28] MEDS: DOCUSATE SODIUM 100 MG (COLACE) CAP PO SCH (20:04)
[2019-05-28] MEDS: SENNOSIDES 8.6 MG (SENOKOT) TAB PO SCH (20:04)
[2019-05-29] VITALS: BP 129/61
[2019-05-29 04:24] VITALS: BP 106/61
[2019-05-29 06:01] LABS: BUN/CREATININE RATIO 14; CALCIUM 7.8 MG/DL (8.5-10.1); CARBON DIOXIDE 23 MMOL/L (21-32); CHLORIDE 100 MMOL/L (98-107); GFR ESTIMATED > 60; GLUCOSE 104 MG/DL (70-105); MAGNESIUM 1.6 MG/DL (1.6-2.4); POTASSIUM 3.2 MMOL/L (3.6-5.0); SODIUM 130 MMOL/L (135-145)
[2019-05-29] MEDS: TRIM/SULFAMETH 160/800 (SEPTRA DS) TAB PO SCH ×2 (06:32→21:30)
[2019-05-29 08:00] VITALS: BP 125/67
[2019-05-29] MEDS: ONDANSETRON 4 MG (ZOFRAN) ORAL DISSOLVE TAB PO PRN (08:38)
[2019-05-29] MEDS: SENNOSIDES 8.6 MG (SENOKOT) TAB PO SCH ×2 (08:38→21:29)
[2019-05-29] MEDS: 1/2 NS IV SOLUTION 1,000 ML IV SCH (08:38)
[2019-05-29] MEDS: DOCUSATE SODIUM 100 MG (COLACE) CAP PO SCH ×2 (08:38→21:23)
[2019-05-29] MEDS: ENALAPRIL 10 MG (VASOTEC) TAB PO SCH (08:38)
[2019-05-29] MEDS ORDERED: KCL 20 MEQ TAB (K-DUR) PO NR (09:11)
[2019-05-29] MEDS: NS W/KCL 20 MEQ/L 1,000 ML IV SCH (09:20)
[2019-05-29] MEDS ORDERED: CLOP75TA69 PO (10:54)
[2019-05-29] MEDS ORDERED: ESCI20TA PO (10:54)
[2019-05-29] MEDS ORDERED: PRAV10TA PO (10:54)
[2019-05-29] MEDS ORDERED: ENAL20TA PO (10:54)
[2019-05-29] MEDS ORDERED: MULT-974 PO (10:55)
[2019-05-29] MEDS ORDERED: KRIL1CAP PO (10:55)
[2019-05-29] MEDS ORDERED: ASPI-992 PO (10:55)
--- NOTE | 2019-05-29 11:50 | Physical Therapy Daily Note ---
PT Daily Note-Current Subjective Patient agreeable to therapy. Patient reports dizziness once she gets sitting that persisted while ambulating. Appearance Patient in recliner with call light and bedside table within reach. Patient family present. Mental Status Patient Orientation: Normal For Age Attachments: Landis Catheter, IV Transfers SCALE: Activities may be completed with or without assistive devices. 1-Cykikravci-vcogxoq completes the activity by him/herself with no assistance from a helper. 5-Set-up or Clean-up Assistance-helper sets up or cleans up; patient completes activity. [place] assists only prior to or following the activity. 4-Supervision or Touching Assistance-helper provides verbal cues and/or touching/steadying and/or contact guard assistance as patient completes activity. Assistance may be provided throughout the activity or intermittently. 3-Partial/Moderate Assistance-helper does LESS THAN HALF the effort. [place] lifts, holds or supports trunk or limbs, but provides less than half the effort. 2-Substantial/Maximal Assistance-helper does MORE THAN HALF the effort. [place] lifts or holds trunk or limbs and provides more than half the effort. 1-Zclypyyuy-wnjpsx does ALL the effort. Patient does none of the effort to complete the activity. Or, the assistance of 2 or more helpers is required for the patient to complete the activity. If activity was not attempted, code reason: 7-Patient Refused. 9-Not Applicable-not attempted and the patient did not perform the activity before the current illness, exacerbation or injury. 10-Not Attempted due to Environmental Limitations-(lack of equipment, weather restraints, etc.). 88-Not Attempted due to Medical Conditions or Safety Concerns. Roll Left & Right (QC): 6 Lying to Sitting/Side of Bed(Q: 6 Sit to Stand (QC): 4 CGA for safety Weight Bearing Right Lower Extremity: Right Weight Bearing/Tolerated Left Lower Extremity: Left Weight Bearing/Tolerated bedrest to bedside commode, with assistance Gait Training Does the Patient Walk?: Yes Distance: 10' Walk 10 feet (QC): 4 Gait Persons Needed: 1 Gait Assistive Device: FWW CGA for safety Wheelchair Training Does the Pt Use a Wheelchair?: No Exercises Seated Therapy Exercises: Ankle pumps (10 BLE), Long arc quads (10 BLE), Hip flexion (10 BLE) Treatments Ambulation, Transfer, Exercises. Assessment Current Status: Good Progress Patient was dizzy during ambulation and stated she felt weak. Patient was not able to walk far due to fatigue. Patient was unsteady while ambulating. PT Short Term Goals Short Term Goals Time Frame: Jun 02, 2019 Roll Left & Right: 5 Sit to lyin Lying to sitting on side of be: 5 Sit to stand: 5 Chair/gvc-dc-favjk transfer: 5 Toilet transfer: 5 Car transfer: 5 Walk 10 feet: 5 Walk 50 feet with two turns: 5 Walk 150 feet: 5 PT Plan Problem List Problem List: Activity Tolerance, Functional Strength, Safety, Balance, Gait, Transfer, Bed Mobility, ROM Treatment/Plan Treatment Plan: Continue Plan of Care Treatment Plan: Bed Mobility, Concurrent Therapy, Functional Activity Sahil, Functional Strength, Gait, Safety, Therapeutic Exercise, Transfers Treatment Duration: Jun 02, 2019 Frequency: 5 times per week Estimated Hrs Per Day: .25 hour per day Patient and/or Family Agrees t: Yes Safety Risks/Education Patient Education: Gait Training, Transfer Techniques Teaching Recipient: Patient Teaching Methods: Discussion Response to Teaching: Reinforcement Needed Time/GCodes Time In: 1034 Time Out: 1050 Total Billed Treatment Time: 16 Total Billed Treatment 1 visit FA (16 minutes) RIKKI FONTANEZ PT May 29, 2019 11:50
[2019-05-29 12:00] VITALS: BP 123/60
--- NOTE | 2019-05-29 12:17 | NUR ---
SPOKE WITH THE PT AND SPOKE WITH [facility] TO COMPLETE THE MED REC . PT WASNT SURE OF THE NAMES OR STRENGTHS OF HER MEDS, SO I CALLED [facility] TO VERIFY AND COMPLETED THE MED REC THAT WAY. OTC MEDS: MTBebo KRILL OIL EXCEDRIN
--- NOTE | 2019-05-29 13:53 | NUR ---
Pastoral care visit.
[2019-05-29 16:00] VITALS: BP 147/73
--- NOTE | 2019-05-29 16:05 | NUR ---
SS: Visited with pt and sons as to plan for discharge as per consult Plan: It is recommended that will need a skilled facility stay prior to returning to her apartment at [place] Summary: Visit with pt and sons as to her plan for discharge. Pt is somewhat open to go to a skilled facility before returning to her apartment at [place]. Pt will need three overnights to be eligible. Pt has been given a choice and would like [facility] and [facility]. Referral will be made to determine who can best meet pts needs.
--- NOTE | 2019-05-29 16:36 | Progress Note ---
Subjective Date Seen by a Provider: May 29, 2019 Time Seen by a Provider: 16:00 Subjective/Events-last exam doing ok. no change or complaints. slightly confused however baseline. no visual change/headache. Objective Exam Vital Signs Date Time Temp Pulse Resp B/P (MAP) Pulse Ox O2 Delivery O2 Flow Rate FiO2 05/29/19 14:43 Nasal Cannula 4.00 05/29/19 12:00 36.7 57 20 123/60 (81) 97 Nasal Cannula 4.00 05/29/19 08:00 Nasal Cannula 2.00 05/29/19 08:00 37.1 76 18 125/67 (86) 91 Nasal Cannula 4.00 05/29/19 04:24 37.1 75 18 106/61 (76) 99 Nasal Cannula 4.00 05/29/19 00:00 36.9 106 20 129/61 (83) 98 Nasal Cannula 4.00 05/28/19 20:00 37.4 89 20 132/79 (96) 93 Nasal Cannula 4.00 05/28/19 20:00 Nasal Cannula 2.00 I & O 05/29/19 07:00 Intake Total 2502 ml Output Total 1350 ml Balance 1152 ml Capillary Refill : Less Than 3 Seconds General Appearance: No Apparent Distress HEENT: PERRL/EOMI Neck: Full Range of Motion Respiratory: Chest Non Tender, Lungs Clear, Normal Breath Sounds Cardiovascular: Regular Rate, Rhythm Gastrointestinal: normal bowel sounds, non tender, soft Extremity: Normal Capillary Refill, Other (right knee hematoma) Neurologic/Psychiatric: Alert, Oriented x3 Skin: Normal Color Lymphatic: No Adenopathy Results Lab Laboratory Tests 05/29/19 04:55: Sodium Level 130L, Potassium Level 3.2L, Chloride Level 100, Carbon Dioxide Level 23, Anion Gap 7, Blood Urea Nitrogen 10, Creatinine 0.70, Estimat Glomeru lar Filtration Rate > 60, BUN/Creatinine Ratio 14, Glucose Level 104, Calcium Level 7.8L, Magnesium Level 1.6 Microbiology 05/27/19 Urine Culture - Final, Complete Escherichia coli Assessment/Plan Assessment/Plan Assess & Plan/Chief Complaint same level fall. monitor knee hematoma, may need evacuation. SS for placement. Clinical Quality Measures DVT/VTE Risk/Contraindication: Risk Factor Score Per Nursin RFS Level Per Nursing on Admit: 4+=Very High JERRY HORVATH MD May 29, 2019 16:36
[2019-05-29 20:00] VITALS: BP 133/61
[2019-05-29] MEDS: fentaNYL INJECTION 100 MCG/2 ML AMP IVP PRN (21:30)
[2019-05-29] MEDS: ONDANSETRON 4 MG/2 ML (SDV) Z0FRAN IV PRN (21:30)
[2019-05-30] MEDS: NS W/KCL 20 MEQ/L 1,000 ML IV SCH ×2 (00:12→12:02)
[2019-05-30 00:19] VITALS: BP 137/67
[2019-05-30 04:30] VITALS: BP 126/51
[2019-05-30 06:09] LABS: BUN/CREATININE RATIO 11; CALCIUM 8.2 MG/DL (8.5-10.1); CARBON DIOXIDE 19 MMOL/L (21-32); CHLORIDE 111 MMOL/L (98-107); CREATININE SERUM 0.72 MG/DL (0.60-1.30); GFR ESTIMATED > 60; GLUCOSE 89 MG/DL (70-105); POTASSIUM 4.1 MMOL/L (3.6-5.0); SODIUM 139 MMOL/L (135-145)
[2019-05-30] MEDS: TRIM/SULFAMETH 160/800 (SEPTRA DS) TAB PO SCH (06:17)
[2019-05-30 08:00] VITALS: BP 132/62
[2019-05-30] MEDS: ENALAPRIL 10 MG (VASOTEC) TAB PO SCH (08:39)
[2019-05-30] MEDS: DOCUSATE SODIUM 100 MG (COLACE) CAP PO SCH (08:39)
[2019-05-30] MEDS: SENNOSIDES 8.6 MG (SENOKOT) TAB PO SCH (08:39)
--- NOTE | 2019-05-30 08:41 | Progress Note ---
Subjective Date Seen by a Provider: May 29, 2019 Time Seen by a Provider: 08:40 Subjective/Events-last exam LATE ENTRY NOTE - PT SEEN ON 05/29/2019 - HER SON WAS IN THE ROOM WITH HER - SHE REPORTED THAT SHE WAS NOT FEELING GREAT, BUT BETTER THAN ON ADMISSION. SHE REPORTS THAT HER RIGHT KNEE CONTINUES TO HURT. WE DISCUSSED PLACEMENT OPTIONS - PT STATES "I WOULD RATHER JUST - I WANT TO BE DISCHARGED TO THE CEMETERY". SHE REPORTS THAT SHE REALLY DOES NOT WANT TO GO TO THE LONG TERM, BUT WILL CONSIDER A SHORT STAY AT THE LONG TERM. Review of Systems General: Fatigue; No Malaise HEENT: No Head Aches, No Visual Changes Pulmonary: Dyspnea; No Cough Cardiovascular: No: Chest Pain, Palpitations Gastrointestinal: No: Nausea, Abdominal Pain Genitourinary: Frequency Musculoskeletal: leg pain (RIGHT KNEE PAIN) Neurological: Weakness; No: Confusion Objective Exam Last Set of Vital Signs Vital Signs Date Time Temp Pulse Resp B/P (MAP) Pulse Ox O2 Delivery O2 Flow Rate FiO2 05/30/19 04:30 36.6 68 20 126/51 (76) 96 Nasal Cannula 2.00 Capillary Refill : Less Than 3 SecondsLess Than 3 Seconds I&O Intake and Output 05/30/19 00:00 Intake Total 2100 ml Output Total 1750 ml Balance 350 ml Intake Oral 1100 ml IV Total 1000 ml Output Urine Total 1750 ml General: Alert, Oriented X3, Cooperative, No Acute Distress HEENT: Other (BRUISING OVER BOTH EYES - RIGHT GREATER THANLEFT) Lungs: Clear to Auscultation Heart: Regular Rate Abdomen: Normal Bowel Sounds, Soft, No Tenderness Skin: Other (EXTENSIVE BRUISING ON RIGHT ABOVE AND BELOW EYE, LEFT EYEBROW, RIGHT KNEE) Neuro: Cranial Nerves 3-12 NL Psych/Mental Status: Mental Status NL, Mood NL Results Lab Laboratory Tests 05/30/19 05:33: Sodium Level 139, Potassium Level 4.1, Chloride Level 111H, Carbon Dioxide Level 19L, Anion Gap 9, Blood Urea Nitrogen 8, Creatinine 0.72, Estimat Glomerular Filtration Rate > 60, BUN/Creatinine Ratio 11, Glucose Level 89, Calcium Level 8.2L Microbiology 05/27/19 Urine Culture - Final, Complete Escherichia coli Assessment/Plan Assessment/Plan Assess & Plan/Chief Complaint FALLING EPISODE AT HOME ACUTE ECOLI URINARY TRACT INFECTION KNEE HEMATOMA HYPONATREMIA HYPOKALEMIA FALLING EPISODE AT HOME - RECOMMEND PLACEMENT FOR THERAPY AT LONG TERM ACUTE ECOLI URINARY TRACT INFECTION ON BACTRIM - WAITING ON CULTURE REPORT KNEE HEMATOMA - NEEDS THERAPY AND SUPPORTIVE CARE HYPONATREMIA AND HYPOKALEMIA STOPPED 1/2 NORMAL SALINE - PLACED PT ON NS +20MEQ POTASSIUM CHECK LABS IN MORNING ANTICIPATE DISCHARGE TO LONG TERM TOMORROW Clinical Quality Measures DVT/VTE Risk/Contraindication: Risk Factor Score Per Nursin RFS Level Per Nursing on Admit: 4+=Very High SHU CID MD May 30, 2019 08:41
--- NOTE | 2019-05-30 09:30 | Discharge Summary ---
Diagnosis/Chief Complaint Date of Admission May 27, 2019 at 02:30 Date of Discharge Discharge Summary Discharge Physical Examination Allergies: Coded Allergies: No Known Drug Allergies (Verified , 08/13/09) Vitals & I&Os Vital Signs Date Time Temp Pulse Resp B/P (MAP) Pulse Ox O2 Delivery O2 Flow Rate FiO2 05/30/19 04:30 36.6 68 20 126/51 (76) 96 Nasal Cannula 2.00 Hospital Course Pending Labs Laboratory Tests 05/30/19 05:33: Sodium Level 139, Potassium Level 4.1, Chloride Level 111, Carbon Dioxide Level 19, Anion Gap 9, Blood Urea Nitrogen 8, Creatinine 0.72, Estimat Glomerular Filtration Rate > 60, BUN/Creatinine Ratio 11, Glucose Level 89, Calcium Level 8.2 Discharge Instructions to patient/family Please see electronic discharge instructions given to patient. Discharge Medications Reviewed and agree with Discharge Medication list on patient's Discharge Instruction sheet Clinical Quality Measures DVT/VTE Risk/Contraindication: Risk Factor Score Per Nursin RFS Level Per Nursing on Admit: 4+=Very High SHU CID MD May 30, 2019 09:30
[2019-05-30] MEDS ORDERED: SULF1TAB35 PO (09:33)
[2019-05-30] MEDS ORDERED: ACET325T49 PO (09:33)
--- NOTE | 2019-05-30 09:35 | D/C HH Face to Face Order ---
D/C Face to Face Orders Reconcile Patient Problems Problems Reviewed?: Yes Instructions for Patient [facility], Patient Instructions/FollowUp: 1wk follow ujp with [facility] Physician to follow Patient: valeria Discharge Diet for Home: Regular Diet Patient Problems: hypertension urinary tract infection gait instability contusion right knee sutures above right eye Patient Data-Allergies,Ht & Wt Patient Allergies: Coded Allergies: No Known Drug Allergies (Verified , 08/13/09) Height (Feet): 5 Height (Inches): 5.00 Weight (Pounds): 140 Weight (Ounces): 8.0 Home Health Need/Face to Face Date of Face to Face: May 30, 2019 Clinical Findings: Generalized weakness and fatigue, Instability, Muscle weakness, Unsteady gait I have seen Pt iywr-nx-panm: Yes Discharged To: Home Diagnosis/Conditions: htn uti weakness gait instability Patient is Homebound due to: Danny fall risk due to instabilty, Muscle weakness Homebound Status Due to the above stated illness, injury or surgical procedure (medical condition or diagnosis) and associated clinical findings, the patient is homebound because of his/her inability to leave home except with aid of a suppor tive device and/or person AND leaving the home requires a considerable and taxing effort or is medically contraindicated. Pt req the following assistanc: Walker Home Health Nursing Orders Home Health Services Order: Nursing Services, Physical Therapy-Evaluate & Treat Home Health Infusion Therapy Line Start Date: May 27, 2019 Therapy Orders Therapy Orders: PT to assess for OT Therapy Specific Orders: Eval assistive deivces, Teach enviro modifications/safety, Increase strength/endurance Certify Stmt I certify that this patient is under my care and that I, a nurse practitioner or a physician; a clinical services assistant working with me, had a face to face encounter that - meets the physician face to face encounter requirements with this patient as dated. Medication List: Active Scripts Active Bactrim Ds Tablet (Sulfamethoxazole/Trimethoprim) 1 Each Tablet 1 Each PO BID Acetaminophen 325 Mg Tablet 650 Mg PO Q4H PRN Reported Excedrin Extra Strength Caplet (Aspirin/Acetaminophen/Caffeine) 1 Each Tablet 2 Each PO Q8H PRN Krill Oil 1,000 mg Softgel (Krill/Om3/Dha/Epa/Om6/Lip/Astx) 1 Each Capsule 1 Each PO DAILY Multi-Vitamin Daily (Multivitamin) 1 Each Tablet 1 Each PO DAILY Lexapro (Escitalopram Oxalate) 20 Mg Tablet 20 Mg PO DAILY Pravastatin Sodium 10 Mg Tablet 10 Mg PO DAILY Plavix (Clopidogrel Bisulfate) 75 Mg Tablet 75 Mg PO DAILY Enalapril Maleate 20 Mg Tablet 20 Mg PO DAILY Lab results: Laboratory Tests Test 05/30/19 05:33 Range/Units Sodium Level 139 135-145 MMOL/L Potassium Level 4.1 3.6-5.0 MMOL/L Chloride Level 111 H 98-107 MMOL/L Carbon Dioxide Level 19 L 21-32 MMOL/L Anion Gap 9 5-14 MMOL/L Blood Urea Nitrogen 8 7-18 MG/DL Creatinine 0.72 0.60-1.30 MG/DL Estimat Glomerular Filtration Rate > 60 BUN/Creatinine Ratio 11 Glucose Level 89 70-105 MG/DL Calcium Level 8.2 L 8.5-10.1 MG/DL My orders: Orders - SHU CID MD Attending Discharge Inpt/Inobs (05/30/19 09:30) SHU CID MD May 30, 2019 09:35
--- NOTE | 2019-05-30 11:08 | Physical Therapy Daily Note ---
PT Daily Note-Current Subjective Patient refuses to get up and walk at this time. Patient is agreeable to supine exercises. Appearance Patient in bed with call light and bedside table within reach. Family present. Mental Status Patient Orientation: Confused Attachments: Oxygen, IV Transfers SCALE: Activities may be completed with or without assistive devices. 3-Dnhhoskdtm-svianrf completes the activity by him/herself with no assistance from a helper. 5-Set-up or Clean-up Assistance-helper sets up or cleans up; patient completes activity. [place] assists only prior to or following the activity. 4-Supervision or Touching Assistance-helper provides verbal cues and/or touching/steadying and/or contact guard assistance as patient completes a ctivity. Assistance may be provided throughout the activity or intermittently. 3-Partial/Moderate Assistance-helper does LESS THAN HALF the effort. [place] lifts, holds or supports trunk or limbs, but provides less than half the effort. 2-Substantial/Maximal Assistance-helper does MORE THAN HALF the effort. [place] lifts or holds trunk or limbs and provides more than half the effort. 3-Btcuncqqo-qphgqp does ALL the effort. Patient does none of the effort to complete the activity. Or, the assistance of 2 or more helpers is required for the patient to complete the activity. If activity was not attempted, code reason: 7-Patient Refused. 9-Not Applicable-not attempted and the patient did not perform the activity before the current illness, exacerbation or injury. 10-Not Attempted due to Environmental Limitations-(lack of equipment, weather restraints, etc.). 88-Not Attempted due to Medical Conditions or Safety Concerns. Weight Bearing Right Lower Extremity: Right Weight Bearing/Tolerated Left Lower Extremity: Left Weight Bearing/Tolerated bedrest to bedside commode, with assistance Gait Training Does the Patient Walk?: No and Walking Goal IS indicated Wheelchair Training Does the Pt Use a Wheelchair?: No Exercises Supine Ex: Ankle pumps (15BLE), Quad Set (10BLE), Heel Slides (10BLE), Short Arc Quads (10BLE), Straight leg raise (10BLE) Treatments Exercises. Assessment Patient refuses to walk due to fatigue. Patient appeared confused at this time, she kept going back and forth between saying she is going back to home and going back to group home. PT Short Term Goals Short Term Goals Time Frame: Jun 02, 2019 Roll Left & Right: 5 Sit to lyin Lying to sitting on side of be: 5 Sit to stand: 5 Chair/yek-ya-cowqb transfer: 5 Toilet transfer: 5 Car transfer: 5 Walk 10 feet: 5 Walk 50 feet with two turns: 5 Walk 150 feet: 5 PT Plan Problem List Problem List: Activity Tolerance, Functional Strength, Safety, Balance, Gait, Transfer, Bed Mobility, ROM Treatment/Plan Treatment Plan: Continue Plan of Care Treatment Plan: Bed Mobility, Concurrent Therapy, Functional Activity Sahil, Fu nctional Strength, Gait, Safety, Therapeutic Exercise, Transfers Treatment Duration: Jun 02, 2019 Frequency: 5 times per week Estimated Hrs Per Day: .25 hour per day Patient and/or Family Agrees t: Yes Safety Risks/Education Patient Education: Safety Issues Teaching Recipient: Patient Teaching Methods: Discussion Response to Teaching: Reinforcement Needed Time/GCodes Time In: 1044 Time Out: 1054 Total Billed Treatment Time: 10 Total Billed Treatment 1 visit EX (10 minutes) RIKKI FONTANEZ PT May 30, 2019 11:07
[2019-05-30 12:00] VITALS: BP 121/75
[2019-05-30] MEDS: ONDANSETRON 4 MG/2 ML (SDV) Z0FRAN IV PRN (12:53)
[2019-05-30 13:22] VITALS: BP 121/75
--- NOTE | 2019-05-30 15:10 | NUR ---
CM/SS: Visited with pt as to plan for discharge Plan: Pt will return home with family to stay the with her and [facility] services Summary: Pt frustrated abut going home feeling she is weak. Hospital criteria explained. Dr Jackson has visited with pt as to her discharge today. Pt's son Miguel will stay with her until she is better. Pt will have [facility] [place] for follow up after her discharge. Information faxed to [facility] [place].
== END 2019-05-30 13:22 | disposition home health service (06) | DRG 580 ==
LOC: EDUNIT# 00:54 → ER 00:55 → 4TH 02:30
PROVIDERS: ADMIT Surgery; ATTEND Surgery
PROC: 0JQ10ZZ Repair Face Subcutaneous Tissue and Fascia, Open Approach (ICD-10-PCS; principal; 2019-05-27)
DX: S01.81XA Laceration without foreign body of other part of head, initial encounter (principal); S00.11XA Contusion of right eyelid and periocular area, initial encounter; S80.01XA Contusion of right knee, initial encounter; N39.0 Urinary tract infection, site not specified; B96.20 Unspecified Escherichia coli [E. coli] as the cause of diseases classified elsewhere; E87.1 Hypo-osmolality and hyponatremia; R26.81 Unsteadiness on feet; R41.0 Disorientation, unspecified; R53.1 Weakness; I10 Essential (primary) hypertension; I25.10 Atherosclerotic heart disease of native coronary artery without angina pectoris; I73.9 Peripheral vascular disease, unspecified; E78.00 Pure hypercholesterolemia, unspecified; E87.6 Hypokalemia; R53.83 Other fatigue; M81.0 Age-related osteoporosis without current pathological fracture; M41.9 Scoliosis, unspecified; M19.91 Primary osteoarthritis, unspecified site; W07.XXXA Fall from chair, initial encounter; Y92.039 Unspecified place in apartment as the place of occurrence of the external cause; Z23 Encounter for immunization; Z87.891 Personal history of nicotine dependence; Z95.820 Peripheral vascular angioplasty status with implants and grafts; Z90.710 Acquired absence of both cervix and uterus; Z90.49 Acquired absence of other specified parts of digestive tract
CPT/HCPCS: 36415; 51702; 70450; 70486; 71045; 72125; 72128; 72131; 72170; 73562; 80048; 80053; 81000; 83735; 85007; 85025; 85027; 85610; 85730; 87077; 87088; 87186; 90471; 90715; 93005; 93041; 96361; 96374; 96375